=== PATIENT | male | born 1940 | race Caucasian/White ===

== ENCOUNTER 2019-05-22 11:00 | Outpatient (RCR) | payer SELFPAY | END 2019-06-21 00:01 | LOC: CR 11:00 | PROVIDERS: Family Provider Family Medicine; Visit Provider Thoracic Surgery (Cardiothoracic Vascular Surgery) | DX: Z48.812 Encounter for surgical aftercare following surgery on the circulatory system (principal) ==

== ENCOUNTER 2019-07-22 15:00 | Outpatient (RCR) | payer SELFPAY | END 2019-07-22 23:59 | disposition home or self-care (01) | LOC: CR 15:00 | PROVIDERS: Family Provider Family Medicine; PCP Family Medicine; Referring Provider Thoracic Surgery (Cardiothoracic Vascular Surgery); Visit Provider Thoracic Surgery (Cardiothoracic Vascular Surgery) | DX: Z53.21 Procedure and treatment not carried out due to patient leaving prior to being seen by health care provider (principal) ==

== ENCOUNTER 2019-07-25 14:42 | Outpatient (RCR) | payer SELFPAY | END 2019-08-20 23:59 | disposition home or self-care (01) | LOC: CR 14:42 | PROVIDERS: Family Provider Family Medicine; PCP Family Medicine; Referring Provider Thoracic Surgery (Cardiothoracic Vascular Surgery); Visit Provider Thoracic Surgery (Cardiothoracic Vascular Surgery) | DX: Z95.1 Presence of aortocoronary bypass graft (principal) ==

== ENCOUNTER 2019-11-21 15:14 | Outpatient (RCR) | payer SELFPAY | END 2019-12-20 23:59 | disposition home or self-care (01) | LOC: CR 15:14 | PROVIDERS: Family Provider Family Medicine; PCP Family Medicine; Referring Provider Thoracic Surgery (Cardiothoracic Vascular Surgery); Visit Provider Thoracic Surgery (Cardiothoracic Vascular Surgery) | DX: Z95.1 Presence of aortocoronary bypass graft (principal) ==

== ENCOUNTER 2019-11-24 09:31 | Outpatient (CLI) | payer MEDICARE, OTHER, SELFPAY ==
--- NOTE | 2019-11-24 10:15 | USCV_ITS ---
QuispeAugusto tipton Age: 79 Gender: M : 1940 Exam Date: 11/24/2019 09:49 Ordering Phys: Ulisses Sweet MD ([email or web address]) Technologist: Bobbi Kidd Exam Location: [facility] [place] Indication: AAA HISTORY: Diameter (cm) AP x Transverse x Length Velocity (cm/s) Waveform Prox Aorta: 5.45 x 4.28 x 5.24 16.60 Mid Aorta: 4.84 x 5.06 x 4.70 15.90 Distal Aorta: 3.29 x 3.58 x 3.64 15.90 Right Iliac Prox: 1.17 x x 36.00 Left Iliac Prox: 0.93 x x 33.30 Stent Prox Landing x x Aneurysmal Sac Max x x Lt Lat Sac Dim Rt Lat Sac Dim Stent Dist Landing x x Right Iliac Stent x x Left Iliac Stent x x Right Renal Art Left Renal Art FINDINGS: Aneurysmal dilatation of the proximal, mid and distal abdominal aorta, measuring 5.45 x 4.28 proximally, 4.84 x 5.06 at the mid and 3.29 x 3.58 at the distal segments The proximal common iliac arteries were not well visualized. CONCLUSIONS 1. Aneurysmal dilatation of the proximal, mid and distal abdominal aorta, with no significant change, compared to the study from 02/09/2019. 2. The proximal common iliac arteries were not visualized well Dr Shania Calderon MD [facility] (Electronically Signed) Final Date: 24 November 2019 18:12 S
== END 2019-11-24 09:32 | disposition home or self-care (01) ==
LOC: RAD 09:36
PROVIDERS: Family Provider Family Medicine; PCP Family Medicine; Visit Provider Internal Medicine Cardiovascular Disease
DX: I71.4 Abdominal aortic aneurysm, without rupture (principal)
CPT/HCPCS: 93978

== ENCOUNTER 2019-12-21 | Outpatient (RCR) | payer SELFPAY | END 2020-01-20 23:00 | disposition home or self-care (01) | LOC: CR | PROVIDERS: PCP Family Medicine; Referring Provider Thoracic Surgery (Cardiothoracic Vascular Surgery); Visit Provider Thoracic Surgery (Cardiothoracic Vascular Surgery) | DX: Z95.1 Presence of aortocoronary bypass graft (principal) ==

== ENCOUNTER 2020-01-24 14:35 | Outpatient (RCR) | payer SELFPAY | END 2020-02-20 23:59 | disposition home or self-care (01) | LOC: CR 14:35 | PROVIDERS: Family Provider Family Medicine; PCP Family Medicine; Referring Provider Internal Medicine Cardiovascular Disease; Visit Provider Internal Medicine Cardiovascular Disease | DX: Z95.1 Presence of aortocoronary bypass graft (principal) ==

== ENCOUNTER 2020-02-08 22:49 | Emergency (ER) | payer MEDICARE, OTHER, SELFPAY ==
[2020-02-08 23:13] VITALS: BP 135/85; PULSE 72; RESP 18; TEMP 36.7; O2SAT 96; BMI 27.2
--- NOTE | 2020-02-09 00:35 | ED_ITS ---
HPI - Male Genitourinary General: Chief complaint: Urogenital-Male Stated complaint: blood in urine Time Seen by Provider: 02/09/20 00:27 Source: patient Mode of arrival: ambulatory Limitations: no limitations History of Present Illness: HPI Narrative: 79-year-old male who states he started having gross hematuria today. He does have a history of prostate cancer is in remission. He denies any pain. He denies any pain when he urinates denies any abdominal or flank pain. He is not on any blood thinners. He denies any worsening improving factors. Associated symptoms: Reports hematuria; Deny nausea or vomiting Review of Systems Const: Denies: fever(s), chills, body aches or change in appetite Eyes: Denies: blurry vision or eye discomfort ENMT: Denies: throat pain or dental pain Card: Denies: chest pain Resp: Denies: dyspnea GI: Denies: abdominal pain, nausea, vomiting or diarrhea : Reports: hematuria Musc: Denies: neck pain or back pain Skin/Breast: Denies: rash Neuro: Denies: headache(s) Psych: Denies: depression Aaron/Lymph: Denies: easy bruising All/Imm: Denies: urticaria PFSH ED PFSH: Medical History Abdominal aortic aneurysm (AAA) Aortic stenosis ASHD (arteriosclerotic heart disease) Carotid stenosis, bilateral HTN (hypertension) Hyperlipidemia Renal insufficiency Surgical History S/P CABG (coronary artery bypass graft) Family History Brother CAD (coronary artery disease) Other Hypertension Social History Smoking and tobacco status: former smoker Household members: spouse Marital status: service: No Current occupational status: retired Physical Exam Const: COMMON NORMALS: no acute distress, patient oriented x3 and healthy appearing HENMT: COMMON NORMALS: normocephalic and atraumatic HEAD & SCALP: normocephalic and atraumatic Eye: COMMON NORMALS: Equal, round and reactive pupils present and EOMs intact bilaterally PUPIL: Yes Equal, round and reactive pupils present Neck/C-Spine: COMMON NORMALS: full ROM and supple Chest: COMMONS NORMALS: normal inspection of the chest and normal palpation of entire chest wall Resp: COMMON NORMALS: normal respiratory effort, No retractions, No use of accessory muscles and clear to auscultation bilaterally AUSCULTATION: clear to auscultation bilaterally Cardio: COMMON NORMALS: regular rate, regular rhythm and No murmurs present (Cardio) RATE: regular rate RHYTHM: regular rhythm GI: COMMON NORMALS: Normal to inspection, nondistended, normoactive bowel sounds present, Soft to palpation, non-tender and no masses PALPATION: Yes Soft to palpation Extremity: COMMON NORMALS: normal to inspection and full ROM Neuro: COMMON NORMALS: patient oriented x3, moves all extremities and no focal motor deficits Psych: COMMON NORMALS: mental status grossly normal, Normal thought process present and cooperative THOUGHT PROCESS: Normal thought process present Skin: COMMON NORMALS: no rashes or lesions noted and no wounds GENERAL SKIN EXAM: no rashes or lesions noted Course Vital Signs: Vital signs: Vital Signs Temperature 98.0 F 02/08/20 23:13 Pulse Rate 72 02/08/20 23:13 Respiratory Rate 18 02/08/20 23:13 Blood Pressure 135/85 02/08/20 23:13 Pulse Oximetry 96 02/08/20 23:13 MDM - Male MDM Narrative: Medical decision making narrative: Patient presents here with hematuria that is gross hematuria. CT scan shows renal cyst. No other findings were noted. Patient's lab work here is normal as well. He is to follow-up with Dr. Jackson in 3 to 5 days. Patient is return if worsening. Lab Data: Labs: Lab Results 02/09/20 02/09/20 02/09/20 Range/Units 00:25 01:10 01:10 WBC 8.8 (4.0-10.0) 10^3/ uL RBC 4.18 (4.1-5.3) 10^6/u L Hgb 12.9 (11.7-16.6) g/dL Hct 40.0 L (42.0-52.0) % MCV 95.7 H (80-94) fL MCH 30.9 (28.0-34.0) pg MCHC 32.3 (30.0-36.0) g/dL RDW 13.0 (12.1-15.1) % Plt Count 176 (130-400) 10^3/c mm MPV 10.8 H (7.4-10.4) fL Neut % (Auto) 34.7 % Lymph % (Auto) 56.8 % [place] % (Auto) 6.4 % Eos % (Auto) 1.6 % Baso % (Auto) 0.3 % Neut # (Auto) 3.06 (1.8-7.7) 10^3/u L Lymph # (Auto) 5.0 H (0.8-4.8) 10^3/u L [place] # (Auto) 0.6 (0.2-0.9) 10^3/u L Eos # (Auto) 0.1 (0.0-0.8) 10^3/u L Baso # (Auto) 0.0 (0.0-0.1) 10^3/u L Nucleated RBC % (a uto) 0 % Nucleated RBCs # 0.0 /100WBC PT (12.1-14.9) SECO NDS INR (0.8-1.2) Sodium 138 (136-145) mmol/L Potassium 5.0 (3.5-5.1) mmol/L Chloride 106 (98-107) mmol/L Carbon Dioxide 23 (22-29) mmol/L Anion Gap 14.0 (5-19) BUN 24 H (8-23) mg/dL Creatinine 2.1 H (0.7-1.2) mg/dL GFR Calculation Not Reportable Glucose 112 (65-115) mg/dL Calculated Osmolal ity 284 L (285-295) mOsm/k g Calcium 9.4 (8.5-10.5) mg/dL Total Bilirubin 0.2 (0.15-1.2) mg/dL AST 28 (0-40) U/L ALT 24 (0-41) U/L Alkaline Phosphata se 116 (40-130) IU/L Total Protein 7.5 (6.6-8.7) g/dL Albumin 4.6 (3.5-5.2) g/dL Globulin 2.9 (1.3-4.6) g/dL Urine Color Red (Yellow) Urine Appearance Cloudy (CLEAR) Urine pH 6 (5-7) Ur Specific Gravit y 1.015 (1.005-1.030) Urine Protein Neg (Negative) Urine Glucose (UA) Norm (Normal) Urine Ketones Negative (Negative) Urine Blood 3+ H (Negative) Urine Nitrate Negative (Negative) Urine Bilirubin Neg (NEGATIVE) Urine Urobilinogen Norm (Negative) mg/dL Ur Leukocyte Yelitza ase Negative (Negative) Urine RBC >100 H (0-2) /hpf Urine WBC Rare (0-5) /hpf Ur Squamous Epith Cells Rare (0-5) Amorphous Sediment Not Reportable Urine Bacteria Trace (NONE) 02/09/20 Range/Units 01:10 WBC (4.0-10.0) 10^3/ uL RBC (4.1-5.3) 10^6/u L Hgb (11.7-16.6) g/dL Hct (42.0-52.0) % MCV (80-94) fL MCH (28.0-34.0) pg MCHC (30.0-36.0) g/dL RDW (12.1-15.1) % Plt Count (130-400) 10^3/c mm MPV (7.4-10.4) fL Neut % (Auto) % Lymph % (Auto) % [place] % (Auto) % Eos % (Auto) % Baso % (Auto) % Neut # (Auto) (1.8-7.7) 10^3/u L Lymph # (Auto) (0.8-4.8) 10^3/u L [place] # (Auto) (0.2-0.9) 10^3/u L Eos # (Auto) (0.0-0.8) 10^3/u L Baso # (Auto) (0.0-0.1) 10^3/u L Nucleated RBC % (a uto) % Nucleated RBCs # /100WBC PT 12.70 (12.1-14.9) SECO NDS INR 0.92 (0.8-1.2) Sodium (136-145) mmol/L Potassium (3.5-5.1) mmol/L Chloride (98-107) mmol/L Carbon Dioxide (22-29) mmol/L Anion Gap (5-19) BUN (8-23) mg/dL Creatinine (0.7-1.2) mg/dL GFR Calculation Glucose (65-115) mg/dL Calculated Osmolal ity (285-295) mOsm/k g Calcium (8.5-10.5) mg/dL Total Bilirubin (0.15-1.2) mg/dL AST (0-40) U/L ALT (0-41) U/L Alkaline Phosphata se (40-130) IU/L Total Protein (6.6-8.7) g/dL Albumin (3.5-5.2) g/dL Globulin (1.3-4.6) g/dL Urine Color (Yellow) Urine Appearance (CLEAR) Urine pH (5-7) Ur Specific Gravit y (1.005-1.030) Urine Protein (Negative) Urine Glucose (UA) (Normal) Urine Ketones (Negative) Urine Blood (Negative) Urine Nitrate (Negative) Urine Bilirubin (NEGATIVE) Urine Urobilinogen (Negative) mg/dL Ur Leukocyte Yelitza ase (Negative) Urine RBC (0-2) /hpf Urine WBC (0-5) /hpf Ur Squamous Epith Cells (0-5) Amorphous Sediment Urine Bacteria (NONE) Imaging Data: CT Abd/Pel: Radiologist's impression: [place] [address] CT Scan Report Signed Patient: Augusto Quispe Unit #: [id number] : 1940 Age/Sex: 79 / M ADM Date: 02/08/20 Loc: ER Room/Bed: Attending Dr: Ordering Provider/Ordering MD: Sebastian Mckee MD Date of Service: 02/09/20 Procedure(s): CT abdomen pelvis con 15705 Accession Number(s): [id number] Report Number: [id number] PROCEDURE INFORMATION: Exam: CT Abdomen And Pelvis Without Contrast Exam date and time: 02/09/2020 12:36 AM Age: 79 years old Clinical indication: Other: Gross hematuria; Patient HX: HX prostate CA TECHNIQUE: Imaging protocol: Computed tomography of the abdomen and pelvis without contrast. Radiation optimization: All CT scans at this facility use at least one of these dose optimization techniques: automated exposure control; mA and/or kV adjustment per patient size (includes targeted exams where dose is matched to clinical indication); or iterative reconstruction. COMPARISON: CTA Abdomen/Pelvis [id number] 03/05/2015 10:17 AM RADIATION DOSE METRICS: Total DLP (mGy-cm): 1248.58 FINDINGS: Lungs: Centrilobular emphysematous changes. Right lower lobe 5 cm nodule. Left lower lobe atelectasis. Liver: Normal. No mass. Gallbladder and bile ducts: Normal. No calcified stones. No ductal dilation. Pancreas: Normal. No ductal dilation. Spleen: Normal. No splenomegaly. Adrenals: Normal. No mass. Kidneys and ureters: Bilateral renal cysts, no follow-up advised. Stomach and bowel: Unremarkable. No obstruction. No mucosal thickening. Appendix: No evidence of appendicitis. Intraperitoneal space: Unremarkable. No free air. No significant fluid collection. Vasculature: 5.3 cm infrarenal abdominal aortic aneurysm without findings of rupture. Lymph nodes: Unremarkable. No enlarged lymph nodes. Bladder: Unremarkable as visualized. Reproductive: Unremarkable as visualized. Bones/joints: Unremarkable. No acute fracture. Soft tissues: Unremarkable. CT/CT abdomen pelvis con [id number] IMPRESSION: 1. Negative for acute inflammatory process in the abdomen or pelvis 2. Centrilobular emphysematous changes. 3. Right lower lobe 5 cm nodule. For patients at low risk (minimal or absent history of smoking and of other known risk factors), no routine follow-up is indicated. For patients at high risk (history of smoking or of other known risk factors), consider optional CT at 12 months. (Reanna et al., Fleischner Society, 2017) 4. Left lower lobe atelectasis. 5. Bilateral renal cysts, no follow-up advised. 6. 5.3 cm infrarenal abdominal aortic aneurysm without findings of rupture. Discharge Plan Discharge Patient Disposition: Home Clinical Impression: Hematuria Qualifiers: Hematuria type: gross Qualified Code(s): R31.0 - Gross hematuria Condition: Stable Prescriptions: No Action metoprolol tartrate 25 mg tablet 12.5 mg PO BID RF: 0 omeprazole 20 mg capsule,delayed release(DR/EC) 20 mg PO DAILY RF: 0 nitroglycerin [Nitrostat] 0.4 mg tablet, sublingual 0.4 mg SUBLINGUAL Q5M PRNRF: 0 Livalo 2 mg tablet 2 mg PO DAILY RF: 0 omega-3 fatty acids 1,000 mg capsule 1,000 mg PO DAILY RF: 0 magnesium oxide 400 mg magnesium capsule 400 mg PO DAILY RF: 0 aspirin [Aspir-81] 81 mg tablet,delayed release (DR/EC) 81 mg PO DAILY RF: 0 Centrum Silver Men 300-600-300 mcg tablet 1 tab PO DAILY RF: 0 Discharge Orders: Discharge Order (Routine); Ordered 02/09/20 Ordered By: Sebastian Mckee Referrals: Rober Jackson MD [Physician] - 1-3 days Andry Laurent MD [Primary Care Provider] - Discharge Diet: Advance as tolerated Discharge Activity: Resume usual activity Patient Instructions: Acute Hematuria (ED) Coding Level of Care Code ED Sales Financial Analyst for Chg Fwd Exam Comprehensive
[2020-02-09 01:04] LABS: Add Urine Microscopic? YES; Bilirubin Urine Neg (NEGATIVE); Blood Urine 3+ (Negative); Glucose Urine UA Norm (Normal); Ketones Urine Negative (Negative); Leukocyte Esterase Urine Negative (Negative); Nitrate Urine Negative (Negative); Protein Urine Neg (Negative); Specific Gravity, Urine 1.015 (1.005-1.030); Urine Appearance Cloudy (CLEAR); Urine Color Red (Yellow); Urobilinogen Urine Norm (Negative); pH Urine 6 (5-7)
[2020-02-09 01:05] LABS: Add Urine Culture? Yes; Bacteria Urine TRACE; RBC Urine >100 /hpf (0-2); Squamous Epithelial Cell Urine RARE (0-5); WBC Urine RARE /hpf (0-5)
[2020-02-09 01:22] LABS: Basophils % 0.3 %; Eosinophils # 0.1 10^3/uL (0.0-0.8); Eosinophils % 1.6 %; Hemoglobin 12.9 g/dL (11.7-16.6); Lymphocytes % 56.8 %; Mean Corpuscular HGB Conc 32.3 g/dL (30.0-36.0); Mean Corpuscular Hemoglobin 30.9 pg (28.0-34.0); Mean Corpuscular Volume 95.7 fL (80-94); Mean Platelet Volume 10.8 fL (7.4-10.4); Monocytes # 0.6 10^3/uL (0.2-0.9); Monocytes % 6.4 %; Neutrophils # 3.06 10^3/uL (1.8-7.7); Neutrophils % 34.7 %; Nucleated Red Blood Cells % 0 %; Platelet Count 176 10^3/cmm (130-400); Red Blood Count 4.18 10^6/uL (4.1-5.3); White Blood Count 8.8 10^3/uL (4.0-10.0)
[2020-02-09 01:34] LABS: INR 0.92 (0.8-1.2)
[2020-02-09 01:43] LABS: Alanine Aminotransferase 24 U/L (0-41); Albumin Level 4.6 g/dL (3.5-5.2); Alkaline Phosphatase 116 IU/L (40-130); Blood Urea Nitrogen 24 mg/dL (8-23); Calcium 9.4 mg/dL (8.5-10.5); Carbon Dioxide 23 mmol/L (22-29); Chloride 106 mmol/L (98-107); Globulin 2.9 g/dL (1.3-4.6); Glucose 112 mg/dL (65-115); Osmolality Calculated 284 mOsm/kg (285-295); Sodium 138 mmol/L (136-145); Total Bilirubin 0.2 mg/dL (0.15-1.2); Total Protein 7.5 g/dL (6.6-8.7)
[2020-02-09 01:44] LABS: Aspartate Amino Transferase 28 U/L (0-40)
[2020-02-09 02:12] VITALS: BP 132/74; PULSE 74; RESP 16; O2SAT 99
--- NOTE | 2020-02-09 10:24 | DCPLANNER ---
hotel recreational facilities manager had message to schedule follow up appointment for patient with Dr. Jackson. hotel recreational facilities manager called the office of Dr. Jackson, spoke with Shannon, gave clinic patients information. hotel recreational facilities manager was told that patients information would be printed and given to Talia for review. Clinic will call patient with appointment information.
--- NOTE | 2020-02-10 13:18 | DCPLANNER ---
Patient has a follow up appointment for patient with Dr. Jackson, scheduled for Thursday, March 19, 2020 at 8:00. Clinic will call patient with appointment information.
--- NOTE | 2020-03-01 07:49 | DCPLANNER ---
Patient had an appointment scheduled for 02.17.[address] Jackson - patient did attend the appointment.
== END 2020-02-09 02:13 | disposition home or self-care (01) ==
PROVIDERS: Emergency Provider Emergency Medicine; PCP Family Medicine
DX: R31.0 Gross hematuria (principal); Z79.82 Long term (current) use of aspirin; I10 Essential (primary) hypertension; E78.5 Hyperlipidemia, unspecified; Z95.1 Presence of aortocoronary bypass graft; Z87.891 Personal history of nicotine dependence
CPT/HCPCS: 12345; 74176; 80053; 81001; 85025; 85610; 87086; 99282; 99283

== ENCOUNTER → 2020-02-17 11:23 | Outpatient (BNVA) | payer MEDICARE, OTHER, SELFPAY | PROVIDERS: PCP Family Medicine; Visit Provider Urology | DX: N28.9 Disorder of kidney and ureter, unspecified (principal); R33.8 Other retention of urine; D49.4 Neoplasm of unspecified behavior of bladder; R31.0 Gross hematuria; I35.0 Nonrheumatic aortic (valve) stenosis; C61 Malignant neoplasm of prostate; R31.9 Hematuria, unspecified | CPT/HCPCS: 80053; 81001; 84153; 88112 ==

== ENCOUNTER 2020-02-21 14:56 | Outpatient (RCR) | payer OTHER, SELFPAY | END 2020-03-21 23:59 | disposition home or self-care (01) | LOC: CR 14:56 | PROVIDERS: Family Provider Family Medicine; PCP Family Medicine; Referring Provider Internal Medicine Cardiovascular Disease; Visit Provider Internal Medicine Cardiovascular Disease | DX: Z11.59 Encounter for screening for other viral diseases (principal); Z95.1 Presence of aortocoronary bypass graft | CPT/HCPCS: 87635 ==

== ENCOUNTER 2020-02-23 13:34 | Inpatient (IN) | payer MEDICARE, OTHER, SELFPAY ==
[2020-02-22 12:16] VITALS: BMI 27.2
--- NOTE | 2020-02-22 12:23 | ECG_ITS ---
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 Measurements Intervals [place] Rate: 63 P: 67 CT: 191 QRS: 42 QRSD: 79 T: 31 QT: 388 QTc: 399 Interpretive Statements SINUS RHYTHM NONSPECIFIC T-WAVE ABNORMALITY Compared to ECG 05/05/2018 05:48:34 T-wave abnormality now present Myocardial infarct finding no longer present Electronically Signed On 02-22-2020 18:51:39 CDT by Ravinder Fortune M.D. [id number]
--- NOTE | 2020-02-22 13:42 | ANES.PREANE2 ---
Pre-Anesthetic Assessment Pre-Anesthetic Assessment: Height/Weight: Height 1.7 m Weight 78.925 kg Preop Diagnosis: Newly diagnosed bladder lesion Proposed Procedure: Operation Date: 02/23/20 12:00 Proposed Procedures p Transurethral Resection Bladder Tumor 67591 D49.4(Not Applicable) - Rober Jackson MD s Cystoscopy(Not Applicable) - Rober Jackson MD Familial anesthetic complications: None Social: Social History: No alcohol and No tobacco Exam: Pre-Anes Outpt Exam: alert, oriented x 3, clear to auscultation bilaterally and regular rate & rhythm Airway: Cervical ROM: WNL MP: 2 Dentition: Chipped and Partials Pulmonary: Pulmonary: None reported CV/HEM: CV/HEM: HTN Comments: CABG X 3 in april with arango Aortics stenosis AAA : : Chronic renal Insufficiency GI: GI: GERD Anesthetic Plan: ASA status: 3 Anesthesia: General Risk of > 500 ml blood loss (7ml/kg in children): No PFSH Anesthesia PFSH: Medical History (Updated 02/17/20 @ 09:54 by Rober Jackson MD) Abdominal aortic aneurysm (AAA) Aortic stenosis ASHD (arteriosclerotic heart disease) Bladder tumor Carotid stenosis, bilateral HTN (hypertension) Hyperlipidemia Prostate CA Renal insufficiency Surgical History S/P CABG (coronary artery bypass graft) Family History Brother CAD (coronary artery disease) Other Hypertension Social History Smoking and tobacco status: former smoker Household members: spouse Marital status: service: No Current occupational status: retired Data Anesthesia Cardiac Studies: No Data to Display
[2020-02-23] VITALS (12 sets, daily range): BP systolic 113–168; BP diastolic 71–91; PULSE 66–88; RESP 15–19; TEMP 36.2–36.9; O2SAT 92–99
[2020-02-23] MEDS: sodium chloride 0.9% 1,000 ML 30 ML IV (10:45)
--- NOTE | 2020-02-23 11:34 | P.ANESUD_ITS ---
Pre-Anesthetic Update Pre-Anesthetic Assessment: Date of Surgery/Procedure: 02/23/20 Preop Karol gnosis: Newly diagnosed bladder lesion Proposed Procedure: Operation Date: 02/23/20 12:00 Proposed Procedures p Transurethral Resection Bladder Tumor 22534 D49.4(Not Applicable) - Rober Jackson MD s Cystoscopy(Not Applicable) - Rober Jackson MD Any changes to Pre-Anesthetic Assessment?: No Last Intake: Intake Last Liquid Date 02/22/20 Last Liquid Time 00:00 Last Solid Date 02/22/20 Last Solid Time 17:00 Vitals: Temperature 97.2 F L 02/23/20 10:40 Pulse Rate 66 02/23/20 10:40 Respiratory Rate 16 02/23/20 10:40 Blood Pressure 168/91 02/23/20 10:40 Blood Pressure Jesica n 116 02/23/20 10:40 Pulse Oximetry 98 02/23/20 10:40 Exam: Pre-Anes Outpt Exam: alert, oriented x 3, clear to auscultation bilaterally and regular rate & rhythm Other Pertinent Information: Other Pertinent Information: Took metoprolol this AM Cardiac Studies: No Data to Display
[2020-02-23] MEDS: levofloxacin-dextrose 5 % 500 MG/100 ML PREMIX 100 MG IV (12:25)
--- NOTE | 2020-02-23 12:27 | P.HPUD_ITS ---
Surgery/Procedure H&P Update DATE OF PROCEDURE: February 23, 2020 DATE H&P PERFORMED: 02/17/20 H&P UPDATE INFORMATION: I have reviewed H&P completed within last 30 days, I have examined patient prior to procedure, No changes to prior documentation and H&P is in [facility] EMR on date indicated PREOP DIAGNOSIS: Newly diagnosed bladder lesion PLANNED PROCEDURE: Operation Date: 02/23/20 12:00 Proposed Procedures p Transurethral Resection Bladder Tumor 92844 D49.4(Not Applicable) - Rober Jackson MD s Cystoscopy(Not Applicable) - Rober Jackson MD
--- NOTE | 2020-02-23 12:27 | P.OP_ITS ---
Operative Report Date of procedure: February 23, 2020 Pre-op Diagnosis: Newly diagnosed bladder lesion Post-op diagnosis: same Procedure Done: Cystoscopy, transurethral section of bladder tumor medium Implants: None Pathology: Bladder tumor resection Surgeon: Renetta Anesthesia: General Estimated blood loss: Minimal Urine output: Not measured Complications: None Findings: Papillary lesion near the left ureteral orifice close to the bladder neck as seen in clinic. Completely resected Condition: stable Disposition: PACU Brief History: Mr. Be is a very pleasant 79-year-old white male who I followed remotely for prostate cancer with no evidence of recurrence. Recently presented to the office after ER visit for gross hematuria. CT scan showed some bilateral renal cystic changes that appeared to be benign. Culture showed no evidence of infection. Creatinine was 2.1. Urinalysis showed 4-6 RBCs and his PSA was 1.4 with a small benign feeling ELIE. Cystoscopy revealed papillary lesion just inside the bladder neck on the left side near the left ureteral orifice and was suspicious for TCCA and for that reason he is being admitted now for TURBT Procedure: After routine preoperative evaluation examination and obtaining of informed consent he was taken to the operating suite on 02/23/2020 where general anesthesia was administered without difficulty after appropriate timeout was performed, SCDs confirmed to be functioning, preoperative antibiotics administered, beta-magi protocol confirmed. Prepped and draped in the usual sterile fashion in dorsolithotomy position pain careful attention to avoiding pressure points. 21 Luxembourgish cystoscope with 30 degree lens was introduced into the urethral meatus and advanced into the bladder under videoscopy. Bladder was systematically examined with both 30 and 70 degree lenses. The lesion identified in clinic was identified. No other areas of concern were found. Urethra then calibrated with Joanie sounds and easily accommodated 30 Luxembourgish. 2% lidocaine jelly was instilled into the urethra and a 25 [place]bourgish continuous flow resectoscope sheath with visual obturator in place was advanced into the bladder without difficulty. The super loop was utilized for resection the button probe for fulguration of the base. The lesion was completely resected deep into the bladder wall pain careful attention to avoiding resection on or near the orifice. The button probe was used to fulgurate the base. Samples were removed from the bladder with an Oncovision evacuator. At the final inspection the ureteral orifice was uninvolved in the resection and effluxing normally. Tolerated procedure well without complication. At completion of the procedure the bladder was drained with a catheter after confirming no specimens in the bladder and meticulous hemostasis. Awakened in the operating room and returned to the recovery room in stable condition. PLANS: 1. Maintain on observation status overnight
[2020-02-23] MEDS: lidocaine 2% Urojet 20 mL TOPICAL (13:05)
--- NOTE | 2020-02-23 13:27 | SUR.PHASEI ---
PT AWAKE ALERT ON RA TRIAL PT ALERT TALKATIVE DENIES PAIN AND NAUSEA, VSS PT TO GO TO FLOOR HOGAN PATENT OF SMALL AMT CLEAR YELLOW URINE.
--- NOTE | 2020-02-23 13:50 | PM.PACU ---
PACU note Post-Anesthesia Exam: awake and vital signs stable Disposition: admitted
--- NOTE | 2020-02-23 13:59 | SUR.PHASEI ---
1355 PT TO FLOOR MOVES SELF TO BED HOGAN PATENT OF MOD AMT CLEAR YELLOW URINE, VSS PT TALKATIVE, HANDOFF AT BEDSIDE BP 130/80, HR 78, RESP 18, SATS 93%
[2020-02-23] MEDS: sodium chloride 0.45% 1,000 ML 30 ML IV (14:36)
[2020-02-23 17:02] LABS: Glucose Point of Care 87 mg/dL (70-110)
[2020-02-23] MEDS: metoprolol tartrate 25 mg Tablet 12.5 MG PO (17:16)
--- NOTE | 2020-02-23 18:17 | PC.NURSE ---
END OF SHIFT SUMMARY pt arrived on the unit at 1359. pt has been able to take a nap off and on since pt arrived on the unit. pt able to take evening po meds well. pt has stated no needs at this time.
[2020-02-23] MEDS: HYDROcodone-acetaminophen 5-325 mg Tablet 1 TAB PO (22:04)
[2020-02-24] VITALS (7 sets, daily range): BP systolic 103–123; BP diastolic 62–81; PULSE 67–96; RESP 16–18; TEMP 36.9–37.3; O2SAT 92–94
--- NOTE | 2020-02-24 07:31 | ANE.PACU2 ---
Inpatient post-anesthesia follow up: Airway intact: Yes Vital signs: Temperature 98.4 F Pulse Rate 80 Respiratory Rate 18 Blood Pressure 123/77 Pulse Oximetry 92 Oxygen Delivery Me thod Room Air Oxygen Flow Rate 8 Fraction of Inspir ed Oxygen Hydration adequate: Yes Nausea and vomiting: No Pain level: 1 Mental status: Baseline
[2020-02-24] MEDS: metoprolol tartrate 25 mg Tablet 12.5 MG PO ×2 (08:35→17:49)
[2020-02-24] MEDS: omega-3 fatty acids 1,000 mg Capsule 1000 MG PO (08:36)
[2020-02-24] MEDS: pantoprazole DR 40 mg Tablet PO (08:36)
[2020-02-24] MEDS: atorvastatin 40 mg Tablet 20 MG PO (08:38)
--- NOTE | 2020-02-24 14:23 | PC.CHAP ---
Pastoral Care Encounter/Spiritual Assessment Type of Contact [] Declined pharmacy buyer visit [] Patient/Family/Request visit [] Outpatient visit [] Follow-up visit [] Physician referral [] Code/Alert [x] Routine visit [] Staff referral [] Actively dying [] Patient sleeping [] Family support [] [] Out of room [] Palliative care [] [] Receiving care in room [] Pre-surgical visit [] Trauma [] Long length of stay [] ICU visit [] Other: Relational/Emotional Strength [x] Patient feels connected with others/family/visitors/staff [] Distress [] Loneliness/isolation [] Abandonment Spirituality of Patient [] Person of Oralia [] Attends Hoahaoism of their Oralia [x] Believes in Prayer [] Reads Bible or Baptism materials [x] There are Spiritual issues to be addressed Extrusion Die Corrector Interventions [x] Prayer [x] Active listening [x] Non-anxious presence [x] Spiritual/emotional support [] Crisis/trauma care [] Spiritual counseling [] Bereavement support [] Provided bereavement packet [] Provided Bible/devotional materials [] Provided toy/stuffed animal, coloring book to patient or family member [] Provided Communion [] Anointing/[place] [] Salvation [x] Completed spiritual assessment [] Other: Impact on Illness or Injury [] Angry [] Fearful [x] Anxious [] Often cries [] Exhaustion [] Unable to work [] Unable to attend congregation [] Unable to walk/stand [] Unable to read [] Unable to drive [] Unable to eat/drink [] Unable to sleep [] Unable to be with family [] Patient intubated [] Other: Summary Patient discussed his procedure and that he felt good and was just waiting to see the doctor in hopes of being released soon. Patient indicated that he was very hot and that his temperature was normal. Nursing staff followed the pharmacy buyer in the room and turned the air conditioning temperature down 2 more degrees. Extrusion Die Corrector prayed with the patient and told him that if he needed anything from the chaplains to just let his nursing staff know and they would contact us. Patient was visited by Extrusion Die Corrector Willem Maravilla. Time spent with patient 8 minutes
--- NOTE | 2020-02-24 14:57 | PC.NURSE ---
1405 Dr Jackson instilled m. chemo in bladder. Dr said to see if he could see if pt can hold it until 1500, if not ok to remove early. Pt made it until 1440 and could not hold it any longer. removed chemo and put it in bio hazard container. Vogt removed with 10ml of ns removed. Pt tolerated it fine.
--- NOTE | 2020-02-24 16:27 | PC.NURSE ---
post void bladder scanner showed 117ml.
--- NOTE | 2020-02-24 17:01 | P.DS_ITS ---
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 Extended onto the bladder neck admitted for TURBT Hospital Course Discharge Summary: He was admitted on the day of the procedure 02/23/2020. Procedure went well. Intraoperative findings included an area of papillary change suspicious for TCCA. It measured approximately 4 cm in size for total area resected. It was close to but did not involve the left ureteral orifice. His urine remained clear overnight. On postoperative day #1 he received mitomycin 40 mg instillation into the bladder holding it for about an hour before being drained. The catheter was then removed. He did have spontaneous voiding but not complete emptying. This is probably a reflection of bladder neck swelling due to the resection. It was decided to maintain him overnight due to the retention and continue in and out catheterization with possible Vogt replacement On postoperative day #2 he still felt that he was not voiding adequately. He did volunteer that probably for the last year leading up to the point of surgery he had noted increasing lower urinary tract symptoms including: Urgency, urgency incontinence, decreased force of stream, feeling of incomplete emptying. Based on the location of the tumor extending up onto the bladder neck I expected he is experiencing some postoperative edema making it more difficult to void. TAMSULOSIN was initiated and will be continued at discharge. We will plan on daily dosing until 02/27/2020 and then begin twice a day dosing. I will plan on seeing him in the office on 03/01/2020 for voiding trial and pathology review. Discharged on postoperative day #2. Vogt catheter in place leg bag and night bag. Physical Exam Const: COMMON NORMALS: no acute distress, alert and well nourished GENERAL APPEARANCE: well kempt and well developed ORIENTATION/CONSCIOUSNESS: not confused Resp: COMMON NORMALS: normal respiratory effort EFFORT & INSPECTION: No labored and No Actively coughing Extremity: COMMON NORMALS: no clubbing, cyanosis or edema Neuro: SENSORIUM/ORIENTATION: Yes alert Psych: COMMON NORMALS: mental status grossly normal APPEARANCE: Yes grossly normal and Yes well kempt ATTITUDE: Yes calm and Yes engaged Skin: COMMON NORMALS: no rashes or lesions noted and no jaundice GENERAL SKIN EXAM: no rashes or lesions noted Urinary Catheter Management^: Vogt: Cath Placed During This Visit: yes Urinary Catheter Date of Insertion: 02/23/20 Urinary Catheter Time of Insertion: 13:00 Discharge Data Data Completed and Pending: Labs from last 24 hours 02/23/20 16:47 POC Glucose 87 Vitals: Last Vital Signs Temp 98.4 F 02/24/20 15:19 Pulse 81 02/24/20 15:19 Resp 18 02/24/20 15:19 BP 123/81 02/24/20 15:19 Pulse Ox 94 02/24/20 15:19 Discharge Plan Discharge Condition: Stable Prescriptions: New tamsulosin 0.4 mg capsule 0.4 mg PO BIDWM Qty: 60 RF: 5 sulfamethoxazole-trimethoprim 800-160 mg tablet 1 tab PO BID 7 Days Qty: 14 RF: 0 Continued metoprolol tartrate 25 mg tablet 12.5 mg PO BID RF: 0 omeprazole 20 mg capsule,delayed release(DR/EC) 20 mg PO DAILY RF: 0 Livalo 2 mg tablet 2 mg PO DAILY RF: 0 magnesium oxide 400 mg magnesium capsule 400 mg PO DAILY RF: 0 Centrum Silver Men 300-600-300 mcg tablet 1 tab PO DAILY RF: 0 Held omega-3 fatty acids 1,000 mg capsule 1,000 mg PO DAILY RF: 0 Hold Instructions: Resume on 03/09/20. aspirin [Aspir-81] 81 mg tablet,delayed release (DR/EC) 81 mg PO DAILY RF: 0 Hold Instructions: Resume on 03/09/20. Discharge Orders: Discharge Order (Routine); Ordered 02/24/20 Ordered By: Rober Jackson Referrals: Rober Jackson MD [Physician] - 03/01/20 10:15 am (Voiding trial, pathology report reviewed and consider the above information for this visit) Andry Laurent MD [Primary Care Provider] - 03/06/20 9:15 am (You have a hospital follow up appointment on March 06 at 9:15) Discharge Diet: Usual diet Discharge Activity: Limit activity as instructed Patient Instructions: Tamsulosin (By mouth), Hypertension, Transurethral Resection of Bladder Tumors (DC) Activity Restrictions/Additional Instructions: We will plan on a cystoscopy in follow-up of bladder lesion in about 2 months. We will do a voiding trial on 03/01/2020 in the morning. Should have the pathology report back by that time. Avoid lifting >10 pounds for 3 weeks Starting the TAMSULOSIN. While in the hospital. Swelling take it daily and then on Thursday the begin taking it twice a day Discharge Attestations Time Spent in Discharge Care*: greater than 30 min Quality Metrics Clinical Quality Measures During this hospital stay, did patient experience: None Coding Level of Care Code Acute Kiss Machine Operator for Chg Fwd Exam Detailed Diagnoses Bladder tumor D49.4 Postoperative urinary retention N99.89; R33.8 BPH loc w urin obs/LUTS N40.1
--- NOTE | 2020-02-24 17:06 | PM.PN ---
Subjective Subjective: Interval history: Urology follow-up Postoperative day #1 TURBT. Urine is clear. No significant complaints. No chest pain shortness of breath etc. PROCEDURE: Intravesical chemotherapy instillation. 40 mg of mitomycin and 40 cc normal saline instilled into the bladder per protocol. Drained every roughly 1 hour. Tolerated well. 6 bottle void ordered. As the day progressed he voided some but not to completion. PVR measured about 200 cc. Was offered a catheter indwelling with possible discharge versus continue intermittent catheterization and he chose the latter. We will change to inpatient status overnight and likely discharge tomorrow hopefully without a catheter. Also will initiate TAMSULOSIN. Reevaluate in the morning for possible discharge or catheter placement and discharge Medications: Reviewed: Yes Vitals/I&O/Wt Last Vital Signs Temp 98.4 F 02/24/20 15:19 Pulse 81 02/24/20 15:19 Resp 18 02/24/20 15:19 BP 123/81 02/24/20 15:19 Pulse Ox 94 02/24/20 15:19 02/24/20 02/24/20 02/24/20 06:59 14:59 22:59 Intake Total 520 / 520 Output Total 1075 / 1075 300 / 300 30 / 330 Balance -1075 / -735 220 / 220 -30 / 190 Physical Exam Const: COMMON NORMALS: no acute distress and alert : OTHER: Urine is clear Neuro: SENSORIUM/ORIENTATION: Yes alert Psych: COMMON NORMALS: mental status grossly normal, Normal thought process present and cooperative ATTITUDE: Yes calm and Yes engaged THOUGHT PROCESS: Normal thought process present Urinary Catheter Management^: Vogt: Cath Placed During This Visit: yes Urinary Catheter Date of Insertion: 02/23/20 Urinary Catheter Time of Insertion: 13:00 A&P Assessment and plan (1) Bladder tumor: Status: Acute Attestations Medical Necessity Statement*: Changing to inpatient status due to retention postoperatively. We will continue intermittent catheterization tonight. He will be receiving care extending beyond 2 midnights. Coding Level of Care Code Acute Zigzag Elastic Attacher for Martha Enamorado Diagnoses Bladder tumor D49.4
[2020-02-24] MEDS: tamsulosin 0.4 mg Capsule PO (17:49)
[2020-02-25] VITALS: BP 121/71; PULSE 112; RESP 16; TEMP 37; O2SAT 96
[2020-02-25 04:00] VITALS: BP 139/85; PULSE 116; RESP 16; TEMP 36.8; O2SAT 95
[2020-02-25 07:28] VITALS: BP 125/83; PULSE 105; RESP 18; TEMP 37; O2SAT 93
[2020-02-25] MEDS: tamsulosin 0.4 mg Capsule PO (08:09)
[2020-02-25] MEDS: pantoprazole DR 40 mg Tablet PO (08:09)
[2020-02-25] MEDS: metoprolol tartrate 25 mg Tablet 12.5 MG PO (08:09)
[2020-02-25] MEDS: omega-3 fatty acids 1,000 mg Capsule 1000 MG PO (08:09)
[2020-02-25] MEDS: atorvastatin 40 mg Tablet 20 MG PO (08:11)
[2020-02-25 08:14] VITALS: BP 125/83; PULSE 105; RESP 18; TEMP 37; O2SAT 93
[2020-02-25 11:15] VITALS: BP 100/67; PULSE 90; RESP 18; TEMP 36.8; O2SAT 96
== END 2020-02-25 11:36 | disposition home or self-care (01) | DRG 669 ==
LOC: MEDSURG 13:34
PROVIDERS: Admitting Provider Urology; Family Provider Family Medicine; PCP Family Medicine; Visit Provider Urology
PROC: 0TBB8ZZ Excision of Bladder, Via Natural or Artificial Opening Endoscopic (ICD-10-PCS; principal; 2020-02-23 12:00)
PROC: 0TJB8ZZ Inspection of Bladder, Via Natural or Artificial Opening Endoscopic (ICD-10-PCS; CPT 52000; 2020-02-23 12:00)
DX: D49.4 Neoplasm of unspecified behavior of bladder (principal); N13.8 Other obstructive and reflux uropathy; N40.1 Benign prostatic hyperplasia with lower urinary tract symptoms; Z79.82 Long term (current) use of aspirin
CPT/HCPCS: 12345; 36416; 51702; 51798; 82962; 93005; G0378; J1956; J2370; J2405; J2704; J3010; J3490; J7030; J9280

== ENCOUNTER 2020-03-12 06:21 | Emergency (ER) | payer MEDICARE, OTHER, SELFPAY ==
[2020-03-12 06:26] VITALS: BP 151/92; PULSE 79; RESP 18; TEMP 36.3; O2SAT 99; BMI 27.4
--- NOTE | 2020-03-12 06:57 | ED_ITS ---
HPI - Abdominal Pain General: Chief Complaint: Abdominal Pain Stated Complaint: RIGHT SIDE PAIN Time Seen by Provider: 03/12/20 06:44 History of Present Illness: HPI narrative: 79-year-old male presents to the emergency room with complaint of right flank pain right-sided abdominal pain. He said he has had it for 4 to 5 years he seen his primary care doctor who advised him to drink water when he gets the pain when he drinks water it does seem to alleviate the pain. Recently began and was more intense on the right side of the abdomen migrated into the back is not had a fever denies dysuria no respiratory symptoms denies constipation or diarrhea. ER visit where she was noted to have hematuria. Please refer to Dr. Jackson did a cystoscopy found a mass in the bladder and he was taken to surgery the mass was biopsied and approximately a month ago the patient had a resection. Patient has done well since then he states he still awaiting the biopsy results. Pathology results in the chart states atypical cells suspicious for malignancy. MD elicited complaint: abdominal pain Pertinent past history: other (AAA) Onset (ago): year(s) (4-5) Pain Consistency: intermittent Location: RUQ Severity: moderate Quality: cramping Radiation: R flank Migration to: R flank Exacerbating factors: movement Relieving factors: nothing Associated Symptoms: Denies anorexia, belching, bloating, change in bowel habits, change in stool character, chills, coffee ground emesis, constipation, GI cramping, diarrhea, dyspepsia, dysuria, excessive flatus, fever(s), heartburn, hematochezia, hematuria, hematemesis, fecal incontinence, loose stools, melena, nausea, poor appetite, syncope and vomiting Review of Systems Const: Denies: fever(s) or chills ENMT: Denies: throat pain, ear or mastoid pain, nasal discharge or nasal congestion Card: Denies: syncope Resp: Denies: dyspnea, productive cough or non-productive cough GI: Denies: nausea, vomiting, hematemesis, coffee ground emesis, heartburn, diarrhea, constipation, bloating, GI cramping, belching, excessive flatus, fecal incontinence, change in bowel habits, change in stool character, hematochezia or melena : Denies: dysuria or hematuria Skin/Breast: Denies: rash or pruritus PFSH ED PFSH: Medical History Abdominal aortic aneurysm (AAA) Aortic stenosis ASHD (arteriosclerotic heart disease) Bladder tumor BPH loc w urin obs/LUTS Carotid stenosis, bilateral HTN (hypertension) Hyperlipidemia Prostate CA Renal insufficiency Surgical History S/P CABG (coronary artery bypass graft) Family History Brother CAD (coronary artery disease) Other Hypertension Social History Smoking and tobacco status: former smoker Household members: spouse Marital status: service: No Current occupational status: retired Physical Exam Const: COMMON NORMALS: no acute distress GENERAL APPEARANCE: cooperative and comfortable ORIENTATION/CONSCIOUSNESS: Yes awake, Yes oriented to person, Yes oriented to place and Yes oriented to time HENMT: COMMON NORMALS: normocephalic, atraumatic and hearing grossly normal bilaterally HEAD & SCALP: normocephalic and atraumatic Eye: COMMON NORMALS: Equal, round and reactive pupils present, EOMs intact bilaterally, conjunctivae normal and no scleral icterus CONJUNCTIVA: Yes conjunctivae normal PUPIL: Yes Equal, round and reactive pupils present Neck/C-Spine: COMMON NORMALS: full ROM, no lymphadenopathy, supple and no JVD Lymph: LYMPHATIC: no lymphadenopathy noted and no lymphedema noted Resp: COMMON NORMALS: normal respiratory effort, No retractions, No use of a ccessory muscles and clear to auscultation bilaterally AUSCULTATION: clear to auscultation bilaterally Cardio: COMMON NORMALS: no JVD, regular rate, regular rhythm and No murmurs present (Cardio) RATE: regular rate RHYTHM: regular rhythm GI: COMMON NORMALS: Soft to palpation and No hepatosplenomegaly present AUSCULTATION: Yes normoactive bowel sounds PALPATION: Yes Soft to palpation, No Tenderness to palpation present (GI), No Guarding due to palpation present (GI) and Yes No hepatosplenomegaly present : COMMON NORMALS: Yes no CVA tenderness BLADDER/KIDNEY EXAM: Yes no CVA tenderness Back/Pelvis: COMMON NORMALS: no CVA tenderness Extremity: COMMON NORMALS: normal to inspection, capillary refill normal, no clubbing, cyanosis or edema, no calf tenderness and no pedal edema Neuro: SENSORIUM/ORIENTATION: Yes oriented to person, Yes oriented to place and Yes oriented to time Skin: COMMON NORMALS: no rashes or lesions noted GENERAL SKIN EXAM: no rashes or lesions noted Course Vital Signs: Vital signs: Vital Signs Temperature 97.3 F L 03/12/20 06:26 Pulse Rate 74 03/12/20 10:30 Respiratory Rate 18 03/12/20 10:30 Blood Pressure 129/89 03/12/20 10:30 Pulse Oximetry 97 03/12/20 10:30 MDM - Abdominal Pain MDM Narrative: Medical decision making narrative: Reviewed findings with the patient. His creatinine is elevated but it is at his baseline. No evidence of pyelonephritis clinically does have mild bladder infection suspect this was causing a lot of his symptoms. We will go ahead and start him on Cipro 500 mg t wice daily for 5 days gave 1 g of Rocephin here start Cipro tomorrow if he has worsening or changes symptoms he should return to the emergency room. Lab Data: Labs: Lab Results 03/12/20 03/12/20 03/12/20 Range/Units 06:50 08:11 08:11 WBC 7.9 (4.0-10.0) 10^3/ uL RBC 3.89 L (4.1-5.3) 10^6/u L Hgb 12.1 (11.7-16.6) g/dL Hct 37.1 L (42.0-52.0) % MCV 95.4 H (80-94) fL MCH 31.1 (28.0-34.0) pg MCHC 32.6 (30.0-36.0) g/dL RDW 13.1 (12.1-15.1) % Plt Count 199 (130-400) 10^3/c mm MPV 9.9 (7.4-10.4) fL Neut % (Auto) 41.1 % Lymph % (Auto) 51.6 % [place] % (Auto) 5.3 % Eos % (Auto) 1.3 % Baso % (Auto) 0.4 % Neut # (Auto) 3.25 (1.8-7.7) 10^3/u L Lymph # (Auto) 4.1 (0.8-4.8) 10^3/u L [place] # (Auto) 0.4 (0.2-0.9) 10^3/u L Eos # (Auto) 0.1 (0.0-0.8) 10^3/u L Baso # (Auto) 0.0 (0.0-0.1) 10^3/u L Nucleated RBC % (a uto) 0 % Nucleated RBCs # 0.0 /100WBC Sodium 136 (136-145) mmol/L Potassium 4.6 (3.5-5.1) mmol/L Chloride 103 (98-107) mmol/L Carbon Dioxide 23 (22-29) mmol/L Anion Gap 14.6 (5-19) BUN 18 (8-23) mg/dL Creatinine 2.2 H (0.7-1.2) mg/dL GFR Calculation Not Reportable Glucose 118 H (65-115) mg/dL Calculated Osmolal ity 285 (285-295) mOsm/k g Calcium 9.9 (8.5-10.5) mg/dL Total Bilirubin 0.5 (0.15-1.2) mg/dL AST 22 (0-40) U/L ALT 22 (0-41) U/L Alkaline Phosphata se 125 (40-130) IU/L Total Protein 7.6 (6.6-8.7) g/dL Albumin 4.6 (3.5-5.2) g/dL Globulin 3.0 (1.3-4.6) g/dL Lipase 53 (13-60) U/L Urine Color Straw (Yellow) Urine Appearance Sl hazy (CLEAR) Urine pH 6.5 (5-7) Ur Specific Gravit y 1.005 (1.005-1.030) Urine Protein Neg (Negative) Urine Glucose (UA) Norm (Normal) Urine Ketones Negative (Negative) Urine Blood Neg (Negative) Urine Nitrate Negative (Negative) Urine Bilirubin Neg (Negative) Urine Urobilinogen Norm (Negative) mg/dL Ur Leukocyte Yelitza ase 2+ H (Negative) Urine RBC 0-4 H (0-2) /hpf Urine WBC 25-40 H (0-5) /hpf Ur Squamous Epith Cells Rare (0-5) /hpf Amorphous Sediment Not Reportable Urine Bacteria Trace (NONE) /hpf Urine Mucus Trace /hpf Discharge Plan Discharge Patient Disposition: Home Clinical Impression: Cystitis, Bladder tumor Condition: Stable Prescriptions: New Cipro 500 mg tablet 500 mg PO BID Qty: 10 RF: 0 No Action metoprolol tartrate 25 mg tablet 12.5 mg PO BID RF: 0 omeprazole 20 mg capsule,delayed release(DR/EC) 20 mg PO DAILY RF: 0 Livalo 2 mg tablet 2 mg PO DAILY RF: 0 omega-3 fatty acids 1,000 mg capsule 2,000 mg PO BID RF: 0 Hold Instructions: Resume on 03/09/20. magnesium oxide 400 mg magnesium capsule 400 mg PO DAILY RF: 0 aspirin [Aspir-81] 81 mg tablet,delayed release (DR/EC) 81 mg PO DAILY RF: 0 Hold Instructions: Resume on 03/09/20. Centrum Silver Men 300-600-300 mcg tablet 1 tab PO DAILY RF: 0 tamsulosin 0.4 mg capsule 0.4 mg PO BIDWM Qty: 60 RF: 5 carvedilol 3.125 mg Tablet 3.125 mg PO BID RF: 0 Discharge Orders: Discharge Order (Routine); Ordered 03/12/20 Ordered By: Darian Eric Referrals: Andry Laurent MD [Primary Care Provider] - Discharge Diet: Usual diet Discharge Activity: Increase activity as tolerated Activity Restrictions/Additional Instructions: Follow-up with your primary care doctor if not improving. If you have worsening symptoms return to the emergency room. Discharge Date/Time: 03/12/20 10:30 Coding Level of Care Code ED Computer Systems Technology Instructor for Martha Fwd Exam Comprehensive
--- NOTE | 2020-03-12 07:12 | CT_ITS ---
WS: [id number] CT ABDOMEN PELVIS TECHNIQUE: Noncontrast CT of the abdomen and pelvis with coronal and sagittal reformatted images. CLINICAL INFORMATION: abd pain COMPARISON: February 09, 2020 DLP: 598.[address] scans at [facility] use at least one of these dose optimization techniques: automat ed exposure control; mA and/or kV adjustment per patient size (includes targeted exams where dose is matched to clinical indication); or iterative reconstruction. FINDINGS: Infrarenal abdominal aortic aneurysm measuring 5.0 x 5.0 cm x 8.1 cm appears unchanged from previous. Ectatic common iliac arteries bilaterally. No inflammatory stranding about the abdominal aorta. Nonc ontrast liver is normal. Tiny calculi in the gallbladder. Small esophageal hiatal hernia. Sternotomy. Bibasilar atelectasis. Adrenal glands are normal. Right renal cysts the largest measuring 8.9 x 9.9 c m unchanged. No hydronephrosis. Bilateral renal cortical atrophy. Increased attenuation lesion upper pole right kidney measuring 1.9 cm is unchanged and appears increased in size since 2015. Solid renal neoplasm not excluded. Recommend interval follow-up with ultrasound. Fatty atrophy of the pancreas. Normal sigmoid colon. No evidence of small or large bowel obstruction. CT/CT abdomen pelvis wo con [id number] IMPRESSION: 1. Infrarenal abdominal aortic aneurysm measuring 5.0 x 5.0 x 8.1 cm AP by tra nsverse by craniocaudal unchanged since the prior examination. 2. Cholelithiasis. 3. Multiple bilateral renal cysts largest in the right measuring 8.9 x 9.9 cm. 4. Suspected solid renal lesion upper pole right kidney measuring 1.9 CM. Smal l renal neoplasm not excluded. Recommend follow-up with ultrasound. 5. No evidence of small or large bowel obstruction. Normal sigmoid colon. 6. Small esophageal hiatal hernia. 7. No other significant changes from previous. Attempted notification Darian Eric DO at 03/12/2020 9:39 AM.
[2020-03-12 07:21] LABS: Add Urine Microscopic? YES; Bilirubin Urine Neg (Negative); Blood Urine Neg (Negative); Glucose Urine UA Norm (Normal); Ketones Urine Negative (Negative); Leukocyte Esterase Urine 2+ (Negative); Nitrate Urine Negative (Negative); Protein Urine Neg (Negative); Specific Gravity, Urine 1.005 (1.005-1.030); Urine Appearance SL Hazy (CLEAR); Urine Color Straw (Yellow); Urobilinogen Urine Norm (Negative); pH Urine 6.5 (5-7)
[2020-03-12 07:26] LABS: Add Urine Culture? Yes; Bacteria Urine TRACE /hpf; Mucus Urine TRACE /hpf; RBC Urine 0-4 /hpf (0-2); Squamous Epithelial Cell Urine RARE /hpf (0-5); WBC Urine 25-40 /hpf (0-5)
[2020-03-12 08:16] LABS: Basophils % 0.4 %; Eosinophils # 0.1 10^3/uL (0.0-0.8); Eosinophils % 1.3 %; Hematocrit 37.1 % (42.0-52.0); Hemoglobin 12.1 g/dL (11.7-16.6); Lymphocytes # 4.1 10^3/uL (0.8-4.8); Lymphocytes % 51.6 %; Mean Corpuscular HGB Conc 32.6 g/dL (30.0-36.0); Mean Corpuscular Hemoglobin 31.1 pg (28.0-34.0); Mean Corpuscular Volume 95.4 fL (80-94); Mean Platelet Volume 9.9 fL (7.4-10.4); Monocytes # 0.4 10^3/uL (0.2-0.9); Monocytes % 5.3 %; Neutrophils # 3.25 10^3/uL (1.8-7.7); Neutrophils % 41.1 %; Nucleated Red Blood Cells % 0 %; Platelet Count 199 10^3/cmm (130-400); Red Blood Count 3.89 10^6/uL (4.1-5.3); Red Cell Distribution Width 13.1 % (12.1-15.1); White Blood Count 7.9 10^3/uL (4.0-10.0)
[2020-03-12 08:33] LABS: Alanine Aminotransferase 22 U/L (0-41); Albumin Level 4.6 g/dL (3.5-5.2); Alkaline Phosphatase 125 IU/L (40-130); Anion Gap 14.6 (5-19); Aspartate Amino Transferase 22 U/L (0-40); Blood Urea Nitrogen 18 mg/dL (8-23); Calcium 9.9 mg/dL (8.5-10.5); Carbon Dioxide 23 mmol/L (22-29); Chloride 103 mmol/L (98-107); Glucose 118 mg/dL (65-115); Lipase 53 U/L (13-60); Osmolality Calculated 285 mOsm/kg (285-295); Potassium 4.6 mmol/L (3.5-5.1); Sodium 136 mmol/L (136-145); Total Bilirubin 0.5 mg/dL (0.15-1.2); Total Protein 7.6 g/dL (6.6-8.7)
[2020-03-12] MEDS: lidocaine 1% INJ 20 mL 2.1 ML IM (09:59)
[2020-03-12] MEDS: cefTRIAXone 1,000 mg SDV 1000 MG IM (09:59)
[2020-03-12 10:30] VITALS: BP 129/89; PULSE 74; RESP 18; O2SAT 97
== END 2020-03-12 10:30 | disposition home or self-care (01) ==
PROVIDERS: Emergency Provider Family Medicine; PCP Family Medicine
DX: N30.90 Cystitis, unspecified without hematuria (principal); D49.4 Neoplasm of unspecified behavior of bladder; Z79.82 Long term (current) use of aspirin; I10 Essential (primary) hypertension; E78.5 Hyperlipidemia, unspecified; Z85.46 Personal history of malignant neoplasm of prostate; Z95.1 Presence of aortocoronary bypass graft; Z87.891 Personal history of nicotine dependence
CPT/HCPCS: 12345; 74176; 80053; 81001; 83690; 85025; 87086; 96372; 99282; J0696

== ENCOUNTER 2020-03-23 10:14 | Outpatient (RCR) | payer SELFPAY | END 2020-04-21 23:59 | disposition home or self-care (01) | LOC: CR 10:14 | PROVIDERS: PCP Family Medicine; Referring Provider Internal Medicine Cardiovascular Disease; Visit Provider Internal Medicine Cardiovascular Disease | DX: Z95.1 Presence of aortocoronary bypass graft (principal) ==

== ENCOUNTER → 2020-04-30 10:16 | Outpatient (BNVA) | payer MEDICARE, OTHER, SELFPAY | PROVIDERS: PCP Family Medicine; Visit Provider Urology | DX: D49.4 Neoplasm of unspecified behavior of bladder (principal); N40.1 Benign prostatic hyperplasia with lower urinary tract symptoms | CPT/HCPCS: 81003 ==

== ENCOUNTER 2020-05-24 10:27 | Outpatient (RCR) | payer SELFPAY | END 2020-06-21 23:59 | disposition home or self-care (01) | LOC: CR 10:27 | PROVIDERS: PCP Family Medicine; Referring Provider Internal Medicine Cardiovascular Disease; Visit Provider Internal Medicine Cardiovascular Disease | DX: Z95.1 Presence of aortocoronary bypass graft (principal) ==

== ENCOUNTER 2020-07-24 10:07 | Outpatient (RCR) | payer SELFPAY | END 2020-08-19 23:59 | disposition home or self-care (01) | LOC: CR 10:07 | PROVIDERS: PCP Family Medicine; Referring Provider Internal Medicine; Visit Provider Internal Medicine | DX: Z95.1 Presence of aortocoronary bypass graft (principal) ==

== ENCOUNTER → 2020-07-31 10:07 | Outpatient (BNVA) | payer MEDICARE, OTHER, SELFPAY | PROVIDERS: PCP Family Medicine; Visit Provider Urology | DX: D49.4 Neoplasm of unspecified behavior of bladder (principal); C67.0 Malignant neoplasm of trigone of bladder; C61 Malignant neoplasm of prostate | CPT/HCPCS: 81003 ==

== ENCOUNTER 2020-08-20 08:52 | Outpatient (RCR) | payer SELFPAY | END 2020-09-19 23:59 | disposition home or self-care (01) | LOC: CR 08:52 | PROVIDERS: PCP Family Medicine; Referring Provider Internal Medicine; Visit Provider Internal Medicine | DX: Z95.1 Presence of aortocoronary bypass graft (principal) ==

== ENCOUNTER 2020-09-14 09:01 | Outpatient (CLI) | payer MEDICARE, OTHER, SELFPAY ==
--- NOTE | 2020-09-14 09:30 | USCV_ITS ---
Jose EnriqueAugusto Age: 80 Gender: M : 1940 Exam Date: 09/14/2020 09:29 Ordering Phys: Julio César Payton M.D ([email or web address]) Technologist: Kim Bradley Exam Location: [facility] [place] Indication: KNOWN AAA HISTORY: Diameter (cm) AP x Transverse x Length Velocity (cm/s) Waveform Prox Aorta: 4.90 x 5.38 x 99.80 Mid Aorta: 5.09 x 5.25 x 83.20 Distal Aorta: 2.96 x 3.45 x 33.10 Right Iliac Prox: 1.21 x 1.57 x 81.00 Left Iliac Prox: 1.17 x 1.70 x 59.50 Stent Prox Landing x x Aneurysmal Sac Max x x Lt Lat Sac Dim Rt Lat Sac Dim Stent Dist Landing x x Right Iliac Stent x x Left Iliac Stent x x Right Renal Art Left Renal Art FINDINGS: Comparison:. 11/24/19. A fusiform abdominal aortic aneurysm is noted with a maximal diameter of 5.3 cm. No evidence of periaortic fluid is detected. Thrombus is noted in the aneurysm. There are no findings to suggest rupture of the abdominal aortic aneurysm. There is no evidence of a right common iliac artery aneurysm. There is no evidence of a left common iliac artery aneurysm. CONCLUSIONS Large stable AAA, maximum diameter of 5.[address] Naa Metz DO (Electronically Signed) Final Date: 14 September 2020 09:52 S
== END 2020-09-14 09:02 | disposition home or self-care (01) ==
PROVIDERS: PCP Family Medicine; Visit Provider Internal Medicine
DX: I71.4 Abdominal aortic aneurysm, without rupture (principal)
CPT/HCPCS: 93978

== ENCOUNTER 2020-09-20 13:42 | Outpatient (RCR) | payer SELFPAY | END 2020-10-19 23:59 | disposition home or self-care (01) | LOC: CR 13:42 | PROVIDERS: PCP Family Medicine; Referring Provider Internal Medicine; Visit Provider Internal Medicine | DX: Z95.1 Presence of aortocoronary bypass graft (principal) ==

== ENCOUNTER 2020-10-22 09:02 | Outpatient (RCR) | payer SELFPAY | END 2020-11-19 23:59 | disposition home or self-care (01) | LOC: CR 09:02 | PROVIDERS: PCP Family Medicine; Referring Provider Internal Medicine; Visit Provider Internal Medicine | DX: Z95.1 Presence of aortocoronary bypass graft (principal) ==

== ENCOUNTER 2020-11-02 08:44 | Outpatient (CLI) | payer MEDICARE, OTHER, SELFPAY ==
--- NOTE | 2020-11-02 09:30 | USCV_ITS ---
Jose Enrique Augusto Age: 80 Gender: M : 1940 Exam Date: 11/02/2020 09:24 Ordering Phys: Jose Grove MD (Andy) ([email or web address]) Technologist: Amanda Singh Exam Location: [facility] [place] Indication: Nonrheumatic aortic valve stenosis BP: 110 / 70 HR: 59 Rhythm: Sinus Technical Quality: Technically difficult study MEASUREMENTS (Male / Female) Normal Values 2D ECHO LV Diastolic Diameter PLAX 2.9 cm 4.2 - 5.9 / 3.9 - 5.3 cm LV Systolic Diameter PLAX 1.8 cm IVS Diastolic Thickness 1.3 cm 0.6 - 1.0 / 0.6 - 0.9 cm IVS Systolic Thickness 2.2 cm LVPW Diastolic Thickness 1.3 cm 0.6 - 1.0 / 0.6 - 0.9 cm LVPW Systolic Thickness 1.7 cm RV Chamber Size 2.9 cm LVOT Diameter 2.0 cm LV Ejection Fraction 2D Teich 68.0 % LV Ejection Fraction MOD 2C 58.2 % LV Ejection Fraction 2C AL 59.2 % LA Diameter 3.7 cm LA Width 3.3 cm LA Height 3.4 cm RA Width 2.9 cm RA Height 3.9 cm Aorta at Sinotubular Diameter 2.4 cm M-MODE LV Diastolic Diameter MM 3.3 cm 4.2 - 5.9 / 3.9 - 5.3 cm LV Systolic Diameter MM 2.4 cm LV Ejection Fraction MM Teich 56.7 % IVS Diastolic Thickness MM 1.0 cm 0.6 - 1.0 / 0.6 - 0.9 cm IVS Systolic Thickness MM 1.3 cm LVPW Diastolic Thickness MM 1.1 cm 0.6 - 1.0 / 0.6 - 0.9 cm LVPW Systolic Thickness MM 1.1 cm Aortic Annulus Diameter 2.9 cm LA Ao Ratio MM 1.2 MV E Point Septal Separation 0.6 cm DOPPLER AV Peak Velocity 219.0 cm/s LVOT Peak Velocity 92.0 cm/s AV Area Cont Eq vti 1.1 cm squared AV Area Cont Eq pk 1.3 cm squared MV Area PHT 3.8 cm squared Mitral E to A Ratio 0.8 MV E' Velocity 44.8 cm/s Mitral E to MV E' Ratio 9.9 Mitral E to LV E' Lateral Ratio 8.5 Mitral E to LV E' Septal Ratio 12.1 TR Peak Velocity 278.0 cm/s TR Peak Gradient 30.9 mmHg TV Peak E Velocity 68.0 cm/s Right Atrial Pressure 3.0 mmHg Pulmonary Artery Systolic Pressu 33.9 mmHg PV Peak Velocity 105.0 cm/s RV Acceleration Time 0.1 s RV Ejection Time 0.3 s RV AcT/ET 0.2 FINDINGS Left Ventricle Normal left ventricular size and systolic function, EF 57 %. Mild left ventricular hypertrophy. No regional wall motion abnormalities. Normal diastolic function. Grade I/IV diastolic dysfunction (abnormal relaxation filling pattern), normal to mildly elevated filling pressures. Right Ventricle The right ventricle is normal in size and function. Right Atrium The right atrium is normal in size. Left Atrium The left atrium is normal in size. Mitral Valve Trace mitral valve regurgitation. Aortic Valve Moderate aortic valve calcification. Mild to moderate aortic valve stenosis. The peak velocity across the aortic valve is 2.62 m/s with a peak gradient of 28 and a mean gradient of 11 mm Hg Tricuspid Valve Trace to mild tricuspid valve regurgitation. Pulmonic Valve Mild pulmonary valve regurgitation. Pericardium Normal pericardium without effusion. Aorta Normal ascending aorta dimension. CONCLUSIONS Normal left ventricular size and systolic function, EF 57 %. Mild left ventricular hypertrophy. No regional wall motion abnormalities. Normal diastolic function. Grade I/IV diastolic dysfunction (abnormal relaxation filling pattern), normal to mildly elevated filling pressures. Moderate aortic calcinosis the valve area of 1.2 cm2. Peak velocity of 2.62 m/s with a peak gradient of 28 and a mean gradient of 11 mmHg. Trace to mild tricuspid valve regurgitation. Trace mitral valve regurgitation. There is no pericardial effusion. There are no intracardiac masses. Comparison with the previous study is difficult because of the difference in the technical quality. Dr Shania Calderon MD [facility] (Electronically Signed) Final Date: 02 Nov 2020 18:49 S
== END 2020-11-02 08:45 | disposition home or self-care (01) ==
LOC: RAD 08:52
PROVIDERS: PCP Family Medicine; Visit Provider Thoracic Surgery (Cardiothoracic Vascular Surgery)
DX: I35.0 Nonrheumatic aortic (valve) stenosis (principal)
CPT/HCPCS: 93306

== ENCOUNTER → 2020-11-07 07:38 | Day surgery (SDC) | payer MEDICARE, OTHER, SELFPAY ==
[2020-11-07] MEDS: sodium chloride 0.9% 1,000 ML 750 ML IV ×3 (07:45→10:56)
[2020-11-07 07:57] VITALS: BP 108/69; PULSE 61; RESP 18; TEMP 36.4; O2SAT 98
--- NOTE | 2020-11-07 09:00 | CT_ITS ---
WS: [id number] CTA ABDOMEN PELVIS TECHNIQUE: Contrast enhanced CTA of the abdominal aorta with coronal and sagittal reformatted images and additional MIP Images. CLINICAL INFORMATION: I71.4 - Abdominal aortic aneurysm, without rupture COMPARISON: CT March 12, 2020 DLP: 782.[address] scans at [facility] use at least one of these dose optimization techniques: automat ed exposure control; mA and/or kV adjustment per patient size (includes targeted exams where dose is matched to clinical indication); or iterative reconstruction. FINDINGS: Infrarenal abdominal aortic aneurysm with eccentric mural thrombus. The abdominal aneurysm measures a pproximately 4.8 x 5.0 x 8.3 cm AP by transverse by craniocaudal. This is not significantly changed s johnny April 11, 2020. Celiac and SMA are normal. Normal left renal artery. Moderate stenosis right renal artery origin. Ane urysmal left common iliac artery measuring 1.7 CM. Diffuse fatty infiltration liver. Tiny gallstones or sludge in gallbladder. Gallbladder is contracted . Fatty atrophy of the pancreas. Adrenal glands are normal. Multicystic kidneys bilaterally. Largest cyst lower pole right kidney measuring 8.8 x 9.9 similar to previous. Heterogeneously enhancing parti ally calcified exophytic left renal lesion measuring 1.7 cm suspicious for neoplasm. This can be furt her evaluated with ultrasound. No hydronephrosis left kidney. No evidence of small or large bowel obstruction. No abdominal or pelvic lymphadenopathy. No inguinal lymphadenopathy. Subsegmental atelectasis in the lung bases. Sternotomy. Fat-containing umbilical her regulo. Small esophageal hiatal hernia. CT/CT angio abdomen pelvis [id number] IMPRESSION: 1. Lobulated infrarenal abdominal aortic aneurysm unchanged March 12, 2020 . This measures approximately 4.8 x 5.0 x 8.3 cm AP by transverse by craniocaud al 2. 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 3. Multicystic right kidney with the largest cyst lower pole measuring 9.9 x 8 .8 cm previous. 4. Heterogeneously enhancing exophytic left renal lesion with calcifications s uspicious for neoplasm measuring 1.6 cm. This can be further evaluated with ult rasound. 5. No other significant changes from previous. 6. Small esophageal hiatal hernia.
[2020-11-07] MEDS: iodixanol 320 mg/mL 100mL Btl IV (09:26)
--- NOTE | 2020-11-07 09:41 | PC.NURSE ---
Pt returned to GI lab following CT scan. 2 L NS to be infused as ordered. Pt tolerating well.
== END ==
PROVIDERS: PCP Family Medicine; Visit Provider Thoracic Surgery (Cardiothoracic Vascular Surgery)
DX: I35.0 Nonrheumatic aortic (valve) stenosis (principal)
CPT/HCPCS: 74174; 96360; 96361; J7030; Q9967

== ENCOUNTER → 2020-11-12 10:14 | Outpatient (BNVA) | payer MEDICARE, OTHER, SELFPAY | PROVIDERS: PCP Family Medicine; Visit Provider Urology | DX: C67.0 Malignant neoplasm of trigone of bladder (principal); Z98.890 Other specified postprocedural states | CPT/HCPCS: 81003 ==

== ENCOUNTER 2020-11-20 13:29 | Outpatient (RCR) | payer SELFPAY | END 2020-12-19 23:59 | disposition home or self-care (01) | LOC: CR 13:29 | PROVIDERS: PCP Family Medicine; Referring Provider Internal Medicine; Visit Provider Internal Medicine | DX: Z95.1 Presence of aortocoronary bypass graft (principal) ==

== ENCOUNTER 2020-12-20 13:28 | Outpatient (RCR) | payer SELFPAY | END 2021-01-19 23:59 | disposition home or self-care (01) | LOC: CR 13:28 | PROVIDERS: PCP Family Medicine; Referring Provider Internal Medicine; Visit Provider Internal Medicine | DX: Z95.1 Presence of aortocoronary bypass graft (principal) ==

== ENCOUNTER 2021-01-24 14:01 | Outpatient (RCR) | payer SELFPAY | END 2021-02-19 23:59 | disposition home or self-care (01) | LOC: CR 14:01 | PROVIDERS: PCP Family Medicine; Referring Provider Internal Medicine; Visit Provider Internal Medicine | DX: Z95.1 Presence of aortocoronary bypass graft (principal) ==

== ENCOUNTER 2021-02-21 14:56 | Outpatient (RCR) | payer SELFPAY | END 2021-03-21 23:59 | disposition home or self-care (01) | LOC: CR 14:56 | PROVIDERS: PCP Family Medicine; Referring Provider Internal Medicine; Visit Provider Internal Medicine | DX: Z95.1 Presence of aortocoronary bypass graft (principal) ==

== ENCOUNTER → 2021-03-14 10:05 | Outpatient (BNVA) | payer MEDICARE, OTHER, SELFPAY | PROVIDERS: PCP Family Medicine; Visit Provider Urology | DX: N40.1 Benign prostatic hyperplasia with lower urinary tract symptoms (principal); C67.0 Malignant neoplasm of trigone of bladder | CPT/HCPCS: 81003 ==

== ENCOUNTER 2021-03-22 10:34 | Outpatient (RCR) | payer SELFPAY | END 2021-04-21 23:59 | disposition home or self-care (01) | LOC: CR 10:34 | PROVIDERS: PCP Family Medicine; Referring Provider Internal Medicine; Visit Provider Internal Medicine | DX: Z95.1 Presence of aortocoronary bypass graft (principal) ==

== ENCOUNTER 2021-04-22 14:36 | Outpatient (RCR) | payer SELFPAY | END 2021-05-21 23:59 | disposition home or self-care (01) | LOC: CR 14:36 | PROVIDERS: PCP Family Medicine; Referring Provider Internal Medicine; Visit Provider Internal Medicine | DX: Z95.1 Presence of aortocoronary bypass graft (principal) ==

== ENCOUNTER 2021-05-22 13:43 | Outpatient (RCR) | payer SELFPAY | END 2021-06-21 23:59 | disposition home or self-care (01) | LOC: CR 13:43 | PROVIDERS: PCP Family Medicine; Referring Provider Internal Medicine; Visit Provider Internal Medicine | DX: Z95.1 Presence of aortocoronary bypass graft (principal) ==

== ENCOUNTER 2021-06-04 08:55 | Outpatient (CLI) | payer MEDICARE, OTHER, SELFPAY ==
--- NOTE | 2021-06-04 09:09 | ECG_ITS ---
[facility] Test Date: 2021-06-04 Pat Name: Augusto Quispe Department: Room: Gender: Male Tableau Analyst: : 1940 Requested By: Pradip Mercado Order Number: [id number] Tatianna MD: Shania Calderon M.D. Measurements Intervals [place] Rate: 61 P: 61 MT: 175 QRS: 42 QRSD: 82 T: 41 QT: 370 QTc: 375 Interpretive Statements SINUS RHYTHM POSSIBLE LEFT ATRIAL ENLARGEMENT [-0.1mV P WAVE IN V1/V2] POSSIBLE RIGHT VENTRICULAR CONDUCTION DELAY [RSR (QR) IN V1/V2] Compared to ECG 02/22/2020 12:56:05 T-wave abnormality no longer present Electronically Signed On 06-05-2021 0:21:05 SUPPLY ANALYST by Shania Calderon M.D. [id number]
== END 2021-06-04 08:56 | disposition home or self-care (01) ==
LOC: RT 08:57
PROVIDERS: PCP Family Medicine; Visit Provider Specialist
DX: D48.5 Neoplasm of uncertain behavior of skin (principal)
CPT/HCPCS: 93005

== ENCOUNTER 2021-06-24 11:24 | Outpatient (RCR) | payer MEDICARE, SELFPAY | END 2021-07-22 23:59 | disposition home or self-care (01) | LOC: CR 11:24 | PROVIDERS: PCP Family Medicine; Referring Provider Internal Medicine; Visit Provider Internal Medicine | DX: Z95.1 Presence of aortocoronary bypass graft (principal) ==

== ENCOUNTER 2021-06-26 11:21 | Outpatient (CLI) | payer MEDICARE, OTHER, SELFPAY | END 2021-06-26 11:22 | disposition home or self-care (01) | LOC: LAB 11:24 | PROVIDERS: PCP Family Medicine; Visit Provider Specialist | DX: D49.2 Neoplasm of unspecified behavior of bone, soft tissue, and skin (principal) | CPT/HCPCS: 88304; 88331 ==

== ENCOUNTER → 2021-07-19 06:52 | Day surgery (SDC) | payer MEDICARE, OTHER, SELFPAY ==
--- NOTE | 2021-07-19 07:25 | PC.NURSE ---
Pt to GI lab for hydration prior to CT scan. BUN and Creatinine drawn and sent to lab.
[2021-07-19] MEDS: sodium chloride 0.9% 1,000 ML 999 ML IV (07:27)
[2021-07-19 07:33] VITALS: BP 143/76; PULSE 67; RESP 18; TEMP 36.2; O2SAT 98
[2021-07-19 08:00] LABS: Blood Urea Nitrogen 28 mg/dL (8-23)
--- NOTE | 2021-07-19 08:30 | PC.NURSE ---
First liter of NS infused. Creatinine noted to be high at 2.2. CT scan to be performed without contrast per Dr. Shore and Radiologist. Second liter of NS canceled. Pt to CT scan ambulatory with Joaquin [employer].
--- NOTE | 2021-07-19 09:00 | CT_ITS ---
WS: [id number] CT ABDOMEN AND PELVIS NONCONTRAST HISTORY: I71.4 - Abdominal aortic aneurysm, without rupture TECHNIQUE: Imaging performed through the abdomen and pelvis. Coronal and sagittal reformats are submi tted. All CT scans at [facility] use at least one of these dose optimization techniques: auto mated exposure control; mA and/or kV adjustment per patient size (includes targeted exams where dose is matched to clinical indication); or iterative reconstruction. DLP: 489.05 mGy.cm COMPARISON: 11/07/2020 Lower thorax: Subsegmental linear atelectasis at the LEFT lung base. Heart is normal size. No pleural effusion. Small hiatal hernia. Liver: Normal size liver. Calcification along the surface of the RIGHT lobe of the liver. Fatty hairston es along the falciform ligament. Gallbladder: Cholelithiasis. No evidence for acute cholecystitis. Pancreas: Normal size and attenuation. Normal pancreatic duct. No pancreatitis or mass. Spleen: Normal spleen with granulomata. Adrenal glands: Normal. No mass. Right kidney: Cortical atrophy. There are numerous cystic masses associated with the RIGHT kidney. Th e largest in the lower pole measures 7.7 x 9.3 cm. No renal obstruction. There are a few cortical hyp erdensities which are very small caliber but cannot be further characterized. Left kidney: Cortical atrophy and thinning. Cortical hypodensities. Again noted is the exophytic mass from the LEFT kidney which was noted to be solid and enhancing and suspicious for renal cell neoplas m on the prior examination. Mass measures approximately 2.0 x 1.9 cm. Cannot be further characterized on this unenhanced study. There are a few cortical hypodensities also. Aorta: Abdominal aortic aneurysm is reidentified. The maximum diameter is 5.5 x 5.3 cm below the leve l of the renal arteries. Aneurysm extends over a length of 8.8 cm. Near contiguous calcifications and within the wall of the aorta. There are a few calcifications displaced within the thrombus anteriorl y. Aneurysm returns to normal caliber at the bifurcation. Diameter of the LEFT common iliac artery is 1.9 cm. Common RIGHT iliac artery measures 1.5 cm. Celiac axis and SMA are both patent with only minimal atherosclerotic plaque. There is calcification at the origin of the RIGHT renal artery. Calcification to lesser extent at the origin of the LEFT juwan al artery. Aneurysm begins 1.4 cm distal to the origin of the LEFT renal artery. No free fluid, intraperitoneal air or significant lymphadenopathy. GI tract: No GI tract obstruction. No evidence for acute diverticulitis. No mucosal thickening. No ap pendicitis. Abdominal wall: Small umbilical hernia. Pelvis: There is a very small amount of free fluid in the pelvis. The etiology is uncertain. No infla mmatory changes are identified. May be due to patient's renal failure and ascites. Small amount calci fication of the femoral heads and the femoral arteries. Osseous structures: No destructive bone lesions. CT/CT abdomen pelvis wo con [id number] IMPRESSION: 1. Infrarenal abdominal aortic aneurysm with a maximum diameter of 5.5 x 5.3 c m. Aneurysm extends over a length of 8.8 cm. Aneurysm has increased in size sin ce 11/07/2020. On 11/07/2020 the maximum diameter was 5.0 cm. 2. Solid enhancing exophytic mass in the LEFT kidney cannot be completely eval uated on this unenhanced study but this solid mass was described on the prior s tudy of 11/07/2020. Suspicious for renal cell carcinoma. 3. Small amount of ascites in the pelvis is new since the prior study of uncer tain etiology. No inflammatory changes are identified, fluid may be due to lilliam l failure. 4. Numerous cysts in the RIGHT kidney. 5. Cholelithiasis without acute cholecystitis.
== END ==
PROVIDERS: Radiology Neuroradiology; PCP Family Medicine; Visit Provider Thoracic Surgery (Cardiothoracic Vascular Surgery)
DX: I71.4 Abdominal aortic aneurysm, without rupture (principal)
CPT/HCPCS: 36415; 74176; 82565; 84520; 96360; J7030

== ENCOUNTER → 2021-07-22 09:20 | Outpatient (BNVA) | payer MEDICARE, OTHER, SELFPAY | PROVIDERS: PCP Family Medicine; Visit Provider Thoracic Surgery (Cardiothoracic Vascular Surgery) | DX: I25.10 Atherosclerotic heart disease of native coronary artery without angina pectoris (principal); I35.0 Nonrheumatic aortic (valve) stenosis; I65.23 Occlusion and stenosis of bilateral carotid arteries; I71.4 Abdominal aortic aneurysm, without rupture; N28.9 Disorder of kidney and ureter, unspecified; Z95.1 Presence of aortocoronary bypass graft | CPT/HCPCS: 82565; 84520 ==

== ENCOUNTER 2021-07-23 09:51 | Outpatient (RCR) | payer SELFPAY | END 2021-08-19 23:59 | disposition home or self-care (01) | LOC: CR 09:51 | PROVIDERS: PCP Family Medicine; Referring Provider Internal Medicine; Visit Provider Internal Medicine | DX: Z95.1 Presence of aortocoronary bypass graft (principal) ==

== ENCOUNTER 2021-08-20 13:43 | Outpatient (RCR) | payer SELFPAY | END 2021-09-19 23:59 | disposition home or self-care (01) | LOC: CR 13:43 | PROVIDERS: PCP Family Medicine; Referring Provider Internal Medicine; Visit Provider Internal Medicine | DX: Z95.1 Presence of aortocoronary bypass graft (principal); Z79.899 Other long term (current) drug therapy | CPT/HCPCS: 81003 ==

== ENCOUNTER → 2021-09-05 13:54 | Outpatient (BNVA) | payer MEDICARE, OTHER, SELFPAY | PROVIDERS: PCP Family Medicine; Visit Provider Thoracic Surgery (Cardiothoracic Vascular Surgery) | DX: I71.4 Abdominal aortic aneurysm, without rupture (principal); Z87.891 Personal history of nicotine dependence | CPT/HCPCS: 99213; 99215 ==

== ENCOUNTER → 2021-09-11 09:29 | Outpatient (BNVA) | payer MEDICARE, OTHER, SELFPAY | PROVIDERS: PCP Family Medicine; Visit Provider Thoracic Surgery (Cardiothoracic Vascular Surgery) | DX: Z20.822 Contact with and (suspected) exposure to COVID-19 (principal) | CPT/HCPCS: 87635 ==

== ENCOUNTER 2021-09-17 06:10 | Inpatient (IN) | payer MEDICARE, OTHER, SELFPAY ==
[2021-09-11 08:56] VITALS: BMI 26.4
[2021-09-11 09:21] LABS: Add Urine Microscopic? NO; Charge for UA Resulting for Rev
[2021-09-11 09:23] LABS: Basophils % 0.6 %; Eosinophils # 0.1 10^3/uL (0.0-0.8); Eosinophils % 1.9 %; Hematocrit 34.5 % (42.0-52.0); Hemoglobin 11.6 g/dL (11.7-16.6); Lymphocytes # 2.8 10^3/uL (0.8-4.8); Lymphocytes % 50.9 %; Mean Corpuscular HGB Conc 33.6 g/dL (30.0-36.0); Mean Corpuscular Hemoglobin 32.3 pg (28.0-34.0); Mean Corpuscular Volume 96.1 fl (80-94); Mean Platelet Volume 10.3 fL (7.4-10.4); Monocytes # 0.4 10^3/uL (0.2-0.9); Monocytes % 7.4 %; Neutrophils # 2.09 10^3/uL (1.8-7.7); Neutrophils % 38.6 %; Nucleated Red Blood Cells % 0 %; Platelet Count 138 10^3/cmm (130-400); Red Blood Count 3.59 10^6/uL (4.1-5.3); Red Cell Distribution Width 12.7 % (12.1-15.1); White Blood Count 5.4 10^3/uL (4.0-10.0)
[2021-09-11 09:33] LABS: Alanine Aminotransferase 18 U/L (0-41); Albumin Level 4.2 g/dL (3.5-5.2); Alkaline Phosphatase 123 IU/L (40-130); Anion Gap 13.7 (5-19); Aspartate Amino Transferase 21 U/L (0-40); Blood Urea Nitrogen 27 mg/dL (8-23); Calcium 9.7 mg/dL (8.5-10.5); Carbon Dioxide 25 mmol/L (22-29); Chloride 105 mmol/L (98-107); Globulin 2.1 g/dL (1.3-4.6); Glucose 143 mg/dL (65-115); Osmolality Calculated 296 mOsm/kg (285-295); Potassium 4.7 mmol/L (3.5-5.1); Sodium 139 mmol/L (136-145); Total Bilirubin 0.5 mg/dL (0.15-1.2); Total Protein 6.3 g/dL (6.6-8.7)
[2021-09-11 09:34] LABS: Bilirubin Urine Neg (Negative); Blood Urine Neg (Negative); Glucose Urine UA Norm (Normal); Ketones Urine Negative (Negative); Leukocyte Esterase Urine Negative (Negative); Nitrate Urine Negative (Negative); Protein Urine Neg (Negative); Urine Appearance Clear (CLEAR); Urine Color Straw (Yellow); Urobilinogen Urine Norm (Negative); pH Urine 6 (5-7)
[2021-09-11 12:19] LABS: Adenovirus Not Detected (NOT DETECT); Chlamydia Pneumoniae Not Detected (NOT DETECT); Coronavirus 229E,HKU1,NL63,OC4 Not Detected (NOT DETECT); Human Metapneumovirus Not Detected (NOT DETECT); Human Rhinovirus/Enterovirus Not Detected (NOT DETECT); Influenza A Not Detected (NOT DETECT); Influenza A H1 Not Detected (NOT DETECT); Influenza A H1-2009 Not Detected (NOT DETECT); Influenza A H3 Not Detected (NOT DETECT); Influenza B Not Detected (NOT DETECT); Mycoplasma Pneumoniae Not Detected (NOT DETECT); Parainfluenza Virus Type 1 Not Detected (NOT DETECT); Parainfluenza Virus Type 2 Not Detected (NOT DETECT); Parainfluenza Virus Type 3 Not Detected (NOT DETECT); Parainfluenza Virus Type 4 Not Detected (NOT DETECT); Respiratory Syncytial Virus A Not Detected (NOT DETECT); Respiratory Syncytial Virus B Not Detected (NOT DETECT); SARS-COV-2 Not Detected (NOT DETECT)
--- NOTE | 2021-09-11 13:25 | ANES.PREANE2 ---
Pre-Anesthetic Assessment Height/Weight: Height 1.68 m Weight 74.389 kg Preop Diagnosis: Abdominal aortic aneurysm Operation Date: 09/17/21 07:00 Proposed Procedures p AAA Stent Cutdown(Not Applicable) - Jose Grove MD Operation Date: 09/17/21 07:00 Proposed Procedures p Endovascular Aortic Repair(Not Applicable) - Jose Grove MD Familial anesthetic complications: None Was Beta Neyda taken within 24 hours: Yes Was Clonidine taken within 24 hours: N/A Social No alcohol and No tobacco Exam alert, oriented x 3, clear to auscultation bilaterally and regular rate & rhythm Airway Submandibular: within normal limits Cervical ROM: within normal limits Mallampati: Class II Dentition: chipped CV/HEM Coronary Artery Disease (CABG), Hypertension, Murmur and Peripheral Vascular Disease AAA, Chronic Renal Insufficiency Metabolic Hyperlipidemia Anesthetic Plan ASA status: 3 Anesthesia: General Other: A.line Risk of > 500 ml blood loss (7ml/kg in children): Yes, adequate IV access and fluids planned Medications/Allergies Home Medications Medication Instructions Recorded Confirmed Last Taken Type aspirin 81 mg tablet,delayed 81 mg PO DAILY 10/28/19 09/11/21 07/19/21 History release (Aspir-) magnesium oxide 400 mg PO DAILY 10/28/19 09/11/21 07/19/21 History enidlwla-zpb-atyxs acid 300 1 tab PO DAILY 10/28/19 09/11/21 07/19/21 History mcg-lycopene 600 mcg-lutein 300 mcg tablet (Centrum Silver Men) omega-3 fatty acids 1,000 mg 2,000 mg PO BID 10/28/19 09/11/21 07/19/21 History capsule alfuzosin 10 mg tablet,extended 10 mg PO BEDTIME 11/07/20 09/11/21 07/19/21 History release 24 hr cholecalciferol (vitamin D3) 25 25 mcg PO DAILY 11/12/20 09/11/21 07/19/21 History mcg (1,000 unit) capsule famotidine 10 mg tablet 10 mg PO DAILY 11/29/20 09/11/21 07/19/21 History carvedilol 3.125 mg tablet 3.125 mg PO BID #180 tab 05/06/21 09/11/21 07/19/21 Rx evolocumab 140 mg/mL subcutaneous 1 mg SUBCUT DAILY 06/27/21 09/11/21 07/19/21 History pen injector (Repatha SureClick) Allergies Allergy/AdvReac Type Severity Reaction Status Date / Time tamsulosin Allergy ALGY-Rash Verified 09/05/21 14:41 pravastatin [From Pravachol] AdvReac Intermediate Unknown Verified 09/05/21 14:41 simvastatin [From Zocor] AdvReac Unknown Unknown Verified 09/05/21 14:41 [facility] Anesthesia Medical History Abdominal aortic aneurysm (AAA) Aortic stenosis ASHD (arteriosclerotic heart disease) Bladder cancer Bladder tumor BPH loc w urin obs/LUTS Carotid stenosis, bilateral HTN (hypertension) Hyperlipidemia Prostate CA Renal insufficiency Surgical History S/P CABG (coronary artery bypass graft) Family History Brother CAD (coronary artery disease) Mother , at age 61 Alzheimer disease Father , at age 81 No problems noted. Other Hypertension Social History Smoking and tobacco status: former smoker Alcohol intake: never Marital status: Current occupational status: retired History of recent travel: No Data Anesthesia : 09/11/21 09:00 09/11/21 09:00 Short CBC 09/11/21 Range/Units 09:00 WBC 5.4 (4.0-10.0) 10^3/uL Hgb 11.6 L (11.7-16.6) g/dL Hct 34.5 L (42.0-52.0) % MCV 96.1 H (80-94) fl Plt Count 138 (130-400) 10^3/cmm Neut % (Auto) 38.6 % Neut # (Auto) 2.09 (1.8-7.7) 10^3/uL BMP 09/11/21 09:00 Sodium 139 Potassium 4.7 Chloride 105 Carbon Dioxide 25 BUN 27 H Creatinine 2.3 H Glucose 143 H Calcium 9.7 Liver Function 09/11/21 Range/Units 09:00 Total Bilirubin 0.5 (0.15-1.2) mg/dL AST 21 (0-40) U/L ALT 18 (0-41) U/L Alkaline Phosphatase 123 (40-130) IU/L Albumin 4.2 (3.5-5.2) g/dL Urine 09/11/21 Range/Units 09:14 Urine Color Straw (Yellow) Urine Appearance Clear (CLEAR) Urine pH 6 (5-7) Ur Specific [place] 1.010 (1.005-1.030) Urine Protein Neg (Negative) Urine Glucose (UA) Norm (Normal) Urine Ketones Negative (Negative) Urine Nitrate Negative (Negative) Urine Bilirubin Neg (Negative) Ur Leukocyte Esterase Negative (Negative) Blood Bank 09/11/21 09:00 Blood Type A Positive Rho(D) Type Positive Antibody Screen Negative COVID Results 09/11/21 09:36 Coronavirus 229E (PCR) Not detected SARS-CoV-2 (PCR) Not detected Cardiac Studies: Echocardiogram Ultrasound 11/02/20
[2021-09-17] VITALS (37 sets, daily range): BP systolic 92–142; BP diastolic 56–88; PULSE 55–106; RESP 4–21; TEMP 36.3–36.8; O2SAT 94–99
--- NOTE | 2021-09-17 06:33 | W.PM.OPSUD ---
Surgery/Procedure H&P Update DATE OF PROCEDURE: September 17, 2021 DATE H&P PERFORMED: 09/05/21 H&P UPDATE INFORMATION: I have reviewed H&P completed within last 30 days, I have examined patient prior to procedure and No changes to prior documentation PREOP DIAGNOSIS: Abdominal aortic aneurysm PRIMARY INDICATION FOR PROCEDURE: 5.5 cm infrarenal abdominal aortic aneurysm with documented growth over the past year. PLANNED PROCEDURE: Operation Date: 09/17/21 07:00 Proposed Procedures p AAA Stent Cutdown(Not Applicable) - Jose Grove MD Operation Date: 09/17/21 07:00 Proposed Procedures p Endovascular Aortic Repair(Not Applicable) - Jose Grove MD
--- NOTE | 2021-09-17 07:07 | P.ANESUD_ITS ---
Pre-Anesthetic Update Pre-Anesthetic Assessment: Date of Surgery/Procedure: 09/17/21 Preop Karol gnosis: Abdominal aortic aneurysm Proposed Procedure: Operation Date: 09/17/21 07:00 Proposed Procedures p AAA Stent Cutdown(Not Applicable) - Jose Grove MD Operation Date: 09/17/21 07:00 Proposed Procedures p Endovascular Aortic Repair(Not Applicable) - Jose Grove MD Any changes to Pre-Anesthetic Assessment?: No Last Intake: Intake Last Liquid Date 09/16/21 Last Liquid Time 20:00 Last Solid Date 09/16/21 Last Solid Time 16:00 Labs Last 48hrs: Blood Bank 09/11/21 09:00 Blood Type A Positive Rho(D) Type Positive Antibody Screen Negative Vitals: Temperature 97.3 F L 09/17/21 06:32 Pulse Rate 66 09/17/21 06:32 Pulse Rhythm 09/17/21 06:21 Pulse Strength 1+ Faint 09/17/21 06:21 Respiratory Rate 18 09/17/21 06:32 Blood Pressure 142/88 09/17/21 06:32 Blood Pressure Jesica n 106 09/17/21 06:32 Pulse Oximetry 98 09/17/21 06:32 Oxygen Delivery Me thod 09/17/21 06:32 Exam: Pre-Anes Outpt Exam: alert, oriented x 3, clear to auscultation bilaterally and regular rate & rhythm Cardiac Studies: Echocardiogram Ultrasound 11/02/20
--- NOTE | 2021-09-17 11:10 | PC.NURSE ---
To ICU 6 at 1038, VSS, patient sedated, opens eyes and withdrawals from pain. Right and Left groin site without complications. Bilateral pedal pulses dopplered.
[2021-09-17] MEDS: lactated ringers 1,000 ML 150 ML IV (11:18)
--- NOTE | 2021-09-17 11:41 | P.OP_ITS ---
Operative Report Date of procedure: September 17, 2021 Pre-op diagnosis: Preop Diagnosis Abdominal aortic aneurysm Post-op diagnosis: same Procedure done: Endovascular repair of a 5.5 cm infrarenal abdominal aortic aneurysm utilizing an Endologix 25 x 90 bifurcated graft with a 28 x 75 suprarenal extension. Pathology: none sent Surgeon: Johnny Anesthesia: General Estimated blood loss (mL): 100 Complications: none Brief History: Mr. Quispe is a pleasant 81-year-old gentleman with a known infrarenal abdominal aortic aneurysm and moderate renal insufficiency. We have seen him previously back in November of last year with a 5 cm aneurysm, though with renal insufficiency, it was felt to continue close observational follow-up. This essentially occluded a recent CTA which now reveals the aneurysm measures 5.5 cm in maximal transverse dimensions. This is demonstrated clear growth over a pproximately an 8-month period. Therefore, we have recommended elective repair. Rationale was carefully discussed with him and his . Increased risk related to renal insufficiency were frankly reviewed. They wish to proceed. Appropriate consents have been reviewed and signed. Procedure: Mr. Quispe was taken to the catheterization lab, carefully positioned, and then underwent general endotracheal anesthesia. Appropriate invasive lines were placed including right radial arterial line and adequate vascular access. His lower chest and entire abdomen, groin region, and thighs were sterilely prepped and draped. A cutdown was performed in the right groin exposing the right common femoral artery. Two 6-0 Prolene sutures were placed with subsequent use as pursestring closure at the completion of the procedure. Next, needle access and guidewire placement with fluoroscopy, a 6 Japanese sheath was placed in the left common femoral artery, and ProGlide Perclose securing sutures x 2 were engaged in the arterial wall and secured. The patient then received 10,000 units of heparin and ACT was confirmed to be therapeutic at greater than 300 seconds The 6 Japanese sheath was then replaced with a 7 Japanese sheath over wire. Direct puncture of the right common femoral artery was then performed with passage of a wire without difficulty. J-wire was utilized to be exchanged on the ipsilateral side to a Lunderquist stiff wire. Next, a loaded 25 x 90 AFX2 bifurcated device and delivery sheath were placed over the stiff wire and advanced along with the contralateral wire up through the 19 Japanese AFX introducer sheath utilizing wireguide. The contralateral wire was then snared and pulled out through the left common femoral artery. The AFX2 bifurcated device was advanced into the AFX introducer sheath and advancement continued under fluoroscopic guidance until distal limbs were above the aortic bifurcation thereby releasing the limbs of the graft. The entire system was pulled down to the aortic bifurcation. The main body of the bifurcated graft was then deployed by pulling on the controlled cord handle. Next, we deployed the contralateral limb by pulling the yellow limb cover, thenadvancing a pigtail catheter over the contralateral wire into the tip was in contact with the wire lock, with wire lock being released by pul ling it with a stationary pigtail catheter in position. The ipsilateral limb was then deployed by pinning the inner core and retracting the AFX introducer sheath. Next, we advanced and deployed a 28 x 75 supra extension endograft after angiography was performed to visualize the renal arteries. Iliac extensions were not required. Next, we removed the extension delivery device from the AFX introducer sheath. A CODA balloon was then utilized to clear the proximal extension distally just above the bifurcation to allow for complete wall contact. The entire endograft system was then ballooned in a similar fashion beginning at the level renal arteries extending distally. Final angiography was performed in subtraction mode revealing bilateral renal artery flow, and no evidence for endoleak. Next, catheters, sheaths, and guidewires were removed under fluoroscopic guidance. Perclose device was then utilized to close the left common femoral artery insertion site. This was noted to be hemostatic. The right common femoral artery was repaired directly utilizing previously placed 6 oh pursestring sutures. There was good backbleeding and forward bleeding was prior to completion of the repair. Flow was then reestablished. 50 mg of protamine was given for heparin reversal. Both groins was noted to be hemostatic. It was irrigated with antibiotic solution. Sponge and needle count was correct. Wound was closed in 2 layers of 2-0 Vicryl suture. Skin was reapproximated in a subcuticular manner with 4-0 Monocryl suture. Sterile dressings were applied. He had Doppler dorsalis pedis pulses bilaterally at completion of the procedure. He was awakened and extubated on the catheterization table. Mr. Quispe was then transferred to the ICU in stable condition. I did school counsellor with his family at the completion of the procedure.
--- NOTE | 2021-09-17 15:45 | ANE.PACU2 ---
Inpatient post-anesthesia follow up: Airway intact: Yes Vital signs: Temperature 97.3 F Pulse Rate 55 Respiratory Rate 12 Blood Pressure 127/72 Pulse Oximetry 98 Oxygen Delivery Me thod Nasal Cannula Oxygen Flow Rate 3 Fraction of Inspir ed Oxygen Hydration adequate: Yes Nausea and vomiting: No Pain level: 2 Mental status: Baseline
[2021-09-17 17:35] LABS: Blood Urea Nitrogen 23 mg/dL (8-23); Calcium 9.4 mg/dL (8.5-10.5); Carbon Dioxide 19 mmol/L (22-29); Chloride 107 mmol/L (98-107); Glucose 139 mg/dL (65-115); Osmolality Calculated 288 mOsm/kg (285-295); Sodium 136 mmol/L (136-145)
[2021-09-17] MEDS: alum-mag-hydroxide-sime 30 mL UDC PO (17:37)
[2021-09-17 17:53] LABS: Anion Gap 15.3 (5-19); Potassium 5.3 mmol/L (3.5-5.1)
[2021-09-17] MEDS: carvedilol 3.125 mg Tablet PO (19:48)
[2021-09-17] MEDS: HYDROcodone-acetaminophen 5-325 mg Tablet 1 TAB PO (19:48)
[2021-09-17] MEDS: sodium chloride 0.9% 1,000 ML 150 ML IV (19:48)
[2021-09-18] VITALS (10 sets, daily range): BP systolic 87–116; BP diastolic 57–74; PULSE 67–74; RESP 3–18; O2SAT 91–99
[2021-09-18] MEDS: sodium chloride 0.9% 1,000 ML 150 ML IV (02:26)
[2021-09-18 04:19] LABS: Basophils % 0.1 %; Hematocrit 31.7 % (42.0-52.0); Hemoglobin 10.5 g/dL (11.7-16.6); Lymphocytes # 2.7 10^3/uL (0.8-4.8); Lymphocytes % 24.7 %; Mean Corpuscular HGB Conc 33.1 g/dL (30.0-36.0); Mean Corpuscular Hemoglobin 31.7 pg (28.0-34.0); Mean Corpuscular Volume 95.8 fl (80-94); Mean Platelet Volume 10.6 fL (7.4-10.4); Monocytes # 0.6 10^3/uL (0.2-0.9); Monocytes % 5.5 %; Neutrophils # 7.65 10^3/uL (1.8-7.7); Neutrophils % 69.1 %; Nucleated Red Blood Cells % 0 %; Platelet Count 126 10^3/cmm (130-400); Red Blood Count 3.31 10^6/uL (4.1-5.3); Red Cell Distribution Width 12.6 % (12.1-15.1); White Blood Count 11.1 10^3/uL (4.0-10.0)
[2021-09-18 04:48] LABS: Anion Gap 16.8 (5-19); Blood Urea Nitrogen 25 mg/dL (8-23); Calcium 8.8 mg/dL (8.5-10.5); Carbon Dioxide 19 mmol/L (22-29); Chloride 107 mmol/L (98-107); Glucose 129 mg/dL (65-115); Osmolality Calculated 292 mOsm/kg (285-295); Potassium 4.8 mmol/L (3.5-5.1); Sodium 138 mmol/L (136-145)
--- NOTE | 2021-09-18 05:41 | PM.PN ---
Subjective Subjective: Postop day #1 status post endovascular repair of a 5.5 cm infrarenal abdominal aortic aneurysm. Uneventful night. We have continued IV hydration along with normal oral intake due to chronic renal insufficiency. Laboratory data this morning reveals his creatinine is down to 2.0 which is actually below his baseline which usually around 2.3. Mild hyperkalemia yesterday afternoon has now resolved with his potassium this morning now 4.8. He has no complaints. Groin dressings are clean and dry. Legs are warm. He has been up out of bed. He is eager for discharge home. Vitals/I&O/Wt Last Vital Signs Temp 98.3 F 09/17/21 23:26 Pulse 67 09/18/21 04:00 Resp 13 09/18/21 04:00 BP 98/64 09/18/21 04:00 Pulse Ox 93 09/18/21 04:00 09/17/21 09/17/21 09/18/21 14:59 22:59 06:59 Intake Total 0 / 0 440 / 440 995 / 1435 Output Total 850 / 850 Balance 0 / 0 -410 / -410 995 / 585 Physical Exam GI: OTHER: Abdomen is soft. Normoactive bowel sounds. Extremity: NARRATIVE EXTREMITY EXAM: Surgical dressings are dry. Legs are warm throughout. No evidence for embolic phenomenon. Data : 09/18/21 03:28 09/18/21 03:28 A&P Assessment and plan (1) Status post endovascular aneurysm repair (EVAR): Status: Acute Plan Postop day #1 status post endovascular repair of abdominal aortic aneurysm. Recovering well. Plan: We will discharged home. Attestations Medical Necessity Statement*: POD #1 status post endovascular repair of abdominal aortic aneurysm. Coding Level of Care Code Acute Rn Occupational Health for Chg Fwd Diagnoses Status post endovascular aneurysm repair (EVAR) Z98.890; Z86.79
--- NOTE | 2021-09-18 05:50 | P.DS_ITS ---
Discharge Providers Date of Admission: 09/17/21 06:10 Date of Discharge: September 18, 2021 Attending Provider at Admission: Jose Grove MD Attending Provider at Discharge: Jose Grove MD Primary Care Provider: Andry Laurent MD Diagnoses at Discharge Discharge Diagnosis (1) Status post endovascular aneurysm repair (EVAR): Details from hospital stay: Mr. Quispe is a pleasant 81-year-old gentleman whom we have been following for a 5 cm abdominal aortic aneurysm. He has chronic renal insufficiency with a baseline creatinine of around 2.3. Over the past 6 months we have noted an increase in his aneurysmal size from 5 to 5.5 cm in transverse dimensions. We recommended proceeding with plans for attempted endovascular repair. He was electively admitted yesterday and underwent endovascular pair of his abdominal aneurysm utilizing a 25 mm x 90 mm bifurcated graft with a 28 mm x 75 mm suprarenal extension. Postoperatively, he did well. He did continue to receive IV hydration throughout the night. This morning, his creatinine is 2.0 which is below his baseline and mild hyperkalemia immediately postoperatively at 5.3 has now resolved with his potassium at 4.8. Incision is clean and dry. Surgical dressings are dry. Legs are warm. He has ambulated without difficulty. Tolerating diet well without any discomfort. He will be discharged home in stable conditions for scheduled follow-up in my clinic in 1 week. Status: Acute Reason for Visit Reason for Visit: AAA Physical Exam Const: COMMON NORMALS: patient oriented x3 Resp: COMMON NORMALS: normal respiratory effort, No retractions, No use of accessory muscles and clear to auscultation bilaterally AUSCULTATION: clear to auscultation bilaterally Cardio: COMMON NORMALS: regular rate, regular rhythm, S1 normal heart sound present and No murmurs present (Cardio) RATE: regular rate RHYTHM: regular rhythm HEART SOUNDS: S1 normal heart sound present GI: COMMON NORMALS: Normal to inspection, nondistended, normoactive bowel sounds present Extremity: OTHER: Lower extremities are warm. No evidence for embolic phenomenon. Surgical dressings are clean and dry. 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 Routine Exams 09/17/21 07:03 Ordered Leukocyte Reduced RBC Routine Lab 09/11/21 09:00 Results Type and Screen - Cardiac Routine Lab 09/11/21 09:00 Results Laboratory Results WBC 11.1 10^3/uL (4.0-10.0) H 09/18/21 03:28 RBC 3.31 10^6/uL (4.1-5.3) L 09/18/21 03:28 Hgb 10.5 g/dL (11.7-16.6) L 09/18/21 03:28 Hct 31.7 % (42.0-52.0) L 09/18/21 03:28 MCV 95.8 fl (80-94) H 09/18/21 03:28 MCH 31.7 pg (28.0-34.0) 09/18/21 03:28 MCHC 33.1 g/dL (30.0-36.0) 09/18/21 03: RDW 12.6 % (12.1-15.1) 09/18/21 03:28 Plt Count 126 10^3/cmm (130-400) L 09/18/21 03:28 MPV 10.6 fL (7.4-10.4) H 09/18/21 03:28 Neut % (Auto) 69.1 % 09/18/21 03:28 Lymph % (Auto) 24.7 % 09/18/21 03:28 Patrick % (Auto) 5.5 % 09/18/21 03: Eos % (Auto) 0.0 % 09/18/21 03: Baso % (Auto) 0.1 % 09/18/21 03:28 Neut # (Auto) 7.65 10^3/uL (1.8-7.7) 09/18/21 03:28 Lymph # (Auto) 2.7 10^3/uL (0.8-4.8) 09/18/21 03:28 Patrick # (Auto) 0.6 10^3/uL (0.2-0.9) 09/18/21 03:28 Eos # (Auto) 0.0 10^3/uL (0.0-0.8) 09/18/21 03:28 Baso # (Auto) 0.0 10^3/uL (0.0-0.1) 09/18/21 03:28 Nucleated RBC % (auto) 0 % 09/18/21 03:28 Nucleated RBCs # 0.0 /100WBC 09/18/21 03:28 Sodium 138 mmol/L (136-145) 09/18/21 03:28 Potassium 4.8 mmol/L (3.5-5.1) 09/18/21 03:28 Chloride 107 mmol/L (98-107) 09/18/21 03:28 Carbon Dioxide 19 mmol/L (22-29) L 09/18/21 03:28 Anion Gap 16.8 (5-19) 09/18/21 03:28 BUN 25 mg/dL (8-23) H 09/18/21 03:28 Creatinine 2.0 mg/dL (0.7-1.2) H 09/18/21 03:28 GFR Calculation Not Reportable 09/18/21 03:28 Glucose 129 mg/dL (65-115) H 09/18/21 03:28 Calculated Osmolality 292 mOsm/kg (285-295) 09/18/21 03:28 Calcium 8.8 mg/dL (8.5-10.5) 09/18/21 03:28 Total Bilirubin 0.5 mg/dL (0.15-1.2) 09/11/21 09:00 AST 21 U/L (0-40) 09/11/21 09:00 ALT 18 U/L (0-41) 09/11/21 09:00 Alkaline Phosphatase 123 IU/L (40-130) 09/11/21 09:00 Total Protein 6.3 g/dL (6.6-8.7) L 09/11/21 09:00 Albumin 4.2 g/dL (3.5-5.2) 09/11/21 09:00 Globulin 2.1 g/dL (1.3-4.6) 09/11/21 09:00 Urine Color Straw (Yellow) 09/11/21 09:14 Urine Appearance Clear (CLEAR) 09/11/21 09:14 Urine pH 6 (5-7) 09/11/21 09:14 Ur Specific [place] 1.010 (1.005-1.030) 09/11/21 09:14 Urine Protein Neg (Negative) 09/11/21 09:14 Urine Glucose (UA) Norm (Normal) 09/11/21 09:14 Urine Ketones Negative (Negative) 09/11/21 09:14 Urine Blood Neg (Negative) 09/11/21 09:14 Urine Nitrate Negative (Negative) 09/11/21 09:14 Urine Bilirubin Neg (Negative) 09/11/21 09:14 Urine Urobilinogen Norm mg/dL (Negative) 09/11/21 09:14 Ur Leukocyte Esterase Negative (Negative) 09/11/21 09:14 Coronavirus 229E (PCR) Not detected (NOT DETECT) 09/11/21 09:36 SARS-CoV-2 (PCR) Not detected (NOT DETECT) 09/11/21 09:36 Blood Type A Positive 09/11/21 09:00 Rho(D) Type Positive 09/11/21 09:00 Antibody Screen Negative 09/11/21 09:00 Crossmatch See Detail 09/11/21 09:00 Vitals Last Vital Signs Temp 98.3 F 09/17/21 23:26 Pulse 67 09/18/21 04:00 Resp 13 09/18/21 04:00 BP 98/64 09/18/21 04:00 Pulse Ox 93 09/18/21 04:00 Discharge Plan Discharge Patient Disposition: Home Condition: Stable Prescriptions: New hydrocodone-acetaminophen 5-325 mg Tablet 1 tab PO Q6H PRN (Reason: Moderate Pain) 4 Days Qty: 16 0RF Continued omega-3 fatty acids 1,000 mg capsule 2,000 mg PO BID 0RF Hold Instructions: Resume on 03/09/20. magnesium oxide 400 mg magnesium capsule 400 mg PO DAILY 0RF aspirin [Aspir-81] 81 mg tablet,delayed release (DR/EC) 81 mg PO DAILY 0RF Hold Instructions: Resume on 03/09/20. Centrum Silver Men 300-600-300 mcg tablet 1 tab PO DAILY 0RF cholecalciferol (vitamin D3) 25 mcg (1,000 unit) capsule 25 mcg PO DAILY 0RF famotidine 10 mg tablet 10 mg PO DAILY 0RF Repatha SureClick 140 mg/mL pen injector 1 mg SUBCUT DAILY 0RF carvedilol 3.125 mg tablet 3.125 mg PO BID Qty: 180 3RF alfuzosin 10 mg tablet extended release 24 hr 10 mg PO BEDTIME 0RF Discharge Orders: Discharge Order (Routine); Ordered 09/18/21 Ordered By: Jose Grove Referrals: Jose Grove MD [Physician] - 1 week Discharge Diet: Usual diet Discharge Activity: Limit activity as instructed Patient Instructions: Opioid Safety Activity Restrictions/Additional Instructions: May remove bandage in 2 days May begin daily showers in 3 days Dry incision and groin areas completely after showering or cleaning in the region. May recover with dry gauze to prevent moisture collection in the area. No swimming or tub baths x 2 weeks No ointments on incision Report drainage, redness, heat, increased pain, or swelling to clinic No heavy lifting or pulling x2 weeks. Discharge Attestations Time Spent in Discharge Care*: less than 30 min Specific Discharge Activities: educating patient, discussing with case management specialist/social workers/dc planners, documenting/other paperwork and evaluating patient/reviewing data Quality Metrics Clinical Quality Measures [ No reported AMI, CVA or VTE this stay] Coding Level of Care Code Acute Chg FW DC note Diagnoses Status post endovascular aneurysm repair (EVAR) Z98.890; Z86.79
[2021-09-18] MEDS: alum-mag-hydroxide-sime 30 mL UDC PO (08:20)
[2021-09-18] MEDS: pantoprazole DR 40 mg Tablet PO (08:21)
[2021-09-18] MEDS: magnesium oxide 400 mg tablet PO (08:22)
[2021-09-18] MEDS: carvedilol 3.125 mg Tablet PO (08:22)
--- NOTE | 2021-09-18 09:56 | PC.NURSE ---
Discharge instructions given to patient and . No further questions. Patient wheeled to private vehicle by aid.
== END 2021-09-18 10:40 | disposition home or self-care (01) | DRG 269 ==
LOC: ICU 06:11
PROVIDERS: Admitting Provider Thoracic Surgery (Cardiothoracic Vascular Surgery); PCP Family Medicine; Visit Provider Thoracic Surgery (Cardiothoracic Vascular Surgery)
PROC: 04V03ZZ Restriction of Abdominal Aorta, Percutaneous Approach (ICD-10-PCS; principal; 2021-09-17 07:00)
DX: I71.4 Abdominal aortic aneurysm, without rupture (principal); I12.9 Hypertensive chronic kidney disease with stage 1 through stage 4 chronic kidney disease, or unspecified chronic kidney disease; N18.9 Chronic kidney disease, unspecified; E78.5 Hyperlipidemia, unspecified; N40.1 Benign prostatic hyperplasia with lower urinary tract symptoms; Z87.891 Personal history of nicotine dependence; Z79.82 Long term (current) use of aspirin; Z82.49 Family history of ischemic heart disease and other diseases of the circulatory system; Z95.1 Presence of aortocoronary bypass graft; Z85.46 Personal history of malignant neoplasm of prostate; Z85.51 Personal history of malignant neoplasm of bladder; Z79.899 Other long term (current) drug therapy
CPT/HCPCS: 36415; 80048; 80053; 81003; 85025; 85347; 86850; 86900; 86920; 87635; C1725; C1760; C1769; C1773; C1887; C1894; J1100; J1644; J2370; J2405; J2704; J2720; J3010; J3490; J7030; P9016; Q9967

== ENCOUNTER → 2021-09-26 09:11 | Outpatient (BNVA) | payer MEDICARE, OTHER, SELFPAY | PROVIDERS: PCP Family Medicine; Visit Provider Thoracic Surgery (Cardiothoracic Vascular Surgery) | DX: Z98.890 Other specified postprocedural states (principal) | CPT/HCPCS: 99024 ==

== ENCOUNTER 2021-10-21 13:19 | Outpatient (RCR) | payer SELFPAY | END 2021-11-19 23:59 | disposition home or self-care (01) | LOC: CR 13:19 | PROVIDERS: PCP Family Medicine; Referring Provider Internal Medicine; Visit Provider Internal Medicine | DX: Z95.1 Presence of aortocoronary bypass graft (principal) ==

== ENCOUNTER → 2021-10-24 13:17 | Outpatient (BNVA) | payer MEDICARE, OTHER, SELFPAY | PROVIDERS: PCP Family Medicine; Visit Provider Internal Medicine | DX: I25.10 Atherosclerotic heart disease of native coronary artery without angina pectoris (principal); Z95.1 Presence of aortocoronary bypass graft; I65.23 Occlusion and stenosis of bilateral carotid arteries; I35.0 Nonrheumatic aortic (valve) stenosis; I10 Essential (primary) hypertension; E78.5 Hyperlipidemia, unspecified; I71.4 Abdominal aortic aneurysm, without rupture; Z87.891 Personal history of nicotine dependence | CPT/HCPCS: 99214 ==

== ENCOUNTER 2021-11-04 14:22 | Emergency (ER) | payer MEDICARE, OTHER, SELFPAY ==
[2021-11-04 15:05] VITALS: BP 144/83; PULSE 61; RESP 12; TEMP 36.5; O2SAT 98; BMI 26.4
--- NOTE | 2021-11-04 16:04 | W.ED.FALL ---
Documented by User: VADIM Leon 11/05/21 07:05 HPI - Fall General: Chief Complaint: Fall Stated Complaint: Fell injury Right Leg Time Seen by Provider: 11/04/21 16:04 Source: patient and family Mode of arrival: ambulatory Limitations: no limitations History of Present Illness: Patient is a nice 81-year-old male who presents to ED today along with his for evaluation following a fall. Patient states he was cutting branches down and states he had a hold of one of them to tear it down when the branch gave way and broke causing patient to fall backwards. He states he is having pain to his anterior right hip/inguinal region. Patient is ambulatory without difficulty. He states he is concerned reporting that Dr. Grove fixed an aortic aneurysm approximately 2 months ago. Patient is not having any abdominal or back pain. Denies numbness, tingling, loss of sensation to his legs. No color or temperature changes noted. MD complaint: fall Onset (ago): hour(s) Fall from: standing Fall witnessed: no Place fall occurred: home Loss of consciousness: None Prolonged down time: no Symptoms prior to fall: none Context: tripped/slipped [facility] ED PFSH: Medical History Abdominal aortic aneurysm (AAA) Aortic stenosis ASHD (arteriosclerotic heart disease) Bladder cancer Bladder tumor BPH loc w urin obs/LUTS Carotid stenosis, bilateral HTN (hypertension) Hyperlipidemia Prostate CA Renal insufficiency Surgical History S/P CABG (coronary artery bypass graft) Family History Brother CAD (coronary artery disease) Mother , at age 61 Alzheimer disease Father , at age 81 No problems noted. Other Hypertension Social History Smoking and tobacco status: former smoker Alcohol intake: never Marital status: Current occupational status: retired History of recent travel: No Course ED course: Care will be transferred to Chevy Russo PA-C at 1700 pending XR/US. Vital Signs: Vital signs: Vital Signs Temperature 97.7 F 11/04/21 15:05 Pulse Rate 61 11/04/21 15:05 Respiratory Rate 12 11/04/21 15:05 Blood Pressure 144/83 11/04/21 15:05 Pulse Oximetry 98 11/04/21 15:05 MDM - Fall Lab Data Radiology Impressions Hip/Pelvis X-Ray 11/04/21 16:10 IMPRESSION: 1. Negative for fracture or dislocation. 2. Mild osteoarthritis of the hips bilaterally. Aorta Iliac Vascular Ultrasound 11/04/21 16:17 IMPRESSION: 1. Right inguinal 31 x 7 mm hematoma suspected without internal color blood flow. 2. Mid abdominal aorta up 5.5 cm aneurysm with a suspected repair graft with a thrombosed excluded [place] aneurysm sac. 3. Normal arterial color blood flow seen in the underlying vessels. Discharge Plan Discharge Patient Disposition: Home Clinical Impression: Pain of right lower extremity due to injury Condition: Stable Prescriptions: No Action omega-3 fatty acids 1,000 mg capsule 2,000 mg PO BID 0RF Hold Instructions: Resume on 03/09/20. magnesium oxide 400 mg magnesium capsule 400 mg PO DAILY 0RF aspirin [Aspir-81] 81 mg tablet,delayed release (DR/EC) 81 mg PO DAILY 0RF Hold Instructions: Resume on 03/09/20. Centrum Silver Men 300-600-300 mcg tablet 1 tab PO DAILY 0RF cholecalciferol (vitamin D3) 25 mcg (1,000 unit) capsule 25 mcg PO DAILY 0RF famotidine 10 mg tablet 10 mg PO DAILY 0RF Repatha SureClick 140 mg/mL pen injector 1 mg SUBCUT DAILY 0RF carvedilol 3.125 mg tablet 3.125 mg PO BID Qty: 180 3RF alfuzosin 10 mg tablet extended release 24 hr 10 mg PO BEDTIME 0RF Discharge Orders: Discharge ED (Routine); Ordered 11/04/21 Ordered By: Chevy Russo Referrals: Andry Laurent MD [Primary Care Provider] - Discharge Diet: Regular Discharge Activity: Increase activity as tolerated Activity Restrictions/Additional Instructions: Follow-up with medical provider as directed. Contact Dr. Grove's office tomorrow morning to let them know that you were seen here in the ED and an ultrasound was done to check aorta and graft area after fall. Ultrasound just showed a small hematoma around graft site. No active bleeding. Continue taking medications as prescribed. Return to the ER or your medical provider if condition worsens. Please read and understand discharge instructions. Thank you for choosing [facility] for your healthcare needs today. Please realize this is an emergency room and that we are providing you with a medical screening exam and this may not be complete and all inclusive of all the testing and or work up that you may need to determine your ailment or severity of your illness. It is very important that you follow up as instructed or that you return to the Emergency Department should you have concerns or if your condition changes or worsens in any way. Sign Out Sign Out Data: Patient Sign Out occurred on 11/04/21 at 17:17. Patient's care was discussed, and care was transferred from to VADIM Hazel. Coding Level of Care Code ED Enforcement Manager for Chg Fwd Exam Comprehensive Documented by User: VADIM Hazel 11/05/21 00:58 HPI - Fall General: Chief Complaint: Fall Stated Complaint: Fell injury Right Leg Time Seen by Provider: 11/04/21 16:04 History of Present Illness: Associated symptoms-after fall: Denies abdominal pain, chest pain, headache(s), hematuria or neck pain Review of Systems Const: Denies: fever(s), chills or fatigue Eyes: Denies: change in vision or eye discomfort ENMT: Denies: throat pain, odynophagia, nasal discharge or nasal congestion Card: Denies: chest pain, palpitations, edema, swelling of feet/ankles, dyspnea on exertion or orthopnea Resp: Denies: dyspnea, productive cough or non-productive cough GI: Denies: abdominal pain, nausea, vomiting, diarrhea, constipation or hematochezia : Denies: flank pain, difficulty urinating, dysuria or hematuria Musc: Reports: extremity pain (Right hip and right inguinal pain); Denies: neck pain, back pain or extremity swelling Skin/Breast: Denies: rash or new lesions Neuro: Denies: headache(s), numbness in extremities or weakness in extremities PFS ED PFSH: Medical History Abdominal aortic aneurysm (AAA) Aortic stenosis ASHD (arteriosclerotic heart disease) Bladder cancer Bladder tumor BPH loc w urin obs/LUTS Carotid stenosis, bilateral HTN (hypertension) Hyperlipidemia Prostate CA Renal insufficiency Surgical History S/P CABG (coronary artery bypass graft) Family History Brother CAD (coronary artery disease) Mother , at age 61 Alzheimer disease Father , at age 81 No problems noted. Other Hypertension Social History Smoking and tobacco status: former smoker Alcohol intake: never Marital status: Current occupational status: retired History of recent travel: No Physical Exam Const: COMMON NORMALS: patient oriented x3 HENMT: COMMON NORMALS: normocephalic HEAD & SCALP: normocephalic MOUTH: Normal oral and palatal mucosa present THROAT: posterior oropharynx normal and uvula midline Neck/C-Spine: COMMON NORMALS: supple GENERAL: Yes normal visual inspection Resp: COMMON NORMALS: normal respiratory effort, No retractions, No use of accessory muscles and clear to auscultation bilaterally AUSCULTATION: clear to auscultation bilaterally Cardio: COMMON NORMALS: regular rate, regular rhythm, S1 normal heart sound present, S2 normal heart sound present, No gallops present (Cardio), No clicks present (Cardio), No murmurs present (Cardio) and Peripheral pulses 2+ throughout RATE: regular rate RHYTHM: regular rhythm HEART SOUNDS: S1 normal heart sound present and S2 normal heart sound present PERIPHERAL PULSES: Peripheral pulses 2+ throughout GI: COMMON NORMALS: Normal to inspection, nondistended, normoactive bowel sounds present, Soft to palpation, non-tender and no masses PALPATION: Yes Soft to palpation : COMMON NORMALS: Yes no CVA tenderness BLADDER/KIDNEY EXAM: Yes no CVA tenderness Back/Pelvis: COMMON NORMALS: no CVA tenderness Neuro: COMMON NORMALS: patient oriented x3 and moves all extremities Course Vital Signs: Vital signs: Vital Signs Temperature 97.7 F 11/04/21 15:05 Pulse Rate 61 11/04/21 15:05 Respiratory Rate 12 11/04/21 15:05 Blood Pressure 144/83 11/04/21 15:05 Pulse Oximetry 98 11/04/21 15:05 MDM - Fall Medical Decision Making I took over patient case from Katerina Selby PA-C at 5 PM. She performed the initial history, exam and imaging work-up. Image results were pending when I took over patient. Patient had a fall with right hip and right inguinal pain. Patient had a aortic aneurysm repair [address] Grove and after fall he is having some pain near that incision site. X-ray of right hip showed no acute fractures or dislocations. Vascular ultrasound of the aorta iliac showed a right inguinal small hematoma with no current or active bleeding noted. Talk with Dr. Eric about image findings and he thought they were likely nonacute and the hematoma was probably from his surgery [address] Eric told me to contact Dr. Grove to let him know about ultrasound findings. medical staff services coordinator contacted Dr. Grove and left him a message but he never returned call. Patient was stable for discharge home and I told him to call Dr. Grove's office tomorrow morning let them know about his ED visit and the ultrasound findings. Return to ED precautions given. Patient Agree with plan. Lab Data Radiology Impressions Hip/Pelvis X-Ray 11/04/21 16:10 IMPRESSION: 1. Negative for fracture or dislocation. 2. Mild osteoarthritis of the hips bilaterally. Aorta Iliac Vascular Ultrasound 11/04/21 16:17 IMPRESSION: 1. Right inguinal 31 x 7 mm hematoma suspected without internal color blood flow. 2. Mid abdominal aorta up 5.5 cm aneurysm with a suspected repair graft with a thrombosed excluded [place] aneurysm sac. 3. Normal arterial color blood flow seen in the underlying vessels. Discharge Plan Discharge Patient Disposition: Home Clinical Impression: Pain of right lower extremity due to injury Condition: Stable Prescriptions: No Action omega-3 fatty acids 1,000 mg capsule 2,000 mg PO BID 0RF Hold Instructions: Resume on 03/09/20. magnesium oxide 400 mg magnesium capsule 400 mg PO DAILY 0RF aspirin [Aspir-81] 81 mg tablet,delayed release (DR/EC) 81 mg PO DAILY 0RF Hold Instructions: Resume on 03/09/20. Centrum Silver Men 300-600-300 mcg tablet 1 tab PO DAILY 0RF cholecalciferol (vitamin D3) 25 mcg (1,000 unit) capsule 25 mcg PO DAILY 0RF famotidine 10 mg tablet 10 mg PO DAILY 0RF Repatha SureClick 140 mg/mL pen injector 1 mg SUBCUT DAILY 0RF carvedilol 3.125 mg tablet 3.125 mg PO BID Qty: 180 3RF alfuzosin 10 mg tablet extended release 24 hr 10 mg PO BEDTIME 0RF Discharge Orders: Discharge ED (Routine); Ordered 11/04/21 Ordered By: Chevy Russo Referrals: Andry Laurent MD [Primary Care Provider] - Discharge Diet: Regular Discharge Activity: Increase activity as tolerated Activity Restrictions/Additional Instructions: Follow-up with medical provider as directed. Contact Dr. Grove's office tomorrow morning to let them know that you were seen here in the ED and an ultrasound was done to check aorta and graft area after fall. Ultrasound just showed a small hematoma around graft site. No active bleeding. Continue taking medications as prescribed. Return to the ER or your medical provider if condition worsens. Please read and understand discharge instructions. Thank you for choosing [facility] for your healthcare needs today. Please realize this is an emergency room and that we are providing you with a medical screening exam and this may not be complete and all inclusive of all the testing and or work up that you may need to determine your ailment or severity of your illness. It is very important that you follow up as instructed or that you return to the Emergency Department should you have concerns or if your condition changes or worsens in any way. Sign Out Sign Out Data: Patient Sign Out occurred on 11/04/21 at 17:17. Patient's care was discussed, and care was transferred from to VADIM Hazel. Coding Level of Care Code ED Enforcement Manager for Chg Fwd Exam Comprehensive Documented by User: Darian Eric DO 11/05/21 07:44 HPI - Fall General: Chief Complaint: Fall Stated Complaint: Fell injury Right Leg Time Seen by Provider: 11/04/21 16:04 [facility] ED PFSH: Medical History Abdominal aortic aneurysm (AAA) Aortic stenosis ASHD (arteriosclerotic heart disease) Bladder cancer Bladder tumor BPH loc w urin obs/LUTS Carotid stenosis, bilateral HTN (hypertension) Hyperlipidemia Prostate CA Renal insufficiency Surgical History S/P CABG (coronary artery bypass graft) Family History Brother CAD (coronary artery disease) Mother , at age 61 Alzheimer disease Father , at age 81 No problems noted. Other Hypertension Social History Smoking and tobacco status: former smoker Alcohol intake: never Marital status: Current occupational status: retired History of recent travel: No Course Vital Signs: Vital signs: Vital Signs Temperature 97.7 F 11/04/21 15:05 Pulse Rate 61 11/04/21 15:05 Respiratory Rate 12 11/04/21 15:05 Blood Pressure 144/83 11/04/21 15:05 Pulse Oximetry 98 11/04/21 15:05 MDM - Fall Medical Decision Making I took over patient case from Katerina Selby PA-C at 5 PM. She performed the initial history, exam and imaging work-up. Image results were pending when I took over patient. Patient had a fall with right hip and right inguinal pain. Patient had a aortic aneurysm repair [address] Grove and after fall he is having some pain near that incision site. X-ray of right hip showed no acute fractures or dislocations. Vascular ultrasound of the aorta iliac showed a right inguinal small hematoma with no current or active bleeding noted. Talk with Dr. Eric about image findings and he thought they were likely nonacute and the hematoma was probably from his surgery [address] Eric told me to contact Dr. Grove to let him know about ultrasound findings. medical staff services coordinator contacted Dr. Grove and left him a message but he never returned call. Patient was stable for discharge home and I told him to call Dr. Grove's office tomorrow morning let them know about his ED visit and the ultrasound findings. Return to ED precautions given. Patient Agree with plan. Chart reviewed and patient discussed with midlevel. Agree with assessment and plan. Lab Data Radiology Impressions Hip/Pelvis X-Ray 11/04/21 16:10 IMPRESSION: 1. Negative for fracture or dislocation. 2. Mild osteoarthritis of the hips bilaterally. Aorta Iliac Vascular Ultrasound 11/04/21 16:17 IMPRESSION: 1. Right inguinal 31 x 7 mm hematoma suspected without internal color blood flow. 2. Mid abdominal aorta up 5.5 cm aneurysm with a suspected repair graft with a thrombosed excluded [place] aneurysm sac. 3. Normal arterial color blood flow seen in the underlying vessels. Discharge Plan Discharge Patient Disposition: Home Clinical Impression: Pain of right lower extremity due to injury Condition: Stable Prescriptions: No Action omega-3 fatty acids 1,000 mg capsule 2,000 mg PO BID 0RF Hold Instructions: Resume on 03/09/20. magnesium oxide 400 mg magnesium capsule 400 mg PO DAILY 0RF aspirin [Aspir-81] 81 mg tablet,delayed release (DR/EC) 81 mg PO DAILY 0RF Hold Instructions: Resume on 03/09/20. Centrum Silver Men 300-600-300 mcg tablet 1 tab PO DAILY 0RF cholecalciferol (vitamin D3) 25 mcg (1,000 unit) capsule 25 mcg PO DAILY 0RF famotidine 10 mg tablet 10 mg PO DAILY 0RF Repatha SureClick 140 mg/mL pen injector 1 mg SUBCUT DAILY 0RF carvedilol 3.125 mg tablet 3.125 mg PO BID Qty: 180 3RF alfuzosin 10 mg tablet extended release 24 hr 10 mg PO BEDTIME 0RF Discharge Orders: Discharge ED (Routine); Ordered 11/04/21 Ordered By: Chevy Russo Referrals: Andry Laurent MD [Primary Care Provider] - Discharge Diet: Regular Discharge Activity: Increase activity as tolerated Activity Restrictions/Additional Instructions: Follow-up with medical provider as directed. Contact Dr. Grove's office tomorrow morning to let them know that you were seen here in the ED and an ultrasound was done to check aorta and graft area after fall. Ultrasound just showed a small hematoma around graft site. No active bleeding. Continue taking medications as prescribed. Return to the ER or your medical provider if condition worsens. Please read and understand discharge instructions. Thank you for choosing [facility] for your healthcare needs today. Please realize this is an emergency room and that we are providing you with a medical screening exam and this may not be complete and all inclusive of all the testing and or work up that you may need to determine your ailment or severity of your illness. It is very important that you follow up as instructed or that you return to the Emergency Department should you have concerns or if your condition changes or worsens in any way. Sign Out Sign Out Data: Patient Sign Out occurred on 11/04/21 at 17:17. Patient's care was discussed, and care was transferred from to VADIM Hazel. Coding Level of Care Code ED Enforcement Manager for [place] Fwd Exam Comprehensive
--- NOTE | 2021-11-04 16:10 | XRR_ITS ---
PROCEDURE INFORMATION: Exam: XR Right Hip Exam date and time: 11/04/2021 5:07 PM Age: 81 years old Clinical indication: Hip pain; Right hip; Additional info: Fall, one view pelvis too please TECHNIQUE: Imaging protocol: XR Right hip. Views: 1 view hip with pelvis when performed. COMPARISON: CT abdomen pelvis wo con [id number] 07/19/2021 8:48 AM FINDINGS: Bones/joints: Mild osteoarthritis of the hips bilaterally. Soft tissues: Unremarkable. XR/XR hip RT 2-3V wo/w pel* [id number] IMPRESSION: 1. Negative for fracture or dislocation. 2. Mild osteoarthritis of the hips bilaterally.
--- NOTE | 2021-11-04 16:17 | USR_ITS ---
PROCEDURE INFORMATION: Exam: US Duplex Scan of Aorta, Inferior Vena Cava, Iliac Vasculature, or Bypass Grafts, Complete Exam date and time: 11/04/2021 4:37 PM Age: 81 years old Clinical indication: Other: RT groin at stent insertion site; Other: RT groin pain post fall; Prior surgery; Surgery date: 1-6 months; Surgery type: Aaa stent; Additional info: Fall; Pain, endograft placed 2 mo ago TECHNIQUE: Imaging protocol: Real-time duplex ultrasound scan of the Aorta, IVC, iliac vasculature, or bypass grafts in the abdomen with color Doppler flow and spectral waveform analysis with image documentation. Complete exam. COMPARISON: CT abdomen pelvis wo con [id number] 07/19/2021 8:48 AM FINDINGS: Aorta: Mid abdominal aorta up 5.5 cm aneurysm with a suspected repair graft with a thrombosed excluded [place] aneurysm sac. Soft tissues: Right inguinal 31 x 7 mm hematoma suspected without internal color blood flow. Normal arterial color blood flow seen in the underlying vessels. US/CV duplex aorta [id number] IMPRESSION: 1. Right inguinal 31 x 7 mm hematoma suspected without internal color blood flow. 2. Mid abdominal aorta up 5.5 cm aneurysm with a suspected repair graft with a thrombosed excluded [place] aneurysm sac. 3. Normal arterial color blood flow seen in the underlying vessels.
== END 2021-11-04 18:41 | disposition home or self-care (01) ==
PROVIDERS: Emergency Provider Physician Assistant; PCP Family Medicine
DX: S79.921A Unspecified injury of right thigh, initial encounter (principal); W01.0XXA Fall on same level from slipping, tripping and stumbling without subsequent striking against object, initial encounter; M25.551 Pain in right hip; R10.31 Right lower quadrant pain; M79.81 Nontraumatic hematoma of soft tissue; Z98.890 Other specified postprocedural states; Z86.79 Personal history of other diseases of the circulatory system; Z95.828 Presence of other vascular implants and grafts
CPT/HCPCS: 73502; 93978; 99283

== ENCOUNTER 2021-11-09 23:44 | Emergency (ER) | payer MEDICARE, OTHER, SELFPAY ==
[2021-11-09 23:50] VITALS: BP 124/78; PULSE 84; RESP 18; TEMP 36.8; O2SAT 99; BMI 21.6
--- NOTE | 2021-11-10 00:23 | W.ED.GENADLT ---
HPI - General Adult General: Chief complaint: General Medical Stated complaint: cough Time Seen by Provider: 11/09/21 23:50 History of Present Illness: Mr. Quispe is a 81-year-old gentleman with history of hypertension, hyperlipidemia, AAA status postrepair, history of CABG presenting to the emergency department due to cough. He reports symptom onset greater than 1 week ago, initially he thought it was allergies however he has had persistence of nonproductive cough which has been worsening. Intensity is moderate. No significant shortness of breath. Symptoms are worse at night. He denies wheezing. Denies other signs of systemic illness, no associated chest pain. Very remote history of smoking, no diagnosis of COPD. No other specific changes in health, exacerbating, or alleviating factors identified. 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 Other Hypertension Social History Smoking and tobacco status: former smoker Alcohol intake: never Marital status: Current occupational status: retired History of recent travel: No Physical Exam Const: COMMON NORMALS: alert GENERAL APPEARANCE: cooperative and well developed HENMT: COMMON NORMALS: normocephalic and atraumatic HEAD & SCALP: normocephalic and atraumatic Eye: COMMON NORMALS: conjunctivae normal CONJUNCTIVA: Yes conjunctivae normal SCLERA: sclerae normal Neck/C-Spine: COMMON NORMALS: supple GENERAL: Yes trachea midline Resp: COMMON NORMALS: normal respiratory effort and clear to auscultation bilaterally EFFORT & INSPECTION: Yes able to speak in complete sentences AUSCULTATION: clear to auscultation bilaterally Cardio: COMMON NORMALS: regular rate and regular rhythm RATE: regular rate RHYTHM: regular rhythm GI: COMMON NORMALS: Soft to palpation PALPATION: Yes Soft to palpation and No Tenderness to palpation present (GI) PERCUSSION: normal to percussion Extremity: GENERAL: Yes normal exam except as noted and No edema Neuro: COMMON NORMALS: moves all extremities SENSORIUM/ORIENTATION: Yes alert and No Orientation impaired Psych: COMMON NORMALS: mental status grossly normal and Normal thought process present THOUGHT PROCESS: Normal thought process present Course Vital Signs: Vital signs: Vital Signs Temperature 97.7 F 11/10/21 01:35 Pulse Rate 65 11/10/21 01:35 Respiratory Rate 16 11/10/21 01:35 Blood Pressure 127/77 11/10/21 01:35 Pulse Oximetry 97 11/10/21 01:35 [facility] [place] - General Adult Medical Decision Making 81-year-old male with complex past medical history presenting to the emergency department due to cough for 1 week that has been worsening. Nontoxic-appearing on exam without new oxygen requirement. Laboratory studies and EKG reviewed. Chest x-ray reviewed. Clinically patient has bronchitis and given duration of symptoms as well as worsening will be treated. Satisfactory for outpatient management with strict return precautions. Medical Records I reviewed the patient's medical records. Lab Data I reviewed the patient's lab results. : 11/10/21 00:42 11/10/21 00:42 Radiology Impressions Chest X-Ray 11/10/21 00:27 IMPRESSION: No acute findings. Laboratory Results WBC 5.6 10^3/uL (4.0-10.0) 11/10/21 00:42 RBC 3.07 10^6/uL (4.1-5.3) L 11/10/21 00:42 Hgb 9.9 g/dL (11.7-16.6) L 11/10/21 00:42 Hct 29.7 % (42.0-52.0) L 11/10/21 00:42 MCV 96.7 fl (80-94) H 11/10/21 00:42 MCH 32.2 pg (28.0-34.0) 11/10/21 00:42 MCHC 33.3 g/dL (30.0-36.0) 11/10/21 00:42 RDW 12.6 % (12.1-15.1) 11/10/21 00:42 Plt Count 128 10^3/cmm (130-400) L 11/10/21 00:42 MPV 10.1 fL (7.4-10.4) 11/10/21 00:42 Neut % (Auto) 36.3 % 11/10/21 00:42 Lymph % (Auto) 50.3 % 11/10/21 00:42 [place]once % (Auto) 9.7 % 11/10/21 00:42 Eos % (Auto) 2.9 % 11/10/21 00:42 Baso % (Auto) 0.4 % 11/10/21 00:42 Neut # (Auto) 2.02 10^3/uL (1.8-7.7) 11/10/21 00:42 Lymph # (Auto) 2.8 10^3/uL (0.8-4.8) 11/10/21 00:42 [place] # (Auto) 0.5 10^3/uL (0.2-0.9) 11/10/21 00:42 Eos # (Auto) 0.2 10^3/uL (0.0-0.8) 11/10/21 00:42 Baso # (Auto) 0.0 10^3/uL (0.0-0.1) 11/10/21 00:42 Nucleated RBC % (auto) 0 % 11/10/21 00:42 Nucleated RBCs # 0.0 /100WBC 11/10/21 00:42 Sodium 138 mmol/L (136-145) 11/10/21 00:42 Potassium 4.9 mmol/L (3.5-5.1) 11/10/21 00:42 Chloride 105 mmol/L (98-107) 11/10/21 00:42 Carbon Dioxide 24 mmol/L (22-29) 11/10/21 00:42 Anion Gap 13.9 (5-19) 11/10/21 00:42 BUN 26 mg/dL (8-23) H 11/10/21 00:42 Creatinine 2.3 mg/dL (0.7-1.2) H 11/10/21 00:42 GFR Calculation Not Reportable 11/10/21 00:42 Glucose 112 mg/dL (65-115) 11/10/21 00:42 Calculated Osmolality 292 mOsm/kg (285-295) 11/10/21 00:42 Calcium 8.7 mg/dL (8.5-10.5) 11/10/21 00:42 Discharge Plan Discharge Patient Disposition: Home Clinical Impression: Bronchitis, Anemia, Thrombocytopenia, CKD (chronic kidney disease) Condition: Stable Prescriptions: No Action omega-3 fatty acids 1,000 mg capsule 2,000 mg PO BID 0RF Hold Instructions: Resume on 03/09/20. magnesium oxide 400 mg magnesium capsule 400 mg PO DAILY 0RF aspirin [Aspir-81] 81 mg tablet,delayed release (DR/EC) 81 mg PO DAILY 0RF Hold Instructions: Resume on 03/09/20. Centrum Silver Men 300-600-300 mcg tablet 1 tab PO DAILY 0RF cholecalciferol (vitamin D3) 25 mcg (1,000 unit) capsule 25 mcg PO DAILY 0RF famotidine 10 mg tablet 10 mg PO DAILY 0RF Repatha SureClick 140 mg/mL pen injector 1 mg SUBCUT DAILY 0RF carvedilol 3.125 mg tablet 3.125 mg PO BID Qty: 180 3RF alfuzosin 10 mg tablet extended release 24 hr 10 mg PO BEDTIME 0RF Discharge Orders: Discharge ED (Routine); Ordered 11/10/21 Ordered By: Pradeep Ferreira Referrals: Andry Laurent MD [Primary Care Provider] - Discharge Diet: Usual diet Discharge Activity: Resume usual activity Patient Instructions: Chronic Kidney Disease (ED), Acute Bronchitis (ED), Anemia (ED) Activity Restrictions/Additional Instructions: Thank you for visiting the emergency department. You were seen and evaluated for cough. The exact cause of your symptoms is unclear though given laboratory evaluation most likely related to bronchitis. Given your duration of symptoms I will treat you with antibiotics and steroids. Please follow-up with your primary care provider. As discussed your hemoglobin is lower than previous, this may require further evaluation in the outpatient setting which can be arranged by your primary care provider. Is return to the emergency department for worsening symptoms or anything else that you are concerned about and feel needs emergency department evaluation. Coding Level of Care Code ED Director Home for Martha Fwd Exam Comprehensive
--- NOTE | 2021-11-10 00:27 | XRR_ITS ---
PROCEDURE INFORMATION: Exam: XR Chest Exam date and time: 11/10/2021 12:48 AM Age: 81 years old Clinical indication: Cough; Prior surgery; Surgery date: 6+ months; Surgery type: Cabg TECHNIQUE: Imaging protocol: XR of the chest. Views: 1 view. COMPARISON: CR Chest 2 views* [id number] 07/09/2018 8:09 AM FINDINGS: Lungs: Lungs are clear. Pleural spaces: There is no pleural effusion or pneumothorax. Heart/Mediastinum: Cardiomediastinal contours are unremarkable. Bones/joints: Sternal wires are present. There is no displacement to suggest sternal dehiscence. No acute fracture. XR/XR chest 1V portable [id number] IMPRESSION: No acute findings.
--- NOTE | 2021-11-10 00:27 | ECG_ITS ---
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 Measurements Intervals [place] Rate: 71 P: 78 TN: 197 QRS: 72 QRSD: 78 T: 65 QT: 361 QTc: 393 Interpretive Statements SINUS RHYTHM Compared to ECG 06/04/2021 09:08:13 No significant changes Electronically Signed On 11-10-2021 12:14:07 CDT by Julio César Payton M.D. [id number]
[2021-11-10 00:47] LABS: Basophils % 0.4 %; Eosinophils # 0.2 10^3/uL (0.0-0.8); Eosinophils % 2.9 %; Hematocrit 29.7 % (42.0-52.0); Hemoglobin 9.9 g/dL (11.7-16.6); Lymphocytes # 2.8 10^3/uL (0.8-4.8); Lymphocytes % 50.3 %; Mean Corpuscular HGB Conc 33.3 g/dL (30.0-36.0); Mean Corpuscular Hemoglobin 32.2 pg (28.0-34.0); Mean Corpuscular Volume 96.7 fl (80-94); Mean Platelet Volume 10.1 fL (7.4-10.4); Monocytes # 0.5 10^3/uL (0.2-0.9); Monocytes % 9.7 %; Neutrophils # 2.02 10^3/uL (1.8-7.7); Neutrophils % 36.3 %; Nucleated Red Blood Cells % 0 %; Platelet Count 128 10^3/cmm (130-400); Red Blood Count 3.07 10^6/uL (4.1-5.3); Red Cell Distribution Width 12.6 % (12.1-15.1); White Blood Count 5.6 10^3/uL (4.0-10.0)
[2021-11-10 01:02] LABS: Anion Gap 13.9 (5-19); Blood Urea Nitrogen 26 mg/dL (8-23); Calcium 8.7 mg/dL (8.5-10.5); Carbon Dioxide 24 mmol/L (22-29); Chloride 105 mmol/L (98-107); Glucose 112 mg/dL (65-115); Osmolality Calculated 292 mOsm/kg (285-295); Potassium 4.9 mmol/L (3.5-5.1); Sodium 138 mmol/L (136-145)
[2021-11-10 01:35] VITALS: BP 127/77; PULSE 65; RESP 16; TEMP 36.5; O2SAT 97
== END 2021-11-10 01:37 | disposition home or self-care (01) ==
PROVIDERS: Emergency Provider Emergency Medicine; PCP Family Medicine
DX: J40 Bronchitis, not specified as acute or chronic (principal); I12.9 Hypertensive chronic kidney disease with stage 1 through stage 4 chronic kidney disease, or unspecified chronic kidney disease; N18.9 Chronic kidney disease, unspecified; D63.1 Anemia in chronic kidney disease; D69.6 Thrombocytopenia, unspecified; Z87.891 Personal history of nicotine dependence; I25.10 Atherosclerotic heart disease of native coronary artery without angina pectoris; Z95.1 Presence of aortocoronary bypass graft
CPT/HCPCS: 71045; 80048; 85025; 93005; 99283

== ENCOUNTER 2021-11-20 13:15 | Outpatient (RCR) | payer SELFPAY | END 2021-12-19 23:59 | disposition home or self-care (01) | LOC: CR 13:15 | PROVIDERS: PCP Family Medicine; Referring Provider Internal Medicine; Visit Provider Internal Medicine | DX: Z95.1 Presence of aortocoronary bypass graft (principal) ==

== ENCOUNTER → 2021-11-28 09:50 | Outpatient (BNVA) | payer MEDICARE, OTHER, SELFPAY | PROVIDERS: PCP Family Medicine; Visit Provider Thoracic Surgery (Cardiothoracic Vascular Surgery) | DX: Z98.890 Other specified postprocedural states (principal) | CPT/HCPCS: 99024 ==

== ENCOUNTER 2021-12-20 13:46 | Outpatient (RCR) | payer SELFPAY | END 2022-01-19 23:59 | disposition home or self-care (01) | LOC: CR 13:46 | PROVIDERS: PCP Family Medicine; Referring Provider Internal Medicine; Visit Provider Internal Medicine | DX: Z95.1 Presence of aortocoronary bypass graft (principal) ==

== ENCOUNTER 2022-01-14 13:52 | Outpatient (CLI) | payer MEDICARE, OTHER, SELFPAY ==
--- NOTE | 2022-01-14 14:15 | USCV_ITS ---
Augusto Quispe Age: 81 Gender: M : 1940 Exam Date: 01/14/2022 14:03 Ordering Phys: Julio César Payton M.D ([email or web address]) Technologist: Eduardo Vasquez [place] [facility] [place]: as BP: 110 / 68 HR: 58 Rhythm: Sinus Technical Quality: Adequate MEASUREMENTS (Male / Female) Normal Values 2D ECHO LV Diastolic Diameter PLAX 3.2 cm 4.2 - 5.9 / 3.9 - 5.3 cm LV Systolic Diameter PLAX 2.2 cm IVS Diastolic Thickness 0.9 cm 0.6 - 1.0 / 0.6 - 0.9 cm IVS Systolic Thickness 1.4 cm LVPW Diastolic Thickness 1.0 cm 0.6 - 1.0 / 0.6 - 0.9 cm LVPW Systolic Thickness 1.2 cm LVOT Diameter 2.0 cm LV Ejection Fraction 2D Teich 60.4 % LV Ejection Fraction MOD 2C 67.8 % LV Ejection Fraction 2C AL 67.5 % LA Diameter 4.1 cm Aorta at Sinotubular Diameter 2.4 cm M-MODE LV Diastolic Diameter MM 3.7 cm 4.2 - 5.9 / 3.9 - 5.3 cm LV Systolic Diameter MM 2.2 cm LV Ejection Fraction MM Teich 71.6 % IVS Diastolic Thickness MM 1.0 cm 0.6 - 1.0 / 0.6 - 0.9 cm IVS Systolic Thickness MM 1.6 cm LVPW Diastolic Thickness MM 1.2 cm 0.6 - 1.0 / 0.6 - 0.9 cm LVPW Systolic Thickness MM 1.9 cm RV Diastolic Diameter MM 1.2 cm Aortic Annulus Diameter 2.8 cm LA Ao Ratio MM 1.4 MV E Point Septal Separation 0.7 cm DOPPLER AV Peak Velocity 370.0 cm/s LVOT Peak Velocity 108.0 cm/s AV Area Cont Eq vti 1.2 cm squared AV Area Cont Eq pk 0.9 cm squared MV Area PHT 5.0 cm squared Mitral E to A Ratio 0.8 MV E' Velocity 34.5 cm/s Mitral E to MV E' Ratio 7.7 Mitral E to LV E' Lateral Ratio 7.7 Mitral E to LV E' Septal Ratio 7.7 TR Peak Velocity 210.0 cm/s TR Peak Gradient 17.6 mmHg TV Peak E Velocity 98.0 cm/s Right Atrial Pressure 3.0 mmHg Pulmonary Artery Systolic Pressu 20.6 mmHg PV Peak Velocity 108.0 cm/s FINDINGS Left Ventricle Normal left ventricular size. LV systolic function is normal with EF of 55-60%. No regional wall motion abnormalities. Grade 1 diastolic dysfunction Right Ventricle The right ventricle is normal in size and function. Right Atrium The right atrium is normal in size. Left Atrium The left atrium is normal in size. Mitral Valve Structurally normal mitral valve without significant stenosis or prolapse. There is no mitral regurgitation. Aortic Valve Aortic valve is thickened and calcified. Moderate aortic stenosis is seen with aortic valve area of 1.18 cm squared and mean gradient across the aortic valve of 22 mmHg. Mild aortic regurgitation Tricuspid Valve Mild tricuspid regurgitation. Insufficient TR jet to calculate RVSP. Pulmonic Valve Mild pulmonic regurgitation. Pericardium Normal pericardium without effusion. Aorta Normal ascending aorta dimension. IVC CONCLUSIONS LV systolic function is normal with EF of 55 to 60%. Grade 1 diastolic dysfunction. Aortic valve is thickened and calcified. Moderate aortic stenosis is seen with aortic valve area of 1.18 cm squared and mean gradient across aortic valve of 22 mmHg. Mild aortic regurgitation Mild tricuspid regurgitation Mild pulmonic regurgitation Compared to prior echocardiogram from 11/02/2020, aortic stenosis has progressed and is moderate now. Julio César Payton MD (Electronically Signed) Final Date: 28 January 2022 17:58 S
== END 2022-01-14 13:53 | disposition home or self-care (01) ==
PROVIDERS: PCP Family Medicine; Visit Provider Internal Medicine
DX: I08.2 Rheumatic disorders of both aortic and tricuspid valves (principal)
CPT/HCPCS: 93306

== ENCOUNTER 2022-01-20 14:23 | Outpatient (RCR) | payer SELFPAY | END 2022-02-19 23:59 | disposition home or self-care (01) | LOC: CR 14:23 | PROVIDERS: PCP Family Medicine; Referring Provider Internal Medicine; Visit Provider Internal Medicine | DX: Z95.1 Presence of aortocoronary bypass graft (principal) ==

== ENCOUNTER 2022-04-21 07:33 | Outpatient (CLI) | payer MEDICARE, OTHER, SELFPAY | END 2022-04-21 07:34 | disposition home or self-care (01) | LOC: LAB 07:38 | PROVIDERS: PCP Family Medicine; Visit Provider Urology | DX: Z12.5 Encounter for screening for malignant neoplasm of prostate (principal); C67.0 Malignant neoplasm of trigone of bladder; Z85.46 Personal history of malignant neoplasm of prostate; C67.9 Malignant neoplasm of bladder, unspecified; N40.1 Benign prostatic hyperplasia with lower urinary tract symptoms | CPT/HCPCS: 52000; 81003; 99213; G0103 ==

== ENCOUNTER 2022-04-22 14:11 | Outpatient (RCR) | payer SELFPAY | END 2022-05-21 23:59 | disposition home or self-care (01) | LOC: CR 14:11 | PROVIDERS: PCP Family Medicine; Referring Provider Internal Medicine; Visit Provider Internal Medicine | DX: Z95.1 Presence of aortocoronary bypass graft (principal) ==

== ENCOUNTER → 2022-05-07 15:19 | Outpatient (BNVA) | payer MEDICARE, OTHER, SELFPAY | PROVIDERS: PCP Family Medicine; Visit Provider Internal Medicine | DX: I25.10 Atherosclerotic heart disease of native coronary artery without angina pectoris (principal); Z95.1 Presence of aortocoronary bypass graft; I10 Essential (primary) hypertension; I35.0 Nonrheumatic aortic (valve) stenosis; I65.23 Occlusion and stenosis of bilateral carotid arteries; E78.5 Hyperlipidemia, unspecified; Z87.891 Personal history of nicotine dependence; I71.40 Abdominal aortic aneurysm, without rupture, unspecified | CPT/HCPCS: 99213 ==

== ENCOUNTER 2022-05-11 17:53 | Emergency (ER) | payer MEDICARE, OTHER, SELFPAY ==
[2022-05-11 18:20] VITALS: BP 158/72; PULSE 64; RESP 16; TEMP 36.1; O2SAT 99
--- NOTE | 2022-05-11 19:32 | CTR_ITS ---
PROCEDURE INFORMATION: Exam: CT Abdomen And Pelvis Without Contrast Exam date and time: 05/11/2022 7:49 PM Age: 82 years old Clinical indication: Abdominal pain; Generalized; Prior surgery; Surgery date: 6+ months; Surgery type: Aortic stent, cholecystectomy, appendectomy; Additional info: Abd pain following lifting. HX of aortic stent. TECHNIQUE: Imaging protocol: Computed tomography of the abdomen and pelvis without contrast. Sagittal and coronal reformatted images were created and reviewed. Radiation optimization: All CT scans at this facility use at least one of these dose optimization techniques: automated exposure control; mA and/or kV adjustment per patient size (includes targeted exams where dose is matched to clinical indication); or iterative reconstruction. COMPARISON: CT abdomen pelvis wo con [id number] 07/19/2021 8:48 AM RADIATION DOSE METRICS: Total DLP (mGy-cm): 511.5 FINDINGS: Limitations: Evaluation of solid organs and vasculature is limited without intravenous contrast. Tubes, catheters and devices: The patient has had and interval endograft repair of an abdominal aortic aneurysm. The stent graft limbs are in appropriate position. [place] abdominal aorta measures 5.4 x 5.3 cm, previously measured 5.5 x 5.5 cm (series 5, image 24 and series 6, image 35). Lungs: Stable linear scarring in the right and left lower lobes. Pleural spaces: No pleural effusion. Heart: Stable mild enlargement of the visualized portions of the heart. Moderate atherosclerotic calcification in the visualized coronary arteries. Liver: Multiple calcified granulomas in the liver. Stable 8.5 mm cyst in the lateral left lobe of the liver. Gallbladder and bile ducts: Few stones in the gallbladder. No gallbladder wall thickening. No biliary ductal dilatation. Pancreas: The pancreas is unremarkable. No pancreatic ductal dilatation. Spleen: Multiple calcified granulomas in the spleen. Adrenal glands: The right and left adrenal glands are unremarkable. Kidneys and ureters: Multiple cysts in both kidneys, greater in number on the right are stable in size. The largest on the right measures 9.8 cm, and the largest on the left measures 1.5 cm. Indeterminate hyperdense foci in the right and left kidneys are stable. Hounsfield units show density greater than expected for simple fluid. The largest on the right measures 2.6 cm, and the largest on the left measures 2.3 cm (series 3, images 14 and 28). The right and left ureters are unremarkable. Stomach and bowel: Small hiatal hernia. Appendix: The appendix is visualized and is unremarkable. No findings to suggest acute appendicitis. Intraperitoneal space: No free intraperitoneal air. No ascites. No loculated fluid collections to suggest an abscess. Vasculature: Stable moderate atherosclerotic calcifications in the visualized arteries. Lymph nodes: No lymphadenopathy. Urinary bladder: The bladder is incompletely filled, which can limit evaluation. No focal abnormality in the bladder however. Reproductive: Unremarkable as visualized. Bones/joints: Poststernotomy changes in the chest. Degenerative changes in the spine, sacroiliac joints, and hips. Soft tissues: Surgical clip in the right groin. No acute abnormality in the extra-abdominal soft tissues. CT/CT abdomen pelvis wo con [id number] IMPRESSION: 1. No acute abnormality in the abdomen or pelvis. 2. Cholelithiasis. 3. Stable indeterminate hyperdense foci in the right and left kidneys. These could represent hemorrhagic/proteinaceous cysts. 4. Small hiatal hernia. 5. Patient has had an interval endograft repair of an abdominal aortic aneurysm. No evidence for complications. 6. Incidental/nonacute findings are listed in the report.
--- NOTE | 2022-05-11 20:06 | W.ED.ABDPA2 ---
HPI - Abdominal Pain General: Chief Complaint: Abdominal Pain Stated Complaint: States bleeding in abd Time Seen by Provider: 05/11/22 19:22 Source: patient History of Present Illness: 82-year-old male with a history of aortic aneurysm repaired by endovascular stent back in August. He lifted a case of bottles of water 2 days ago, and since that time has been having pain in his lower abdomen. He became concerned that he may have damaged or have a problem with his endovascular stent. He denies any fever, vomiting, diarrhea, constipation, etc. No weakness. MD elicited complaint: abdominal pain Pertinent past history: other Onset (ago): day(s) Location: Diffuse Quality: aching Radiation: none Migration to: no migration Exacerbating factors: other (Lifting) Relieving factors: nothing Associated Symptoms: Denies anorexia, constipation, diarrhea, fever(s), hematochezia, poor appetite and vomiting Review of Systems Const: Denies: fever(s) ENMT: Denies: throat pain Card: Denies: chest pain Resp: Denies: dyspnea, productive cough or non-productive cough GI: Denies: vomiting, diarrhea, constipation or hematochezia PFSH ED PFSH: Medical History Abdominal aortic aneurysm (AAA) Aortic stenosis ASHD (arteriosclerotic heart disease) Bladder cancer Bladder tumor BPH loc w urin obs/LUTS Carotid stenosis, bilateral HTN (hypertension) Hyperlipidemia Prostate CA Renal insufficiency Surgical History S/P CABG (coronary artery bypass graft) Family History Brother CAD (coronary artery disease) Mother , at age 61 Alzheimer disease Father , at age 81 No problems noted. Other Hypertension Social History Smoking and tobacco status: former smoker Alcohol intake: never Marital status: Current occupational status: retired History of recent travel: No Physical Exam Const: COMMON NORMALS: no acute distress GENERAL APPEARANCE: cooperative; not ill appearing and not frail appearing HENMT: COMMON NORMALS: normocephalic, atraumatic and Normal external nose present HEAD & SCALP: normocephalic and atraumatic FACE & SINUS: normal facial exam and face symmetric NOSE: Normal external nose present Eye: COMMON NORMALS: Equal, round and reactive pupils present and EOMs intact bilaterally PUPIL: Yes Equal, round and reactive pupils present Neck/C-Spine: GENERAL: Yes trachea midline Chest: CHEST: Yes Symmetrical chest wall rise Resp: COMMON NORMALS: normal respiratory effort, No retractions, No use of accessory muscles and clear to auscultation bilaterally AUSCULTATION: clear to auscultation bilaterally Cardio: COMMON NORMALS: regular rate and regular rhythm RATE: regular rate RHYTHM: regular rhythm GI: COMMON NORMALS: Normal to inspection, nondistended, normoactive bowel sounds present PALPATION: Yes Tenderness to palpation present (GI) (Minimal lower) Extremity: COMMON NORMALS: no pedal edema Neuro: [place] COMA SCALE: document GCS findings [place] coma scale eye opening: Spontaneous [place] coma scale verbal response: Orientated [place] coma scale motor response: Obey commands [place] coma scale total score: 15 SENSORY EXAM: Yes extremities (intact) Psych: COMMON NORMALS: speech normal SPEECH: Yes normal speech Skin: COMMON NORMALS: no rashes or lesions noted GENERAL SKIN EXAM: no rashes or lesions noted Course Vital Signs: Vital signs: Vital Signs Temperature 97.0 F L 05/11/22 18:20 Pulse Rate 64 05/11/22 18:20 Respiratory Rate 16 05/11/22 18:20 Blood Pressure 158/72 05/11/22 18:20 Pulse Oximetry 99 05/11/22 18:20 MDM - Abdominal Pain Medical Decision Making Endovascular grafts show no signs of complication by CT. No acute findings on CT. Patient has minimal pain. He will be allowed home. Lab Data Labs/Radiology: Radiology Impressions Abdomen/Pelvis CT 05/11/22 19:32 IMPRESSION: 1. No acute abnormality in the abdomen or pelvis. 2. Cholelithiasis. 3. Stable indeterminate hyperdense foci in the right and left kidneys. These could represent hemorrhagic/proteinaceous cysts. 4. Small hiatal hernia. 5. Patient has had an interval endograft repair of an abdominal aortic aneurysm. No evidence for complications. 6. Incidental/nonacute findings are listed in the report. Discharge Plan Discharge Patient Disposition: Home Clinical Impression: Abdominal pain Condition: Stable Prescriptions: No Action omega-3 fatty acids 1,000 mg capsule 2,000 mg PO BID Hold Instructions: Resume on 03/09/20. magnesium oxide 400 mg magnesium capsule 400 mg PO DAILY aspirin [Aspir-81] 81 mg tablet,delayed release (DR/EC) 81 mg PO DAILY Hold Instructions: Resume on 03/09/20. Centrum Silver Men 300-600-300 mcg tablet 1 tab PO DAILY cholecalciferol (vitamin D3) 25 mcg (1,000 unit) capsule 25 mcg PO DAILY famotidine 10 mg tablet 10 mg PO DAILY Repatha SureClick 140 mg/mL pen injector 1 mg SUBCUT DAILY carvedilol 3.125 mg tablet 3.125 mg PO BID Qty: 180 3RF alfuzosin 10 mg tablet extended release 24 hr 10 mg PO BEDTIME Discharge Orders: Discharge ED (Routine); Ordered 05/11/22 Ordered By: Hayden Luna Referrals: Andry Laurent MD [Primary Care Provider] - 4-7 days Patient Instructions: Abdominal Pain (ED) Activity Restrictions/Additional Instructions: Return to the ER for worsening pain, fever greater than 100, vomiting, diarrhea, other concerning symptoms. Follow-up with your doctor. Coding Level of Care Code ED Tile Fitter for Chg Fwd Exam Comprehensive
== END 2022-05-11 21:10 | disposition home or self-care (01) ==
PROVIDERS: Emergency Provider Emergency Medicine; PCP Family Medicine
DX: R10.30 Lower abdominal pain, unspecified (principal); Z79.82 Long term (current) use of aspirin; K80.20 Calculus of gallbladder without cholecystitis without obstruction; Z85.51 Personal history of malignant neoplasm of bladder; I10 Essential (primary) hypertension; E78.5 Hyperlipidemia, unspecified; Z85.46 Personal history of malignant neoplasm of prostate; Z95.1 Presence of aortocoronary bypass graft; Z87.891 Personal history of nicotine dependence
CPT/HCPCS: 74176; 99283

== ENCOUNTER 2022-05-22 14:01 | Outpatient (RCR) | payer SELFPAY | END 2022-06-21 23:59 | disposition home or self-care (01) | LOC: CR 14:01 | PROVIDERS: PCP Family Medicine; Referring Provider Internal Medicine; Visit Provider Internal Medicine | DX: Z95.1 Presence of aortocoronary bypass graft (principal) ==

== ENCOUNTER 2022-06-02 10:38 | Outpatient (CLI) | payer MEDICARE, OTHER, SELFPAY ==
--- NOTE | 2022-06-02 11:15 | USCV_ITS ---
Jose EnriqueAugusto Age: 82 Gender: M : 1940 Exam Date: 06/02/2022 10:50 Ordering Phys: Technologist: DION [place]am [place] [facility] [place]: Post AO Stent HISTORY: Placement of AO Stent Diameter (cm) AP x Transverse x Length Velocity (cm/s) Waveform Prox Aorta: x x Mid Aorta: 2.24 x 2.84 x 56.20 Distal Aorta: 5.39 x 5.70 x 54.10 Right Iliac Prox: 1.40 x 1.31 x 34.70 Left Iliac Prox: 1.38 x 1.60 x 38.65 Stent Prox Landing 2.24 x 2.84 x 106.30 Aneurysmal Sac Max 5.39 x 5.67 x Lt Lat Sac Dim Rt Lat Sac Dim Stent Dist Landing x x Right Iliac Stent 1.31 x 1.40 x 41.90 Left Iliac Stent 1.60 x 1.38 x 47.80 Right Renal Art 103.20 Left Renal Art 64.70 FINDINGS: Patent aortic stent graft Infrarenal aortic aneurysm sac measuring 5.39 x 5.7 cm Normal Doppler flow velocities in the graft CONCLUSIONS 1. Patent aortoiliac stent graft with no evidence of any stent stenosis 2. Maximum diameter of the infrarenal aortic aneurysm sac, measured to be 5.39 x 5.7 cm 3. No evidence of endoleak, based on the color-flow Doppler. Compared to the study from 11/04/2021, there may not be a significant change in the size of the aneurysm Dr Shania Calderon MD [facility] (Electronically Signed) Final Date: 03 June 2022 21:25 S
== END 2022-06-02 10:39 | disposition home or self-care (01) ==
LOC: RAD 10:39
PROVIDERS: PCP Family Medicine; Visit Provider Thoracic Surgery (Cardiothoracic Vascular Surgery)
DX: I71.43 Infrarenal abdominal aortic aneurysm, without rupture (principal)
CPT/HCPCS: 93978

== ENCOUNTER 2022-06-25 13:39 | Outpatient (RCR) | payer SELFPAY | END 2022-07-22 23:59 | disposition home or self-care (01) | LOC: CR 13:39 | PROVIDERS: PCP Family Medicine; Referring Provider Internal Medicine; Visit Provider Internal Medicine | DX: Z95.1 Presence of aortocoronary bypass graft (principal) ==

== ENCOUNTER 2022-07-23 15:24 | Outpatient (RCR) | payer SELFPAY | END 2022-08-19 23:59 | disposition home or self-care (01) | LOC: CR 15:24 | PROVIDERS: PCP Family Medicine; Referring Provider Internal Medicine; Visit Provider Internal Medicine | DX: Z95.1 Presence of aortocoronary bypass graft (principal) ==

== ENCOUNTER 2022-08-20 15:09 | Outpatient (RCR) | payer SELFPAY | END 2022-09-19 23:59 | disposition home or self-care (01) | LOC: CR 15:09 | PROVIDERS: PCP Family Medicine; Referring Provider Internal Medicine; Visit Provider Internal Medicine | DX: Z95.1 Presence of aortocoronary bypass graft (principal) ==

== ENCOUNTER 2022-09-20 10:27 | Emergency (ER) | payer MEDICARE, OTHER, SELFPAY ==
[2022-09-20 10:34] VITALS: BP 120/75; PULSE 65; RESP 14; TEMP 36.7; O2SAT 97; BMI 27.1
--- NOTE | 2022-09-20 10:42 | W.ED.MALEGU ---
HPI - Male Genitourinary General: Chief complaint: Urogenital-Male Stated complaint: blood in urine Time Seen by Provider: 09/20/22 10:36 Source: patient Mode of arrival: ambulatory History of Present Illness: 82-year-old male presents emergency room complaining of painless hematuria that began last evening. He does take 81 mg of aspirin daily has a history of previous bladder tumor that was removed by cystoscopy unfortunately there was not a definitive diagnosis. Notes from Dr. Jackson's chart were reviewed. He denies any fever sweats chills dysuria urgency or frequency has been able to void without any difficulty and has not had problems emptying bladder. Onset (ago): day(s) (1) Duration: intermittent Severity: moderate Relieving factors: none Exacerbating factors: none Associated symptoms: Reports hematuria; Deny discharge, dysuria, fevers/chills, nausea, rash, swelling, urinary incontinence, urinary retention, mass or vomiting Review of Systems Const: Denies: fever(s), chills, body aches, change in appetite, fatigue or malaise ENMT: Denies: throat pain, ear or mastoid pain, nasal discharge or nasal congestion Card: Denies: chest pain, edema, dyspnea on exertion or orthopnea Resp: Denies: dyspnea, productive cough or non-productive cough GI: Denies: nausea or vomiting : Reports: hematuria; Denies: dysuria, urinary frequency, urinary urgency or urinary incontinence Skin/Breast: Denies: rash or pruritus PFSH ED PFSH: Medical History Abdominal aortic aneurysm (AAA) Aortic stenosis ASHD (arteriosclerotic heart disease) Bladder cancer Bladder tumor BPH loc w urin obs/LUTS Carotid stenosis, bilateral HTN (hypertension) Hyperlipidemia Prostate CA Renal insufficiency Surgical History S/P CABG (coronary artery bypass graft) Family History Brother CAD (coronary artery disease) Mother , at age 61 Alzheimer disease Father , at age 81 No problems noted. Other Hypertension Social History Smoking and tobacco status: former smoker Alcohol intake: never Marital status: Current occupational status: retired Physical Exam Const: COMMON NORMALS: no acute distress GENERAL APPEARANCE: cooperative and comfortable ORIENTATION/CONSCIOUSNESS: Yes awake, Yes oriented to person, Yes oriented to place and Yes oriented to time HENMT: COMMON NORMALS: normocephalic, atraumatic and hearing grossly normal bilaterally HEAD & SCALP: normocephalic and atraumatic Resp: COMMON NORMALS: normal respiratory effort, No retractions, No use of accessory muscles and clear to auscultation bilaterally AUSCULTATION: clear to auscultation bilaterally Cardio: COMMON NORMALS: regular rate, regular rhythm and No murmurs present (Cardio) RATE: regular rate RHYTHM: regular rhythm GI: COMMON NORMALS: Soft to palpation and No hepatosplenomegaly present AUSCULTATION: Yes normoactive bowel sounds PALPATION: Yes Soft to palpation, No Tenderness to palpation present (GI), No Guarding due to palpation present (GI) and Yes No hepatosplenomegaly present : COMMON NORMALS: Yes no CVA tenderness BLADDER/KIDNEY EXAM: Yes no CVA tenderness Back/Pelvis: COMMON NORMALS: no CVA tenderness Extremity: COMMON NORMALS: normal to inspection, capillary refill normal, no clubbing, cyanosis or edema, no calf tenderness and no pedal edema Neuro: SENSORIUM/ORIENTATION: Yes oriented to person, Yes oriented to place and Yes oriented to time Skin: COMMON NORMALS: no rashes or lesions noted GENERAL SKIN EXAM: no rashes or lesions noted Course Vital Signs: Vital signs: Vital Signs Temperature 98.0 F 09/20/22 10:34 Pulse Rate 57 L 09/20/22 12:29 Respiratory Rate 14 09/20/22 10:34 Blood Pressure 120/75 09/20/22 12:29 Pulse Oximetry 96 09/20/22 12:29 Oxygen Delivery Me thod 09/20/22 11:31 MDM - Male Medical Decision Making Discussed with Dr. Jackson. Patient has gross hematuria which is completely painless he previously had a bladder tumor that was scraped unfortunately the final diagnosis was not completed per Dr. Jackson's notes. He did recently have a cystoscopy that was relatively unremarkable there was no evidence of recurrence of tumor. Dr. Jackson is concerned it may be something from in the kidney. We will set up for a renal ultrasound as an outpatient since he is pain-free and there is no emergent issues at this time. After that he will follow-up with Dr. Jackson I did call and discussed with him so he was aware of the patient's gross hematuria. Medical Records I reviewed the patient's medical records. Lab Data I reviewed the patient's lab results. 09/20/22 11:45 09/20/22 11:45 Laboratory Results WBC 4.6 10^3/uL (4.0-10.0) 09/20/22 11:45 RBC 2.75 10^6/uL (4.1-5.3) L 09/20/22 11:45 Hgb 8.5 g/dL (11.7-16.6) L 09/20/22 11:45 Hct 26.9 % (42.0-52.0) L 09/20/22 11:45 MCV 97.8 fl (80-94) H 09/20/22 11:45 MCH 30.9 pg (28.0-34.0) 09/20/22 11:45 MCHC 31.6 g/dL (30.0-36.0) 09/20/22 11:45 RDW 13.1 % (12.1-15.1) 09/20/22 11:45 Plt Count 118 10^3/cmm (130-400) L 09/20/22 11:45 MPV 10.2 fL (7.4-10.4) 09/20/22 11:45 Neut % (Auto) 42.3 % 09/20/22 11:45 Lymph % (Auto) 46.2 % 09/20/22 11:45 [place]berry % (Auto) 8.9 % 09/20/22 11:45 Eos % (Auto) 2.2 % 09/20/22 11:45 Baso % (Auto) 0.2 % 09/20/22 11:45 Neut # (Auto) 1.94 10^3/uL (1.8-7.7) 09/20/22 11:45 Lymph # (Auto) 2.1 10^3/uL (0.8-4.8) 09/20/22 11:45 [place] # (Auto) 0.4 10^3/uL (0.2-0.9) 09/20/22 11:45 Eos # (Auto) 0.1 10^3/uL (0.0-0.8) 09/20/22 11:45 Baso # (Auto) 0.0 10^3/uL (0.0-0.1) 09/20/22 11:45 Nucleated RBC % (auto) 0 % 09/20/22 11:45 Nucleated RBCs # 0.0 /100WBC 09/20/22 11:45 Sodium 137 mmol/L (136-145) 09/20/22 11:45 Potassium 4.8 mmol/L (3.5-5.1) 09/20/22 11:45 Chloride 106 mmol/L (98-107) 09/20/22 11:45 Carbon Dioxide 22 mmol/L (22-29) 09/20/22 11:45 Anion Gap 13.8 (5-19) 09/20/22 11:45 BUN 24 mg/dL (8-23) H 09/20/22 11:45 Creatinine 2.6 mg/dL (0.7-1.2) H 09/20/22 11:45 GFR Calculation Not Reportable 09/20/22 11:45 Glucose 109 mg/dL (65-115) 09/20/22 11:45 Calculated Osmolality 289 mOsm/kg (285-295) 09/20/22 11:45 Calcium 9.0 mg/dL (8.5-10.5) 09/20/22 11:45 Urine Color Tia (Yellow) 09/20/22 10:40 Urine Appearance Hazy (CLEAR) A 09/20/22 10:40 Urine pH 5 (5-7) 09/20/22 10:40 Ur Specific [place] 1.015 (1.005-1.030) 09/20/22 10:40 Urine Protein 1+ (Negative) H 09/20/22 10:40 Urine Glucose (UA) Norm (Normal) 09/20/22 10:40 Urine Ketones Negative (Negative) 09/20/22 10:40 Urine Blood 3+ (Negative) H 09/20/22 10:40 Urine Nitrate Negative (Negative) 09/20/22 10:40 Urine Bilirubin Neg (Negative) 09/20/22 10:40 Urine Urobilinogen Norm mg/dL (Negative) 09/20/22 10:40 Ur Leukocyte Esterase Trace (Negative) H 09/20/22 10:40 Urine RBC Too numerous to cnt /hpf (0-2) H 09/20/22 10:40 Urine WBC 5-10 /hpf (0-5) H 09/20/22 10:40 Ur Squamous Epith Cells None /hpf (0-5) 09/20/22 10:40 Amorphous Sediment Not Reportable 09/20/22 10:40 Urine Bacteria 1+ /hpf (NONE) H 09/20/22 10:40 Discharge Plan Discharge Patient Disposition: Home Clinical Impression: Hematuria, Bladder tumor Condition: Stable Prescriptions: New Macrobid 100 mg capsule 100 mg PO BID 7 Days Qty: 14 0RF Rx Instructions: must administer with a meal/food No Action omega-3 fatty acids 1,000 mg capsule 2,000 mg PO BID Hold Instructions: Resume on 03/09/20. magnesium oxide 400 mg magnesium capsule 400 mg PO DAILY aspirin [Aspir-81] 81 mg tablet,delayed release (DR/EC) 81 mg PO DAILY Hold Instructions: Resume on 03/09/20. Centrum Silver Men 300-600-300 mcg tablet 1 tab PO DAILY cholecalciferol (vitamin D3) 25 mcg (1,000 unit) capsule 25 mcg PO DAILY famotidine 10 mg tablet 10 mg PO DAILY Repatha SureClick 140 mg/mL pen injector 1 mg SUBCUT DAILY carvedilol 3.125 mg tablet 3.125 mg PO BID Qty: 180 3RF alfuzosin 10 mg tablet extended release 24 hr 10 mg PO BEDTIME Discharge Orders: Discharge ED (Routine); Ordered 09/20/22 Ordered By: Darian Eric Referrals: Andry Laurent MD [Primary Care Provider] - Discharge Diet: Usual diet Discharge Activity: Resume usual activity Patient Instructions: Opioid Safety, Pain Management Activity Restrictions/Additional Instructions: You are seen today with complaint of blood in your urine. Given the history of a previous bladder tumor it is important for you to follow-up with Dr. Jackson your symptoms are suspicious for recurrence. Your urine was cultured and you will be started on antibiotic until the culture is resulted. Coding Level of Care Code ED Junk Removal Specialist for Martha Enamorado
[2022-09-20 11:30] LABS: Glucose Urine UA Norm (Normal); Ketones Urine Negative (Negative); Protein Urine 1+ (Negative); Specific Gravity, Urine 1.015 (1.005-1.030); Urine Appearance Hazy (CLEAR); Urine Color Amber (Yellow); pH Urine 5 (5-7)
[2022-09-20 11:31] VITALS: BP 120/75; PULSE 60; O2SAT 97
[2022-09-20 11:31] LABS: Add Urine Culture? Yes; Add Urine Microscopic? YES; Bacteria Urine 1+ /hpf; Bilirubin Urine Neg (Negative); Blood Urine 3+ (Negative); Leukocyte Esterase Urine Trace (Negative); Nitrate Urine Negative (Negative); RBC Urine TOO NUMEROUS TO CNT /hpf (0-2); Urobilinogen Urine Norm (Negative)
[2022-09-20 11:51] LABS: Basophils % 0.2 %; Eosinophils # 0.1 10^3/uL (0.0-0.8); Eosinophils % 2.2 %; Hematocrit 26.9 % (42.0-52.0); Hemoglobin 8.5 g/dL (11.7-16.6); Lymphocytes # 2.1 10^3/uL (0.8-4.8); Lymphocytes % 46.2 %; Mean Corpuscular HGB Conc 31.6 g/dL (30.0-36.0); Mean Corpuscular Hemoglobin 30.9 pg (28.0-34.0); Mean Corpuscular Volume 97.8 fl (80-94); Mean Platelet Volume 10.2 fL (7.4-10.4); Monocytes # 0.4 10^3/uL (0.2-0.9); Monocytes % 8.9 %; Neutrophils # 1.94 10^3/uL (1.8-7.7); Neutrophils % 42.3 %; Nucleated Red Blood Cells % 0 %; Platelet Count 118 10^3/cmm (130-400); Red Blood Count 2.75 10^6/uL (4.1-5.3); Red Cell Distribution Width 13.1 % (12.1-15.1); White Blood Count 4.6 10^3/uL (4.0-10.0)
[2022-09-20 12:17] LABS: Anion Gap 13.8 (5-19); Blood Urea Nitrogen 24 mg/dL (8-23); Carbon Dioxide 22 mmol/L (22-29); Chloride 106 mmol/L (98-107); Glucose 109 mg/dL (65-115); Osmolality Calculated 289 mOsm/kg (285-295); Potassium 4.8 mmol/L (3.5-5.1); Sodium 137 mmol/L (136-145)
[2022-09-20 12:29] VITALS: BP 120/75; PULSE 57; O2SAT 96
--- NOTE | 2022-09-22 13:37 | DCPLANNER ---
Addendum entered by Alondra Madrigal 09/24/22 07:36: Patient had a follow up appointment scheduled with urology - patient did attend appointment. Original Note: manager of applications development had message to schedule a follow up appointment for patient with urology. manager of applications development sent patients information to the front office staff at urology. Patients information will be printed and reviewed. Clinic will call patient with appointment information.
--- NOTE | 2022-09-22 13:39 | DCPLANNER ---
merchandising execution manager had message to schedule an outpatient renal ultrasound for patient. merchandising execution manager faxed signed order to centralized scheduling, who will call patient with appointment information.
== END 2022-09-20 12:32 | disposition home or self-care (01) ==
PROVIDERS: Emergency Provider Family Medicine; PCP Family Medicine
DX: R31.0 Gross hematuria (principal); D49.4 Neoplasm of unspecified behavior of bladder; Z79.82 Long term (current) use of aspirin; Z87.891 Personal history of nicotine dependence; I10 Essential (primary) hypertension; E78.5 Hyperlipidemia, unspecified; Z85.46 Personal history of malignant neoplasm of prostate
CPT/HCPCS: 36415; 51798; 80048; 81001; 85025; 87086; 99283

== ENCOUNTER 2022-09-22 13:47 | Outpatient (RCR) | payer SELFPAY | END 2022-10-19 23:59 | disposition home or self-care (01) | LOC: CR 13:47 | PROVIDERS: PCP Family Medicine; Referring Provider Internal Medicine; Visit Provider Internal Medicine | DX: Z95.1 Presence of aortocoronary bypass graft (principal) ==

== ENCOUNTER → 2022-09-23 12:30 | Outpatient (BNVA) | payer MEDICARE, OTHER, SELFPAY | PROVIDERS: PCP Family Medicine; Visit Provider Urology | DX: C67.0 Malignant neoplasm of trigone of bladder (principal); R31.0 Gross hematuria; N30.40 Irradiation cystitis without hematuria; Z85.46 Personal history of malignant neoplasm of prostate | CPT/HCPCS: 52000; 99213 ==

== ENCOUNTER 2022-10-20 15:48 | Outpatient (RCR) | payer SELFPAY | END 2022-11-19 23:59 | disposition home or self-care (01) | LOC: CR 15:48 | PROVIDERS: PCP Family Medicine; Referring Provider Internal Medicine; Visit Provider Internal Medicine | DX: Z95.1 Presence of aortocoronary bypass graft (principal) ==

== ENCOUNTER 2022-11-10 10:49 | Outpatient (CLI) | payer MEDICARE, OTHER, SELFPAY ==
--- NOTE | 2022-11-10 11:15 | USCV_ITS ---
Augusto Quispe Age: 82 Gender: M : 1940 Exam Date: 11/10/2022 11:16 Ordering Phys: Julio César Payton M.D ([email or web address]) Technologist: CT Exam Location: [facility] – [place] Indication: as BP: 126 / 84 HR: 61 Rhythm: Sinus Technical Quality: Adequate MEASUREMENTS (Male / Female) Normal Values 2D ECHO LV Diastolic Diameter PLAX 5.0 cm 4.2 - 5.9 / 3.9 - 5.3 cm LV Systolic Diameter PLAX 3.8 cm IVS Diastolic Thickness 0.7 cm 0.6 - 1.0 / 0.6 - 0.9 cm IVS Systolic Thickness 1.7 cm LVPW Diastolic Thickness 1.2 cm 0.6 - 1.0 / 0.6 - 0.9 cm LVPW Systolic Thickness 1.5 cm LVOT Diameter 2.2 cm LV Ejection Fraction 2D Teich 44.7 % LV Ejection Fraction MOD 2C 59.1 % LV Ejection Fraction 2C AL 59.9 % LA Diameter 5.0 cm Aorta at Sinotubular Diameter 2.9 cm M-MODE Aortic Annulus Diameter 3.1 cm LA Ao Ratio MM 1.6 MV E Point Septal Separation 0.9 cm DOPPLER AV Peak Velocity 341.0 cm/s LVOT Peak Velocity 101.0 cm/s AV Area Cont Eq vti 1.1 cm squared AV Area Cont Eq pk 1.1 cm squared MV Peak Velocity 108.0 cm/s MV Area PHT 4.3 cm squared Mitral E to A Ratio 1.2 MV E' Velocity 48.5 cm/s Mitral E to MV E' Ratio 11.4 Mitral E to LV E' Lateral Ratio 13.0 Mitral E to LV E' Septal Ratio 10.2 TR Peak Velocity 142.5 cm/s TR Peak Gradient 8.1 mmHg TR Mean Velocity 103.5 cm/s TR Mean Gradient 4.7 mmHg TR Velocity Time Integral 28.9 cm TV Peak E Velocity 76.0 cm/s Right Atrial Pressure 3.0 mmHg Pulmonary Artery Systolic Pressu 11.1 mmHg PV Peak Velocity 98.0 cm/s FINDINGS Left Ventricle Left ventricle is normal in size. LV systolic function is normal with EF 50 to 55%. No regional wall motion abnormalities are seen. Right Ventricle Grossly normal Right Atrium Normal in size Left Atrium Normal in size Mitral Valve Structurally normal mitral valve. Mild mitral regurgitation. Aortic Valve Aortic valve is thickened and calcified. Moderate aortic stenosis with aortic valve area of 1.13 cm squared and mean gradient across aortic valve of 29 mmHg. Mild to moderate aortic regurgitation. Tricuspid Valve Mild tricuspid regurgitation. Pulmonary artery systolic pressure is normal. Pulmonic Valve Not well visualized. Mild pulmonic regurgitation. Pericardium Normal Aorta Normal in size IVC Appears to be normal CONCLUSIONS LV systolic function is normal with EF of 50 to 55%. Mild mitral regurgitation Moderate aortic stenosis. Mild to moderate aortic regurgitation Mild tricuspid regurgitation Mild pulmonic regurgitation. Compared to prior echocardiogram from 01/14/2023, no significant changes are seen Julio César Payton MD (Electronically Signed) Final Date: 21 November 2022 15:48 S
== END 2022-11-10 10:50 | disposition home or self-care (01) ==
LOC: RAD 10:53
PROVIDERS: PCP Family Medicine; Visit Provider Internal Medicine
DX: I71.40 Abdominal aortic aneurysm, without rupture, unspecified (principal); I34.0 Nonrheumatic mitral (valve) insufficiency; I35.1 Nonrheumatic aortic (valve) insufficiency; I07.1 Rheumatic tricuspid insufficiency; I37.1 Nonrheumatic pulmonary valve insufficiency
CPT/HCPCS: 93306

== ENCOUNTER 2022-11-21 13:52 | Outpatient (RCR) | payer SELFPAY | END 2022-12-19 23:59 | disposition home or self-care (01) | LOC: CR 13:52 | PROVIDERS: PCP Family Medicine; Referring Provider Internal Medicine; Visit Provider Internal Medicine | DX: Z95.1 Presence of aortocoronary bypass graft (principal) ==

== ENCOUNTER 2022-12-03 08:45 | Outpatient (CLI) | payer MEDICARE, OTHER, SELFPAY ==
--- NOTE | 2022-12-03 08:50 | USCV_ITS ---
QuispeAugusto norris Age: 82 Gender: M : 1940 Exam Date: 12/03/2022 09:07 Ordering Phys: Jose Grove MD (Andy) ([email or web address]/[facility] [place]) Technologist: ASHLI Exam Location: [facility] – [place] Indication: AAA HISTORY: Diameter (cm) AP x Transverse x Length Velocity (cm/s) Waveform Prox Aorta: x x Mid Aorta: 1.83 x 2.22 x 83.40 Distal Aorta: 4.67 x 5.45 x 8.44 62.60 Right Iliac Prox: 1.06 x 1.52 x 77.30 Left Iliac Prox: 1.28 x 1.52 x 57.50 Stent Prox Landing x x Aneurysmal Sac Max x x Lt Lat Sac Dim Rt Lat Sac Dim Stent Dist Landing x x Right Iliac Stent x x Left Iliac Stent x x Right Renal Art Left Renal Art FINDINGS: Comparison:. 06/02/20 Prior endovascular stent graft placement. Normal flow in the graft with no extraluminal vascularity seeen. Size of the [place] aneurysm is unchanged. No evidence of periaortic fluid is detected. There is evidence of atherosclerotic plaque no significan stenosis in the right common iliac artery. There is evidence of atherosclerotic plaque no significan stenosis in the left common iliac artery. CONCLUSIONS Status post endovascular aorta graft. Stable diameter of the [place] aneurysm. Dr. Naa Metz DO (Electronically Signed) Final Date: 03 December 2022 09:40 S
== END 2022-12-03 08:46 | disposition home or self-care (01) ==
LOC: RAD 08:46
PROVIDERS: PCP Family Medicine; Visit Provider Thoracic Surgery (Cardiothoracic Vascular Surgery)
DX: I25.10 Atherosclerotic heart disease of native coronary artery without angina pectoris (principal); Z95.1 Presence of aortocoronary bypass graft; I65.23 Occlusion and stenosis of bilateral carotid arteries; I35.0 Nonrheumatic aortic (valve) stenosis; I10 Essential (primary) hypertension; E78.5 Hyperlipidemia, unspecified; I71.40 Abdominal aortic aneurysm, without rupture, unspecified; Z87.891 Personal history of nicotine dependence
CPT/HCPCS: 93978; 99214

== ENCOUNTER 2022-12-12 11:44 | Outpatient (CLI) | payer MEDICARE, OTHER, SELFPAY ==
--- NOTE | 2022-12-12 12:16 | XRR_ITS ---
PROCEDURE INFORMATION: Exam: XR Chest Exam date and time: 12/12/2022 12:29 PM Age: 82 years old Clinical indication: Other: Gross hematuria; Additional info: R31.0 - gross hematuria, R/O bolus disease TECHNIQUE: Imaging protocol: Radiologic exam of the chest. Views: 1 view. COMPARISON: CR XR chest 1V portable [id number] 11/10/2021 12:48 AM FINDINGS: Lungs: No large bulla are seen. Bullous disease can not be ruled out by radiographs. No consolidation. Pleural spaces: Unremarkable. No pleural effusion. No pneumothorax. Heart/Mediastinum: There are calcified mediastinal and perihilar lymph nodes consistent with prior granulomatous exposure. Vasculature: Vascular stents partially visualized in the upper abdomen. Bones/joints: Unremarkable. Other findings: There are post-sternotomy changes and postoperative changes overlying the mediastinum. XR/XR chest 1V [id number] IMPRESSION: No evidence for acute cardiopulmonary disease.
[2022-12-12 12:32] LABS: Basophils % 0.6 %; Eosinophils # 0.4 10^3/uL (0.0-0.8); Eosinophils % 7.5 %; Lymphocytes # 2.1 10^3/uL (0.8-4.8); Lymphocytes % 41.3 %; Mean Corpuscular HGB Conc 30.4 g/dL (30.0-36.0); Monocytes # 0.5 10^3/uL (0.2-0.9); Monocytes % 10.5 %; Neutrophils # 2.02 10^3/uL (1.8-7.7); Neutrophils % 39.9 %; Nucleated Red Blood Cells % 0 %; Platelet Count 139 10^3/cmm (130-400); Red Cell Distribution Width 14.3 % (12.1-15.1); White Blood Count 5.1 10^3/uL (4.0-10.0)
[2022-12-12 12:49] LABS: Alanine Aminotransferase 13 U/L (0-41); Albumin Level 4.2 g/dL (3.5-5.2); Alkaline Phosphatase 124 U/L (40-130); Anion Gap 15.6 (5-19); Aspartate Amino Transferase 17 U/L (0-40); Blood Urea Nitrogen 31 mg/dL (8-23); Calcium 8.8 mg/dL (8.5-10.5); Carbon Dioxide 22 mmol/L (22-29); Chloride 106 mmol/L (98-107); Globulin 1.7 g/dL (1.3-4.6); Glucose 131 mg/dL (65-115); Osmolality Calculated 296 mOsm/kg (285-295); Potassium 4.6 mmol/L (3.5-5.1); Prealbumin 20.9 mg/dL (20-40); Sodium 139 mmol/L (136-145); Total Bilirubin 0.3 mg/dL (0.15-1.2); Total Protein 5.9 g/dL (6.6-8.7)
== END 2022-12-12 11:45 | disposition home or self-care (01) ==
PROVIDERS: PCP Family Medicine; Visit Provider Thoracic Surgery (Cardiothoracic Vascular Surgery)
DX: N30.40 Irradiation cystitis without hematuria (principal); R31.0 Gross hematuria; Z13.6 Encounter for screening for cardiovascular disorders
CPT/HCPCS: 36415; 71045; 80053; 84134; 85025; 99213

== ENCOUNTER → 2022-12-15 09:11 | Outpatient (BNVA) | payer MEDICARE, OTHER, SELFPAY | PROVIDERS: PCP Family Medicine; Visit Provider Internal Medicine Cardiovascular Disease | DX: Z13.6 Encounter for screening for cardiovascular disorders (principal) | CPT/HCPCS: 93005 ==

== ENCOUNTER 2022-12-16 10:41 | Outpatient (CLI) | payer MEDICARE, OTHER, SELFPAY ==
[2022-12-16 11:28] LABS: Basophils % 0.2 %; Eosinophils # 0.2 10^3/uL (0.0-0.8); Eosinophils % 2.9 %; Hematocrit 23.5 % (42.0-52.0); Hemoglobin 7.3 g/dL (11.7-16.6); Lymphocytes # 2.4 10^3/uL (0.8-4.8); Lymphocytes % 46.5 %; Mean Corpuscular HGB Conc 31.1 g/dL (30.0-36.0); Mean Corpuscular Hemoglobin 28.2 pg (28.0-34.0); Mean Corpuscular Volume 90.7 fl (80-94); Monocytes # 0.5 10^3/uL (0.2-0.9); Monocytes % 9.5 %; Neutrophils % 40.5 %; Nucleated Red Blood Cells % 0 %; Platelet Count 139 10^3/cmm (130-400); Red Blood Count 2.59 10^6/uL (4.1-5.3); Red Cell Distribution Width 14.1 % (12.1-15.1); White Blood Count 5.2 10^3/uL (4.0-10.0)
[2022-12-16 11:44] LABS: Ferritin 18 ng/mL (30-400); Iron 31 ug/dL (59-158); Percent Saturation 8.5 % (20-50); Total Iron Binding Capacity 363 mcg/dl; Unsaturated Iron Binding 332 ug/dL (112-347)
== END 2022-12-16 10:42 | disposition home or self-care (01) ==
LOC: LAB 10:59
PROVIDERS: PCP Family Medicine; Visit Provider Registered Nurse
DX: D50.0 Iron deficiency anemia secondary to blood loss (chronic) (principal); N30.41 Irradiation cystitis with hematuria
CPT/HCPCS: 36415; 82728; 83540; 83550; 85025; 86850; 86900; 86920; G0277

== ENCOUNTER 2022-12-17 10:30 | Outpatient (RCR) | payer MEDICARE, OTHER, SELFPAY ==
[2022-12-17 10:35] VITALS: BP 124/71; PULSE 68; RESP 18; TEMP 36.3; O2SAT 100
[2022-12-17 11:01] VITALS: BP 117/70; PULSE 65; RESP 18; TEMP 36.4
[2022-12-17] MEDS: sodium chloride 0.9% 100 mL Bag 50 ML IV (11:11)
[2022-12-17 11:16] VITALS: BP 97/67; PULSE 65; RESP 18; TEMP 36.6
[2022-12-17 11:31] VITALS: BP 143/74; PULSE 64; RESP 18; TEMP 36.2; O2SAT 98
[2022-12-17 12:31] VITALS: BP 143/68; PULSE 64; RESP 18; TEMP 36.2; O2SAT 99
--- NOTE | 2022-12-17 12:42 | PC.NURSE ---
Referral from [facility] for blood transfusion. Hg today 7.3. One unit PRBC's infused as ordered. Pt tolerated well. No reaction noted.
== END 2022-12-19 23:59 | disposition home or self-care (01) ==
LOC: GILAB 10:30
PROVIDERS: PCP Family Medicine; Visit Provider Registered Nurse
DX: D50.0 Iron deficiency anemia secondary to blood loss (chronic) (principal); N30.41 Irradiation cystitis with hematuria
CPT/HCPCS: 36415; 36430; 86850; 86900; 86920; G0277; P9040

== ENCOUNTER → 2022-12-18 08:09 | Outpatient (BNVA) | payer MEDICARE, OTHER, SELFPAY | PROVIDERS: PCP Family Medicine; Visit Provider Nurse Practitioner Family | DX: N30.41 Irradiation cystitis with hematuria (principal); N32.89 Other specified disorders of bladder; Y84.2 Radiological procedure and radiotherapy as the cause of abnormal reaction of the patient, or of later complication, without mention of misadventure at the time of the procedure; Y82.8 Other medical devices associated with adverse incidents | CPT/HCPCS: G0277 ==

== ENCOUNTER → 2022-12-19 08:57 | Outpatient (BNVA) | payer MEDICARE, OTHER, SELFPAY | PROVIDERS: PCP Family Medicine; Visit Provider Thoracic Surgery (Cardiothoracic Vascular Surgery) | DX: N30.41 Irradiation cystitis with hematuria (principal) | CPT/HCPCS: G0277 ==

== ENCOUNTER → 2022-12-22 08:35 | Outpatient (BNVA) | payer MEDICARE, OTHER, SELFPAY | PROVIDERS: PCP Family Medicine; Visit Provider Thoracic Surgery (Cardiothoracic Vascular Surgery) | DX: N30.41 Irradiation cystitis with hematuria (principal) | CPT/HCPCS: G0277 ==

== ENCOUNTER → 2022-12-24 07:52 | Outpatient (BNVA) | payer MEDICARE, OTHER, SELFPAY | PROVIDERS: PCP Family Medicine; Visit Provider Thoracic Surgery (Cardiothoracic Vascular Surgery) | DX: N30.41 Irradiation cystitis with hematuria (principal) | CPT/HCPCS: G0277 ==

== ENCOUNTER 2022-12-25 13:41 | Outpatient (RCR) | payer SELFPAY | END 2023-01-19 23:59 | disposition home or self-care (01) | LOC: CR 13:41 | PROVIDERS: PCP Family Medicine; Referring Provider Internal Medicine; Visit Provider Internal Medicine | DX: Z95.1 Presence of aortocoronary bypass graft (principal) | CPT/HCPCS: G0277 ==

== ENCOUNTER → 2022-12-26 08:13 | Outpatient (BNVA) | payer MEDICARE, OTHER, SELFPAY | PROVIDERS: PCP Family Medicine; Visit Provider Thoracic Surgery (Cardiothoracic Vascular Surgery) | DX: N30.41 Irradiation cystitis with hematuria (principal) | CPT/HCPCS: 99212 ==

== ENCOUNTER → 2022-12-29 14:16 | Outpatient (BNVA) | payer MEDICARE, OTHER, SELFPAY | PROVIDERS: PCP Family Medicine; Visit Provider Otolaryngology | DX: H69.90 Unspecified Eustachian tube disorder, unspecified ear (principal); Z91.89 Other specified personal risk factors, not elsewhere classified | CPT/HCPCS: 69433; 99202 ==

== ENCOUNTER → 2022-12-30 08:12 | Outpatient (BNVA) | payer MEDICARE, OTHER, SELFPAY | PROVIDERS: PCP Family Medicine; Visit Provider Nurse Practitioner Family | DX: N30.41 Irradiation cystitis with hematuria (principal) | CPT/HCPCS: G0277 ==

== ENCOUNTER → 2022-12-31 08:27 | Outpatient (BNVA) | payer MEDICARE, OTHER, SELFPAY | PROVIDERS: PCP Family Medicine; Visit Provider Thoracic Surgery (Cardiothoracic Vascular Surgery) | DX: N30.41 Irradiation cystitis with hematuria (principal) | CPT/HCPCS: G0277 ==

== ENCOUNTER → 2023-01-01 07:55 | Outpatient (BNVA) | payer MEDICARE, OTHER, SELFPAY | PROVIDERS: PCP Family Medicine; Visit Provider Nurse Practitioner Family | DX: N30.41 Irradiation cystitis with hematuria (principal) | CPT/HCPCS: G0277 ==

== ENCOUNTER → 2023-01-02 08:00 | Outpatient (BNVA) | payer MEDICARE, OTHER, SELFPAY | PROVIDERS: PCP Family Medicine; Visit Provider Thoracic Surgery (Cardiothoracic Vascular Surgery) | DX: N30.41 Irradiation cystitis with hematuria (principal) | CPT/HCPCS: G0277 ==

== ENCOUNTER → 2023-01-05 08:07 | Outpatient (BNVA) | payer MEDICARE, OTHER, SELFPAY | PROVIDERS: PCP Family Medicine; Visit Provider Nurse Practitioner Family | DX: N30.41 Irradiation cystitis with hematuria (principal) | CPT/HCPCS: G0277 ==

== ENCOUNTER → 2023-01-06 08:35 | Outpatient (BNVA) | payer MEDICARE, OTHER, SELFPAY | PROVIDERS: PCP Family Medicine; Visit Provider Nurse Practitioner Family | DX: N30.41 Irradiation cystitis with hematuria (principal) | CPT/HCPCS: G0277 ==

== ENCOUNTER → 2023-01-07 08:14 | Outpatient (BNVA) | payer MEDICARE, OTHER, SELFPAY | PROVIDERS: PCP Family Medicine; Visit Provider Thoracic Surgery (Cardiothoracic Vascular Surgery) | DX: N30.41 Irradiation cystitis with hematuria (principal) | CPT/HCPCS: G0277 ==

== ENCOUNTER → 2023-01-08 07:53 | Outpatient (BNVA) | payer MEDICARE, OTHER, SELFPAY | PROVIDERS: PCP Family Medicine; Visit Provider Nurse Practitioner Family | DX: N30.41 Irradiation cystitis with hematuria (principal) | CPT/HCPCS: G0277 ==

== ENCOUNTER → 2023-01-09 07:58 | Outpatient (BNVA) | payer MEDICARE, OTHER, SELFPAY | PROVIDERS: PCP Family Medicine; Visit Provider Thoracic Surgery (Cardiothoracic Vascular Surgery) | DX: N30.41 Irradiation cystitis with hematuria (principal) | CPT/HCPCS: G0277 ==

== ENCOUNTER → 2023-01-12 08:04 | Outpatient (BNVA) | payer MEDICARE, OTHER, SELFPAY | PROVIDERS: PCP Family Medicine; Visit Provider Thoracic Surgery (Cardiothoracic Vascular Surgery) | DX: N30.41 Irradiation cystitis with hematuria (principal) | CPT/HCPCS: G0277 ==

== ENCOUNTER → 2023-01-13 07:50 | Outpatient (BNVA) | payer MEDICARE, OTHER, SELFPAY | PROVIDERS: PCP Family Medicine; Visit Provider Nurse Practitioner Family | DX: N30.41 Irradiation cystitis with hematuria (principal) | CPT/HCPCS: G0277 ==

== ENCOUNTER → 2023-01-14 08:01 | Outpatient (BNVA) | payer MEDICARE, OTHER, SELFPAY | PROVIDERS: PCP Family Medicine; Visit Provider Nurse Practitioner Family | DX: N30.41 Irradiation cystitis with hematuria (principal) | CPT/HCPCS: G0277 ==

== ENCOUNTER → 2023-01-15 08:16 | Outpatient (BNVA) | payer MEDICARE, OTHER, SELFPAY | PROVIDERS: PCP Family Medicine; Visit Provider Nurse Practitioner Family | DX: N30.41 Irradiation cystitis with hematuria (principal) | CPT/HCPCS: G0277 ==

== ENCOUNTER → 2023-01-16 07:55 | Outpatient (BNVA) | payer MEDICARE, OTHER, SELFPAY | PROVIDERS: PCP Family Medicine; Visit Provider Thoracic Surgery (Cardiothoracic Vascular Surgery) | DX: N30.41 Irradiation cystitis with hematuria (principal) | CPT/HCPCS: G0277 ==

== ENCOUNTER → 2023-01-19 07:51 | Outpatient (BNVA) | payer MEDICARE, OTHER, SELFPAY | PROVIDERS: PCP Family Medicine; Visit Provider Nurse Practitioner Family | DX: N30.41 Irradiation cystitis with hematuria (principal) | CPT/HCPCS: G0277 ==

== ENCOUNTER 2023-01-20 14:42 | Outpatient (RCR) | payer SELFPAY | END 2023-02-19 23:59 | disposition home or self-care (01) | LOC: CR 14:42 | PROVIDERS: PCP Family Medicine; Referring Provider Internal Medicine; Visit Provider Internal Medicine | DX: Z95.1 Presence of aortocoronary bypass graft (principal) | CPT/HCPCS: G0277 ==

== ENCOUNTER → 2023-01-21 09:53 | Outpatient (BNVA) | payer MEDICARE, OTHER, SELFPAY | PROVIDERS: PCP Family Medicine; Visit Provider Thoracic Surgery (Cardiothoracic Vascular Surgery) | DX: N30.41 Irradiation cystitis with hematuria (principal) | CPT/HCPCS: G0277 ==

== ENCOUNTER → 2023-01-22 08:32 | Outpatient (BNVA) | payer MEDICARE, OTHER, SELFPAY | PROVIDERS: PCP Family Medicine; Visit Provider Thoracic Surgery (Cardiothoracic Vascular Surgery) | DX: N30.41 Irradiation cystitis with hematuria (principal) | CPT/HCPCS: G0277 ==

== ENCOUNTER → 2023-01-23 08:33 | Outpatient (BNVA) | payer MEDICARE, OTHER, SELFPAY | PROVIDERS: PCP Family Medicine; Visit Provider Thoracic Surgery (Cardiothoracic Vascular Surgery) | DX: N30.41 Irradiation cystitis with hematuria (principal) | CPT/HCPCS: G0277 ==

== ENCOUNTER → 2023-01-26 07:50 | Outpatient (BNVA) | payer MEDICARE, OTHER, SELFPAY | PROVIDERS: PCP Family Medicine; Visit Provider Thoracic Surgery (Cardiothoracic Vascular Surgery) | DX: N30.41 Irradiation cystitis with hematuria (principal) | CPT/HCPCS: G0277 ==

== ENCOUNTER → 2023-01-28 08:17 | Outpatient (BNVA) | payer MEDICARE, OTHER, SELFPAY | PROVIDERS: PCP Family Medicine; Visit Provider Thoracic Surgery (Cardiothoracic Vascular Surgery) | DX: N30.41 Irradiation cystitis with hematuria (principal) | CPT/HCPCS: G0277 ==

== ENCOUNTER → 2023-01-29 07:52 | Outpatient (BNVA) | payer MEDICARE, OTHER, SELFPAY | PROVIDERS: PCP Family Medicine; Visit Provider Thoracic Surgery (Cardiothoracic Vascular Surgery) | DX: N30.41 Irradiation cystitis with hematuria (principal) | CPT/HCPCS: G0277 ==

== ENCOUNTER → 2023-01-30 08:05 | Outpatient (BNVA) | payer MEDICARE, OTHER, SELFPAY | PROVIDERS: PCP Family Medicine; Visit Provider Thoracic Surgery (Cardiothoracic Vascular Surgery) | DX: N30.41 Irradiation cystitis with hematuria (principal) | CPT/HCPCS: G0277 ==

== ENCOUNTER → 2023-02-02 07:57 | Outpatient (BNVA) | payer MEDICARE, OTHER, SELFPAY | PROVIDERS: PCP Family Medicine; Visit Provider Thoracic Surgery (Cardiothoracic Vascular Surgery) | DX: N30.41 Irradiation cystitis with hematuria (principal) | CPT/HCPCS: G0277 ==

== ENCOUNTER → 2023-02-03 07:58 | Outpatient (BNVA) | payer MEDICARE, OTHER, SELFPAY | PROVIDERS: PCP Family Medicine; Visit Provider Nurse Practitioner Family | DX: N30.41 Irradiation cystitis with hematuria (principal) | CPT/HCPCS: G0277 ==

== ENCOUNTER → 2023-02-04 07:51 | Outpatient (BNVA) | payer MEDICARE, OTHER, SELFPAY | PROVIDERS: PCP Family Medicine; Visit Provider Thoracic Surgery (Cardiothoracic Vascular Surgery) | DX: N30.41 Irradiation cystitis with hematuria (principal) | CPT/HCPCS: G0277 ==

== ENCOUNTER → 2023-02-05 07:51 | Outpatient (BNVA) | payer MEDICARE, OTHER, SELFPAY | PROVIDERS: PCP Family Medicine; Visit Provider Nurse Practitioner Family | DX: N30.41 Irradiation cystitis with hematuria (principal) | CPT/HCPCS: G0277 ==

== ENCOUNTER → 2023-02-06 07:52 | Outpatient (BNVA) | payer MEDICARE, OTHER, SELFPAY | PROVIDERS: PCP Family Medicine; Visit Provider Thoracic Surgery (Cardiothoracic Vascular Surgery) | DX: N30.41 Irradiation cystitis with hematuria (principal) | CPT/HCPCS: G0277 ==

== ENCOUNTER → 2023-02-09 08:07 | Outpatient (BNVA) | payer MEDICARE, OTHER, SELFPAY | PROVIDERS: PCP Family Medicine; Visit Provider Thoracic Surgery (Cardiothoracic Vascular Surgery) | DX: N30.41 Irradiation cystitis with hematuria (principal) | CPT/HCPCS: G0277 ==

== ENCOUNTER → 2023-02-10 07:50 | Outpatient (BNVA) | payer MEDICARE, OTHER, SELFPAY | PROVIDERS: PCP Family Medicine; Visit Provider Nurse Practitioner Family | DX: N30.41 Irradiation cystitis with hematuria (principal) | CPT/HCPCS: G0277 ==

== ENCOUNTER → 2023-02-11 07:54 | Outpatient (BNVA) | payer MEDICARE, OTHER, SELFPAY | PROVIDERS: PCP Family Medicine; Visit Provider Thoracic Surgery (Cardiothoracic Vascular Surgery) | DX: N30.41 Irradiation cystitis with hematuria (principal) | CPT/HCPCS: G0277 ==

== ENCOUNTER → 2023-02-12 08:04 | Outpatient (BNVA) | payer MEDICARE, OTHER, SELFPAY | PROVIDERS: PCP Family Medicine; Visit Provider Nurse Practitioner Family | DX: N30.41 Irradiation cystitis with hematuria (principal) | CPT/HCPCS: G0277 ==

== ENCOUNTER → 2023-02-13 08:01 | Outpatient (BNVA) | payer MEDICARE, OTHER, SELFPAY | PROVIDERS: PCP Family Medicine; Visit Provider Thoracic Surgery (Cardiothoracic Vascular Surgery) | DX: N30.41 Irradiation cystitis with hematuria (principal) | CPT/HCPCS: G0277 ==

== ENCOUNTER → 2023-02-18 09:14 | Outpatient (BNVA) | payer MEDICARE, OTHER, SELFPAY | PROVIDERS: PCP Family Medicine; Visit Provider Otolaryngology | DX: Z91.89 Other specified personal risk factors, not elsewhere classified (principal); H69.93 Unspecified Eustachian tube disorder, bilateral | CPT/HCPCS: 99213 ==

== ENCOUNTER 2023-02-20 11:30 | Outpatient (RCR) | payer SELFPAY | END 2023-03-21 23:59 | disposition home or self-care (01) | LOC: CR 11:30 | PROVIDERS: PCP Family Medicine; Referring Provider Internal Medicine; Visit Provider Internal Medicine | DX: Z95.1 Presence of aortocoronary bypass graft (principal) ==

== ENCOUNTER 2023-03-24 08:45 | Outpatient (RCR) | payer SELFPAY | END 2023-04-21 23:59 | disposition home or self-care (01) | LOC: CR 08:45 | PROVIDERS: PCP Family Medicine; Referring Provider Internal Medicine; Visit Provider Internal Medicine | DX: Z95.1 Presence of aortocoronary bypass graft (principal) ==

== ENCOUNTER → 2023-04-15 07:55 | Outpatient (BNVA) | payer MEDICARE, OTHER, SELFPAY | PROVIDERS: PCP Family Medicine; Visit Provider Otolaryngology | DX: Z91.89 Other specified personal risk factors, not elsewhere classified (principal) | CPT/HCPCS: 99212 ==

== ENCOUNTER 2023-04-23 12:41 | Outpatient (RCR) | payer SELFPAY | END 2023-05-21 23:59 | disposition home or self-care (01) | LOC: CR 12:41 | PROVIDERS: PCP Family Medicine; Referring Provider Internal Medicine; Visit Provider Internal Medicine | DX: Z95.1 Presence of aortocoronary bypass graft (principal) ==

== ENCOUNTER 2023-05-26 12:04 | Outpatient (RCR) | payer SELFPAY | END 2023-06-21 23:59 | disposition home or self-care (01) | LOC: CR 12:04 | PROVIDERS: PCP Family Medicine; Referring Provider Internal Medicine; Visit Provider Internal Medicine | DX: Z95.1 Presence of aortocoronary bypass graft (principal) ==

== ENCOUNTER → 2023-06-03 15:08 | Outpatient (BNVA) | payer MEDICARE, OTHER, SELFPAY | PROVIDERS: PCP Family Medicine; Visit Provider Internal Medicine | DX: I25.10 Atherosclerotic heart disease of native coronary artery without angina pectoris (principal); I35.0 Nonrheumatic aortic (valve) stenosis; Z95.1 Presence of aortocoronary bypass graft; I65.23 Occlusion and stenosis of bilateral carotid arteries; I10 Essential (primary) hypertension; E78.5 Hyperlipidemia, unspecified; Z87.891 Personal history of nicotine dependence | CPT/HCPCS: 99214 ==

== ENCOUNTER 2023-06-10 12:59 | Outpatient (CLI) | payer MEDICARE, OTHER, SELFPAY ==
--- NOTE | 2023-06-10 13:30 | USCV_ITS ---
QuispeAugusto norris Age: 83 Gender: M : 1940 Exam Date: 06/10/2023 13:26 Ordering Phys: Julio César Payton M.D ([email or web address]) Technologist: HENRRY [place] [facility] [place]ication: AV STENOSIS BP: 102 / 70 HR: 62 Rhythm: Sinus Technical Quality: Adequate MEASUREMENTS (Male / Female) Normal Values 2D ECHO LVOT Diameter 2.0 cm LV Ejection Fraction MOD 2C 57.6 % LV Ejection Fraction 2C AL 58.0 % LA Diameter 4.3 cm LA Width 3.9 cm LA Height 4.9 cm RA Width 2.6 cm RA Height 4.7 cm Aorta at Sinotubular Diameter 2.2 cm M-MODE Aortic Annulus Diameter 2.4 cm LA Ao Ratio MM 1.7 MV E Point Septal Separation 0.5 cm DOPPLER AV Peak Velocity 342.0 cm/s LVOT Peak Velocity 103.0 cm/s AV Area Cont Eq vti 0.9 cm squared AV Area Cont Eq pk 0.9 cm squared MV Peak Velocity 84.0 cm/s MV Area PHT 2.9 cm squared Mitral E to A Ratio 0.9 MV E' Velocity 39.5 cm/s Mitral E to MV E' Ratio 9.1 Mitral E to LV E' Lateral Ratio 8.5 Mitral E to LV E' Septal Ratio 9.9 TR Peak Velocity 138.7 cm/s TR Peak Gradient 7.7 mmHg TR Mean Velocity 111.1 cm/s TR Mean Gradient 5.3 mmHg TR Velocity Time Integral 41.2 cm TV Peak E Velocity 36.0 cm/s Right Atrial Pressure 8.0 mmHg Pulmonary Artery Systolic Pressu 15.7 mmHg PV Peak Velocity 116.0 cm/s RV Acceleration Time 0.1 s RV Ejection Time 0.3 s RV AcT/ET 0.3 FINDINGS Left Ventricle Left ventricle is normal in size. LV systolic function is normal with EF of 55 to 60%. No regional wall motion abnormalities are seen. Grade 1 diastolic dysfunction. Right Ventricle Normal in size and function Right Atrium Normal in size Left Atrium Mildly dilated Mitral Valve Structurally normal mitral valve. Trace mitral regurgitation Aortic Valve Aortic valve is thickened and calcified. Moderate to severe aortic stenosis with aortic valve area of 0.9 cm squared with mean gradient across aortic valve of 29 mmHg. Tricuspid Valve Trace tricuspid regurgitation. Insufficient TR jet to calculate RVSP. Pulmonic Valve Not well-visualized Pericardium Normal Aorta Normal in size IVC Not well visualized CONCLUSIONS LV systolic function is normal with EF 55 to 60%. Grade 1 diastolic dysfunction Mildly dilated left atrium Trace mitral regurgitation Moderate to severe aortic stenosis. Trace tricuspid regurgitation Compared to prior echocardiogram from 10/2022, aortic stenosis has worsened. Julio César Payton MD (Electronically Signed) Final Date: 13 June 2023 13:11 S
== END 2023-06-10 13:00 | disposition home or self-care (01) ==
LOC: RAD 12:59
PROVIDERS: PCP Family Medicine; Visit Provider Internal Medicine
DX: I08.3 Combined rheumatic disorders of mitral, aortic and tricuspid valves (principal)
CPT/HCPCS: 93306

== ENCOUNTER 2023-06-23 11:40 | Outpatient (RCR) | payer SELFPAY | END 2023-07-22 23:59 | disposition home or self-care (01) | LOC: CR 11:40 | PROVIDERS: PCP Family Medicine; Referring Provider Internal Medicine; Visit Provider Internal Medicine | DX: Z95.1 Presence of aortocoronary bypass graft (principal) ==

== ENCOUNTER 2023-07-23 14:38 | Outpatient (RCR) | payer SELFPAY | END 2023-08-20 23:59 | disposition home or self-care (01) | LOC: CR 14:38 | PROVIDERS: PCP Family Medicine; Referring Provider Internal Medicine; Visit Provider Internal Medicine | DX: Z95.1 Presence of aortocoronary bypass graft (principal) ==

== ENCOUNTER → 2023-08-26 12:49 | Outpatient (BNVA) | payer MEDICARE, OTHER, SELFPAY | PROVIDERS: PCP Family Medicine; Visit Provider Nurse Practitioner Family | DX: I35.0 Nonrheumatic aortic (valve) stenosis (principal); Z87.891 Personal history of nicotine dependence | CPT/HCPCS: 99214 ==

== ENCOUNTER 2023-08-31 13:48 | Outpatient (CLI) | payer MEDICARE, OTHER, SELFPAY ==
--- NOTE | 2023-08-31 14:30 | USCV_ITS ---
Augusto Quispe Age: 83 Gender: M : 1940 Exam Date: 08/31/2023 14:38 Ordering Phys: Talia Mcbride Technologist: TATO Exam Location: [facility] – [place] Indication: , CHF decompensated BP: / HR: Rhythm: Other Technical Quality: Technically difficult study MEASUREMENTS (Male / Female) Normal Values FINDINGS Left Ventricle Left ventricle is normal size. LV systolic function is normal normal with EF of 55-60%. No regional wall motion abnormalities are seen. Right Ventricle Normal in size and function Right Atrium Normal in size Left Atrium Normal in size Mitral Valve Mitral valve is thickened. Mild mitral regurgitation. Aortic Valve Aortic valve is thickened and calcified. Moderate to severe aortic stenosis with aortic valve area 1.1 cm2 and mean gradient of 32 mmHg. Tricuspid Valve Mild tricuspid regurgitation. Pulmonary artery systolic pressure is normal Pulmonic Valve Moderate pulmonic regurgitation. Pericardium Normal Aorta Normal in size IVC Appears to be normal CONCLUSIONS Technically limited quality echocardiogram because of poor ultrasonic windows. LV systolic function is normal with EF of 55-60%. Mild mitral regurgitation. Moderate to severe aortic stenosis. Mild tricuspid regurgitation Moderate pulmonic regurgitation Compared to prior echocardiogram from 2022, no significant changes are seen Julio César Payton MD (Electronically Signed) Final Date: 01 September 2023 11:08 S
== END 2023-08-31 13:49 | disposition home or self-care (01) ==
LOC: RAD 13:48
PROVIDERS: PCP Family Medicine; Visit Provider Nurse Practitioner Family
DX: I08.8 Other rheumatic multiple valve diseases (principal); I50.9 Heart failure, unspecified
CPT/HCPCS: 93306

== ENCOUNTER 2023-09-21 14:37 | Outpatient (RCR) | payer SELFPAY | END 2023-10-20 23:59 | disposition home or self-care (01) | LOC: CR 14:37 | PROVIDERS: PCP Family Medicine; Referring Provider Family Medicine; Visit Provider Family Medicine | DX: Z95.1 Presence of aortocoronary bypass graft (principal) ==

== ENCOUNTER 2023-10-30 13:36 | Outpatient (RCR) | payer SELFPAY | END 2023-11-20 23:59 | disposition home or self-care (01) | LOC: CR 13:36 | PROVIDERS: PCP Family Medicine; Referring Provider Family Medicine; Visit Provider Family Medicine | DX: Z95.1 Presence of aortocoronary bypass graft (principal) ==

== ENCOUNTER → 2023-11-23 14:33 | Outpatient (BNVA) | payer MEDICARE, OTHER, SELFPAY | PROVIDERS: PCP Family Medicine; Visit Provider Internal Medicine | DX: I25.10 Atherosclerotic heart disease of native coronary artery without angina pectoris (principal); Z95.1 Presence of aortocoronary bypass graft; I65.23 Occlusion and stenosis of bilateral carotid arteries; I35.0 Nonrheumatic aortic (valve) stenosis; I10 Essential (primary) hypertension; E78.5 Hyperlipidemia, unspecified; I71.40 Abdominal aortic aneurysm, without rupture, unspecified; Z87.891 Personal history of nicotine dependence | CPT/HCPCS: 99214 ==

== ENCOUNTER 2023-11-25 13:29 | Outpatient (RCR) | payer SELFPAY | END 2023-12-20 23:59 | disposition home or self-care (01) | LOC: CR 13:29 | PROVIDERS: PCP Family Medicine; Referring Provider Family Medicine; Visit Provider Family Medicine | DX: Z95.1 Presence of aortocoronary bypass graft (principal) ==

== ENCOUNTER → 2023-12-22 12:59 | Outpatient (BNVA) | payer MEDICARE, OTHER, SELFPAY | PROVIDERS: PCP Family Medicine; Visit Provider Thoracic Surgery (Cardiothoracic Vascular Surgery) | DX: N30.40 Irradiation cystitis without hematuria | CPT/HCPCS: 99213 ==

== ENCOUNTER → 2023-12-23 11:08 | Outpatient (BNVA) | payer MEDICARE, OTHER, SELFPAY | PROVIDERS: PCP Family Medicine; Visit Provider Internal Medicine Cardiovascular Disease | DX: Z13.6 Encounter for screening for cardiovascular disorders (principal) | CPT/HCPCS: 93005 ==

== ENCOUNTER 2023-12-23 13:48 | Outpatient (RCR) | payer SELFPAY | END 2024-01-20 23:59 | disposition home or self-care (01) | LOC: CR 13:48 | PROVIDERS: PCP Family Medicine; Referring Provider Family Medicine; Visit Provider Family Medicine | DX: Z95.1 Presence of aortocoronary bypass graft (principal) ==

== ENCOUNTER 2023-12-28 13:47 | Outpatient (CLI) | payer MEDICARE, OTHER, SELFPAY ==
--- NOTE | 2023-12-28 13:51 | XRR_ITS ---
PROCEDURE INFORMATION: Exam: XR Chest Exam date and time: 12/28/2023 2:03 PM Age: 83 years old Clinical indication: Shortness of breath; Additional info: R/O bolus, clearance for hbo TECHNIQUE: Imaging protocol: Radiologic exam of the chest. Views: 1 view. COMPARISON: CR XR chest 1V [id number] 12/12/2022 12:29 PM FINDINGS: Lungs: Unremarkable. No consolidation. Pleural spaces: Unremarkable. No pleural effusion. No pneumothorax. Heart/Mediastinum: Unremarkable. No cardiomegaly. Bones/joints: Sternal sutures are again seen. No acute findings. XR/XR chest 1V [id number] IMPRESSION: No acute findings.
[2023-12-28 14:12] LABS: Basophils % 0.6 %; Eosinophils # 0.1 10^3/uL (0.0-0.8); Eosinophils % 2.1 %; Hematocrit 28.8 % (37-53); Lymphocytes # 2.3 10^3/uL (0.8-4.8); Lymphocytes % 43.3 %; Mean Corpuscular Hemoglobin 31.5 pg (27-33); Mean Corpuscular Volume 95.4 fl (82-101); Mean Platelet Volume 10.1 fL (7.4-10.4); Monocytes # 0.6 10^3/uL (0.2-0.9); Neutrophils # 2.23 10^3/uL (1.8-7.7); Neutrophils % 42.4 %; Nucleated Red Blood Cells % 0 %; Platelet Count 124 10^3/cmm (157-399); Red Blood Count 3.02 10^6/uL (3.85-5.65); Red Cell Distribution Width 13.2 % (12.1-15.1); White Blood Count 5.26 10^3/uL (3.29-11.43)
[2023-12-28 14:41] LABS: Alanine Aminotransferase 23 U/L (0-41); Albumin Level 4.1 g/dL (3.5-5.2); Alkaline Phosphatase 132 U/L (40-130); Anion Gap 13.7 (5-19); Aspartate Amino Transferase 24 U/L (0-40); Blood Urea Nitrogen 38 mg/dL (8-23); Calcium 9.2 mg/dL (8.5-10.5); Carbon Dioxide 26 mmol/L (22-29); Chloride 105 mmol/L (98-107); Globulin 2.4 g/dL (1.3-4.6); Glucose 117 mg/dL (65-115); Osmolality Calculated 300 mOsm/kg (285-295); Potassium 4.7 mmol/L (3.5-5.1); Sodium 140 mmol/L (136-145); Total Bilirubin 0.5 mg/dL (0.15-1.2); Total Protein 6.5 g/dL (6.6-8.7)
== END 2023-12-28 13:48 | disposition home or self-care (01) ==
LOC: LAB 13:49
PROVIDERS: PCP Family Medicine; Visit Provider Thoracic Surgery (Cardiothoracic Vascular Surgery)
DX: R06.02 Shortness of breath (principal); R31.0 Gross hematuria; N30.40 Irradiation cystitis without hematuria
CPT/HCPCS: 36415; 71045; 80053; 85025; G0277

== ENCOUNTER → 2023-12-29 08:23 | Outpatient (BNVA) | payer MEDICARE, OTHER, SELFPAY | PROVIDERS: PCP Family Medicine; Visit Provider Thoracic Surgery (Cardiothoracic Vascular Surgery) | DX: N30.41 Irradiation cystitis with hematuria (principal) | CPT/HCPCS: G0277 ==

== ENCOUNTER → 2023-12-30 08:00 | Outpatient (BNVA) | payer MEDICARE, OTHER, SELFPAY | PROVIDERS: PCP Family Medicine; Visit Provider Thoracic Surgery (Cardiothoracic Vascular Surgery) | DX: N30.41 Irradiation cystitis with hematuria (principal) | CPT/HCPCS: G0277 ==

== ENCOUNTER → 2023-12-31 07:58 | Outpatient (BNVA) | payer MEDICARE, OTHER, SELFPAY | PROVIDERS: PCP Family Medicine; Visit Provider Thoracic Surgery (Cardiothoracic Vascular Surgery) | DX: N30.41 Irradiation cystitis with hematuria (principal) | CPT/HCPCS: G0277 ==

== ENCOUNTER → 2024-01-01 08:01 | Outpatient (BNVA) | payer MEDICARE, OTHER, SELFPAY | PROVIDERS: PCP Family Medicine; Visit Provider Thoracic Surgery (Cardiothoracic Vascular Surgery) | DX: N30.41 Irradiation cystitis with hematuria (principal) | CPT/HCPCS: G0277 ==

== ENCOUNTER → 2024-01-04 08:00 | Outpatient (BNVA) | payer MEDICARE, OTHER, SELFPAY | PROVIDERS: PCP Family Medicine; Visit Provider Thoracic Surgery (Cardiothoracic Vascular Surgery) | DX: N30.41 Irradiation cystitis with hematuria (principal) | CPT/HCPCS: G0277 ==

== ENCOUNTER → 2024-01-05 08:00 | Outpatient (BNVA) | payer MEDICARE, OTHER, SELFPAY | PROVIDERS: PCP Family Medicine; Visit Provider Thoracic Surgery (Cardiothoracic Vascular Surgery) | DX: N30.41 Irradiation cystitis with hematuria (principal) | CPT/HCPCS: G0277 ==

== ENCOUNTER → 2024-01-06 08:00 | Outpatient (BNVA) | payer MEDICARE, OTHER, SELFPAY | PROVIDERS: PCP Family Medicine; Visit Provider Thoracic Surgery (Cardiothoracic Vascular Surgery) | DX: N30.41 Irradiation cystitis with hematuria (principal) | CPT/HCPCS: G0277 ==

== ENCOUNTER → 2024-01-07 08:00 | Outpatient (BNVA) | payer MEDICARE, OTHER, SELFPAY | PROVIDERS: PCP Family Medicine; Visit Provider Thoracic Surgery (Cardiothoracic Vascular Surgery) | DX: N30.41 Irradiation cystitis with hematuria (principal) | CPT/HCPCS: G0277 ==

== ENCOUNTER → 2024-01-08 08:25 | Outpatient (BNVA) | payer MEDICARE, OTHER, SELFPAY | PROVIDERS: PCP Family Medicine; Visit Provider Thoracic Surgery (Cardiothoracic Vascular Surgery) | DX: N30.41 Irradiation cystitis with hematuria (principal) | CPT/HCPCS: G0277 ==

== ENCOUNTER → 2024-01-13 08:00 | Outpatient (BNVA) | payer MEDICARE, OTHER, SELFPAY | PROVIDERS: PCP Family Medicine; Visit Provider Thoracic Surgery (Cardiothoracic Vascular Surgery) | DX: N30.41 Irradiation cystitis with hematuria (principal) | CPT/HCPCS: G0277 ==

== ENCOUNTER → 2024-01-14 08:05 | Outpatient (BNVA) | payer MEDICARE, OTHER, SELFPAY | PROVIDERS: PCP Family Medicine; Visit Provider Thoracic Surgery (Cardiothoracic Vascular Surgery) | DX: N30.41 Irradiation cystitis with hematuria (principal) | CPT/HCPCS: G0277 ==

== ENCOUNTER → 2024-01-15 08:05 | Outpatient (BNVA) | payer MEDICARE, OTHER, SELFPAY | PROVIDERS: PCP Family Medicine; Visit Provider Thoracic Surgery (Cardiothoracic Vascular Surgery) | DX: N30.41 Irradiation cystitis with hematuria (principal) | CPT/HCPCS: G0277 ==

== ENCOUNTER → 2024-01-18 08:12 | Outpatient (BNVA) | payer MEDICARE, OTHER, SELFPAY | PROVIDERS: PCP Family Medicine; Visit Provider Thoracic Surgery (Cardiothoracic Vascular Surgery) | DX: N30.41 Irradiation cystitis with hematuria (principal) | CPT/HCPCS: G0277 ==

== ENCOUNTER → 2024-01-19 07:59 | Outpatient (BNVA) | payer MEDICARE, OTHER, SELFPAY | PROVIDERS: PCP Family Medicine; Visit Provider Thoracic Surgery (Cardiothoracic Vascular Surgery) | DX: N30.41 Irradiation cystitis with hematuria (principal) | CPT/HCPCS: G0277 ==

== ENCOUNTER → 2024-01-20 07:58 | Outpatient (BNVA) | payer MEDICARE, OTHER, SELFPAY | PROVIDERS: PCP Family Medicine; Visit Provider Thoracic Surgery (Cardiothoracic Vascular Surgery) | DX: N30.41 Irradiation cystitis with hematuria (principal) | CPT/HCPCS: G0277 ==

== ENCOUNTER → 2024-01-21 08:00 | Outpatient (BNVA) | payer MEDICARE, OTHER, SELFPAY | PROVIDERS: PCP Family Medicine; Visit Provider Thoracic Surgery (Cardiothoracic Vascular Surgery) | DX: N30.41 Irradiation cystitis with hematuria (principal) | CPT/HCPCS: G0277 ==

== ENCOUNTER → 2024-01-22 08:01 | Outpatient (BNVA) | payer MEDICARE, OTHER, SELFPAY | PROVIDERS: PCP Family Medicine; Visit Provider Thoracic Surgery (Cardiothoracic Vascular Surgery) | DX: N30.41 Irradiation cystitis with hematuria (principal) | CPT/HCPCS: G0277 ==

== ENCOUNTER → 2024-01-25 08:19 | Outpatient (BNVA) | payer MEDICARE, OTHER, SELFPAY | PROVIDERS: PCP Family Medicine; Visit Provider Thoracic Surgery (Cardiothoracic Vascular Surgery) | DX: N30.41 Irradiation cystitis with hematuria (principal) | CPT/HCPCS: G0277 ==

== ENCOUNTER → 2024-01-26 07:58 | Outpatient (BNVA) | payer MEDICARE, OTHER, SELFPAY | PROVIDERS: PCP Family Medicine; Visit Provider Thoracic Surgery (Cardiothoracic Vascular Surgery) | DX: N30.41 Irradiation cystitis with hematuria (principal) | CPT/HCPCS: G0277 ==

== ENCOUNTER → 2024-01-27 08:00 | Outpatient (BNVA) | payer MEDICARE, OTHER, SELFPAY | PROVIDERS: PCP Family Medicine; Visit Provider Thoracic Surgery (Cardiothoracic Vascular Surgery) | DX: N30.41 Irradiation cystitis with hematuria (principal) | CPT/HCPCS: G0277 ==

== ENCOUNTER → 2024-01-28 08:00 | Outpatient (BNVA) | payer MEDICARE, OTHER, SELFPAY | PROVIDERS: PCP Family Medicine; Visit Provider Thoracic Surgery (Cardiothoracic Vascular Surgery) | DX: N30.41 Irradiation cystitis with hematuria (principal) | CPT/HCPCS: G0277 ==

== ENCOUNTER → 2024-01-29 08:06 | Outpatient (BNVA) | payer MEDICARE, OTHER, SELFPAY | PROVIDERS: PCP Family Medicine; Visit Provider Thoracic Surgery (Cardiothoracic Vascular Surgery) | DX: N30.41 Irradiation cystitis with hematuria (principal) | CPT/HCPCS: G0277 ==

== ENCOUNTER → 2024-02-01 07:59 | Outpatient (BNVA) | payer MEDICARE, OTHER, SELFPAY | PROVIDERS: PCP Family Medicine; Visit Provider Thoracic Surgery (Cardiothoracic Vascular Surgery) | DX: N30.41 Irradiation cystitis with hematuria (principal) | CPT/HCPCS: G0277 ==

== ENCOUNTER → 2024-02-02 08:31 | Outpatient (BNVA) | payer MEDICARE, OTHER, SELFPAY | PROVIDERS: PCP Family Medicine; Visit Provider Thoracic Surgery (Cardiothoracic Vascular Surgery) | DX: N30.41 Irradiation cystitis with hematuria (principal) | CPT/HCPCS: G0277 ==

== ENCOUNTER → 2024-02-03 08:00 | Outpatient (BNVA) | payer MEDICARE, OTHER, SELFPAY | PROVIDERS: PCP Family Medicine; Visit Provider Thoracic Surgery (Cardiothoracic Vascular Surgery) | DX: N30.41 Irradiation cystitis with hematuria (principal) | CPT/HCPCS: G0277 ==

== ENCOUNTER → 2024-02-04 07:59 | Outpatient (BNVA) | payer MEDICARE, OTHER, SELFPAY | PROVIDERS: PCP Family Medicine; Visit Provider Thoracic Surgery (Cardiothoracic Vascular Surgery) | DX: N30.41 Irradiation cystitis with hematuria (principal) | CPT/HCPCS: G0277 ==

== ENCOUNTER → 2024-02-05 10:14 | Outpatient (BNVA) | payer MEDICARE, OTHER, SELFPAY | PROVIDERS: PCP Family Medicine; Visit Provider Thoracic Surgery (Cardiothoracic Vascular Surgery) | DX: N30.41 Irradiation cystitis with hematuria (principal) | CPT/HCPCS: G0277 ==

== ENCOUNTER → 2024-02-08 08:00 | Outpatient (BNVA) | payer MEDICARE, OTHER, SELFPAY | PROVIDERS: PCP Family Medicine; Visit Provider Thoracic Surgery (Cardiothoracic Vascular Surgery) | DX: N30.41 Irradiation cystitis with hematuria (principal) | CPT/HCPCS: G0277 ==

== ENCOUNTER → 2024-02-09 08:00 | Outpatient (BNVA) | payer MEDICARE, OTHER, SELFPAY | PROVIDERS: PCP Family Medicine; Visit Provider Thoracic Surgery (Cardiothoracic Vascular Surgery) | DX: N30.41 Irradiation cystitis with hematuria (principal) | CPT/HCPCS: G0277 ==

== ENCOUNTER → 2024-02-10 07:52 | Outpatient (BNVA) | payer MEDICARE, OTHER, SELFPAY | PROVIDERS: PCP Family Medicine; Visit Provider Thoracic Surgery (Cardiothoracic Vascular Surgery) | DX: N30.41 Irradiation cystitis with hematuria (principal) | CPT/HCPCS: G0277 ==

== ENCOUNTER → 2024-02-11 08:01 | Outpatient (BNVA) | payer MEDICARE, OTHER, SELFPAY | PROVIDERS: PCP Family Medicine; Visit Provider Thoracic Surgery (Cardiothoracic Vascular Surgery) | DX: N30.41 Irradiation cystitis with hematuria (principal) | CPT/HCPCS: G0277 ==

== ENCOUNTER → 2024-02-15 07:58 | Outpatient (BNVA) | payer MEDICARE, OTHER, SELFPAY | PROVIDERS: PCP Family Medicine; Visit Provider Thoracic Surgery (Cardiothoracic Vascular Surgery) | DX: N30.41 Irradiation cystitis with hematuria (principal) | CPT/HCPCS: G0277 ==

== ENCOUNTER → 2024-02-16 08:00 | Outpatient (BNVA) | payer MEDICARE, OTHER, SELFPAY | PROVIDERS: PCP Family Medicine; Visit Provider Thoracic Surgery (Cardiothoracic Vascular Surgery) | DX: N30.41 Irradiation cystitis with hematuria (principal) | CPT/HCPCS: G0277 ==

== ENCOUNTER 2024-02-17 14:54 | Emergency (ER) | payer MEDICARE, OTHER, SELFPAY ==
[2024-02-17] VITALS (10 sets, daily range): BP systolic 106–135; BP diastolic 67–98; PULSE 66–77; RESP 16–18; TEMP 36.7–37; O2SAT 96–99; BMI 28.0
--- NOTE | 2024-02-17 16:18 | ED_ITS ---
HPI - Recheck/Abnormal Lab/Rx 2 General: Chief Complaint: Recheck/Abnormal Lab/Rx Stated Complaint: PCP sent due to labs Time Seen by Provider: 02/17/24 15:58 Source: patient Mode of arrival: ambulatory Limitations: no limitations History of Present Illness: 83-year-old male states he has chronic a nemia as he has prostate cancer and has chronic hematuria. He states that he sees wound care to get hyperbaric treatments for states he had his blood drawn was called and told hemoglobin is 7 and need to have a blood transfusion. States had some mild weakness but no severe increase of weakness he had no syncopal events. He denies any blood in his stool denies any vomiting. He has had transfusions in the past Related Data Home Medications Medication Instructions Recorded Confirmed magnesium oxide 400 mg PO DAILY 10/28/19 11/23/23 [id number] 300 mcg-K 60 1 tab PO DAILY 10/28/19 11/23/23 mcg-lycop 600 mcg-lutein 300 mcg tablet (Centrum Silver Men) omega-3 fatty acids 1,000 mg 2,000 mg PO BID 10/28/19 11/23/23 capsule alfuzosin 10 mg tablet,extended 10 mg PO BEDTIME 11/07/20 11/23/23 release 24 hr cholecalciferol (vitamin D3) 25 25 mcg PO DAILY 11/12/20 11/23/23 mcg (1,000 unit) capsule evolocumab 140 mg/mL subcutaneous 1 mg SUBCUT DAILY 06/27/21 11/23/23 pen injector (Marcellus Vincent) furosemide 40 mg tablet 40 mg PO DAILY 08/26/23 11/23/23 potassium chloride 10 mEq 10 meq PO DAILY 08/26/23 11/23/23 capsule,extended release ciprofloxacin HCl 500 mg tablet 500 mg PO BID 11/23/23 11/23/23 pantoprazole 40 mg tablet,delayed 40 mg PO DAILY 11/23/23 11/23/23 release Previous Rx's Medication Instructions Recorded carvedilol 3.125 mg tablet 3.125 mg PO BID #180 tabs 05/01/23 Allergies Allergy/AdvReac Type Severity Reaction Status Date / Time Iodinated Contrast Media Allergy Intermediate messes Verified 11/23/23 14:58 with kidney's tamsulosin Allergy ALGY-Rash Verified 06/03/24 14:58 pravastatin [From Pravachol] AdvReac Intermediate Unknown Verified 11/23/23 14:58 simvastatin [From Zocor] AdvReac Unknown Unknown Verified 11/23/23 14:58 Review of Systems 2 Const: Denies: fever(s), chills, body aches or change in appetite ENMT: Denies: throat pain or dental pain Card: Denies: chest pain Resp: Denies: dyspnea GI: Denies: abdominal pain, nausea, vomiting or diarrhea Musc: Denies: neck pain or back pain Skin/Breast: Denies: rash Neuro: Denies: headache(s) PFSH ED 2 PFSH: Medical History Bladder cancer BPH loc w urin obs/LUTS Bladder tumor Prostate CA Abdominal aortic aneurysm (AAA) Hyperlipidemia HTN (hypertension) Renal insufficiency Aortic stenosis Carotid stenosis, bilateral ASHD (arteriosclerotic heart disease) Surgical History Status post nasal surgery H/O hernia repair ABDOMINAL H/O transurethral resection of bladder tumor (TURBT) S/P CABG (coronary artery bypass graft) Family History Brother CAD (coronary artery disease) Mother , at age 61 Alzheimer disease Father , at age 81 No problems noted. Other Hypertension Social History Smoking and tobacco/nicotine status: former use of tobacco/nicotine Alcohol intake: never Substance/Drug Use: never Marital status: Current occupational status: retired Physical Exam 2 Const: COMMON NORMALS: no acute distress, patient oriented x3 and healthy appearing HENMT: COMMON NORMALS: normocephalic and atraumatic HEAD & SCALP: n ormocephalic and atraumatic Neck/C-Spine: COMMON NORMALS: full ROM and supple Chest: COMMONS NORMALS: normal inspection of the chest Resp: COMMON NORMALS: normal respiratory effort Cardio: COMMON NORMALS: regular rate, regular rhythm and No murmurs present (Cardio) RATE: regular rate RHYTHM: regular rhythm Extremity: COMMON NORMALS: normal to inspection and full ROM Neuro: COMMON NORMALS: patient oriented x3, moves all extremities and no focal motor deficits Psych: COMMON NORMALS: mental status grossly normal, Normal thought process present and cooperative THOUGHT PROCESS: Normal thought process present Skin: COMMON NORMALS: no rashes or lesions noted and no wounds GENERAL SKIN EXAM: no rashes or lesions noted Course 2 Vital Signs: Vital signs: Vital Signs Temperature 98.0 F 02/17/24 15:08 Pulse Rate 77 02/17/24 15:08 Respiratory Rate 16 02/17/24 15:08 Blood Pressure 106/69 02/17/24 15:08 Pulse Oximetry 99 02/17/24 15:08 Oxygen Delivery Me thod Room Air 02/17/24 15:08 MDM - Recheck/Abnormal Lab/Rx Medical Decision Making Patient presents here for anemia is chronic in nature his hemoglobin is 7 here he is hemodynamically stable we will give him 1 unit of blood he is stable for discharge follow-up with PCP return if worsening Medical Records I reviewed the patient's medical records. Lab Data I reviewed the patient's lab results. 02/17/24 16:15 02/17/24 16:15 Laboratory Results WBC 5.30 10^3/uL (3.29-11.43) 02/17/24 16:15 RBC 2.36 10^6/uL (3.85-5.65) L 02/17/24 16:15 Hgb 7.00 g/dL (11.27-16.99) L 02/17/24 16:15 Hct 22.2 % (37-53) L 02/17/24 16:15 MCV 94.1 fl (82-101) 02/17/24 16:15 MCH 29.7 pg (27-33) 02/17/24 16:15 MCHC 31.5 g/dL (30-55) 02/17/24 16:15 RDW 13.8 % (12.1-15.1) 02/17/24 16:15 Plt Count 112 10^3/cmm (157-399) L 02/17/24 16:15 MPV 10.1 fL (7.4-10.4) 02/17/24 16:15 Neut % (Auto) 43.7 % 02/17/24 16:15 Lymph % (Auto) 41.9 % 02/17/24 16:15 [place] % (Auto) 11.3 % 02/17/24 16:15 Eos % (Auto) 2.5 % 02/17/24 16:15 Baso % (Auto) 0.4 % 02/17/24 16:15 Neut # (Auto) 2.32 10^3/uL (1.8-7.7) 02/17/24 16:15 Lymph # (Auto) 2.2 10^3/uL (0.8-4.8) 02/17/24 16:15 [place] # (Auto) 0.6 10^3/uL (0.2-0.9) 02/17/24 16:15 Eos # (Auto) 0.1 10^3/uL (0.0-0.8) 02/17/24 16:15 Baso # (Auto) 0.0 10^3/uL (0.0-0.1) 02/17/24 16:15 Nucleated RBC % (auto) 0 % 02/17/24 16:15 Nucleated RBCs # 0.0 /100WBC 02/17/24 16:15 PT 15.70 SECONDS (12.1-14.9) H 02/17/24 16:15 INR 1.21 (0.8-1.2) H 02/17/24 16:15 Sodium 136 mmol/L (136-145) 02/17/24 16:15 Potassium 4.3 mmol/L (3.5-5.1) 02/17/24 16:15 Chloride 102 mmol/L (98-107) 02/17/24 16:15 Carbon Dioxide 21 mmol/L (22-29) L 02/17/24 16:15 Anion Gap 17.3 (5-19) 02/17/24 16:15 BUN 45 mg/dL (8-23) H 02/17/24 16:15 Creatinine 3.2 mg/dL (0.7-1.2) H 02/17/24 16:15 GFR Calculation Not Reportable 02/17/24 16:15 Glucose 123 mg/dL (65-115) H 02/17/24 16:15 Calculated Osmolality 295 mOsm/kg (285-295) 02/17/24 16:15 Calcium 9.3 mg/dL (8.5-10.5) 02/17/24 16:15 Total Bilirubin 0.4 mg/dL (0.15-1.2) 02/17/24 16:15 AST 75 U/L (0-40) H 02/17/24 16:15 ALT 113 U/L (0-41) H 02/17/24 16:15 Alkaline Phosphatase 152 U/L (40-130) H 02/17/24 16:15 Total Protein 6.5 g/dL (6.6-8.7) L 02/17/24 16:15 Albumin 4.2 g/dL (3.5-5.2) 02/17/24 16:15 Globulin 2.3 g/dL (1.3-4.6) 02/17/24 16:15 Blood Type A Positive 02/17/24 16:15 Rho(D) Type Rh positive 02/17/24 16:15 Antibody Screen Negative 02/17/24 16:15 Crossmatch See Detail 02/17/24 16:15 No radiology studies performed this visit Discharge Plan Discharge Patient Disposition: Home Clinical Impression: Anemia Condition: Stable Prescriptions: No Action omega-3 fatty acids 1,000 mg capsule 2,000 mg PO BID Hold Instructions: Resume on 03/09/20. magnesium oxide 400 mg magnesium capsule 400 mg PO DAILY Centrum Silver Men 300-600-300 mcg tablet 1 tab PO DAILY cholecalciferol (vitamin D3) 25 mcg (1,000 unit) capsule 25 mcg PO DAILY Repatha SureClick 140 mg/mL pen injector 1 mg SUBCUT DAILY ciprofloxacin HCl 500 mg tablet 500 mg PO BID pantoprazole 40 mg tablet,delayed release (DR/EC) 40 mg PO DAILY furosemide 40 mg tablet 40 mg PO DAILY potassium chloride 10 mEq capsule, extended release 10 meq PO DAILY carvedilol 3.125 mg tablet 3.125 mg PO BID Qty: 180 3RF alfuzosin 10 mg tablet extended release 24 hr 10 mg PO BEDTIME Discharge Orders: Discharge ED (Routine); Ordered 02/17/24 Ordered By: Sebastian Mckee Referrals: Andry Laurent MD [Primary Care Provider] - Discharge Diet: Advance as tolerated Discharge Activity: Resume usual activity Patient Instructions: Anemia (ED) Coding Level of Care Code ED Oxyhydrogen Welder for Martha Enamorado
[2024-02-17 16:28] LABS: Basophils % 0.4 %; Eosinophils # 0.1 10^3/uL (0.0-0.8); Eosinophils % 2.5 %; Hematocrit 22.2 % (37-53); Lymphocytes # 2.2 10^3/uL (0.8-4.8); Lymphocytes % 41.9 %; Mean Corpuscular HGB Conc 31.5 g/dL (30-55); Mean Corpuscular Hemoglobin 29.7 pg (27-33); Mean Corpuscular Volume 94.1 fl (82-101); Mean Platelet Volume 10.1 fL (7.4-10.4); Monocytes # 0.6 10^3/uL (0.2-0.9); Monocytes % 11.3 %; Neutrophils # 2.32 10^3/uL (1.8-7.7); Neutrophils % 43.7 %; Nucleated Red Blood Cells % 0 %; Platelet Count 112 10^3/cmm (157-399); Red Blood Count 2.36 10^6/uL (3.85-5.65); Red Cell Distribution Width 13.8 % (12.1-15.1)
[2024-02-17 16:48] LABS: Alanine Aminotransferase 113 U/L (0-41); Albumin Level 4.2 g/dL (3.5-5.2); Alkaline Phosphatase 152 U/L (40-130); Anion Gap 17.3 (5-19); Aspartate Amino Transferase 75 U/L (0-40); Blood Urea Nitrogen 45 mg/dL (8-23); Calcium 9.3 mg/dL (8.5-10.5); Carbon Dioxide 21 mmol/L (22-29); Chloride 102 mmol/L (98-107); Creatinine Clr Calc Pharmacy 17.2806; Globulin 2.3 g/dL (1.3-4.6); Glucose 123 mg/dL (65-115); Osmolality Calculated 295 mOsm/kg (285-295); Potassium 4.3 mmol/L (3.5-5.1); Sodium 136 mmol/L (136-145); Total Bilirubin 0.4 mg/dL (0.15-1.2); Total Protein 6.5 g/dL (6.6-8.7)
[2024-02-17 17:34] LABS: INR 1.21 (0.8-1.2)
== END 2024-02-17 20:28 | disposition home or self-care (01) ==
PROVIDERS: Emergency Provider Emergency Medicine; PCP Family Medicine
DX: D64.9 Anemia, unspecified (principal); Z87.891 Personal history of nicotine dependence; Z85.51 Personal history of malignant neoplasm of bladder; Z85.46 Personal history of malignant neoplasm of prostate; E78.5 Hyperlipidemia, unspecified; I10 Essential (primary) hypertension; Z95.1 Presence of aortocoronary bypass graft
CPT/HCPCS: 36415; 36430; 80053; 85025; 85610; 86850; 86900; 86920; 99284; G0277; P9016

== ENCOUNTER → 2024-02-18 08:00 | Outpatient (BNVA) | payer MEDICARE, OTHER, SELFPAY | PROVIDERS: PCP Family Medicine; Visit Provider Thoracic Surgery (Cardiothoracic Vascular Surgery) | DX: N30.41 Irradiation cystitis with hematuria (principal) | CPT/HCPCS: G0277 ==

== ENCOUNTER → 2024-02-19 07:58 | Outpatient (BNVA) | payer MEDICARE, OTHER, SELFPAY | PROVIDERS: PCP Family Medicine; Visit Provider Thoracic Surgery (Cardiothoracic Vascular Surgery) | DX: N30.41 Irradiation cystitis with hematuria (principal) | CPT/HCPCS: G0277 ==

== ENCOUNTER → 2024-02-23 07:59 | Outpatient (BNVA) | payer MEDICARE, OTHER, SELFPAY | PROVIDERS: PCP Family Medicine; Visit Provider Thoracic Surgery (Cardiothoracic Vascular Surgery) | DX: N30.41 Irradiation cystitis with hematuria (principal) | CPT/HCPCS: G0277 ==

== ENCOUNTER → 2024-02-24 08:01 | Outpatient (BNVA) | payer MEDICARE, OTHER, SELFPAY | PROVIDERS: PCP Family Medicine; Visit Provider Thoracic Surgery (Cardiothoracic Vascular Surgery) | DX: N30.41 Irradiation cystitis with hematuria (principal) | CPT/HCPCS: G0277 ==

== ENCOUNTER 2024-02-24 13:47 | Outpatient (RCR) | payer SELFPAY | END 2024-03-21 23:59 | disposition home or self-care (01) | LOC: CR 13:47 | PROVIDERS: PCP Family Medicine; Referring Provider Family Medicine; Visit Provider Family Medicine | DX: Z95.1 Presence of aortocoronary bypass graft (principal) ==

== ENCOUNTER 2024-03-08 09:00 | Oncology outpatient (recurring) (ONCR) | payer MEDICARE, OTHER, SELFPAY ==
--- NOTE | 2024-02-26 10:32 | USCV_ITS ---
Augusto Quispe Age: 83 Gender: M : 1940 Exam Date: 02/26/2024 09:15 Ordering Phys: Julio César Payton M.D ([email or web address]) Technologist: HENRRY Exam Location: [facility] [place] Indication: BP: 110 / 58 HR: 61 Rhythm: Sinus Technical Quality: Difficult MEASUREMENTS (Male / Female) Normal Values 2D ECHO LV Diastolic Diameter PLAX 4.8 cm 4.2 - 5.9 / 3.9 - 5.3 cm IVS Diastolic Thickness 0.6 cm 0.6 - 1.0 / 0.6 - 0.9 cm IVS Systolic Thickness 1.7 cm LVPW Diastolic Thickness 1.5 cm 0.6 - 1.0 / 0.6 - 0.9 cm LVPW Systolic Thickness 1.7 cm LVOT Diameter 2.0 cm LV Ejection Fraction 2D Teich 65.0 % LV Ejection Fraction MOD 4C 60.3 % LV Ejection Fraction MOD 2C 64.2 % LV Ejection Fraction 2C AL 65.0 % LA Diameter 4.3 cm RA Systolic Volume 4C AL 27.1 ml RA Systolic Volume 4C MOD 26.7 ml LA Sys Volume AL 53.7 cm cubed LA Sys Volume Index AL 28.2 cm cubed/m squared Aorta at Sinotubular Diameter 2.2 cm M-MODE LA Ao Ratio MM 1.0 AV Cusp Separation MM 0.7 cm DOPPLER AV Peak Velocity 341.8 cm/s LVOT Peak Velocity 88.0 cm/s AV Area Cont Eq vti 0.8 cm squared AV Area Cont Eq pk 0.8 cm squared MV Peak Velocity 113.0 cm/s MV Area PHT 3.3 cm squared Mitral E to A Ratio 1.1 TR Peak Velocity 151.0 cm/s TR Peak Gradient 9.1 mmHg TR Mean Velocity 128.0 cm/s TR Mean Gradient 7.0 mmHg TR Velocity Time Integral 38.9 cm TV Peak E Velocity 46.0 cm/s Right Atrial Pressure 3.0 mmHg Pulmonary Artery Systolic Pressu 12.1 mmHg PV Peak Velocity 93.0 cm/s RV Ejection Time 0.3 s FINDINGS Left Ventricle Technically limited quality echocardiogram because of poor ultrasonic windows. LV systolic function is normal with EF of 60 to 65%. No regional wall motion abnormalities are seen. Right Ventricle Grossly hypokinetic Right Atrium Normal in size Left Atrium Normal in size Mitral Valve Structurally normal mitral valve. Mild mitral regurgitation. Aortic Valve Aortic valve is thickened and calcified. Moderate to severe aortic stenosis with mean gradient of 31mmHg and aortic valve area of 0.84cm2. Tricuspid Valve Mild tricuspid regurgitation. Insufficient TR jet to calculate RVSP Pulmonic Valve Not well visualized Pericardium Normal Aorta Normal in size IVC Appears to be normal CONCLUSIONS Technically limited quality echocardiogram because of poor ultrasonic windows. LV systolic function is normal with EF of 60-65% RV is grossly hypokinetic Mild mitral regurgitation Moderate to severe aortic stenosis. Mild tricuspid regurgitation Compared to prior echocardiogram from 08/2023, RV grossly appears mildly hypokinetic but has limited visualization. Aortic stenosis has progressed. Julio César Payton MD (Electronically Signed) Final Date: 26 February 2024 10:29 S
[2024-03-01 10:27] VITALS: BP 97/61; PULSE 64; RESP 17; TEMP 36.2; O2SAT 96
[2024-03-01] MEDS: sodium chloride 0.9% 250 ML 75 ML IV (10:45)
[2024-03-01] MEDS: ferric carboxy (PYXIS) 750 MG in sodium chloride 0.9% (100 ml) 100 ML 345 MG IV (10:46)
[2024-03-01 11:45] VITALS: BP 102/66; PULSE 62; RESP 17; TEMP 36.6; O2SAT 95
[2024-03-08 08:50] VITALS: BP 106/63; PULSE 73; RESP 16; TEMP 36.6; O2SAT 96
[2024-03-08] MEDS: ferric carboxy (PYXIS) 750 MG in sodium chloride 0.9% (100 ml) 100 ML 345 MG IV (08:59)
[2024-03-08 09:20] VITALS: BP 99/60; PULSE 73; RESP 16; TEMP 36.3; O2SAT 95
== END 2024-03-21 23:59 | disposition home or self-care (01) ==
PROVIDERS: PCP Family Medicine; Visit Provider Family Medicine
DX: Z53.9 Procedure and treatment not carried out, unspecified reason (principal); Z79.899 Other long term (current) drug therapy; D64.9 Anemia, unspecified
CPT/HCPCS: 93306; 96365; G0277; J1439; J7050

== ENCOUNTER → 2024-04-01 08:43 | Outpatient (BNVA) | payer MEDICARE, OTHER, SELFPAY | PROVIDERS: PCP Family Medicine; Visit Provider Internal Medicine | DX: I25.10 Atherosclerotic heart disease of native coronary artery without angina pectoris (principal); Z95.1 Presence of aortocoronary bypass graft; I65.23 Occlusion and stenosis of bilateral carotid arteries; I35.0 Nonrheumatic aortic (valve) stenosis; I10 Essential (primary) hypertension; E78.5 Hyperlipidemia, unspecified; I71.40 Abdominal aortic aneurysm, without rupture, unspecified; Z87.891 Personal history of nicotine dependence | CPT/HCPCS: 99214 ==

== ENCOUNTER 2024-04-22 12:38 | Outpatient (RCR) | payer SELFPAY | END 2024-05-21 23:59 | disposition home or self-care (01) | LOC: CR 12:38 | PROVIDERS: PCP Family Medicine; Referring Provider Family Medicine; Visit Provider Family Medicine | DX: Z95.1 Presence of aortocoronary bypass graft (principal) ==

== ENCOUNTER 2024-05-25 08:13 | Outpatient (RCR) | payer SELFPAY | END 2024-06-21 23:59 | disposition home or self-care (01) | LOC: CR 08:13 | PROVIDERS: PCP Family Medicine; Referring Provider Family Medicine; Visit Provider Family Medicine | DX: Z95.5 Presence of coronary angioplasty implant and graft (principal) ==

== ENCOUNTER 2024-06-22 10:52 | Outpatient (RCR) | payer SELFPAY | END 2024-07-22 23:59 | disposition home or self-care (01) | LOC: CR 10:52 | PROVIDERS: PCP Family Medicine; Referring Provider Family Medicine; Visit Provider Family Medicine | DX: Z95.1 Presence of aortocoronary bypass graft (principal) ==

== ENCOUNTER 2024-07-06 08:14 | Emergency (ER) | payer MEDICARE, OTHER, SELFPAY ==
[2024-07-06 08:17] VITALS: BP 119/62; PULSE 80; RESP 18; TEMP 37; O2SAT 98; BMI 27.1
--- NOTE | 2024-07-06 08:40 | XR_ITS ---
WS: [id number] XR chest 1V portable [id number] REASON FOR EXAM: weak FINDINGS: Sternal sutures previous coronary artery bypass surgery. Mild tortuosity of the thoracic aorta. Normal heart size. Calcified granulomatous disease centrally. No acute pulmonary parenchymal or pleural findings are not ed. XR/XR chest 1V portable [id number] IMPRESSION: Postoperative chest. No acute chest abnormality identified.
[2024-07-06 08:50] LABS: Basophils % 0.4 %; Eosinophils # 0.1 10^3/uL (0.0-0.8); Hematocrit 23.8 % (37-53); Lymphocytes # 1.7 10^3/uL (0.8-4.8); Lymphocytes % 33.5 %; Mean Corpuscular HGB Conc 31.5 g/dL (30-55); Mean Corpuscular Hemoglobin 29.4 pg (27-33); Mean Corpuscular Volume 93.3 fl (82-101); Mean Platelet Volume 10.5 fL (7.4-10.4); Monocytes # 0.4 10^3/uL (0.2-0.9); Monocytes % 8.3 %; Neutrophils # 2.73 10^3/uL (1.8-7.7); Neutrophils % 55.4 %; Nucleated Red Blood Cells % 0 %; Platelet Count 136 10^3/cmm (157-399); Red Blood Count 2.55 10^6/uL (3.85-5.65); Red Cell Distribution Width 13.2 % (12.1-15.1); White Blood Count 4.93 10^3/uL (3.29-11.43)
--- NOTE | 2024-07-06 09:00 | ED_ITS ---
HPI - Male Genitourinary 2 General: Chief complaint: Urogenital-Male Stated complaint: referral, blood loss Time Seen by Provider: 07/06/24 08:27 History of Present Illness: 84-year-old male presents emergency room . Patient has a history of bladder cancer and prostate. He also has severe aortic stenosis. He had hemoglobin done yesterday by Dr. Laurent at his office that contacted him that his hemoglobin was 7.6. The patient told the nurse that he had not been instructed by his physician to come in but he felt like he needed to. He told me his physician at [facility] to get a transfusion. Associated symptoms: Deny dysuria Related Data Home Medications Medication Instructions Recorded Confirmed magnesium oxide 400 mg PO DAILY 10/28/19 07/06/24 [id number] 300 mcg-K 60 1 tab PO DAILY 10/28/19 07/06/24 mcg-lycop 600 mcg-lutein 300 mcg tablet (Centrum Silver Men) omega-3 fatty acids 1,000 mg 2,000 mg PO BID 10/28/19 07/06/24 capsule alfuzosin 10 mg tablet,extended 10 mg PO BEDTIME 11/07/20 07/06/24 release 24 hr cholecalciferol (vitamin D3) 25 25 mcg PO DAILY 11/12/20 07/06/24 mcg (1,000 unit) capsule evolocumab 140 mg/mL subcutaneous 1 mg SUBCUT DAILY 06/27/21 07/06/24 pen injector (Marcellus Vincent) furosemide 40 mg tablet 40 mg PO DAILY 08/26/23 07/06/24 potassium chloride 10 mEq 10 meq PO DAILY 08/26/23 07/06/24 capsule,extended release pantoprazole 40 mg tablet,delayed 40 mg PO DAILY 11/23/23 07/06/24 release carvedilol 3.125 mg tablet 3.125 mg PO BID 07/06/24 07/06/24 Allergies Allergy/AdvReac Type Severity Reaction Status Date / Time Iodinated Contrast Media Allergy Intermediate messes Verified 04/01/24 08:49 with kidney's tamsulosin Allergy ALGY-Rash Verified 04/01/24 08:49 pravastatin [From Pravachol] AdvReac Intermediate Unknown Verified 04/01/24 08:49 simvastatin [From Zocor] AdvReac Unknown Unknown Verified 04/01/24 08:49 Review of Systems 2 Const: Denies: fever(s) or chills Card: Denies: chest pain Resp: Denies: dyspnea GI: Denies: abdominal pain : Denies: dysuria, urinary frequency or urinary urgency Musc: Denies: neck pain or back pain Skin/Breast: Denies: rash PFSH ED 2 PFSH: Medical History Bladder cancer BPH loc w urin obs/LUTS Bladder tumor Prostate CA Abdominal aortic aneurysm (AAA) Hyperlipidemia HTN (hypertension) Renal insufficiency Aortic stenosis Carotid stenosis, bilateral ASHD (arteriosclerotic heart disease) Surgical History Status post nasal surgery H/O hernia repair ABDOMINAL H/O transurethral resection of bladder tumor (TURBT) S/P CABG (coronary artery bypass graft) Family History Brother CAD (coronary artery disease) Mother , at age 61 Alzheimer disease Father , at age 81 No problems noted. Other Hypertension Social History Smoking and tobacco/nicotine status: former use of tobacco/nicotine Alcohol intake: never Substance/Drug Use: never Marital status: Current occupational status: retired Physical Exam 2 Const: COMMON NORMALS: no acute distress GENERAL APPEARANCE: cooperative and comfortable ORIENTATION/CONSCIOUSNESS: Yes awake, Yes oriented to person, Yes oriented to place and Yes oriented to time HENMT: COMMON NORMALS: normocephalic, atraumatic and hearing grossly normal bilaterally HEAD & SCALP: normocephalic and atraumatic Resp: COMMON NORMALS: normal respiratory effort, No retractions, No use of accessory muscles and clear to auscultation bilaterally AUSCULTATION: clear to auscultation bilaterally Cardio: COMMON NORMALS: regular rate and regular rhythm RATE: regular rate RHYTHM: regular rhythm HEART SOUNDS: Murmur heart sound present (grade 5/6) GI: COMMON NORMALS: Soft to palpation and No hepatosplenomegaly present A USCULTATION: Yes normoactive bowel sounds PALPATION: Yes Soft to palpation, No Tenderness to palpation present (GI), No Guarding due to palpation present (GI) and Yes No hepatosplenomegaly present Extremity: COMMON NORMALS: normal to inspection, capillary refill normal, no clubbing, cyanosis or edema, no calf tenderness and no pedal edema Neuro: SENSORIUM/ORIENTATION: Yes oriented to person, Yes oriented to place and Yes oriented to time Skin: COMMON NORMALS: no rashes or lesions noted GENERAL SKIN EXAM: no rashes or lesions noted Course 2 Vital Signs: Vital signs: Vital Signs Temperature 98.6 F 07/06/24 08:17 Pulse Rate 75 07/06/24 09:37 Respiratory Rate 18 07/06/24 08:17 Blood Pressure 97/62 07/06/24 09:37 Pulse Oximetry 96 07/06/24 09:37 Oxygen Delivery Me thod Room Air 07/06/24 08:17 MDM - Male Medical Decision Making Patient seen evaluate he does have significant comorbidities. Between his aortic stenosis and his renal disease. He is reporting being somewhat weak hemoglobin is chronically low and he does occasionally get transfusions I contacted his primary care doctor there plan had evidently been to just monitor unless he became markedly symptomatic. Dr. Laurent felt probably be appropriate to go ahead and transfuse him today. Will discharge him from the ER after go over to infusion center for we have made arrangements for 1 unit of blood to be transfused Dr. Laurent is aware and will follow-up with him later this Lab Data 07/06/24 08:25 07/06/24 08:25 Radiology Impressions Chest X-Ray 07/06/24 08:40 IMPRESSION: Postoperative chest. No acute chest abnormality identified. Laboratory Results WBC 4.93 10^3/uL (3.29-11.43) 07/06/24 08:25 RBC 2.55 10^6/uL (3.85-5.65) L 07/06/24 08:25 Hgb 7.50 g/dL (11.27-16.99) L 07/06/24 08:25 Hct 23.8 % (37-53) L 07/06/24 08:25 MCV 93.3 fl (82-101) 07/06/24 08:25 MCH 29.4 pg (27-33) 07/06/24 08: MCHC 31.5 g/dL (30-55) 07/06/24 08:25 RDW 13.2 % (12.1-15.1) 07/06/24 08:25 Plt Count 136 10^3/cmm (157-399) L 07/06/24 08:25 MPV 10.5 fL (7.4-10.4) H 07/06/24 08:25 Neut % (Auto) 55.4 % 07/06/24 08:25 Lymph % (Auto) 33.5 % 07/06/24 08:25 [place] % (Auto) 8.3 % 07/06/24 08:25 Eos % (Auto) 2.0 % 07/06/24 08:25 Baso % (Auto) 0.4 % 07/06/24 08:25 Neut # (Auto) 2.73 10^3/uL (1.8-7.7) 07/06/24 08:25 Lymph # (Auto) 1.7 10^3/uL (0.8-4.8) 07/06/24 08:25 [place] # (Auto) 0.4 10^3/uL (0.2-0.9) 07/06/24 08:25 Eos # (Auto) 0.1 10^3/uL (0.0-0.8) 07/06/24 08:25 Baso # (Auto) 0.0 10^3/uL (0.0-0.1) 07/06/24 08:25 Nucleated RBC % (auto) 0 % 07/06/24 08: Nucleated RBCs # 0.0 /100WBC 07/06/24 08:25 Sodium 141 mmol/L (136-145) 07/06/24 08:25 Potassium 4.2 mmol/L (3.5-5.1) 07/06/24 08:25 Chloride 102 mmol/L (98-107) 07/06/24 08:25 Carbon Dioxide 24 mmol/L (22-29) 07/06/24 08:25 Anion Gap 19.2 (5-19) H 07/06/24 08:25 BUN 43 mg/dL (8-23) H 07/06/24 08:25 Creatinine 3.5 mg/dL (0.7-1.2) H 07/06/24 08:25 GFR Calculation Not Reportable 07/06/24 08:25 Glucose 125 mg/dL (65-115) H 07/06/24 08:25 Calculated Osmolality 304 mOsm/kg (285-295) H 07/06/24 08:25 Calcium 9.6 mg/dL (8.5-10.5) 07/06/24 08:25 Total Bilirubin 0.3 mg/dL (0.15-1.2) 07/06/24 08:25 AST 20 U/L (0-40) 07/06/24 08:25 ALT 17 U/L (0-41) 07/06/24 08:25 Alkaline Phosphatase 171 U/L (40-130) H 07/06/24 08:25 Total Protein 6.2 g/dL (6.6-8.7) L 07/06/24 08:25 Albumin 4.3 g/dL (3.5-5.2) 07/06/24 08:25 Globulin 1.9 g/dL (1.3-4.6) 07/06/24 08:25 Blood Type Cancelled 07/06/24 09:06 Rho(D) Type Cancelled 07/06/24 09:06 Antibody Screen Cancelled 07/06/24 09:06 Crossmatch See Detail 07/06/24 09:06 All radiology interpretation(s) finalized by discharge Discharge Plan Discharge Patient Disposition: Home Clinical Impression: Anemia, Bladder tumor, ASHD (arteriosclerotic heart disease), History of prostate cancer, Gross hematuria Aortic stenosis Qualifiers: Cardiac valve disease etiology: nonrheumatic Qualified Code(s): I35.0 - Nonrheumatic aortic (valve) stenosis Condition: Stable Prescriptions: No Action omega-3 fatty acids 1,000 mg capsule 2,000 mg PO BID Hold Instructions: Resume on 03/09/20. magnesium oxide 400 mg magnesium capsule 400 mg PO DAILY Centrum Silver Men 300-600-300 mcg tablet 1 tab PO DAILY cholecalciferol (vitamin D3) 25 mcg (1,000 unit) capsule 25 mcg PO DAILY Repatha SureClick 140 mg/mL pen injector 1 mg SUBCUT DAILY pantoprazole 40 mg tablet,delayed release (DR/EC) 40 mg PO DAILY furosemide 40 mg tablet 40 mg PO DAILY potassium chloride 10 mEq capsule, extended release 10 meq PO DAILY alfuzosin 10 mg tablet extended release 24 hr 10 mg PO BEDTIME carvedilol 3.125 mg tablet 3.125 mg PO BID Rx Instructions: Take 1 tablet by mouth twice daily Discharge Orders: Discharge ED (Routine); Ordered 07/06/24 Ordered By: Darian Eric Referrals: Andry Laurent MD [Primary Care Provider] - Discharge Diet: Usual diet Discharge Activity: Resume usual activity Patient Instructions: Opioid Safety, Pain Management Activity Restrictions/Additional Instructions: Thank you for choosing [facility] for your healthcare needs today. It is very important that you follow up as instructed or that you return to the Emergency Department should you have concerns or if your condition changes or worsens in any way. You were seen in the emergency room with report of anemia. Your hemoglobin today was 7.5. Discussed with your primary care doctor. Will discharge you from the emergency room and have you go to the infusion center will they will transfuse 1 unit of blood. Follow-up with your primary care doctor at the end of this week or the first part of the following week. Coding Level of Care Code ED Sheltered Workshop Executive Director for Martha Enamorado
[2024-07-06 09:03] LABS: Alanine Aminotransferase 17 U/L (0-41); Albumin Level 4.3 g/dL (3.5-5.2); Alkaline Phosphatase 171 U/L (40-130); Anion Gap 19.2 (5-19); Aspartate Amino Transferase 20 U/L (0-40); Blood Urea Nitrogen 43 mg/dL (8-23); Calcium 9.6 mg/dL (8.5-10.5); Carbon Dioxide 24 mmol/L (22-29); Chloride 102 mmol/L (98-107); Creatinine Clr Calc Pharmacy 15.2804; Globulin 1.9 g/dL (1.3-4.6); Glucose 125 mg/dL (65-115); Osmolality Calculated 304 mOsm/kg (285-295); Potassium 4.2 mmol/L (3.5-5.1); Sodium 141 mmol/L (136-145); Total Bilirubin 0.3 mg/dL (0.15-1.2); Total Protein 6.2 g/dL (6.6-8.7)
[2024-07-06 09:20] VITALS: BP 92/63; PULSE 74; O2SAT 95
[2024-07-06 09:37] VITALS: BP 97/62; PULSE 75; O2SAT 96
== END 2024-07-06 09:39 | disposition home or self-care (01) ==
PROVIDERS: Emergency Provider Family Medicine; PCP Family Medicine
DX: D64.9 Anemia, unspecified (principal); N32.89 Other specified disorders of bladder; I25.10 Atherosclerotic heart disease of native coronary artery without angina pectoris; Z85.46 Personal history of malignant neoplasm of prostate; R31.0 Gross hematuria; I35.0 Nonrheumatic aortic (valve) stenosis; E78.5 Hyperlipidemia, unspecified; I10 Essential (primary) hypertension
CPT/HCPCS: 36415; 71045; 80053; 85025; 99285

== ENCOUNTER 2024-07-06 09:48 | Oncology outpatient (recurring) (ONCR) | payer MEDICARE, OTHER, SELFPAY ==
[2024-07-06] VITALS (7 sets, daily range): BP systolic 106–131; BP diastolic 61–84; PULSE 65–77; RESP 16–17; TEMP 36.1–36.7; O2SAT 97–99
[2024-07-06] MEDS: diphenhydrAMINE 25 mg Capsule PO (11:11)
[2024-07-06] MEDS: acetaminophen 325 mg Tablet 650 MG PO (11:11)
[2024-07-06] MEDS: sodium chloride 0.9% 250 mL Bag IV (14:20)
== END 2024-07-22 23:59 | disposition home or self-care (01) ==
PROVIDERS: PCP Family Medicine; Visit Provider Family Medicine
DX: D64.9 Anemia, unspecified (principal); Z79.899 Other long term (current) drug therapy
CPT/HCPCS: 36415; 36430; 86850; 86900; 86920; J7050; P9016

== ENCOUNTER 2024-07-25 15:55 | Outpatient (RCR) | payer SELFPAY | END 2024-08-19 23:59 | disposition home or self-care (01) | LOC: CR 15:55 | PROVIDERS: PCP Family Medicine; Referring Provider Family Medicine; Visit Provider Family Medicine | DX: Z95.1 Presence of aortocoronary bypass graft (principal) ==

== ENCOUNTER 2024-08-08 09:33 | Oncology outpatient (recurring) (ONCR) | payer MEDICARE, OTHER, SELFPAY ==
[2024-08-08] MEDS: sodium chloride 0.9% 250 mL Bag IV (11:52)
[2024-08-08 12:01] VITALS: BP 111/67; PULSE 70; RESP 16; TEMP 36.3; O2SAT 99
[2024-08-08 12:16] VITALS: BP 94/57; PULSE 78; RESP 16; TEMP 36.1; O2SAT 99
[2024-08-08 12:44] VITALS: BP 91/56; PULSE 77; RESP 16; TEMP 36; O2SAT 96
[2024-08-08 13:15] VITALS: BP 93/49; PULSE 80; RESP 16; TEMP 36; O2SAT 99
[2024-08-08 14:10] VITALS: BP 103/66; PULSE 72; RESP 16; TEMP 36.2; O2SAT 99
[2024-08-08 14:22] VITALS: BP 103/66; PULSE 72; RESP 17; TEMP 36.2; O2SAT 99
== END 2024-08-19 23:59 | disposition home or self-care (01) ==
LOC: ONCMED 09:35
PROVIDERS: PCP Family Medicine; Visit Provider Family Medicine
DX: D64.9 Anemia, unspecified (principal)
CPT/HCPCS: 36415; 36430; 86850; 86900; 86920; J7050; P9016

== ENCOUNTER 2024-08-20 13:01 | Outpatient (RCR) | payer SELFPAY | END 2024-09-19 23:59 | disposition home or self-care (01) | LOC: CR 13:01 | PROVIDERS: PCP Family Medicine; Referring Provider Family Medicine; Visit Provider Family Medicine | DX: Z95.1 Presence of aortocoronary bypass graft (principal) ==

== ENCOUNTER 2024-09-13 13:00 | Oncology outpatient (recurring) (ONCR) | payer MEDICARE, OTHER, SELFPAY ==
[2024-09-06] MEDS: ferric carboxy (PYXIS) 750 MG in sodium chloride 0.9% (100 ml) 100 ML 345 MG IV (14:29)
[2024-09-06 16:28] VITALS: BP 100/65; PULSE 68
== END 2024-09-19 23:59 | disposition home or self-care (01) ==
PROVIDERS: PCP Family Medicine; Visit Provider Family Medicine
DX: Z53.9 Procedure and treatment not carried out, unspecified reason (principal)
CPT/HCPCS: 96365; J1439

== ENCOUNTER 2024-09-20 10:10 | Outpatient (RCR) | payer SELFPAY | END 2024-10-19 23:59 | disposition home or self-care (01) | LOC: CR 10:10 | PROVIDERS: PCP Family Medicine; Referring Provider Family Medicine; Visit Provider Family Medicine | DX: Z95.1 Presence of aortocoronary bypass graft (principal) ==

== ENCOUNTER → 2024-10-13 14:54 | Outpatient (BNVA) | payer MEDICARE, SELFPAY | PROVIDERS: PCP Family Medicine; Visit Provider Internal Medicine | DX: I25.10 Atherosclerotic heart disease of native coronary artery without angina pectoris (principal); Z95.1 Presence of aortocoronary bypass graft; I35.0 Nonrheumatic aortic (valve) stenosis; I65.23 Occlusion and stenosis of bilateral carotid arteries; I10 Essential (primary) hypertension; E78.5 Hyperlipidemia, unspecified; Z87.891 Personal history of nicotine dependence | CPT/HCPCS: 99214 ==

== ENCOUNTER → 2024-10-19 09:30 | Outpatient (BNVA) | payer MEDICARE, OTHER, SELFPAY | PROVIDERS: PCP Family Medicine; Visit Provider Podiatrist Foot & Ankle Surgery | DX: M10.9 Gout, unspecified (principal); M79.671 Pain in right foot | CPT/HCPCS: 20600; 73630; 99204; J1100; J3301; J9999 ==

== ENCOUNTER 2024-10-20 13:28 | Outpatient (RCR) | payer SELFPAY | END 2024-11-19 23:59 | disposition home or self-care (01) | LOC: CR 13:28 | PROVIDERS: PCP Family Medicine; Referring Provider Family Medicine; Visit Provider Family Medicine | DX: Z95.1 Presence of aortocoronary bypass graft (principal) ==

== ENCOUNTER 2024-11-09 08:54 | Oncology outpatient (recurring) (ONCR) | payer MEDICARE, OTHER, SELFPAY ==
--- NOTE | 2024-11-09 09:15 | USCV_ITS ---
Augusto Quispe Age: 84 Gender: M : 1940 Exam Date: 11/09/2024 09:18 Ordering Phys: Julio César Payton M.D ([email or web address]) Technologist: Exam Location: [facility] – [place] Indication: as BP: 116 / 70 HR: 74 Rhythm: Sinus Technical Quality: Adequate MEASUREMENTS (Male / Female) Normal Values 2D ECHO LV Diastolic Diameter PLAX 3.5 cm 4.2 - 5.9 / 3.9 - 5.3 cm IVS Diastolic Thickness 1.1 cm 0.6 - 1.0 / 0.6 - 0.9 cm IVS Systolic Thickness 1.7 cm LVPW Diastolic Thickness 1.1 cm 0.6 - 1.0 / 0.6 - 0.9 cm LVPW Systolic Thickness 1.4 cm LVOT Diameter 2.0 cm LV Ejection Fraction 2D Teich 68.6 % LV Ejection Fraction MOD 4C 69.3 % LV Ejection Fraction MOD 2C 46.6 % LV Ejection Fraction 2C AL 46.9 % LA Diameter 4.5 cm RA Systolic Volume 4C AL 42.4 ml RA Systolic Volume 4C MOD 40.0 ml Aorta at Sinotubular Diameter 3.1 cm IVC Diameter 2.0 cm M-MODE LA Ao Ratio MM 1.6 AV Cusp Separation MM 1.0 cm DOPPLER AV Peak Velocity 409.3 cm/s LVOT Peak Velocity 88.0 cm/s AV Area Cont Eq vti 0.9 cm squared AV Area Cont Eq pk 0.7 cm squared MV Peak Velocity 87.0 cm/s MV Area PHT 4.1 cm squared Mitral E to A Ratio 1.0 TV Peak Velocity 223.5 cm/s TR Peak Velocity 264.0 cm/s TR Peak Gradient 27.9 mmHg TV Peak E Velocity 84.0 cm/s PV Peak Velocity 117.0 cm/s FINDINGS Left Ventricle Left ventricle is normal in size. LV systolic function is normal with EF of 55-60%. No regional wall motion abnormalities are seen. Right Ventricle Normal in size and function Right Atrium Normal in size Left Atrium Normal in size Mitral Valve Structurally normal mitral valve. Mild mitral regurgitation. Aortic Valve Aortic valve is thickened and calcified. Moderate to severe aortic stenosis with aortic valve area of 0.95 cm2 and mean gradient 27 mmHg. Vmax of 3.74m/s Tricuspid Valve Insufficient TR to calculate RVSP. Pulmonic Valve Mild pulmonic regurgitation. Pericardium Normal Aorta Normal in size IVC Appears to be normal CONCLUSIONS LV systolic function is normal with EF of 55-60% Mild mitral regurgitation Moderate to severe aortic stenosis Mild pulmonic regurgitation. Compared to prior echocardiogram from 02/2024, no significant changes are seen. Julio César Payton MD (Electronically Signed) Final Date: 24 November 2024 12:01 S
== END 2024-11-19 23:59 | disposition home or self-care (01) ==
LOC: RAD 08:56 → ONCMED 09:36
PROVIDERS: PCP Family Medicine; Visit Provider Internal Medicine
DX: I35.0 Nonrheumatic aortic (valve) stenosis (principal); R07.9 Chest pain, unspecified; R06.02 Shortness of breath; I34.0 Nonrheumatic mitral (valve) insufficiency; I35.8 Other nonrheumatic aortic valve disorders; I37.1 Nonrheumatic pulmonary valve insufficiency
CPT/HCPCS: 93306

== ENCOUNTER 2024-11-11 08:15 | Inpatient (IN) | payer MEDICARE, OTHER, SELFPAY ==
--- OUTSIDE RECORDS SUMMARY | 2024-11-03 12:00 | XMS_ITS ---
Author Organization [facility] Address [address] [facility] [place] [address] Care Team Providers Care Corncob Pipe Supervisor Name Role Phone Mehran ANAND, Andry Primary Care Provider ALEXEY Willingham [phone] REASON FOR VISIT 1 yr w/ ua/pvr/psa Encounters Encounter Location Date Provider Diagnosis [facility] [address] [place] [facility] [place] [address] 11/03/2024 ALEXEY VEE Plan Of Treatment No Information Progress Notes * Augusto QUISPE LDOB: [birth year] (84 yo M)Acc No.[id number]:11/03/2024 Patient: Augusto STRAUSS Provider: Julian VEE MD :1940 A ge:84 Y S ex:Male Date:11/03/2024 Address:[address] [place], [place] [id number] Pcp:Andry Laurent MD Subjective: * Chief Complaints: * 1 . 1 yr w/ ua/pvr/psa. * Medical History: Objective: * Vitals: Assessment: Plan: * Treatment: * Billing Information: * Visit Code: * Procedure Codes: * Electronic signature of AUST IN MD MARIUSZ on 11/11/2024 at 07:31 PM CDT Sign off status: Pending * Provider: Julian VEE MD Date: 11/03/2024 Generated for Printi ng/Fadanielg/eTransmitting on: 0 11/11/2024 07:31 PM CDT
[2024-11-11] VITALS (48 sets, daily range): BP systolic 76–115; BP diastolic 49–71; PULSE 66–84; RESP 0–20; TEMP 36.1–36.7; O2SAT 90–100; BMI 24.7
--- NOTE | 2024-11-11 08:19 | XR_ITS ---
WS: [id number] Right hip, 2 views, AP pelvis, 11/11/2024 Clinical Data: fall Comparison: Pelvis and right hip, 11/04/2021 Findings: No fractures or dislocations are seen. The right hip joint shows no erosion, sclerosis, narrowing or cyst formation. The left hip is unremarkable.. The soft tissues are not remarkable. The adjacent pelvis is normal. There is an aortic stent graft ending in the common iliac arteries. XR/XR hip RT 2-3V wo/w pel* [id number] Impression: Negative pelvis and right hip.
--- NOTE | 2024-11-11 08:19 | XR_ITS ---
WS: [id number] Portable AP semiupright chest, 11/11/2024 Clinical Data: fall Comparison: Portable chest, 07/06/2024 Findings: No nodules, masses or effusions are seen. The heart is normal. The pulmonary vascularity is not increased. No pneumonia or pneumothorax is seen. There are midline sternotomy sutures. The aortic arch shows mild calcification. XR/XR chest 1V portable [id number] Impression: Atherosclerosis.
--- NOTE | 2024-11-11 08:20 | W.ED.FALL ---
HPI - Fall General: Chief Complaint: Extremity Injury, Lower Stated Complaint: fall Time Seen by Provider: 11/11/24 08:19 Source: patient Mode of arrival: ambulatory Limitations: no limitations History of Present Illness: 84-year-old male states that he fell down steps this morning and landed on his right hip states he been having right hip pain since and is much worse with movement he denies any other injuries denies hitting his head denies any neck pain. Associated symptoms-after fall: Denies abdominal pain, chest pain, headache(s) or neck pain Related Data Home Medications ?Medication ?Instructions ?Recorded ?Confirmed magnesium oxide 400 mg PO DAILY 10/28/19 11/11/24 [id number] 300 mcg-K 60 1 tab PO DAILY 10/28/19 11/11/24 mcg-lycop 600 mcg-lutein 300 mcg tablet (Centrum Silver Men) alfuzosin 10 mg tablet,extended 10 mg PO BEDTIME 11/07/20 11/11/24 release 24 hr cholecalciferol (vitamin D3) 25 25 mcg PO DAILY 11/12/20 11/11/24 mcg (1,000 unit) capsule furosemide 40 mg tablet 40 mg PO DAILY 08/26/23 11/11/24 potassium chloride 10 mEq 10 meq PO DAILY 08/26/23 11/11/24 capsule,extended release pantoprazole 40 mg tablet,delayed 40 mg PO DAILY 11/23/23 11/11/24 release carvedilol 3.125 mg tablet 3.125 mg PO BID 07/06/24 11/11/24 evolocumab 140 mg/mL subcutaneous 140 mg SUBCUT Q14D 11/11/24 11/11/24 pen injector (Marcellus Delgadoick) Allergies Allergy/AdvReac Type Severity Reaction Status Date / Time Iodinated Contrast Media Allergy Intermediate messes Verified 11/11/24 08:25 with kidney's tamsulosin Allergy ALGY-Rash Verified 11/11/24 08:25 pravastatin (From Pravachol) AdvReac Intermediate Unknown Verified 11/11/24 08:25 simvastatin (From Zocor) AdvReac Unknown Unknown Verified 11/11/24 08:25 Review of Systems Const: Denies: fever(s), chills, body aches or change in appetite ENMT: Denies: throat pain or dental pain Card: Denies: chest pain Resp: Denies: dyspnea GI: Denies: abdominal pain, nausea, vomiting or diarrhea Musc: Reports: extremity pain; Denies: neck pain or back pain Skin/Breast: Denies: rash Neuro: Denies: headache(s) PFSH ED PFSH: Medical History Bladder cancer BPH loc w urin obs/LUTS Bladder tumor Prostate CA Abdominal aortic aneurysm (AAA) Hyperlipidemia HTN (hypertension) Renal insufficiency Aortic stenosis Carotid stenosis, bilateral ASHD (arteriosclerotic heart disease) Surgical History Status post nasal surgery H/O hernia repair ABDOMINAL H/O transurethral resection of bladder tumor (TURBT) S/P CABG (coronary artery bypass graft) Family History Brother CAD (coronary artery disease) Mother , at age 61 Alzheimer disease Father , at age 81 No problems noted. Other Hypertension Social History Smoking and tobacco/nicotine status: former use of tobacco/nicotine Alcohol intake: never Substance/Drug Use: never Marital status: Current occupational status: retired Physical Exam Const: COMMON NORMALS: no acute distress, patient oriented x3 and healthy appearing HENMT: COMMON NORMALS: normocephalic and atraumatic HEAD & SCALP: normocephalic and atraumatic Eye: COMMON NORMALS: conjunctivae normal CONJUNCTIVA: Yes conjunctivae normal Neck/C-Spine: COMMON NORMALS: full ROM and supple Chest: COMMONS NORMALS: normal inspection of the chest Resp: COMMON NORMALS: normal respiratory effort Cardio: COMMON NORMALS: regular rate, regular rhythm and No murmurs present (Cardio) RATE: regular rate RHYTHM: regular rhythm Extremity: NARRATIVE EXTREMITY EXAM: tenderness over right hip Neuro: COMMON NORMALS: patient oriented x3, moves all extremities and no focal motor deficits Psych: COMMON NORMALS: mental status grossly normal, Normal thought process present and cooperative THOUGHT PROCESS: Normal thought process present Skin: COMMON NORMALS: no rashes or lesions noted and no wounds GENERAL SKIN EXAM: no rashes or lesions noted Course Vital Signs: Vital signs: Vital Signs Temperature 98.0 F 05/23/25 08:19 Pulse Rate 77 11/11/24 08:19 Respiratory Rate 16 11/11/24 08:19 Blood Pressure 115/71 11/11/24 08:19 Pulse Oximetry 99 11/11/24 08:19 MDM - Fall Medical Decision Making Patient presents here with right hip fracture after a fall I spoke to hospitalist and orthopedist will admit Medical Records I reviewed the patient's medical records. Lab Data I reviewed the patient's lab results. Radiology Impressions Chest X-Ray 11/11/24 08:19 Impression: Atherosclerosis. Hip/Pelvis X-Ray 11/11/24 08:19 Impression: Negative pelvis and right hip. Hip CT 11/11/24 08:33 IMPRESSION: 1. Nondisplaced comminuted fractures involving the greater trochanter slightly extending into the subtrochanteric femur. 2. Advanced degenerative arthritis RIGHT hip. 3. No other acute findings. 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
--- NOTE | 2024-11-11 08:21 | ECG_ITS ---
[facility]: 2024-11[facility]11 Pat Name: Augusto Quispe Department: Room: Gender: Male Group Therapist: : 1940 Requested By: Sebastian Mckee Order Number: [id number] Tatianna MD: Shania Calderon M.D. Measurements Intervals [place] Rate: 74 P: 54 OK: 170 QRS: 42 QRSD: 82 T: 12 QT: 360 QTc: 401 Interpretive Statements SINUS RHYTHM NONSPECIFIC T-WAVE ABNORMALITY Compared to ECG 12/23/2023 11:18:37 Possible ischemia no longer present T-wave abnormality still present Electronically Signed On 11-11-2024 16:25:31 CDT by Shania Calderon M.D. [email or web address]
--- NOTE | 2024-11-11 08:33 | CT_ITS ---
WS: [id number] Noncontrast CT RIGHT hip TECHNIQUE: Noncontrast CT RIGHT hip with coronal and sagittal reformatted images. CLINICAL INFORMATION: fall COMPARISON: None. DLP: 242.[address] scans at [facility] use at least one of these dose optimization techniques: automated exposure control; mA and/or kV adjustment per patient size (includes targeted exams where dose is matched to clinical indication); or iterative reconstruction. FINDINGS: Comminuted nondisplaced fractures involving the greater trochanter partially extending into the subtrochanteric femur. Medial femoral cortex appears intact. Femoral head appears intact. Moderate to advanced joint arthritis RIGHT hip with subchondral sclerosis and cystic change. Hypertrophic changes about the acetabulum. CT/CT hip RT wo con* [id number] IMPRESSION: 1. Nondisplaced comminuted fractures involving the greater trochanter slightly extending into the subtrochanteric femur. 2. Advanced degenerative arthritis RIGHT hip. 3. No other acute findings.
[2024-11-11 10:03] LABS: Basophils % 0.2 %; Eosinophils # 0.2 10^3/uL (0.0-0.8); Eosinophils % 3.6 %; Hematocrit 26.6 % (37-53); Lymphocytes # 1.4 10^3/uL (0.8-4.8); Lymphocytes % 32.1 %; Mean Corpuscular HGB Conc 31.6 g/dL (30-55); Mean Corpuscular Hemoglobin 31.5 pg (27-33); Mean Corpuscular Volume 99.6 fl (82-101); Mean Platelet Volume 9.5 fL (7.4-10.4); Monocytes # 0.5 10^3/uL (0.2-0.9); Monocytes % 11.7 %; Neutrophils # 2.28 10^3/uL (1.8-7.7); Neutrophils % 51.1 %; Nucleated Red Blood Cells % 0 %; Platelet Count 156 10^3/cmm (157-399); Red Blood Count 2.67 10^6/uL (3.85-5.65); Red Cell Distribution Width 17.6 % (12.1-15.1); White Blood Count 4.46 10^3/uL (3.29-11.43)
[2024-11-11] MEDS: ondansetron 2 mg/ML SDV 2 mL 4 MG IVP (10:24)
[2024-11-11] MEDS: morphine 4 mg/mL SDV 1 mL IVP (10:24)
[2024-11-11 10:27] LABS: Alanine Aminotransferase 17 U/L (0-41); Albumin Level 3.6 g/dL (3.5-5.2); Alkaline Phosphatase 124 U/L (40-130); Anion Gap 13.4 (5-19); Aspartate Amino Transferase 19 U/L (0-40); Blood Urea Nitrogen 39 mg/dL (8-23); Calcium 9.3 mg/dL (8.5-10.5); Carbon Dioxide 28 mmol/L (22-29); Chloride 102 mmol/L (98-107); Globulin 2.2 g/dL (1.3-4.6); Glucose 140 mg/dL (65-115); NT Pro B Type Natriuretic Pept 710 pg/mL (0-450); Osmolality Calculated 300 mOsm/kg (285-295); Potassium 4.4 mmol/L (3.5-5.1); Sodium 139 mmol/L (136-145); Total Bilirubin 0.3 mg/dL (0.15-1.2); Total Protein 5.8 g/dL (6.6-8.7)
--- NOTE | 2024-11-11 10:48 | PM.HP ---
Providers/Chief Complaint Primary Care Provider: Andry Laurent MD Chief Complaint: fall History of Present Illness Augusto Quispe is a 84 year old male with a history of coronary artery disease (status post triple bypass), aortic aneurysm (with stents and ongoing surveillance), peripheral arterial disease, prior prostate and bladder cancer (bladder under surveillance and history of radiation for prostate cancer), chronic kidney disease (stage 4), anemia, and moderate to severe aortic valve stenosis (undergoing evaluation for possible replacement), presenting after a fall at home resulting in right hip pain. The patient reportedly tripped and fell down the stairs, landing on the last step. There is a confirmed right hip fracture. The patient denies recent fevers, sore throat, sneezing, coughing, nausea, vomiting, or diarrhea. No recent blood in stool, but reports dark stools, possibly related to medication. No recent blood in urine, but has a history of hematuria requiring transfusions and bladder interventions. No history of diabetes, hypertension (blood pressure usually low), CHF, or lung disease. The patient does not smoke or drink alcohol. The patient is not taking NSAIDs regularly, but uses Aleve occasionally. The patient is being evaluated for surgery and is aware of the associated risks given their comorbidities. Blood pressure usually runs low as well. There is a history of anemia and concern for blood loss with surgery. The patient is agreeable to resuscitation if needed. He otherwise has been at baseline state of health Review of Systems Const: Denies: fever(s), chills, body aches or malaise ENMT: Denies: throat pain Card: Denies: chest pain, edema, pre-syncope or dyspnea on exertion Resp: Denies: dyspnea, productive cough, change in phlegm color or hemoptysis GI: Denies: abdominal pain, nausea, vomiting, diarrhea, constipation, hematochezia or melena : Denies: flank pain, difficulty urinating, urinary frequency or hematuria Musc: Denies: back pain, joint swelling or joint redness Skin/Breast: Denies: rash or new lesions Neuro: Denies: headache(s) or confusion Medications/Allergies Home Medications ?Medication ?Instructions ?Recorded ?Confirmed ?Last Taken ?Type magnesium oxide 400 mg PO DAILY 10/28/19 11/11/24 11/10/24 History tjvrwlsj-bt-xjlru 300 mcg-K 60 1 tab PO DAILY 10/28/19 11/11/24 11/10/24 History mcg-lycop 600 mcg-lutein 300 mcg tablet (Centrum Silver Men) alfuzosin 10 mg tablet,extended 10 mg PO BEDTIME 11/07/20 11/11/24 11/10/24 History release 24 hr cholecalciferol (vitamin D3) 25 25 mcg PO DAILY 11/12/20 11/11/24 11/10/24 History mcg (1,000 unit) capsule furosemide 40 mg tablet 40 mg PO DAILY 08/26/23 11/11/24 11/10/24 History potassium chloride 10 mEq 10 meq PO DAILY 08/26/23 11/11/24 11/10/24 History capsule,extended release pantoprazole 40 mg tablet,delayed 40 mg PO DAILY 11/23/23 11/11/24 11/10/24 History release carvedilol 3.125 mg tablet 3.125 mg PO BID 07/06/24 11/11/24 11/10/24 History acetaminophen 325 mg tablet 650 mg PO QID PRN Fever Or Pain 11/11/24 11/11/24 Unknown History (Tylenol) evolocumab 140 mg/mL subcutaneous 140 mg SUBCUT Q14D 11/11/24 11/11/24 Unknown History pen injector (Repatha SureClick) Allergies Allergy/AdvReac Type Severity Reaction Status Date / Time Iodinated Contrast Media Allergy Intermediate messes Verified 11/11/24 08:25 with kidney's tamsulosin Allergy ALGY-Rash Verified 11/11/24 08:25 pravastatin (From Pravachol) AdvReac Intermediate Unknown Verified 11/11/24 08:25 simvastatin (From Zocor) AdvReac Unknown Unknown Verified 11/11/24 08:25 PFSH Acute PFSH: Medical History Bladder cancer BPH loc w urin obs/LUTS Bladder tumor Prostate CA Abdominal aortic aneurysm (AAA) Hyperlipidemia HTN (hypertension) Renal insufficiency Aortic stenosis Carotid stenosis, bilateral ASHD (arteriosclerotic heart disease) Surgical History Status post nasal surgery H/O hernia repair ABDOMINAL H/O transurethral resection of bladder tumor (TURBT) S/P CABG (coronary artery bypass graft) Family History Brother CAD (coronary artery disease) Mother , at age 61 Alzheimer disease Father , at age 81 No problems noted. Other Hypertension Social History Smoking and tobacco/nicotine status: former use of tobacco/nicotine Alcohol intake: never Substance/Drug Use: never Marital status: Current occupational status: retired Vitals/I&O/Wt Last Vital Signs Temp 98.0 F 11/11/24 08:19 Pulse 76 11/11/24 10:02 Resp 16 11/11/24 08:19 BP 99/61 11/11/24 10:02 Pulse Ox 98 11/11/24 10:02 11/10/24 11/11/24 11/11/24 22:59 06:59 14:59 Intake Total 0 / 0 Balance 0 / 0 Physical Exam Narrative: Accompanied by his Const: COMMON NORMALS: patient oriented x3 and alert GENERAL APPEARANCE: cooperative ORIENTATION/CONSCIOUSNESS: Yes awake HENMT: COMMON NORMALS: oropharynx normal Neck/C-Spine: COMMON NORMALS: no JVD Resp: COMMON NORMALS: normal respiratory effort and clear to auscultation bilaterally AUSCULTATION: clear to auscultation bilaterally Cardio: COMMON NORMALS: no JVD, regular rhythm, S1 normal heart sound present, S2 normal heart sound present and No murmurs present (Cardio) RHYTHM: regular rhythm HEART SOUNDS: S1 normal heart sound present and S2 normal heart sound present GI: COMMON NORMALS: Normal to inspection, nondistended, normoactive bowel sounds present, Soft to palpation and non-tender PALPATION: Yes Soft to palpation Extremity: COMMON NORMALS: no joint enlargement and no pedal edema OTHER: Right hip pain Neuro: COMMON NORMALS: patient oriented x3 and moves all extremities SENSORIUM/ORIENTATION: Yes alert Skin: COMMON NORMALS: no rashes or lesions noted GENERAL SKIN EXAM: no rashes or lesions noted Data 11/11/24 09:54 11/11/24 09:54 A&P Assessment and plan (1) Fracture of hip: Right hip fracture : sustained a right hip fracture after a fall at home. The fracture is confirmed on imaging. He is experiencing significant pain and is being evaluated for surgical repair I reviewed vitals, CBC, CMP, NT proBNP, EKG, some T wave flattening inferiorly and anterolaterally without inversion. No ST depression, or other signs of ischemia. Pending official read, reviewed ER provider note, discussed with ER provider. The risks of surgery are elevated due to comorbidities as discussed with him and his , but repair is recommended to improve mobility and reduce complications associated with immobility. There are no immediate problems that should delay surgical treatment. May be at risk of hypotension with underlying moderate to severe aortic stenosis. Case discussed with orthopedic surgery and anesthesia. Additionally with anemia and risk of bleeding secondary to fracture, surgery, anticoagulation DVT prophylaxis. - orthopedic surgery to see for evaluation and management of hip fracture planned for later this afternoon. - Provide pain management as needed (PRN). Acetaminophen, morphine IV as needed for severe breakthrough pain. - N.p.o. Plan Coronary artery disease (status post triple bypass) : History of coronary artery disease with prior triple bypass. No current active cardiac symptoms reported. Underlying cardiac disease increases perioperative risk. Does not appear to be on antiplatelet medication. Continue beta-magi. Statin allergy. On Repatha. - Obtained EKG and basic blood work as part of preoperative assessment. Subsequently reviewed. - Monitor for cardiac complications perioperatively. Aortic aneurysm : History of aortic aneurysm. Ongoing surveillance by cardiology. No acute issues reported. - Continue surveillance as per cardiology recommendations. Peripheral arterial disease with stents : History of peripheral arterial disease with stent placement. No acute limb symptoms reported. With statin allergy. On Repatha. - Monitor for vascular complications perioperatively. Prostate cancer (remission) : History of prostate cancer, treated with radiation, currently in remission. No active treatment ongoing. Bladder cancer (under surveillance) : History of bladder cancer with ongoing surveillance and recent intervention (intermittent bladder clean out per patient and his ). No current active bleeding reported but with history of hematuria and related anemia. - Continue urology follow-up for bladder cancer surveillance. Chronic kidney disease (stage 4) : Chronic kidney disease, stage 4. Cannot receive contrast dye due to renal impairment. Renal function monitored regularly. - Monitor renal function during hospitalization. Anemia : History of anemia, previously requiring transfusions. History of hematuria. Additionally reports some dark stools he states due to medications. Will check iron studies. Obtain Hemoccult. Discussed risk of further blood loss with hip fracture and surgery. - Monitor hemoglobin and hematocrit levels. - Transfuse as needed based on clinical status and lab results. Aortic valve disease (under evaluation) : Moderate to severe risk stenosis. Follows with cardiology for aortic valve disease under evaluation for possible replacement. At risk of hypotension. Blood pressures usually run soft. Reviewed echocardiogram. - Continue cardiology follow-up for valve disease. PDMP PDMP Reviewed: Not Reviewed Attestations Medical Necessity Statement*: Admission over 2 midnights anticipated for assessment management after right hip fracture in a gentleman with underlying moderate to severe aortic stenosis, CAD, CABG, CKD, PAD, anemia and other medical problems. and High MDM includes amount and/or complexity of data reviewed/ordered [ previous or external records, resulted lab(s)/test(s), ordered lab(s)/test(s) and other healthcare professional discussion] and described risk of complication, morbidity or mortality of management as documented Diagnoses Fracture of hip S72.009A
--- NOTE | 2024-11-11 11:31 | PM.CONSULT ---
Providers/Reason For Consult Consulting Physician/Specialty*: Cecilia Epstein MD Reason for Consult*: Right intertrochanteric hip fracture Requesting Physician: Dr. Sebastian Mckee Attending Physician: Dr. Ray Brannon Primary Care Provider: Andry Laurent MD History of Present Illness History of Present Illness Augusto Quispe is a 84 year old male who was in his usual health where he lives at home with his when he missed the step and fell onto his right hip. The patient suffered a right intertrochanteric hip fracture. Actually, it is a comminuted greater trochanteric fracture with extension into the intertrochanteric trochanteric area only seen on CT. Given the extension on CT, plans were made to undergo open reduction internal fixation to prevent further displacement and extension of the fracture. This was explained to the family. Consents were signed at that time. The patient is scheduled for the above procedure. Review of Systems Const: Denies: fever(s), chills, body aches, change in appetite or malaise ENMT: Denies: throat pain or dental pain Card: Denies: chest pain, edema, pre-syncope or dyspnea on exertion Resp: Denies: dyspnea, productive cough, change in phlegm color or hemoptysis GI: Denies: abdominal pain, nausea, vomiting, diarrhea, constipation, hematochezia or melena : Denies: flank pain, difficulty urinating, urinary frequency or hematuria Musc: Reports: extremity pain; Denies: neck pain, back pain, joint swelling or joint redness Skin/Breast: Denies: rash or new lesions Neuro: Denies: headache(s) or confusion Medications/Allergies Home Medications ?Medication ?Instructions ?Recorded ?Confirmed ?Last Taken ?Type magnesium oxide 400 mg PO DAILY 10/28/19 11/11/24 11/10/24 History [id number] 300 mcg-K 60 1 tab PO DAILY 10/28/19 11/11/24 11/10/24 History mcg-lycop 600 mcg-lutein 300 mcg tablet (Centrum Silver Men) alfuzosin 10 mg tablet,extended 10 mg PO BEDTIME 11/07/20 11/11/24 11/10/24 History release 24 hr cholecalciferol (vitamin D3) 25 25 mcg PO DAILY 11/12/20 11/11/24 11/10/24 History mcg (1,000 unit) capsule furosemide 40 mg tablet 40 mg PO DAILY 08/26/23 11/11/24 11/10/24 History potassium chloride 10 mEq 10 meq PO DAILY 08/26/23 11/11/24 11/10/24 History capsule,extended release pantoprazole 40 mg tablet,delayed 40 mg PO DAILY 11/23/23 11/11/24 11/10/24 History release carvedilol 3.125 mg tablet 3.125 mg PO BID 07/06/24 11/11/24 11/10/24 History acetaminophen 325 mg tablet 650 mg PO QID PRN Fever Or Pain 11/11/24 11/11/24 Unknown History (Tylenol) evolocumab 140 mg/mL subcutaneous 140 mg SUBCUT Q14D 11/11/24 11/11/24 Unknown History pen injector (Repatha SureClick) Allergies Allergy/AdvReac Type Severity Reaction Status Date / Time Iodinated Contrast Media Allergy Intermediate messes Verified 11/11/24 08:25 with kidney's tamsulosin Allergy ALGY-Rash Verified 11/11/24 08:25 pravastatin (From Pravachol) AdvReac Intermediate Unknown Verified 11/11/24 08:25 simvastatin (From Zocor) AdvReac Unknown Unknown Verified 11/11/24 08:25 PFSH Acute PFSH: Medical History Bladder cancer BPH loc w urin obs/LUTS Bladder tumor Prostate CA Abdominal aortic aneurysm (AAA) Hyperlipidemia HTN (hypertension) Renal insufficiency Aortic stenosis Carotid stenosis, bilateral ASHD (arteriosclerotic heart disease) Surgical History Status post nasal surgery H/O hernia repair ABDOMINAL H/O transurethral resection of bladder tumor (TURBT) S/P CABG (coronary artery bypass graft) Family History Brother CAD (coronary artery disease) Mother , at age 61 Alzheimer disease Father , at age 81 No problems noted. Other Hypertension Social History Smoking and tobacco/nicotine status: former use of tobacco/nicotine Alcohol intake: never Substance/Drug Use: never Marital status: Current occupational status: retired Dietary Habits: Current diet type/program: regular Caffeine: No Vitals/I&O/Wt Last Vital Signs Temp 98.0 F 11/11/24 08:19 Pulse 76 11/11/24 10:02 Resp 16 11/11/24 08:19 BP 99/61 11/11/24 10:02 Pulse Ox 98 11/11/24 10:02 11/10/24 11/11/24 11/11/24 22:59 06:59 14:59 Intake Total 0 / 0 Balance 0 / 0 Physical Exam Const: COMMON NORMALS: no acute distress, average body habitus, patient oriented x3 and alert GENERAL APPEARANCE: cooperative and comfortable ORIENTATION/CONSCIOUSNESS: Yes awake HENMT: COMMON NORMALS: normocephalic and atraumatic HEAD & SCALP: normocephalic and atraumatic Eye: GENERAL EYE: appearance normal, both eyes and all related structures Chest: COMMONS NORMALS: normal inspection of the chest Resp: COMMON NORMALS: normal respiratory effort EFFORT & INSPECTION: Yes able to speak in complete sentences and Yes symmetric chest movement Extremity: RIGHT LOWER EXTREMITY: Yes hip joint (No significant ecchymosis) Right hip: Yes inspection (Minimal swelling), Yes palpation (Tender), Yes ROM (Not evaluated) and Yes neurovascular exam (Intact distally) Neuro: COMMON NORMALS: patient oriented x3 SENSORIUM/ORIENTATION: Yes alert Psych: COMMON NORMALS: mental status grossly normal APPEARANCE: Yes grossly normal ATTITUDE: Yes calm and Yes engaged ATTENTION/CONCENTRATION: Yes attention grossly intact Skin: COMMON NORMALS: no rashes or lesions noted GENERAL SKIN EXAM: no rashes or lesions noted Data 11/11/24 09:54 11/11/24 09:[address]: My impression: I have personally reviewed the patient's x-rays as well as CT scan. There is a comminuted greater trochanteric hip fracture with extension of fracture line down into the intertrochanteric and subtrochanteric areas. This is concerning for extension of the fracture with any kind of weightbearing. There is no displacement of the fracture seen on CT. A&P Assessment and plan (1) Closed intertrochanteric fracture of right hip: This 84-year-old gentleman was admitted through the emergency department today after a fall at home. Reportedly, he was walking down about 3 steps in his home where he lives with his . He missed the last step falling onto his right side and suffering the above injury. By report from CT scan, the fracture is primarily a comminuted greater trochanteric fracture of the right femur, however, there is a fracture line extending into the intertrochanteric area as well as continuing down into the subtrochanteric area. Certainly, this is concerning for extension of the fracture with any weightbearing. After discussion with the patient and his , we have elected to proceed with gamma nail to the right femur. Risks and complications are discussed with the patient and consents are signed. (2) Fracture of greater trochanter of right femur: PDMP PDMP Reviewed: Not Reviewed Coding Level of Care Code Acute Code for Chg Fwd Diagnoses Closed nondisplaced intertrochanteric fracture of right femur, initial encounter S72.144A Encounter type: initial encounter Fracture alignment: nondisplaced Closed nondisplaced fracture of greater trochanter of right femur, initial encounter S72.114A Encounter type: initial encounter Fracture type: closed Fracture alignment: nondisplaced
[2024-11-11 11:32] LABS: Ferritin 274 ng/mL (30-400)
[2024-11-11] MEDS: acetaminophen 1,000 MG/100 ML PIGGYBACK 400 MG IV (14:29)
[2024-11-11] MEDS: CELEcoxib 200 mg Capsule 400 MG PO (14:29)
[2024-11-11] MEDS: gabapentin 300 mg Capsule PO (14:29)
[2024-11-11] MEDS: sodium chloride 0.9% 1,000 ML 30 ML IV (14:30)
--- NOTE | 2024-11-11 15:00 | ANES.PREANE2 ---
Pre-Anesthetic Assessment Height/Weight: Height 1.68 m Weight 69.485 kg Temp Pulse Resp BP Pulse Ox O2 Del Method 98.0 F 83 16 97/59 95 Room Air 11/11/24 08:19 11/11/24 13:30 11/11/24 08:19 11/11/24 13:30 11/11/24 13:30 11/11/24 12:46 Preop Diagnosis: Right intertrochanteric hip fracture Operation Date: 11/11/24 17:50 Proposed Procedures p Right short trochanteric femoral nail(Right) - Cecilia Epstein MD Familial anesthetic complications: None Was Beta Neyda taken within 24 hours: N/A Was Clonidine taken within 24 hours: N/A Last intake: > 8 hrs Social No alcohol and No tobacco former smoker Exam alert, oriented x 3, clear to auscultation bilaterally and regular rate & rhythm Airway Mallampati: Class III CV/HEM Coronary Artery Disease (CABG) Severe AAA s/p EVAR Chronic Renal Failure Neuropsych B/L carotid stenosis Anesthetic Plan ASA status: 4 Anesthesia: General Risk of > 500 ml blood loss (7ml/kg in children): No Medications/Allergies Home Medications ?Medication ?Instructions ?Recorded ?Confirmed ?Last Taken ?Type magnesium oxide 400 mg PO DAILY 10/28/19 11/11/24 11/10/24 History qzkccfki-ue-[id number] 300 mcg-K 60 1 tab PO DAILY 10/28/19 11/11/24 11/10/24 History mcg-lycop 600 mcg-lutein 300 mcg tablet (Centrum Silver Men) alfuzosin 10 mg tablet,extended 10 mg PO BEDTIME 11/07/20 11/11/24 11/10/24 History release 24 hr cholecalciferol (vitamin D3) 25 25 mcg PO DAILY 11/12/20 11/11/24 11/10/24 History mcg (1,000 unit) capsule furosemide 40 mg tablet 40 mg PO DAILY 08/26/23 11/11/24 11/10/24 History potassium chloride 10 mEq 10 meq PO DAILY 08/26/23 11/11/24 11/10/24 History capsule,extended release pantoprazole 40 mg tablet,delayed 40 mg PO DAILY 11/23/23 11/11/24 11/10/24 History release carvedilol 3.125 mg tablet 3.125 mg PO BID 07/06/24 11/11/24 11/10/24 History acetaminophen 325 mg tablet 650 mg PO QID PRN Fever Or Pain 11/11/24 11/11/24 Unknown History (Tylenol) evolocumab 140 mg/mL subcutaneous 140 mg SUBCUT Q14D 11/11/24 11/11/24 Unknown History pen injector (Repatha SureClick) Allergies Allergy/AdvReac Type Severity Reaction Status Date / Time Iodinated Contrast Media Allergy Intermediate messes Verified 11/11/24 08:25 with kidney's tamsulosin Allergy ALGY-Rash Verified 11/11/24 08:25 pravastatin (From Pravachol) AdvReac Intermediate Unknown Verified 11/11/24 08:25 simvastatin (From Zocor) AdvReac Unknown Unknown Verified 11/11/24 08:25 Current Medications Generic Name Dose Route Start Last Admin Trade Name Freq PRN Reason Stop Dose Admin Sodium Chloride 1,000 mls @ 30 mls/hr 11/11/24 14:30 11/11/24 14:30 Sodium Chloride 0.9% IV 11/12/24 14:29 30 mls/hr .Q24H RICCI Administration PFSH Anesthesia Medical History Bladder cancer BPH loc w urin obs/LUTS Bladder tumor Prostate CA Abdominal aortic aneurysm (AAA) Hyperlipidemia HTN (hypertension) Renal insufficiency Aortic stenosis Carotid stenosis, bilateral ASHD (arteriosclerotic heart disease) Surgical History Status post nasal surgery H/O hernia repair ABDOMINAL H/O transurethral resection of bladder tumor (TURBT) S/P CABG (coronary artery bypass graft) Family History Brother CAD (coronary artery disease) Mother , at age 61 Alzheimer disease Father , at age 81 No problems noted. Other Hypertension Social History Smoking and tobacco/nicotine status: former use of tobacco/nicotine Alcohol intake: never Substance/Drug Use: never Marital status: Current occupational status: retired Data Anesthesia 11/11/24 09:54 11/11/24 09:54 Short CBC 11/11/24 Range/Units 09:54 WBC 4.46 (3.29-11.43) 10^3/uL Hgb 8.40 L (11.27-16.99) g/dL Hct 26.6 L (37-53) % MCV 99.6 (82-101) fl Plt Count 156 L (157-399) 10^3/cmm Neut % (Auto) 51.1 % Neut # (Auto) 2.28 (1.8-7.7) 10^3/uL BMP 11/11/24 09:54 Sodium 139 Potassium 4.4 Chloride 102 Carbon Dioxide 28 BUN 39 H Creatinine 3.0 H Glucose 140 H Calcium 9.3 Cardiac Enzymes 11/11/24 Range/Units 09:54 NT-Pro-B Natriuret Pep 710 H (0-450) pg/mL Liver Function 11/11/24 Range/Units 09:54 Total Bilirubin 0.3 (0.15-1.2) mg/dL AST 19 (0-40) U/L ALT 17 (0-41) U/L Alkaline Phosphatase 124 (40-130) U/L Albumin 3.6 (3.5-5.2) g/dL Blood Bank 11/11/24 10:31 Blood Type A Positive Rho(D) Type Rh positive Antibody Screen Negative Cardiac Studies: Echocardiogram 02/26/24 Echocardiogram Ultrasound 11/02/20
[2024-11-11] MEDS: ceFAZolin 2,000 mg SDV 2000 MG IVP (15:44)
[2024-11-11] MEDS: tranexamic acid 1,000 MG/100 ML PREMIX 600 MG IV (16:28)
[2024-11-11] MEDS: ceFAZolin 1,000 mg SDV 1000 MG IRRIGATION (16:38)
[2024-11-11] MEDS: BUPivacaine-epi 0.5% 10 ML INJ 30 ML INJECTION (16:40)
--- NOTE | 2024-11-11 17:15 | XR_ITS ---
WS: [id number] C-ARM RADIOGRAPHS RIGHT HIP; 6 IMAGES HISTORY: RT HIP TFN; OR PICS COMPARISON: 11/11/2024 Intraoperative imaging during gamma nail and short intramedullary edward placement stabilizing nondisplaced hip fracture. Fracture in good position and alignment. XR/XR hip RT 2-3V wo/w pel* [id number] IMPRESSION: Status post ORIF RIGHT hip fracture.
[2024-11-11] MEDS: fentaNYL 50 mcg/mL INJ 2mL IVP (17:51)
--- NOTE | 2024-11-11 18:54 | PM.OP ---
Operative Report Date of procedure: November 11, 2024 Pre-op diagnosis: Closed intertrochanteric fracture right hip with greater trochanteric fracture Post-op diagnosis: Closed intertrochanteric fracture right hip with greater trochanteric fracture Post-op findings: Comminuted greater trochanteric fracture with extension into the intertrochanteric portion of the femur as well as into the subtrochanteric area per CT. Procedure done: Open reduction internal fixation right intertrochanteric hip fracture with subtrochanteric extension and comminution of greater trochanter Implants: Daria gamma 3 trochanteric nail size 11 mm x 180 mm x 125 degrees with a 10.5 mm x 100 mm proximal lag screw and a distal locking screw size 5 mm x 35 mm Specimens removed/disposition: None Pathology: None Surgeon: Cecilia Epstein MD Actuarial Science Teacher: None Anesthesia: General (Per LMA, ASA 4) Estimated blood loss (mL): 50 IV fluids (mL): 1,300 Urine output (mL): 700 Complications: None Findings: Comminution of the greater trochanter right hip with extension into the intertrochanteric and subtrochanteric area Condition: stable Disposition: PACU (Then admit for postoperative rehabilitation and pain management) Brief History: This 84-year-old gentleman was admitted through the emergency department earlier today. He was in his home where he lives with his when he missed a step and fell onto his right hip. Patient had a comminuted greater trochanteric fracture with extension into the intertrochanteric and subtrochanteric areas. For this reason, we elected to place a gamma nail. Surgery was discussed with the patient's family. Risks and complications were discussed. Consents were signed and questions were answered. Procedure: Patient was brought to the operating theater. After undergoing adequate general anesthesia per LMA, ASA 4, the patient was transferred to the fracture table, positioned on the table and fluoroscopic guidance obtained throughout the surgical procedure. Prior to the commencement of the surgical procedure, a surgical pause was performed. At the time of the surgical pause, we confirmed the site and side of surgery as well as preoperative surgical markings and appropriate and timely administration of IV antibiotics, Ancef 2 g. Availability of equipment was also confirmed. Fluoroscopy was used to confirm the fracture was appropriately reduced in both AP and lateral planes. An incision was then made slightly above the greater trochanter to allow access to the greater trochanter. An awl was used to enter the greater trochanter and a guidewire was subsequently placed. Once the guidewire was confirmed to be in appropriate position in AP and lateral planes, reaming was accomplished over this to allow for the proximal diameter of the nail. Guidewire was then removed. An 11 mm x 180 mm x 125 degree gamma 3 trochanteric nail was placed into appropriate position with positioning being confirmed in AP and lateral planes on the x-ray. Position was confirmed utilizing fluoroscopy. Guidewire was then passed through the jigging system into the femoral head. We wanted to be center or slightly inferior and posterior to center. Guidewire was placed into appropriate position. Once the guidewire was in appropriate position and this position was confirmed by x-ray, it was then measured and we chose a 10.5 mm by 100 mm lag screw. We reamed to allow for the lag screw to be placed. The 100 mm lag screw was then passed into the femoral head through the trochanteric nail. This was passed uneventfully and again position was confirmed in AP and lateral planes. The set screw was then placed in position, tightened completely, and subsequently backed off one-quarter turn. The construct was left in position and attention was directed distally. Cannulas were again used to determine appropriate placement for the distal screw. This was placed in position without difficulty. It was measured off of the drill. The appropriate length screw was then obtained and placed in position without difficulty. Once the screw was in position, we confirmed appropriate placement of the components, and we removed the jigging system. Attention was then directed to closure. The hip was copiously irrigated with normal saline with antibiotics. Following this it was dried and closed. Tensor fascia ángel was closed proximally with 0 Vicryl in an interrupted fashion. Subcutaneous tissues were closed with 2-0 Monocryl, and the skin was closed with a continuous 3-0 Monocryl subcuticular stitch. Local anesthetic was placed. This was then covered with Prineo and OpSite. The patient was removed from the fracture table and returned to recovery in satisfactory condition. There were no specimens obtained. Initially, plans were made for discharge of the patient to the floor, but while in PACU, blood pressures were soft, and the patient was therefore transferred to ICU to be monitored overnight. Related Problem List Diagnoses (1) Closed intertrochanteric fracture of right hip: (2) Fracture of greater trochanter of right femur:
--- NOTE | 2024-11-11 19:15 | ANE.PACU2 ---
Inpatient post-anesthesia follow up: Airway intact: Yes Vital signs: Temperature 97.8 F Pulse Rate 72 Respiratory Rate 14 Blood Pressure 104/65 Pulse Oximetry 91 Oxygen Delivery Me thod Room Air Oxygen Flow Rate 1 Fraction of Inspir ed Oxygen Hydration adequate: Yes Nausea and vomiting: No Pain level: 1 Mental status: Baseline
--- NOTE | 2024-11-11 19:19 | PC.NURSE ---
Recieved patient from or at 1919 status post right trochanter nail fixation. Dressing dry and intact to right hip, pulse weak on right foot. Color pale. Alert and oriented x 4. Follows commands states pain at 2/10 denies need for pain medications. Patient currently on 3L nc with o2 saturation at 99 %. Lungs clear bilateral. Heart murmur noted/ normal per patient. Good cap refil. Skin warm/dry. Bp 90's/50's Sinus rhythm with rate in 70's. Abd soft non tender with active bowel sounds all quadrants. Instructed on cough deep breathing and to notify nurse for increased pain or feeling of pressure or increase warmth wetness at dressing / surgical site.
--- OUTSIDE RECORDS SUMMARY | 2024-11-11 19:31 | XMS_ITS | Data Portability ---
Author Organization [facility] Michael Sims [facility] Sue Keith, [facility] Address [address] [facility] [address] [place] [address] Care Team Providers Care Disease Education Specialist Name Role Phone ORLANDO LUIS ALBERTO Primary Care Provider ROXIE SWARTZ Referring Provider [facility] Refe rring Provider Assessment Encounter Date Assessment Date Assessment LastModified by Organization Details LastModified Time 09/26/2024 09/26/2024 gfr is 17. [email or web address] Not available 12/2024 09:55:15 10/11/2024 10/11/2024 he does have some milder hematuria this last week. he has surgery planned. 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 i am still awaiting his doctor's notes. [email or web address] Not available 10/11/2024 10:19:59 Plan of Treatment Reminders Order Date Submit Date Provider Last Modified By Organization Details Last Modified Time Details Appointments None recorded. Lab CBC 2024 025 [facility], [address], [place], [address], 09:32:10 CMP, serum or plasma 2024 025 [facility], [address], [address], [place], [address], 09:56:57 uric acid, serum or plasma 2024 025 [facility], [address], [address], [place], [address], 5 06:00:19 C-reactive protein, quantitativ e, serum or plasma 2024 025 [facility], [address] [facility] [address], [address], [place], [address], 5 06:00:20 ESR (erythrocyt e sedimentati on rate), blood 2024 025 [facility]), [address] [place], [address], 10:42:31 CBC 2024 025 [facility], [address] [facility], [address], [address], 5 09:45:46 uric acid, serum or plasma 2024 025 [facility], [address] [facility] [address], [address], [place], [address], 5 06:01:52 BMP, serum or plasma 2024 025 [facility], [address] [facility], [address], [address], 5 10:36:39 Referral muffler installer referral 2024 025 [facility], [address] [place], [address], 5 15:48:01 muffler installer referral [address] [facility], [address] [place], [address], 10:03:04 Procedures None recorded. Surgeries None recorded. Imaging XR, foot, 3 or more view 2024 025 [place] [address] 2 [facility], [address] [place], [address], 5 14:20:20 XR, foot, 3 or more view 2024 025 [email or web address] [address] 2 [facility], [address] [place], [address], 5 14:19:59 XR, foot, 3 or more view 2024 025 [facility], [address] [place], [address], 5 15:14:58 Medication Orders Medrol (Mango) 4 mg tablets in a dose pack 2024 025 [id number], [address] [facility] [address], [address], 10:25:34 Medrol (Mango) 4 mg tablets in a dose pack 2024 025 [facility], [address], [place], [address], 10:48:51 prednisone 10 mg tablet 2024 025 [facility], [address], [place], [address], 14:11:38 Patient TargetsNo targets recorded. Patient InstructionsNo instructions recorded. 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 Referring Physician: Luis Alberto [facility], Encounter Date: 09/26/2024 People Manager Referral for Pain in right foot Referring Physician: Luis Alberto [facility], Encounter Date: 10/17/2024 Results Created Date Observation Date Name Description Value Unit Range Abnormal Flag Note LastModifiedBy Organization Detail LastModifiedTime 08/24/1908/23/2024 CBC WBC 4.8 x10 4.5-10 .5 Not Available [facility] [address] [facility], [place], [address], 08/23/2024 09:04:26 08/24/1908/23/2024 CBC RBC 2.75 x10 4.30-5 .90 low Not Available [facility] [address] [facility], [place], [address], 08/23/2024 09:04:26 08/24/1908/23/2024 CBC HGB 8.2 g/dL 13.5-1 8.0 low Not Available [facility] [address] [facility], [place], [address], 08/23/2024 09:04:26 08/24/1908/23/2024 CBC HCT 23.8 % 35.0-6 0.0 low Not Available [facility] [address] [facility], [place], [address], 08/23/2024 09:04:26 08/24/1908/23/2024 CBC MCV 86.6 fL 80.0-9 9.9 Not Available [facility] [address] [facility] [facility], [place], [address], 08/23/2024 09:04:26 08/24/1908/23/2024 CBC MCH 29.6 pg 27.0-3 2.0 Not Available [facility] [address] [facility], [place], [address], 08/23/2024 09:04:26 08/24/1908/23/2024 CBC MCHC 34.2 g/dL 32.0-3 6.0 Not Available [facility] [address] [facility], [place], [address], 08/23/2024 09:04:26 08/24/1908/23/2024 CBC RDW 16.2 % 11.5-1 4.5 high Not Available [facility] [address] [facility], [place], [address], 08/23/2024 09:04:26 08/24/1908/23/2024 CBC plt 113.9 x10 150.0- 451.0 low Not Available [facility] [address] [facility] [address], [place], [address], 08/23/2024 09:04:26 08/24/1908/23/2024 CBC lymphocytes % 28.1 % 20.0-5 0.0 Not Available [facility] [address] [facility] [address], [place], [address], 08/23/2024 09:04:26 08/24/1908/23/2024 CBC granulcytes % 59.7 % 30.0-7 0.0 Not Available [facility] [address] [facility] [address], [place], [address], 08/23/2024 09:04:26 08/24/1908/23/2024 CBC monocytes % 9.4 % 2.0-16 .0 Not Available [facility] [address] [facility] [address], [place], [address], 08/23/2024 09:04:26 08/24/1908/23/2024 CBC granulcytes# 2.9 x10 Not Halle ilable [facility] [address] [facility] [address], [place], [address], 08/23/2024 09:04:26 08/24/19 25 08/23/2024 CBC lymphocytes # 1.3 x10 Not Available [facility] [address] [facility] 1, [place], [address], 08/23/2024 09:04:26 08/24/19 25 08/23/2024 CBC monocytes # 0.5 x10 Not Avai lable [facility] [address] [facility] 1, [place], [address], 08/23/2024 09:04:26 08/24/19 25 08/23/2024 BMP (MALE ) glucose 137.0 mg/dL 60.0-9 9.0 high Not Available [facility] [address] [address], [place], [address], 08/23/2024 09:29:52 08/24/19 25 08/23/2024 BMP (MALE ) BUN (blood urea nitrogen) 49.0 mg/dL 10.0-2 6.0 high Not Available [facility] [address] [address], [place], [address], 08/23/2024 09:29:52 08/24/19 25 08/23/2024 BMP (MALE ) creatinine (serum) 3.3 mg/dL 0.4-1. 5 high Not Available [facility] [address] [address], [place], [address], 08/23/2024 09:29:52 08/24/19 25 08/23/2024 BMP (MALE ) BUN/creatini ne ratio 14.85 ratio Not Available [facility] [address] [facility] 1, [place], [address], 08/23/2024 09:29:52 08/24/19 25 08/23/2024 BMP (MALE ) calcium 9.4 mg/dL 8.4-10 .5 Not Available [facility] [address] [facility] [address], [place], [address], 08/23/2024 09:29:52 08/24/1908/23/2024 BMP (MALE ) sodium 139.0 mmol/ L 136.0- 145.0 Not Available [facility] [address] [facility] [address], [place], [address], 08/23/2024 09:29:52 08/24/19 25 08/23/2024 BMP (MALE ) potassium 4.3 mmol/ L 3.5-5. 1 Not Available [facility] [address] [facility] [address], [place], [address], 08/23/2024 09:29:52 08/24/1908/23/2024 BMP (MALE ) chloride 104.0 mmol/ L 98.0-1 10.0 normal Not Available [facility] [address] [facility] [address], [place], [address], 08/23/2024 09:29:52 08/24/1908/23/2024 BMP (MALE ) C02 26.0 mmol/ L 22.0-3 1.0 Not Available [facility] [address] [facility], [place], [address], 08/23/2024 09:29:52 08/24/1908/24/2024 URIC ACID uric acid 9.9 mg/dL 4.0-8. 0 high Thera peuti c targe t for gout patie nts: <6.0 mg/dL Not Available [facility] [address] [place], [address], 08/24/2024 07:37:57 08/24/1908/24/2024 IZABEL TIN ferritin 18 NG/mL 24-380 low Not Available [facility] [address] [place], [address], 08/24/2024 07:37:58 08/26/19 25 08/25/2024 CBC WBC 10.4 x10 4.5-10 .5 Not Available [facility] [address] [facility], [place], [address], 08/25/2024 08:57:40 08/26/19 25 08/25/2024 CBC RBC 2.71 x10 4.30-5 .90 low Not Available [facility] [address] [facility], [place], [address], 08/25/2024 08:57:40 08/26/19 25 08/25/2024 CBC HGB 8.0 g/dL 13.5-1 8.0 low Not Available [facility] [address] [facility], [place], [address], 08/25/2024 08:57:40 08/26/19 25 08/25/2024 CBC HCT 23.5 % 35.0-6 0.0 low Not Available [facility] [address] [facility], [place], [address], 08/25/2024 08:57:40 08/26/19 25 08/25/2024 CBC MCV 86.7 fL 80.0-9 9.9 Not Available [facility] [address] [facility] [facility], [place], [address], 08/25/2024 08:57:40 08/26/19 25 08/25/2024 CBC MCH 29.6 pg 27.0-3 2.0 Not Available [facility] [address] [facility] [facility], [place], [address], 08/25/2024 08:57:40 08/26/19 25 08/25/2024 CBC MCHC 34.1 g/dL 32.0-3 6.0 Not Available [facility] [address] [facility], [place], [address], 08/25/2024 08:57:40 08/26/19 25 08/25/2024 CBC RDW 16.4 % 11.5-1 4.5 high Not Available [facility] [address] [facility], [place], [address], 08/25/2024 08:57:40 08/26/19 25 08/25/2024 CBC plt 133.7 x10 150.0- 451.0 low Not Available [facility] [address] [facility], [place], [address], 08/25/2024 08:57:40 08/26/19 25 08/25/2024 CBC lymphocytes % 13.3 % 20.0-5 0.0 low Not Available [facility] [address] [address], [place], [address], 08/25/2024 08:57:40 08/26/19 25 08/25/2024 CBC granulcytes % 81.7 % 30.0-7 0.0 high Not Available [facility] [address] [facility], [place], [address], 08/25/2024 08:57:40 08/26/19 25 08/25/2024 CBC monocytes % 4.3 % 2.0-16 .0 Not Available [facility] [address] [address], [place], [address], 08/25/2024 08:57:40 08/26/19 25 08/25/2024 CBC granulcytes# 8.5 x10 Not Halle ilable [facility] [address] [facility], [place], [address], 08/25/2024 08:57:40 08/26/19 25 08/25/2024 CBC lymphocytes # 1.4 x10 Not Available [facility] [address] [facility] [address], [place], [address], 08/25/2024 08:57:40 08/26/19 25 08/25/2024 CBC monocytes # 0.5 x10 Not Avai lable [facility] [address], [place], [address], 08/25/2024 08:57:40 09/01/19 25 08/31/2024 URINA LYSIS WITH MICRO color RED abnormal Not Available [facility] [address], [place], [address], 08/31/2024 09:31:24 09/01/19 25 08/31/2024 URINA LYSIS WITH MICRO clarity CLEAR Not Available [facility] [address], [place], [address], 08/31/2024 09:31:24 09/01/19 25 08/31/2024 URINA LYSIS WITH MICRO glu NEGATI VE Not Available [facility] [address], [place], [address], 08/31/2024 09:31:24 09/01/19 25 08/31/2024 URINA LYSIS WITH MICRO bili 2+ abnormal Not Available [facility] [address] [facility], [place], [address], 08/31/2024 09:31:24 09/01/19 25 08/31/2024 URINA LYSIS WITH MICRO ket TRACE abnormal Not Available [facility] [address], [place], [address], 08/31/2024 09:31:24 09/01/19 25 08/31/2024 URINA LYSIS WITH MICRO S.g 1.020 Not Available [facility] [address] [facility], [place], [address], 08/31/2024 09:31:24 09/01/19 25 08/31/2024 URINA LYSIS WITH MICRO pH 5.5 Not Available [facility] [address], [place], [address], 08/31/2024 09:31:24 09/01/19 25 08/31/2024 URINA LYSIS WITH MICRO pro 3+ abnormal Not Available [facility] [address], [place], [address], 08/31/2024 09:31:24 09/01/19 25 08/31/2024 URINA LYSIS WITH MICRO uro 1.0 E.U./D L Not Available [facility] [address], [place], [address], 08/31/2024 09:31:24 09/01/19 25 08/31/2024 URINA LYSIS WITH MICRO nit NEGATI VE Not Available [facility] [address], [place], [address], 08/31/2024 09:31:24 09/01/19 25 08/31/2024 URINA LYSIS WITH MICRO blo 3+ abnormal Not Available [facility] [address], [place], [address], 08/31/2024 09:31:24 09/01/19 25 08/31/2024 URINA LYSIS WITH MICRO sonido 3+ abnormal Not Available [facility] [address], [place], [address], 08/31/2024 09:31:24 09/01/19 25 08/31/2024 URINA LYSIS WITH MICRO WBC NEGATI VE Not Available [facility] [address], [place], [address], 08/31/2024 09:31:24 09/01/19 25 08/31/2024 URINA LYSIS WITH MICRO RBC 100 PACKED abnormal > Not Available [facility] [address] [facility], [place], [address], 08/31/2024 09:31:24 09/01/19 25 08/31/2024 URINA LYSIS WITH MICRO epi cells NEGATI VE Not Available [facility] [address] [facility], [place], [address], 08/31/2024 09:31:24 09/01/19 25 08/31/2024 URINA LYSIS WITH MICRO bacteria NEGATI VE Not Available [facility] [address] [facility], [place], [address], 08/31/2024 09:31:24 09/01/19 25 08/31/2024 URINA LYSIS WITH MICRO other NG Not Available [facility] [address] [facility], [place], [address], 08/31/2024 09:31:24 09/01/19 25 08/31/2024 CMP (MALE ) glucose 94.0 mg/dL 60.0-9 9.0 Not Available [facility] [address] [facility] 1, [place], [address], 08/31/2024 09:56:49 09/01/19 25 08/31/2024 CMP (MALE ) BUN (blood urea nitrogen) 76.0 mg/dL 10.0-2 6.0 high Not Available [facility] [address] [facility], [place], [address], 08/31/2024 09:56:49 09/01/19 25 08/31/2024 CMP (MALE ) creatinine (serum) 3.6 mg/dL 0.4-1. 5 high Not Available [facility] [address] [facility], [place], [address], 08/31/2024 09:56:49 09/01/19 25 08/31/2024 CMP (MALE ) BUN/creatini ne ratio 21.11 ratio Not Available [facility] [address] [facility], [place], [address], 08/31/2024 09:56:49 09/01/19 25 08/31/2024 CMP (MALE ) eGFR calculated 17.3 Not Available [facility] [address] [facility], [place], [address], 08/31/2024 09:56:49 09/01/19 25 08/31/2024 CMP (MALE ) total protein 6.5 g/dL 6.0-8. 5 Not Available [facility] [address] [facility] [address] [address], [place], [address], 08/31/2024 09:56:49 09/01/19 25 08/31/2024 CMP (MALE ) total bilirubin 0.4 mg/dL 0.2-1. 3 Not Available [facility] [address] [facility], [place], [address], 08/31/2024 09:56:49 09/01/19 25 08/31/2024 CMP (MALE ) albumin 3.9 g/dL 3.5-5. 5 Not Available [facility] [address] [facility], [place], [address], 08/31/2024 09:56:49 09/01/19 25 08/31/2024 CMP (MALE ) globulin 2.6 calc Not Available [facility] [address] [facility], [place], [address], 08/31/2024 09:56:49 09/01/19 25 08/31/2024 CMP (MALE ) AST (SGOT) 34.0 U/L 0.0-46 .0 Not Available [facility] [address] [facility], [place], [address], 08/31/2024 09:56:49 09/01/1908/31/2024 CMP (MALE ) altv (SGPT) 70.0 U/L 13.0-6 9.0 abnormal Not Available [facility] [address] [facility], [place], [address], 08/31/2024 09:56:49 09/01/19 25 08/31/2024 CMP (MALE ) A/G ratio 1.5 ratio Not Available [facility] [address] [facility], [place], [address], 08/31/2024 09:56:49 09/01/19 25 08/31/2024 CMP (MALE ) ALP phos 112.0 U/L 30.0-1 40.0 normal Not Available [facility] [address] [facility], [place], [address], 08/31/2024 09:56:49 09/01/19 25 08/31/2024 CMP (MALE ) calcium 9.5 mg/dL 8.4-10 .5 Not Available [facility] [address] [facility], [place], [address], 08/31/2024 09:56:49 09/01/19 25 08/31/2024 CMP (MALE ) sodium 139.0 mmol/ L 136.0- 145.0 Not Available [facility] [address] [facility], [place], [address], 08/31/2024 09:56:49 09/01/1908/31/2024 CMP (MALE ) potassium 4.5 mmol/ L 3.5-5. 1 Not Available [facility] [address] [facility], [place], [address], 08/31/2024 09:56:49 09/01/19 25 08/31/2024 CMP (MALE ) chloride 103.0 mmol/ L 98.0-1 10.0 normal Not Available [facility] [address] [facility], [place], [address], 08/31/2024 09:56:49 09/01/19 25 08/31/2024 CMP (MALE ) C02 28.0 mmol/ L 22.0-3 1.0 Not Available [facility] [address] [facility], [place], [address], 08/31/2024 09:56:49 09/01/19 25 08/31/2024 CMP (MALE ) anion gap 8.0 calc Not Available [facility] [address] [facility], [place], [address], 08/31/2024 09:56:49 09/01/19 25 08/31/2024 CMP (MALE ) osmolality 308.0 calc Not Available [facility] [address] [facility], [place], [address], 08/31/2024 09:56:49 09/01/19 25 08/31/2024 CBC WBC 9.8 x10 4.5-10 .5 Not Available [facility] [address] [facility], [place], [address], 08/31/2024 09:57:03 09/01/19 25 08/31/2024 CBC RBC 2.76 x10 4.30-5 .90 low Not Available [facility] [address] [facility], [place], [address], 08/31/2024 09:57:03 09/01/19 25 08/31/2024 CBC HGB 8.5 g/dL 13.5-1 8.0 low Not Available [facility] [address] [facility], [place], [address], 08/31/2024 09:57:03 09/01/1908/31/2024 CBC HCT 23.5 % 35.0-6 0.0 low Not Available [facility] [address] [facility], [place], [address], 08/31/2024 09:57:03 09/01/19 25 08/31/2024 CBC MCV 85.3 fL 80.0-9 9.9 Not Available [facility] [address] [facility], [place], [address], 08/31/2024 09:57:03 09/01/19 25 08/31/2024 CBC MCH 30.7 pg 27.0-3 2.0 Not Available [facility] [address] [facility], [place], [address], 08/31/2024 09:57:03 09/01/19 25 08/31/2024 CBC MCHC 36.0 g/dL 32.0-3 6.0 Not Available [facility] [address] [facility], [place], [address], 08/31/2024 09:57:03 09/01/1908/31/2024 CBC RDW 16.3 % 11.5-1 4.5 high Not Available [facility] [address] [facility], [place], [address], 08/31/2024 09:57:03 09/01/19 25 08/31/2024 CBC plt 123.6 x10 150.0- 451.0 low Not Available [facility] [address] [facility], [place], [address], 08/31/2024 09:57:03 09/01/19 25 08/31/2024 CBC lymphocytes % 40.6 % 20.0-5 0.0 Not Available [facility] [address] [facility] 1, [place], [address], 08/31/2024 09:57:03 09/01/19 25 08/31/2024 CBC granulcytes % 49.3 % 30.0-7 0.0 Not Available [facility] [address] [facility] 1, [place], [address], 08/31/2024 09:57:03 09/01/19 25 08/31/2024 CBC monocytes % 8.2 % 2.0-16 .0 Not Available [facility] [address] [facility] 1, [place], [address], 08/31/2024 09:57:03 09/01/19 25 08/31/2024 CBC granulcytes# 4.8 x10 Not Halle ilable [facility] [address] [address], [place], [address], 08/31/2024 09:57:03 09/01/1908/31/2024 CBC lymphocytes # 4.0 x10 Not Available [facility] [address] [facility] [address], [place], [address], 08/31/2024 09:57:03 09/01/1908/31/2024 CBC monocytes # 0.8 x10 Not Avai lable [facility] [address] [address], [place], [address], 08/31/2024 09:57:03 09/01/1909/01/2024 ALBUM IN, RANDO M URINE W/CRE ATINI NE creatinine, random urine 89 mg/dL 20-320 normal Not Available [facility] [address] [address], [place], [address], 09/01/2024 08:23:22 09/01/19 25 09/01/2024 ALBUM IN, RANDO M URINE W/CRE ATINI NE albumin, urine 99.9 mg/dL see note: normal Refer ence Range : Refer ence Range Not estab lishe d Resul ts verif ied by repea t richard sis on dilut ion. Not Available [facility] [address] [place], [address], 09/01/2024 08:23:22 09/01/19 25 09/01/2024 ALBUM IN, RANDO M URINE W/CRE ATINI NE albumin/crea tinine ratio, random urine 1122 mg/g_ creat <30 high The ADA defin es abnor malit ies in album in excre tion as follo ws: Album inuri a Categ ory Resul t (mg/g creat inine ) Pauline l to Mildl y incre ased <30 Moder ately incre ased 30-29 9 Sever cristel incre ased > OR = 300 The ADA recom mends that at least two of three speci mens colle cted withi n a 3-6 month perio d be abnor mal befor e consi rome g a patie nt to be withi n a diagn ostic categ ory. Not Available [facility] [address] [place], [address], 09/01/2024 08:23:22 09/01/19 25 09/01/2024 IZABEL TIN ferritin 23 NG/mL 24-380 low Not Available [facility] [address] [address] [place], [address], 09/01/2024 08:23:23 09/17/19 25 09/16/2024 CBC WBC 5.5 x10 4.5-10 .5 Not Available [facility] [address] [facility] 1, [place], [address], 09/16/2024 09:06:29 09/17/19 25 09/16/2024 CBC RBC 2.86 x10 4.30-5 .90 low Not Available [facility] [address], [place], [address], 09/16/2024 09:06:29 09/17/1909/16/2024 CBC HGB 8.3 g/dL 13.5-1 8.0 low Not Available [facility] [address] [facility] [address], [place], [address], 09/16/2024 09:06:29 09/17/1909/16/2024 CBC HCT 26.3 % 35.0-6 0.0 low Not Available [facility] [address], [place], [address], 09/16/2024 09:06:29 09/17/1909/16/2024 CBC MCV 92.0 fL 80.0-9 9.9 Not Available [facility] [address] [facility] [address], [place], [address], 09/16/2024 09:06:29 09/17/1909/16/2024 CBC MCH 29.0 pg 27.0-3 2.0 Not Available [facility] [address] [facility], [place], [address], 09/16/2024 09:06:29 09/17/1909/16/2024 CBC MCHC 31.6 g/dL 32.0-3 6.0 low Not Available [facility] [address], [place], [address], 09/16/2024 09:06:29 09/17/1909/16/2024 CBC RDW 20.5 % 11.5-1 4.5 high Not Available [facility] [address], [place], [address], 09/16/2024 09:06:29 09/17/1909/16/2024 CBC plt 127.0 x10 150.0- 451.0 low Not Available [facility] [address] [facility], [place], [address], 09/16/2024 09:06:29 09/17/1909/16/2024 CBC lymphocytes % 37.9 % 20.0-5 0.0 Not Available [facility] [address] [facility], [place], [address], 09/16/2024 09:06:29 09/17/1909/16/2024 CBC granulcytes % 49.5 % 30.0-7 0.0 Not Available [facility] [address] [facility], [place], [address], 09/16/2024 09:06:29 09/17/1909/16/2024 CBC monocytes % 8.8 % 2.0-16 .0 Not Available [facility] [address] [facility], [place], [address], 09/16/2024 09:06:29 09/17/1909/16/2024 CBC granulcytes# 2.7 x10 Not Halle ilable [facility] [address] [facility], [place], [address], 09/16/2024 09:06:29 09/17/1909/16/2024 CBC lymphocytes # 2.1 x10 Not Available [facility] [address] [facility], [place], [address], 09/16/2024 09:06:29 09/17/1909/16/2024 CBC monocytes # 0.5 x10 Not Avai lable [facility] [address] [facility], [place], [address], 09/16/2024 09:06:29 09/20/1909/19/2024 CBC WBC 4.9 x10 4.5-10 .5 Not Available [facility] [address] [facility], [place], [address], 09/19/2024 09:45:46 09/20/1909/19/2024 CBC RBC 2.95 x10 4.30-5 .90 low Not Available [facility] [address] [facility], [place], [address], 09/19/2024 09:45:46 09/20/1909/19/2024 CBC HGB 9.2 g/dL 13.5-1 8.0 low Not Available [facility] [address] [facility], [place], [address], 09/19/2024 09:45:46 09/20/1909/19/2024 CBC HCT 27.4 % 35.0-6 0.0 low Not Available [facility] [address] [facility], [place], [address], 09/19/2024 09:45:46 09/20/1909/19/2024 CBC MCV 92.8 fL 80.0-9 9.9 Not Available [facility] [address] [facility], [place], [address], 09/19/2024 09:45:46 09/20/1909/19/2024 CBC MCH 31.2 pg 27.0-3 2.0 Not Available [facility] [address] [facility], [place], [address], 09/19/2024 09:45:46 09/20/1909/19/2024 CBC MCHC 33.5 g/dL 32.0-3 6.0 Not Available [facility] [address] [facility], [place], [address], 09/19/2024 09:45:46 09/20/19 25 09/19/2024 CBC RDW 20.9 % 11.5-1 4.5 high Not Available [facility] [address] [facility], [place], [address], 09/19/2024 09:45:46 09/20/19 25 09/19/2024 CBC plt 124.4 x10 150.0- 451.0 low Not Available [facility] [address] [facility], [place], [address], 09/19/2024 09:45:46 09/20/1909/19/2024 CBC lymphocytes % 37.0 % 20.0-5 0.0 Not Available [facility] [address] [facility] [address] [address], [place], [address], 09/19/2024 09:45:46 09/20/19 25 09/19/2024 CBC granulcytes % 51.7 % 30.0-7 0.0 Not Available [facility] [address] [facility] [address] [address], [place], [address], 09/19/2024 09:45:46 09/20/19 25 09/19/2024 CBC monocytes % 8.3 % 2.0-16 .0 Not Available [facility] [address] [facility], [place], [address], 09/19/2024 09:45:46 09/20/19 25 09/19/2024 CBC granulcytes# 2.5 x10 Not Halle ilable [facility] [address], [address], 09/19/2024 09:45:46 09/20/19 25 09/19/2024 CBC lymphocytes # 1.8 x10 Not Available [facility] [address] [place], [address], 09/19/2024 09:45:46 09/20/19 25 09/19/2024 CBC monocytes # 0.4 x10 Not Avai labgila [facility] [address] [facility] [address] [address], [place], [address], 09/19/2024 09:45:46 09/20/19 25 09/19/2024 BMP (MALE ) glucose 174.0 mg/dL 60.0-9 9.0 high Not Available [facility] [address] [address], [place], [address], 09/19/2024 10:36:39 09/20/19 25 09/19/2024 BMP (MALE ) BUN (blood urea nitrogen) 40.0 mg/dL 10.0-2 6.0 high Not Available [facility] [address] [facility] [address] [address], [place], [address], 09/19/2024 10:36:39 09/20/19 25 09/19/2024 BMP (MALE ) creatinine (serum) 3.4 mg/dL 0.4-1. 5 high Not Available [facility] [address] [facility] [address] [address], [place], [address], 09/19/2024 10:36:39 09/20/19 25 09/19/2024 BMP (MALE ) BUN/creatini ne ratio 11.76 ratio Not Available [facility] [address] [facility] [address] [address], [place], [address], 09/19/2024 10:36:39 09/20/19 25 09/19/2024 BMP (MALE ) calcium 9.3 mg/dL 8.4-10 .5 Not Available [facility] [address] [facility] [address] [address], [place], [address], 09/19/2024 10:36:39 09/20/19 25 09/19/2024 BMP (MALE ) sodium 138.0 mmol/ L 136.0- 145.0 Not Available [facility] [address] [facility] 1, [place], [address], 09/19/2024 10:36:39 09/20/19 25 09/19/2024 BMP (MALE ) potassium 4.3 mmol/ L 3.5-5. 1 Not Available [facility] [address] [facility] 1, [place], [address], 09/19/2024 10:36:39 09/20/19 25 09/19/2024 BMP (MALE ) chloride 104.0 mmol/ L 98.0-1 10.0 normal Not Available [facility] [address] [facility] 1, [place], [address], 09/19/2024 10:36:39 09/20/19 25 09/19/2024 BMP (MALE ) C02 27.0 mmol/ L 22.0-3 1.0 Not Available [facility] [address] [facility] 1, [place], [address], 09/19/2024 10:36:39 09/20/19 25 09/20/2024 URIC ACID uric acid 9.1 mg/dL 4.0-8. 0 high Thera carine murillo t for gout patie nts: <6.0 mg/dL Not Available [facility] [address], [place], [address], 09/20/2024 06:01:52 10/18/19 25 10/17/2024 CBC WBC 10.6 x10 4.5-10 .5 high Not Available [facility] [address] [facility] 1, [place], [address], 10/17/2024 09:32:09 10/18/19 25 10/17/2024 CBC RBC 3.27 x10 4.30-5 .90 low Not Available [facility] [address] [facility], [place], [address], 10/17/2024 09:32:09 10/18/1910/17/2024 CBC HGB 9.9 g/dL 13.5-1 8.0 low Not Available [facility] [address] [facility], [place], [address], 10/17/2024 09:32:09 10/18/1910/17/2024 CBC HCT 31.5 % 35.0-6 0.0 low Not Available [facility] [address] [facility], [place], [address], 10/17/2024 09:32:09 10/18/1910/17/2024 CBC MCV 96.4 fL 80.0-9 9.9 Not Available [facility] [address] [facility], [place], [address], 10/17/2024 09:32:09 10/18/1910/17/2024 CBC MCH 30.2 pg 27.0-3 2.0 Not Available [facility] [address] [facility], [place], [address], 10/17/2024 09:32:09 10/18/1910/17/2024 CBC MCHC 31.3 g/dL 32.0-3 6.0 low Not Available [facility] [address] [facility], [place], [address], 10/17/2024 09:32:09 10/18/1910/17/2024 CBC RDW 19.2 % 11.5-1 4.5 high Not Available [facility] [address] [facility], [place], [address], 10/17/2024 09:32:09 10/18/1910/17/2024 CBC plt 141.8 x10 150.0- 451.0 low Not Available [facility] [address] [facility], [place], [address], 10/17/2024 09:32:09 10/18/1910/17/2024 CBC lymphocytes % 41.3 % 20.0-5 0.0 Not Available [facility] [address] [facility], [place], [address], 10/17/2024 09:32:09 10/18/1910/17/2024 CBC granulcytes % 48.6 % 30.0-7 0.0 Not Available [facility] [address] [facility], [place], [address], 10/17/2024 09:32:09 10/18/1910/17/2024 CBC monocytes % 5.2 % 2.0-16 .0 Not Available [facility] [address] [facility], [place], [address], 10/17/2024 09:32:09 10/18/1910/17/2024 CBC granulcytes# 5.1 x10 Not Halle ilable [facility] [address] [facility], [place], [address], 10/17/2024 09:32:09 10/18/1910/17/2024 CBC lymphocytes # 4.4 x10 Not Available [facility] [address] [facility], [place], [address], 10/17/2024 09:32:09 10/18/1910/17/2024 CBC monocytes # 0.6 x10 Not Avai lable [facility] [address] [facility], [place], [address], 10/17/2024 09:32:09 10/18/19 25 10/17/2024 CMP (MALE ) glucose 145.0 mg/dL 60.0-9 9.0 high Not Available [facility], [place], [address], 10/17/2024 09:56:57 10/18/19 25 10/17/2024 CMP (MALE ) BUN (blood urea nitrogen) 60.0 mg/dL 10.0-2 6.0 high Not Available [facility] [address] [facility], [place], [address], 10/17/2024 09:56:57 10/18/19 25 10/17/2024 CMP (MALE ) creatinine (serum) 2.9 mg/dL 0.4-1. 5 high Not Available [facility] [address] [facility] 1, [place], [address], 10/17/2024 09:56:57 10/18/19 25 10/17/2024 CMP (MALE ) BUN/creatini ne ratio 20.69 ratio Not Available [facility] [address] [facility], [place], [address], 10/17/2024 09:56:57 10/18/19 25 10/17/2024 CMP (MALE ) eGFR calculated 22.1 Not Available [facility] [address] [facility] 1, [place], [address], 10/17/2024 09:56:57 10/18/19 25 10/17/2024 CMP (MALE ) total protein 6.4 g/dL 6.0-8. 5 Not Available [facility] [address] [facility], [place], [address], 10/17/2024 09:56:57 10/18/19 25 10/17/2024 CMP (MALE ) total bilirubin 0.4 mg/dL 0.2-1. 3 Not Available [facility] [address] [facility], [place], [address], 10/17/2024 09:56:57 10/18/19 25 10/17/2024 CMP (MALE ) albumin 3.8 g/dL 3.5-5. 5 Not Available [facility] [address] [facility], [place], [address], 10/17/2024 09:56:57 10/18/19 25 10/17/2024 CMP (MALE ) globulin 2.6 calc Not Available [facility] [address] [facility] 1, [place], [address], 10/17/2024 09:56:57 10/18/19 25 10/17/2024 CMP (MALE ) AST (SGOT) 46.0 U/L 0.0-46 .0 Not Available [facility] [address] [facility], [place], [address], 10/17/2024 09:56:57 10/18/19 25 10/17/2024 CMP (MALE ) altv (SGPT) 68.0 U/L 13.0-6 9.0 normal Not Available [facility] [address] [facility], [place], [address], 10/17/2024 09:56:57 10/18/19 25 10/17/2024 CMP (MALE ) A/G ratio 1.5 ratio Not Available [facility] [address] [facility], [place], [address], 10/17/2024 09:56:57 10/18/19 25 10/17/2024 CMP (MALE ) ALP phos 102.0 U/L 30.0-1 40.0 normal Not Available [facility] [address] [facility], [place], [address], 10/17/2024 09:56:57 10/18/19 25 10/17/2024 CMP (MALE ) calcium 9.5 mg/dL 8.4-10 .5 Not Available [facility] [address] [facility] 1, [place], [address], 10/17/2024 09:56:57 10/18/19 25 10/17/2024 CMP (MALE ) sodium 139.0 mmol/ L 136.0- 145.0 Not Available [facility] [address] [facility] 1, [place], [address], 10/17/2024 09:56:57 10/18/1910/17/2024 CMP (MALE ) potassium 4.1 mmol/ L 3.5-5. 1 Not Available [facility] [address] [facility] 1, [place], [address], 10/17/2024 09:56:57 10/18/19 25 10/17/2024 CMP (MALE ) chloride 103.0 mmol/ L 98.0-1 10.0 normal Not Available [facility] [address] [facility] 1, [place], [address], 10/17/2024 09:56:57 10/18/19 25 10/17/2024 CMP (MALE ) C02 30.0 mmol/ L 22.0-3 1.0 Not Available [facility] [address] [facility] 1, [place], [address], 10/17/2024 09:56:57 10/18/1910/17/2024 CMP (MALE ) anion gap 6.0 calc Not Available [facility] [address] [facility] 1, [place], [address], 10/17/2024 09:56:57 10/18/19 25 10/17/2024 CMP (MALE ) osmolality 305.3 calc Not Available [facility] [address] [facility] 1, [place], [address], 10/17/2024 09:56:57 10/18/19 25 10/18/2024 URIC ACID uric acid 9.1 mg/dL 4.0-8. 0 high Thera peuti c targe t for gout patie nts: <6.0 mg/dL Not Available [facility] [address] [place], [address], 10/18/2024 06:00:19 10/18/19 25 10/18/2024 C-VERONICA CTIVE PROTE IN C-reactive protein 4.6 mg/L <8.0 normal Not Available [facility] [address] [place], [address], 10/18/2024 06:00:20 10/18/19 25 10/17/2024 ESR (eryt hrocy te sedim entat ion rate) , blood ESR 26 Not Available [facility]) [address] [place], [address], 10/17/2024 09:07:54 09/27/19 25 09/26/2024 XR, foot, 3 or more view No observ ation record ed. [facility] [address] [place], [address], 09/26/2024 16:04:13 10/11/19 25 10/06/2024 imagi ng/di agnos tic resul t No observ ation record ed. [email or web address] [facility] [address] [facility] 1, [place], [address], 10/11/2024 10:42:56 10/18/19 25 10/17/2024 XR, foot, 3 or more view No observ ation record ed. [email or web address] [facility] [address] [place], [address], 10/19/2024 13:50:45 10/18/19 25 10/17/2024 XR, foot, 3 or more view No observ ation record ed. [email or web address] [place] [address] [address] [place], [address], 10/19/2024 13:50:26 Result Notes None recorded. Problems Name Problem SNOMED Code Status Onset Date Resolution Date Notes Provider Name and Address Organization Details Recorded Time Chronic kidney disease stage 4 263308379 Active 2022 CONCHA mendez, [facility] 5 08:30:03 Benign hyperten altagracia 70194117 Active 2022 CONCHA mendez, [facility] 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 3 09:38:06 Cutaneou s lupus erythema tosus 6291756 Completed 202009/19/2024 cutaneou s lupus erythema tosus; verified by bx Dinah mendez, [facility] 5 23:42:49 Gastroes ophageal reflux disease 546949394 Active 2022 CONCHA mendez [facility] 5 08:30:03 Chronic kidney disease stage 3 340377416 Completed 202007/25/2020 CHRONIC KIDNEY DISEASE, STAGE 3 - Status is Inactive ; Story: [facility]; Recorded 07/25/19 4:02PM by Concha Pimentel LPN, Rachelleati on/Adden dum; Promoted ; acuity set as *; CHRONIC KIDNEY DISEASE (CKD), STAGE III (MODERAT E) - Status is Inactive ; Recorded 07/25/19 4:02PM by Concha Pimentel LPN, Annotati on/Adden dum; Promoted ; acuity set as *; Not Available [facility] 3 03:16:48 Hyperlip idemia 33855811 Active 2022 CONCHA mendez, [facility] 3 09:37:43 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 81652442142 9104 Active 2022 [facility] 09:36:39 Iron deficien cy anemia 49756210 Active 2022 CONCHA mendez, [facility] 5 08:30:33 History of malignan t neoplasm of prostate 475657028 Completed 202209/19/2024 [facility] 23:42:49 History of malignan t neoplasm of bladder 514984771 Completed 202209/19/2024 [facility] 5 23:42:49 Chronic radiatio n cystitis 274956949 Active 2022 [facility] 5 08:30:03 Acute non-ST segment elevatio n myocardi al infarcti on 176157383 Completed 202210/17/2024 h[facility] 5 10:34:13 Severe aortic valve stenosis 294689504 Active 2023 echocard iogram 04/24/24: EF 61%, moderate to severe aortic valve stensosi sTenzin [facility] 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 5 08:30:02 Coronary atherosc lerosis 423086611 Active 2023 CONCHA PIMENTEL andrea [facility] 5 08:30:02 Anemia due to chronic blood loss 342300554 Active 2024 Dinah mendez [facility] 5 23:42:27 Hussein hematuri a 018055671 Active 2024 Dinah Mckeonobloch andrea [facility] 5 23:42:27 Notes:Some problems listed i n Document: #[id number] could not be added to this patient's chart. Please review this document and add these problems to the patient's chart manually as needed. Problem Notes None recorded. 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 02/19/2023 09:41:29 02/21/20 20 transurethral excision of neoplasm of urinary bladder completed [facility] 02/19/2023 09:41:55 04/30/20 18 Cabg vein four completed [facility] 02/19/2023 09:42:10 Imaging Results Imaging Date Name Status LastModified by Organ [facility] Details LastModified Time 09/26/2024 XR, foot, 3 or more view completed [address] [place], [address], 09/26/2024 16:04:13 10/06/2024 imaging/diag nostic result completed [address] [facility] 1, [place], [address], 10/11/2024 10:42:56 10/17/2024 XR, foot, 3 or more view completed [address] [place], [address], 10/19/2024 13:50:45 10/17/2024 XR, foot, 3 or more view completed [address] [place], [address], 10/19/2024 13:50:26 Procedure Notes None recorded. Medical Equipment None Reported. Allergies Allergen ID Allergen Name Allergen Category Reaction Reaction Severity Criticality Documentation Date Start Date Code Code System Note Provider Name and Address Organization Details Recorded Time 3651 Lipitor medicatio n Not available Not available Not available 11/18/2022 81359 5 RxNorm Dinah [facility] 3 10:33:51 3652 Zocor medicatio n Not available Not available Not available 11/18/2022 95589 [address] [facility] 3 10:34:02 3653 Pravachol medicatio n Not available Not available Not available 11/18/2022 86235 3 [facility] 10:34:08 99071 rosuvasta tin calcium medicatio n myalgias (muscle pain) Not available Not available 01/17/2023 52648 8 RxNorm React ion: myalg ias; Comme nt: Recor ded 07/02 11:27 AM by Dinah Guzman RN, Offic e Visit ; Lilian porras; Amirah mills ce: *; Reaso n: Drug aller gy; ; [facility] 3 14:13:26 87997 Iodinated contrast media (substanc e) medicatio n Not available Not available Not available 03/05/2023 20768 2003 SNOMED kidne y probl ems [facility] 3 10:40:25 964 Product containin g 3-hydroxy -3-methyl glutaryl- coenzyme A reductase inhibitor (product) medicatio n myalgias (muscle pain) Not available Not available 09/23/2022 92140 009 SNOMED CONCHA [facility] 3 12:40:46 Medications Name Sig Start Date Stop Date Status Note LastModified by Organization Details LastModified Time amoxicill in 500 mg capsule TAKE 1 CAPSULE BY MOUTH 3 TIMES A DAY UNTIL FINISHED 09/06 completed Not Available Not Available Not Available furosemid e 40 mg tablet TAKE 1 TABLET BY MOUTH ONCE DAILY active Not Available Not Available No t Available prednison e 10 mg tablet TAKE 4 TABLETS BY MOUTH DAILY FOR 2 DAYS, THEN 3 TABLETS DAILY FOR 2 DAYS, THEN 2 TABLETS DAILY FOR 2 DAYS, THEN 1 TABLET DAILY FOR 2 DAYS THEN DISCONTI NUE 09/26 completed Not Available Not Available Not Available Vitamin C 500 mg tablet Take 1 tablet every other day by oral route for 90 days. 2023 active Not Available Not Available Not Avai lable hydrocodo ne 5 mg-acetam inophen 325 mg tablet TAKE 1 TABLET BY MOUTH EVERY 6 HOURS NEEDED FOR PAIN FOR 1 DAY active Not Available Not Available No t Available prednison e 20 mg tablet TAKE 2 TABLETS BY MOUTH DAILY FOR 3 DAYS, THEN 1 TABLET BY MOUTH DAILY FOR 3 DAYS, THEN 1/2 TABLET BY MOUTH DAILY FOR 3 DAYS 02/19 completed Not Available Not Available Not Available potassium chloride ER 10 mEq tablet,ex tended release TAKE 1 TABLET BY MOUTH ONCE DAILY active Not Available Not Available No t Available ciproflox acin 500 mg tablet TAKE 1 TABLET BY MOUTH EVERY 12 HOURS FOR 7 DAYS 12/14 completed Not Available Not Available Not Available triamcino lone acetonide 0.1 % topical cream APPLY CREAM EXTERNAL LY TO AFFECTED AREA TWICE DAILY NEEDED active Not Available Not Available No t Available carvedilo l 3.125 mg tablet TAKE 1 TABLET BY MOUTH TWICE DAILY active Not Available Not Available No t Available ofloxacin 0.3 % ear drops INSTILL 4 DROPS INTO LEFT EAR TWICE DAILY FOR 10 DAYS 10/11 completed Not Available Not Available Not Available famotidin e 20 mg tablet Take 1 tablet twice a day by oral route. 02/19 completed Not Available Not Available Not Available hydrocodo ne 7.5 mg-acetam inophen 325 mg tablet TAKE 1 TABLET BY MOUTH EVERY 4 HOURS NEEDED FOR PAIN 10/11 completed Not Available Not Available Not Available pantopraz ole 40 mg tablet,de layed release TAKE 1 TABLET BY MOUTH ONCE DAILY active Not Available Not Available No t Available prednison e 50 mg tablet TAKE 1 TABLET BY MOUTH ONCE DAILY 09/23 completed Not Available Not Available Not Available betametha sone dipropion ate 0.05 % topical cream APPLY A THIN LAYER TO THE AFFECTED AREA(S) BY TOPICAL ROUTE twice daily 01/22 completed avoid the face, armpits and groin area Not Available Not Available Not Available magnesium 250 mg tablet Take 1 tablet every day by oral route. active Not Available Not Available No t Available methylpre dnisolone 4 mg tablets in a dose pack TAKE 6 TABLETS ON DAY 1 DIRECTED ON PACKAGE AND DECREASE BY 1 TAB EACH DAY FOR A TOTAL OF 6 DAYS active Not Available Not Available No t Available cefdinir 300 mg capsule 01/22 completed Not Available Not Available Not Available doxycycli ne hyclate 100 mg tablet TAKE 1 TABLET BY MOUTH TWICE DAILY 09/23 completed Not Available Not Available Not Available finasteri de 5 mg tablet TAKE 1 TABLET BY MOUTH ONCE DAILY active Not Available Not Available No t Available amoxicill in 500 mg-potass ium clavulana te 125 mg tablet TAKE 1 TABLET BY MOUTH EVERY 12 HOURS FOR 7 DAYS 02/18 completed Not Available Not Available Not Available alfuzosin ER 10 mg tablet,ex tended release 24 hr Take 1 tablet every day by oral route for 90 days. 2024 active Not Available Not Available Not Avai lable nitrofura ntoin monohydra te/macroc rystals 100 mg capsule Take 1 capsule every 12 hours by oral route for 7 days. 02/19 completed Not Available Not Available Not Available magnesium daily 01/22 completed 0; Recorded 07/02/19 23 11:28AM by Dinah Guzman RN, Office Visit; Not Available Not Available Not Available aspirin daily 01/22 completed 0; Recorded 07/02/19 11:28AM by Dinah Guzman RN, Office Visit; Not Available Not Available Not Available carvedilo l two times daily 01/[address] Sweet; 0; Recorded 07/02/19 11:28AM by Dinah Guzman RN, Office Visit; Not Available Not Available Not Available [place]-3 two times daily active 0; Recorded 07/02/19 11:28AM by Dinah Guzman RN, Office Visit; Not Available Not Available Not Available Centrum Silver 1 daily active Not Available Not Available Not Available Vitamin D3 1 daily active Not Available Not Available Not Available [place] 3 2 twice daily 01/22 completed Not Available Not Available Not Available alfuzosin at bedtime 01/22 completed d/c silodosi n. insuranc e prefers alfuzosi n AM/evelina; 436; Recorded 08/27/19 8:13AM by Concha Pimentel LPN (Authori keren through Luis Alberto Laurent MD), Refill Request; Refill Quantity : 30; Tablet; Not Available Not Available Not Available ferrous gluconate 324 mg (38 mg iron) tablet TAKE 1 TABLET BY MOUTH EVERY OTHER DAY TAKE WITH VITAMIN C AND FOOD 07/12 completed Not Available Not Available Not Available Easy Touch Alcohol Prep Pads USE DIRECTED WITH INJECTIO NS active Not Available Not Available No t Available Repatha SureClick 140 mg/mL subcutane ous pen injector INJECT 140 MG UNDER THE SKIN EVERY 2 WEEKS active Not Available Not Available No t Available Repatha Pushtrone x 420 mg/3.5 mL subcutane ous wearable injector INJECT 420MG UNDER THE SKIN EVERY 30 DAYS 01/13 completed Not Available Not Available Not Available Repatha Pushtrone x monthly 02/19 completed dx statin myopathy hx mi,cabg drug induced lupus with statin; 436; Recorded 01/21/20 8:22AM by Concha Pimentel LPN (Authori keren through Luis Alberto Laurent MD), Annotati on/Adden dum; Refill Quantity : 3; Applicat or; Not Available Not Available Not Available Adult Aspirin Regimen 81 mg tablet,de layed release Take 1 tablet every day by oral route. 04/28 completed Not Available Not Available Not Available Vitals Date Recorded Body height Body mass index (BMI) Body weight Body temperature Heart rate Oxygen saturation Oxygen saturation in Arterial blood by Pulse oximetry Systolic blood pressure Diastolic blood pressure Provider Name and Address Organization Details Last Updated DateTime 5 166.37 cm 27 kg/m2 87590.7 4 g 96.2 [degF] 74 /min 97 % 97 % 118 mm[Hg] 72 mm[Hg] [facility] 5 08:44:48 Date Recorded Body height Body mass index (BMI) Body weight Body temperature Heart rate Oxygen saturation Oxygen saturation in Arterial blood by Pulse oximetry Systolic blood pressure Diastolic blood pressure Provider Name and Address Organization Details Last Updated DateTime 5 166.37 cm 27 kg/m2 64154.7 4 g 96.8 [degF] 72 /min 95 % 95 % 122 mm[Hg] 72 mm[Hg] [facility] 5 09:13:33 Date Recorded Body height Body mass index (BMI) Body weight Body temperature Heart rate Oxygen saturation Oxygen saturation in Arterial blood by Pulse oximetry Systolic blood pressure Diastolic blood pressure Provider Name and Address Organization Details Last Updated DateTime 5 166.37 cm 26.2 kg/m2 99315.7 8 g 97.1 [degF] 70 /min 99 % 99 % 114 mm[Hg] 60 mm[Hg] [facility] 5 10:22:45 Date Recorded Body height Body mass index (BMI) Body weight Body temperature Heart rate Oxygen saturation Oxygen saturation in Arterial blood by Pulse oximetry Systolic blood pressure Diastolic blood pressure Provider Name and Address Organization Details Last Updated DateTime 5 166.37 cm 26.4 kg/m2 92150.3 7 g 97.5 [degF] 82 /min 98 % 98 % 104 mm[Hg] 62 mm[Hg] CONCHA PIMENTEL [facility] 04/22/202 5 09:59:31 Date Recorded Body height Body mass index (BMI) Body weight Body temperature Heart rate Oxygen saturation Oxygen saturation in Arterial blood by Pulse oximetry Systolic blood pressure Diastolic blood pressure Provider Name and Address Organization Details Last Updated DateTime 5 166.37 cm 26.2 kg/m2 26228.7 8 g 97.3 [degF] 74 /min 96 % 96 % 118 mm[Hg] 64 mm[Hg] Dinah Huffman [facility] 5 08:31:47 Social History Question Answer Notes LastModified by [employer] Details LastModified Time Tobacco Smoking Status Never Smoker [facility] 09/23/2022 12:47:29 What Is Your Relationship Status? [email or web address] Information not available 09/23/2022 Sex: Unknown Functional Status Question Answer Note LastModified by [employer] Details LastModified Time Do you use any illicit or recreational drugs? No [email or web address] Information not available 09/23/2022 Do you or have you ever used any other forms of tobacco or nicotine? No [email or web address] Information not available 02/19/2023 What is your level of alcohol consumption? None [email or web address] Information not available 09/23/2022 Do you or have you ever used any nicotine-free cigarettes, vape, or chewing tobacco? No [email or web address] Information not available 07/12/2024 Mental Status None recorded. Family History Relationship Description Onset Age of this Age Resolved Age Notes LastModified by Organization Details LastModified Time Brother Diabetes mellitus [email or web address] Not available 02/19 09:13:20 Brother Coronary atherosclero sis [email or web address] Not available 02/19 09:13:29 Medical History No medical history recorded. Immunizations Vaccine Type Date Status Note Provider Nam e and Address Organization Details Recorded Time Tdap 4 completed Not Available [facility] 06/09/2023 09:09:05 Influenza, split virus, trivalent, preservative 1 completed Not Available [facility] 06/09/2023 09:09:05 Influenza, split virus, trivalent, preservative 1 completed Not Available [facility] 06/09/2023 09:09:05 Influenza, split virus, trivalent, preservative 6 completed Not Available [facility] 06/09/2023 09:09:05 Pneumococcal conjugate PCV 13 6 completed Not Available [facility] 06/09/2023 09:09:05 pneumococcal polysaccharide PPV23 0 completed Not Available [facility] 06/09/2023 09:09:05 Influenza, adjuvanted, quadrivalent, PF 3 completed CONCHA PIMENTEL null, [facility] 03/26/2023 10:15:49 COVID-19, mRNA, LNP-S, PF, 50 mcg/0.5 mL 3 completed [facility]/26/2023 10:15:49 COVID-19, mRNA, LNP-S, PF, 50 mcg/0.5 mL 4 completed CONCHA PIMENTEL null, [facility] 07/12/2024 12:49:37 Influenza, high-dose, trivalent, PF 4 completed [facility] 07/12/2024 12:49:37 Influenza, high-dose, quadrivalent, PF 2 completed [facility] 11/18/2022 10:19:27 COVID-19, mRNA, LNP-S, PF, 100 mcg/0.5mL dose or 50 mcg/0.25mL dose 1 completed [facility] 11/18/2022 10:19:27 COVID-19, mRNA, LNP-S, PF, 100 mcg/0.5mL dose or 50 mcg/0.25mL dose 1 completed [facility] 11/18/2022 10:19:27 COVID-19, mRNA, LNP-S, PF, 100 mcg/0.5mL dose or 50 mcg/0.25mL dose 2 completed Dinah Meehanoch andrea, [facility] 11/18/2022 10:19:27 COVID-19, mRNA, LNP-S, PF, 100 mcg/0.5mL dose or 50 mcg/0.25mL dose 1 completed Dinah Mckenoobloch null, [facility] 11/18/2022 10:19:27 COVID-19, mRNA, LNP-S, bivalent, PF, 50 mcg/0.5 mL or 25mcg/0.25 mL dose 2 completed Dinah Meehanoch andrea, [facility] 11/18/2022 10:19:27 Past Encounters Encounter ID Performer Location Encounter Start Date Encounter Closed Date Diagnosis/Indication Diagnosis SNOMED-CT Code Diagnosis ICD10 Code Diagnosis Note [id number] Luis Alberto Laurent MD [facility] ([facility]) [address] [place] [address] [id number] 5 09/23/2022 12:24:41 10/01/2022 21:32:07 Hussein hematuria 654815895 R31.0 he will see urology in 30 minsor so. his bleeding has stopped. he will go to ER if fever unable to void, pelvic pain or significan t bleeding was due for surveillan ce in December will need to establish with a new urologist for future care after November. [id number] Luis Alberto Laurent MD [facility] ([facility]) [address] [place] [address] [id number] 5 11/18/2022 10:02:12 11/18/2022 19:23:40 Chronic kidney disease stage 4 318255748 N18.4 Anemia due to blood loss 544994383 D50.0 Moderate a ortic valve stenosis 255026275 I35.0 Luis Alberto Laurent MD [facility] ([facility]) [address] [place] [address] 12/04/2022 13:11:03 12/04/2022 15:58:49 Blood in urine 30558298 R31.9 normal penis on exam skin intact urethra normal [id number] Luis Alberto Laurent MD [facility] ([facility]) [address] [place] [address] [id number] 5 12/10/2022 09:03:30 12/10/2022 17:19:40 Blood in urine 46823554 R31.9 normal penis on exam skin intact urethra normalwill call urology once again. [id number] DHRUV JOSEPH [facility] ([facility]) [address] [place] [address] [id number] 5 01/16/2023 15:52:37 01/16/2023 18:11:22 Acute gout 229727084 M10.[address] Easley due to patients kidney disease status and medication s. Discussed with patient that this is suspected gout. Will check uric acid level today for confirmato ry diagnosis. Will start prednisone taper dose today. Encouraged to drink alcocer juice and continue to monitor symptoms. Will check CMP today due to chronic kidney disease. Patient will follow up with walk in clinic next week for re-evaluat ion and probable repeat CMP. Patient agrees to plan of care. [id number] Lavinia Camarena MD [facility] ([facility]) [address] [place] [address] [id number] 5 01/22/2023 14:04:01 01/22/2023 14:36:56 Hyperuricemia 51831795 E79.0 >6.8 but less than cutoff of 8. First episode was last week. Pt is now asymptomat ic without treatment. Monitor. [id number] Luis Alberto Laurent MD [facility] ([facility]) [address] [place] [address] [id number] 5 02/12/2023 13:46:23 02/12/2023 14:53:02 Iron deficiency anemia 79079347 D50.9 he will see nephrology in march. will fax his bloodwork to nephrology and to urology. [id number] Luis Alberto Laurent MD [facility] ([facility]) [address] [place] [address] [id number] 5 02/19/2023 08:43:53 02/19/2023 12:39:18 Occult blood detected in feces 35037161 R19.5 Iron defic iency anemia 66706279 D50.9 he will see nephrology in march. will fax his bloodwork to nephrology and to urology. 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 he will go to er if sx develop as discussed [id number] Luis Alberto Laurent MD [facility] ([facility]) [address] [place] [address] [id number] 5 03/26/2023 10:09:56 03/26/2023 12:29:41 [id number] Luis Alberto Laurent MD [facility] ([facility]) [address] [place] [address] [id number] 5 04/28/2023 09:37:54 04/28/2023 18:16:03 Anemia due to blood loss 896897604 D50.0 appears improved no gi sx. 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 4245992371 15061 N18.4 Thrombocyt openic disorder 976975558 D69.6 [id number] Luis Alberto Laurent MD [facility] ([facility]) [address] [place] [address] [id number] 5 05/19/2023 08:46:16 05/19/2023 09:43:33 Blood in urine 33683831 R31.9 Gastroesop hageal reflux disease 074889265 K21.01 Lower urin donald tract symptoms 952276163 R39.9 History of malignant neoplasm of prostate 787775110 Z85.46 History of malignant neoplasm of bladder 205604779 Z85.51 Chronic ra diation cystitis 118874026 N30.40 completed hyperbaric therapy with pretty good success [id number] Luis Alberto Laurent MD [facility] ([facility]) [address] [place], [place] [phone] 05/25/2023 14:24:38 05/25/2023 15:59:02 [id number] Luis Alberto Laurent MD [facility] ([facility]) [address] [place], [place] [phone] 06/09/2023 09:08:50 06/09/2023 11:14:35 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 4736670161 60750 N18.4 Benign hypertension 1072 5009 I10 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 43980396 N25.81 Moderate a ortic valve stenosis 324253258 I35.0 History of malignant neoplasm of prostate 940521624 Z85.46 History of malignant neoplasm of bladder 245549745 Z85.51 Chronic ra diation cystitis 803236170 N30.40 completed hyperbaric therapy with pretty good success [id number] Luis Alberto Laurent MD [facility] ([facility]) [address] [place], [place] [address] 08/24/2023 08:39:06 08/24/2023 09:15:50 Severe aortic valve stenosis 401553955 I35.0 Acute on c hronic diastolic heart failure 081205204 I50.33 [id number] Luis Alberto Laurent MD [facility] ([facility]) [address] [place], [place] [address] 08/27/2023 08:12:26 08/28/2023 09:39:22 Benign hypertension 89719717 I10 [id number] Luis Alberto Laurent MD [facility] ([facility]) [address] [place], [place] [address] 08/28/2023 08:48:27 08/28/2023 09:35:18 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 1931120543 57690 N18.4 Benign hypertension 1072 5009 I10 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 23504587 N25.81 Moderate a ortic valve stenosis 269832899 I35.0 Chronic ra diation cystitis 606877115 N30.40 completed hyperbaric therapy with pretty good success Hyperlipidemia 82273997 E78.5 Malignant neoplasm of prostate 919555386 C61 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 Acquired thrombocytopenia 48070165 D69.6 [id number] Luis Alberto Laurent MD [facility] ([facility]) [address] [place] [address] [id number] 5 09/03/2023 08:03:19 09/04/2023 12:22:26 Anemia 229434594 D64.9 Benign hypertension 1072 5009 I10 [id number] Luis Alberto Laurent MD [facility] ([facility]) [address] [place] [address] [id number] 5 09/10/2023 09:58:42 09/10/2023 13:51:04 Severe aortic valve stenosis 590804221 I35.0 Hussein hematuria 22856801 5 R31.0 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 4985505913 78323 N18.4 Benign hypertension 1072 5009 I10 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 57927285 N25.81 Chronic ra diation cystitis 108648264 N30.40 Malignant neoplasm of prostate 178307367 C61 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 083326166 C67.9 sees urology in [facility] current hussein hematuria and hgb is stable Acquired thrombocytopenia 67270754 D69.6 stable Acute on c hronic diastolic heart failure 312358074 I50.33 [id number] Luis Alberto Laurent MD [facility] ([facility]) [address] [place] [address] [id number] 5 10/14/2023 08:04:44 10/15/2023 10:55:15 Benign hypertension 36338191 I10 Anemia 227190762 D64.9 [id number] Luis Alberto Laurent MD [facility] ([facility]) [address] [place] [address] [id number] 5 10/21/2023 09:44:52 10/21/2023 12:21:43 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 2165170768 79029 N18.4 Benign hypertension 1072 5009 I10 Hyperlipidemia 98095070 E78.5 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 27125692 N25.81 [id number] Luis Alberto Laurent MD [facility] ([facility]) [address] [place] [address] [id number] 5 12/15/2023 09:57:11 12/15/2023 10:57:46 Blood in urine 64831875 R31.9 [id number] Luis Alberto Laurent MD [facility] ([facility]) [address] [place] [address] [id number] 5 01/12/2024 08:06:14 01/12/2024 09:44:38 Benign hypertension 84904050 I10 Hyperlipidemia 91086682 E78.5 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 will fax his bloodwork to nephrology and to urology. [id number] Luis Alberto Laurent MD [facility] ([facility]) [address] [place] [address] [id number] 5 02/09/2024 13:00:44 02/09/2024 14:35:10 Blood in urine 71626497 R31.9 if light headed weak short of breath chest pain unable to void go to ER [id number] Luis Alberto Laurent MD [facility] ([facility]) [address] [place] [address] [id number] 5 02/19/2024 13:31:18 02/19/2024 14:57:37 [id number] Luis Alberto Laurent MD [facility] ([facility]) [address] [place] [address] [id number] 5 02/23/2024 11:52:47 02/24/2024 12:10:12 Anemia due to blood loss 387794904 D50.0 appears improved no gi sx. he will go to er if sx develop as discussedh e is tolerating his iron [id number] Luis Alberto Laurent MD [facility] ([facility]) [address] [place] [address] [id number] 5 03/24/2024 08:19:49 03/24/2024 08:59:27 Anemia due to blood loss 926517981 D50.0 he is still actively bleeding. will plan on recheck in a few weeks as scheduled. likely will need an iron infusions. Chronic ki dney disease stage 4 137692909 N18.4 they are going to discuss dialysis what it is like. Severe aor tic valve stenosis 605265554 I35.0 [id number] Luis Alberto Laurent MD [facility] ([facility]) [address] [place] [address] [id number] 5 04/05/2024 08:03:51 04/05/2024 08:18:26 Anemia 384080163 D64.9 [id number] Luis Alberto Laurent MD [facility] ([facility]) [address] [place] [address] [id number] 5 04/27/2024 14:34:44 04/28/2024 10:30:55 Hussein hematuria 590622331 R31.0 [id number] Luis Alberto Laurent MD [facility] ([facility]) [address] [place] [address] [id number] 5 06/01/2024 08:06:30 06/02/2024 13:24:43 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 3126903980 28233 N18.4 [id number] Luis Alberto Laurent MD [facility] ([facility]) [address] [place] [address] [id number] 5 06/08/2024 13:49:41 06/08/2024 17:42:43 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 5512507209 73014 N18.4 Blood in urine 34875986 R31.9 if light headed weak short of breath chest pain unable to void go to ER [id number] Luis Alberto Laurent MD [facility] ([facility]) [address] [place] [address] [id number] 5 07/05/2024 08:11:20 07/06/2024 13:08:33 Anemia 379720260 D64.9 [id number] Luis Alberto Laurent MD [facility] ([facility]) [address] [place] [address] [id number] 5 07/12/2024 12:47:15 07/13/2024 11:41:26 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 has been told it is inoperable and given no surgical interventi on options to stop the bleeding. he would like to be evaluated in [facility] to see if there are any other ameliorati ve treatment options that would be acceptable to him. he has had full hyperbaric therapy regimen twice. 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 0802170492 18393 N18.4 [id number] Luis Alberto Laurent MD [facility] ([facility]) [address] [place], [place] [address] 5 07/28/2024 12:31:37 08/05/2024 23:10:04 Ear pressure sensation 678190923 H93.8X9 [id number] Luis Alberto Laurent MD [facility] ([facility]) [address] [place] [address] [id number] 5 08/08/2024 08:09:51 08/08/2024 08:22:02 Anemia 600987327 D64.9 hgb is stable [id number] Luis Alberto Laurent MD [facility] ([facility]) [address] [place] [address] [id number] 5 08/23/2024 08:26:29 08/24/2024 12:38:48 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 no orthostasi s, palpitatio ns, dyspnea, or chest discomfort by hx Pain of to e of left foot 5245052555 29322 M79.675 Hussein hematuria 22710946 5 R31.0 has failed quite a few therapies. has been told it is inoperable and given no surgical interventi on options to stop the bleeding. he would like to be evaluated in [facility] to see if there are any other ameliorati ve treatment options that would be acceptable to him. he has had full hyperbaric therapy regimen twice. 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 Anemia due to chronic blood loss 426536284 D50.0 [id number] Luis Alberto Laurent MD [facility] ([facility]) [address] [place] [phone] 09/16/2024 08:04:05 09/17/2024 07:01:28 Anemia due to blood loss [id number] D50.0 he is still actively bleeding. will plan on recheck in a few weeks as scheduled. likely will need an iron infusions. [id number] Luis Alberto Laurent MD [facility] ([facility]) [address] [place] [address] [phone] 09/19/2024 08:37:30 09/19/2024 09:26:54 Gout [id number] M10.9 we discussed causes of gout including renal Pain of to e of left foot [id number] 42041 M79.709 [id number] Luis Alberto Laurent MD [facility] ([facility]) [address] [place] [address] [phone] 09/26/2024 09:03:44 09/26/2024 13:05:35 Pain in right foot [id number] 18246 M79.671 declines additional pain med above tylenol. appears typical of gout and uric acid is incresED. GFR 17 SO NSAIDS AND COLCHICHIN E ARE CONTRAINDI CATED. WILL CYAHGE TO A MEDROL DOSE PACK. I will refer to podiatry to consider further evaluation apnd possible injection if not improving. No obvious sign of infection. radiology report pending. Anemia due to blood loss [id number] D50.0 stable no active bleeding. hgb improving. [id number] Luis Alberto Laurent MD [facility] ([facility]) [address] [place] [address] [phone] 10/07/2024 09:58:15 10/07/2024 11:16:31 Hussein hematuria [id number] R31.0 he has some bleeding again now.he was told to continue his finasterid e [id number] Luis Alberto Laurent MD [facility] ([facility]) [address] [place] [address] [phone] 10/11/2024 09:36:57 10/11/2024 14:02:41 Gouty arthritis [id number] M10.9 Pain in right foot 74024 [id number] 13253 M79.671 declines additional pain med above tylenol. appears typical of gout and uric acid is incresED. GFR 17 SO NSAIDS AND COLCHICHIN E ARE CONTRAINDI CATED. WILL CYAHGE TO A MEDROL DOSE PACK. I will refer to podiatry to consider further evaluation apnd possible injection if not improving. No obvious sign of infection. radiology report pending. Chronic ki dney disease stage 4 [id number] N18.4 [id number] Luis Alberto Laurent MD [facility] ([facility]) [address] [place] [phone] 10/17/2024 08:16:56 10/17/2024 13:00:48 Pain in right foot [id number] 02950 M79.671 declines additional pain med above tylenol. appears typical of gout and uric acid is increased. GFR 17 SO NSAIDS AND COLCHICHIN E ARE CONTRAINDI CATED. I will refer to podiatry to consider further evaluation and possible injection if not improving. No obvious sign of infection. radiology report pending. i will repeat xrays today Health Concerns Section Related Observation LastModified by Organization Detai ls LastModified Time None Recorded Concern Status LastModified by Organization Details LastModified Time None Recorded Advance Directives Directive None Recorded Payers Encounter Date Sequence Insurance Name Policy Number Policy Calloway Covered Member ID Calloway Member ID Guarantor Name 09/19/2024 1 [place] Augusto Quispe [id number] Augusto Quispe 09/19/2024 2 [employer] - MEDICARE SELECT - PLAN F (MEDICARE SUPPLEMENT) Augusto Quispe [id number] Augusto Quispe 09/26/2024 1 [place] Augusto Quispe [id number] Augusto Quispe 09/26/2024 2 [employer] - MEDICARE SELECT - PLAN F (MEDICARE SUPPLEMENT) Augusto Quispe [id number] Augusto Quispe 10/07/2024 1 [place] Augusto Quispe [id number] Augusto Quispe 10/07/2024 2 [employer] - MEDICARE SELECT - PLAN F (MEDICARE SUPPLEMENT) Augusto Quispe [id number] Augusto Quispe 10/11/2024 1 [place] Augusto Quispe [id number] Augusto Quispe 10/11/2024 2 [employer] - MEDICARE SELECT - PLAN F (MEDICARE SUPPLEMENT) Augusto Quispe [id number] Augusto Quispe 10/17/2024 1 [place] Augusto Quispe [id number] Augusto Quispe 10/17/2024 2 [employer] - MEDICARE SELECT - PLAN F (MEDICARE SUPPLEMENT) Augusto Quispe [id number] Augusto Quispe Notes Date Note Type Note Provider Name and Address Organization Details Recorded Time 09/19/2024 text/html Musculoskeletal PainReported bypatient.Notes:Pt has had what he believes to be gout-related pain in his right foot. This pain started on Thursday and has been increasing. There is mild swelling and pt does have some difficulty with ambulation due to the pain. Luis Alberto Laurent MD [address] [place] [address], [phone], [facility], [facility] 09/19/2024 09:04:06 09/26/2024 text/html Musculoskeletal PainReported bypatient.Notes:Pt has had what he believes to be gout-related pain in his right foot. This pain started on Sunday 09/17 and has been increasing. There is mild swelling and pt does have some difficulty with ambulation due to the pain. He has taken a round of steroids with no relief during or after this tx. he can't hardly touch it. surprisingly prednisone didn't help a bit. we reviewed and he did start at 4 tabs per day and tapered. Luis Alberto Laurent MD [address] [place] [address], [phone], [facility] 09/26/2024 10:01:54 10/07/2024 text/html Pt is here for a follow up from his specialist. Pt had a CT yesterday in [place] and then saw his urologist afterward. There he had a cystoscopy where they saw 2-3 growths on his prostate that need to be removed. They said this is where his bleeding is coming from, so he is going to have an operation to have these growths removed. His foot is still sore from the gout, but is not as painful after the medrol mango. Luis Alberto Laurent MD [address] [place] [address], [phone], [facility] 10/07/2024 11:06:37 10/11/2024 text/html Musculoskeletal PainReported bypatient.Location:[facility] great toe Severity:worsening Duration:present <1 month (2 days) Timing:constant Associated Symptoms:pt reports that the toe is not swollen or red, but it is shiny ADLs Affected:walkingNotes :hx of gouthis sx's recurred 2-3 days after his steroid was discontinued. while on the steroids no pain was present at all. Luis Alberto Laurent MD [address] [place] [address], [phone], [facility], Sue 10/11/2024 10:26:49 10/17/2024 text/html Musculoskeletal PainReported bypatient.Location:ri ght great toe Duration:present for 1-6 months (started in August) Timing:constant Associated Symptoms:pt reports that the toe is mildly swollen, but not red ADLs Affected:walkingNotes :hx of gouthis sx's are recurrent after finishing steriod course Luis Alberto Laurent MD [address] [place] [address], [phone], [facility], Sue 10/17/2024 09:01:14
--- OUTSIDE RECORDS SUMMARY | 2024-11-11 19:31 | XMS_ITS | Encounter Summary ---
Author Organization [facility] Address [address] [place] [address] Care Team Providers Care Social Media Editor Name Role Phone Unavailable Primary Care Provider Unavailabl e Encounter Details Date Type Department Care Team (Late st Contact Info) Description 12/10/2007 Emergency [facility] Emergency Department [address] [place] [address] Ed, Physician NO ADDRESS ON FILE Alvaro Mendez MD [address] [place] [phone] Social History Tobacco Use Types Packs/Day Years Used Date Smoking Tobacco: Never Assessed Sex and Gender Information Value Date Recorded Sex Assigned at Not on file Legal Sex Male 6:59 AM [employer] Gender Identity Not on file Sexual Orientation Not on file documented as of this encounter Plan of Treatment Not on file documented as of this encounter Procedures Procedure Name Priority Date/Time Associated Diagnosis Comments CARDIAC ENZYMES Stat 12/10/2007 11:45 AM CDT CBC WITH DIFFERENTIAL Stat 12/10/2007 11:45 AM CDT PTT Stat 12/10/2007 11:45 AM CDT PROTIME-INR Stat 12/10/2007 11:45 AM CDT BASIC METABOLIC PANEL Stat 12/10/2007 11:45 AM CDT XR CHEST PA OR AP 1 VW Routine 12/10/2007 11:44 AM CDT documented in this encounter Results * (ABNORMAL) BASIC METABOLIC PANEL (12/10/2007 11:45 AM CDT) CHLORIDE 107 95 - 110 mEq/L [facility] ANION GAP 12 9 - 20 mEq/L [facility] SODIUM 138 136 - 145 mEq/L [facility] BUN 27(H) 9 - 20 mg/dL [facility] CO2 23 22 - 32 mmol/l [facility] POTASSIUM 4.3 3.5 - 5.0 mEq/L [facility] OSMOLALITY, CALCULATED 291 275 - 295 mOsm/Kg [facility] CREATININE 2.0(H) 0.7 - 1.5 mg/dL [facility] CALCIUM 10.2 8.4 - 10.5 mg/dL [facility] GLUCOSE 121(H) 70 - 110 mg/dL [facility] Blood specimen (specimen) 12/10/2007 11:45 AM CDT 12/10/2007 11:45 AM CDT Alvaro Mendez MD CHEMISTRY ORDERABLES Final R esult [facility] CLIA# [id number] [address] [place] [address] * (ABNORMAL) CBC WITH DIFFERENTIAL (12/10/2007 11:45 AM CDT) [facility] LYMPHOCYTE ABSOLUTE 4.7(H) 1.2 - 4.0 K/ul [facility] HEMATOCRIT 37.5(L) 41.0 - 53.0 % [facility] EOSINOPHILS 0.5 0.0 - 7.0 % [facility] PLATELETS 147 140 - 440 K/ul [facility] MONOCYTE ABSOLUTE 0.4 0.1 - 0.6 K/ul [facility] BASOPHILS 0.1 0.0 - 1.0 % [facility] RBC 4.03(L) 4.60 - 6.20 Mil/ul [facility] PERIPHERAL BLOOD SMEAR REVIEW Automated Diff [facility] LYMPHOCYTES 53.2(H) 24.0 - 44.0 % [facility] MCHC 34.1 30.0 - 35.0 g/dL [facility] MCV 93.1 84.0 - 103.0 Fl [facility] MPV 9.9 8.9 - 12.8 Fl [facility] EOSINOPHIL ABSOLUTE 0.0 0.0 - 0.7 K/ul [facility] NEUTROPHIL ABSOLUTE 3.6 2.0 - 8.0 K/ul [facility] HEMOGLOBIN 12.8(L) 14.0 - 18.0 g/dL [facility] RDW 14.0 11.0 - 14.5 % [facility] MONOCYTES 4.8 2.0 - 10.0 % [facility] WBC 8.7 4.8 - 10.8 K/ul [facility] MCH 31.8 27.0 - 34.0 pg [facility] NEUTROPHILS 41.4(L) 42.2 - 75.2 % [facility] BASOPHILS ABSOLUTE 0.0 0.0 - 0.2 K/ul [facility] Blood specimen (specimen) 12/10/2007 11:45 AM CDT 12/10/2007 11:45 AM CDT Alvaro Mendez MD HEMATOLOGY ORDERABLES Final Result Performing Organization Address City/State/[place] Co de Phone Number [facility] CLIA# [id number] [address] [place] [phone] * PTT (12/10/2007 11:45 AM CDT) PTT 27.4 22.5 - 36.5 Secs [facility] Comment: Therapeutic Range: Hi-level PE/DVT heparin protocol 80.1 -95.0 sec Lo-level PE/DVT heparin protocol 67.1 - 80.0 sec Cardiac Heparin Protocol 67.1 - 85.0 sec Neuro Heparin Protocol 67.1 - 80.0 sec As of 09/09/2007 note change in APTT Normal Range. Blood specimen (specimen) 12/10/2007 11:45 AM CDT 12/10/2007 11:45 AM CDT Alvaro Mendez MD HEMATOLOGY ORDERABLES Final Result Performing Organization Address [facility]/[place] Co de Phone Number [facility] CLIA# [id number] [address] [place] [address] * PROTIME-INR (12/10/2007 11:45 AM CDT) PROTIME 13.9 12.8 - 15.8 Secs [facility] Comment:As of 2007 not e change in normal range. INR 1.0 [facility] Comment: Expected Values for INR: DVT/PE Goal INR 2.5; range 2.0 - 3.0 Valve Replacement Tissue Goal INR 2.5; range 2.0 - 3.0 Mechanical Goal INR 3.0; range 2.5 - 3.5 POST-WI Goal INR 2.5; range 2.0 - 3.0 or Goal 3.0; range 2.5 - 3.5 Atrial Fibrillation Goal INR 2.5; range 2.0 - 3.0 Ischemic Stroke Goal INR 2.5; range 2.0 - 3.0 For additional information see Guidelines for Anticoagulation available from the pharmacy [facility] [phone] Blood specimen (specimen) 12/10/2007 11:45 AM CDT 12/10/2007 11:45 AM CDT us Alvaro Mendez MD HEMATOLOGY ORDERABLES Final Result Performing Organization Address [facility] de Phone Number [facility] CLIA# [id number] [address] [place] [address] * CARDIAC ENZYMES (12/10/2007 11:45 AM CDT) CKMB 1.8 0.0 - 5.0 ng/mL [facility] TROPONIN I <0.1 0.0 - 1.3 ng/mL [facility] Blood specimen (specimen) 12/10/2007 11:45 AM CDT 12/10/2007 11:45 AM CDT us Alvaro Mendez MD CHEMISTRY ORDERABLES Final R esult [facility] CLIA# [id number] [facility] [place] [address] * XR CHEST PA OR AP (12/10/2007 11:44 AM CDT) Anatomical Region Laterality Modality Chest Other 12/10/2007 11:4 4 AM CDT Narrative 12/10/2007 2:02 PM CDT The heart and mediastinum are normal in size and contour. The lungs are essentially clear without evidence of infiltrates, nodules, or effusions. The bones and other structures visualized are largely unremarkable. Impression: No active disease. - Dictated By: Kg Duncan M.D. Electronically Signed By: Kg Duncan M.D. Date Signed: 12/10/07 Procedure Note Kg Duncan - 01/15/2008 The heart and mediastinum are normal in size and contour. The lungs areessentially clear without evidence of infiltrates, nodules, or effusions. The bones and otherstructures visualized are largely unremarkable. Impression: No active disease. - Dictated By: Kg Duncan M.D. Electronically Signed By: Kg Duncan M.D. Date Signed: 12/10/07 us Alvaro Mendez MD DIAGNOSTIC IMAGING ORDERABLE S Final Result documented in this encounter Visit Diagnoses Not on filedocumented in this encounter
--- OUTSIDE RECORDS SUMMARY | 2024-11-11 19:31 | XMS_ITS | Patient Health Record ---
Author Organization [facility] Address [address] [place] [address] Care Team Providers Care Liquefaction Supervisor Name Role Phone Mehran ANAND, Andry Primary Care Provider Bacilio PATELALEXEY HERNANDEZ Unavailable [phone] MACEYGALOPATRICIA Unavailable [phone] Allergies Allergen (clinical drug ingredient) Drug/Non Drug Allergy documented on EMR Reaction Allergy Type Onset Date Status Substance with 3-cduysba-5-methylgluta ryl-coenzyme A reductase inhibitor mechanism of action (substance) Statins Unknown Drug Allergy Active Results Component Value Reference Range Notes Urinalysis, Routine Reviewed date:12/15/2023 04:22:37 PM Interpretation: Performing Lab: Notes/Report: Urine-Color dark cranberry Appearance slightly cloudy Glucose - Bilirubin - Ketones - Specific [place] 1.015 Occult Blood 3+ pH 6.0 Urine Protein 2+ Urobilinogen,Semi-Qn - Nitrite, Urine - WBC Esterase 1+ UTI Pathogen Panel PCR Reviewed date:02/15/2024 10:42:04 AM Interpretation: Performing Lab: Notes/Report: UTI Pathogen Panel PCR Reviewed date:11/19/2023 12:01:39 PM Interpretation: Performing Lab: Notes/Report: Urinalysis, Routine Reviewed date:03/03/2024 01:21:25 PM Interpretation: Performing Lab: Notes/Report: Urine-Color dark red Appearance slightly cloudy Glucose - Bilirubin - Ketones - Specific [place] 1.015 Occult Blood 3+ pH 6.0 Urine Protein 2+ Urobilinogen,Semi-Qn - Nitrite, Urine - WBC Esterase 1+ Urinalysis Gross Exam - Urinalysis, Routine Reviewed date:02/12/2024 09:26:56 AM Interpretation: Performing Lab: Notes/Report: Urine-Color dark red Appearance cloudy Glucose - Bilirubin 1+ Ketones trace Specific [place] 1.015 Occult Blood 3+ pH 6.0 Urine Protein 2+ Urobilinogen,Semi-Qn trace Nitrite, Urine + WBC Esterase 3+ Urinalysis, Routine Reviewed date:11/18/2023 01:45:19 PM Interpretation: Performing Lab: Notes/Report: Urine-Color tea color Appearance slightly cloudy Glucose - Bilirubin - Ketones - Specific [place] 1.025 Occult Blood 3+ pH 6.0 Urine Protein 1+ Urobilinogen,Semi-Qn - Nitrite, Urine - WBC Esterase trace Reason For Referral Reason [facility] treatment ( ) Diagnosis 1 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 adiation cystitis (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.41) Diagnosis 2 History of radiation therapy (Z92.3) Referral Organization [employer] Referring Provider First Name PATRICIA Referring Provider Last Name SHYLA Referring Provider Speciality [facility] Referred Provider Specialty Unknown Referral Priority Routine Medications Medication SIG (Take, Route, Frequency, Duration) Notes Start Date End Date Status Multivitamin Active Furosemide 40 MG 1 tablet Orally Once a day Active Pantoprazole Sodium 40 MG 1 tablet Orally Once a day Active Aspirin Adult Low Dose 81 MG 1 tablet Orally Once a day Not-Taking Magnesium Active Nitrofurantoin Macrocrystal 100 MG 1 capsule at bedtime with food or milk Orally Once a day Not-Taking Carvedilol 3.125 MG 1 tablet with food Orally Twice a day Active Famotidine 20 MG 1 tablet at bedtime as needed Orally Once a day Not-Taking Alfuzosin HCl ER 10 MG 1 tablet immediately after the same meal Orally Once a day Active Ward 3 Active Repatha *Pick strength-form from [employer] for eRX* Active Potassium Active Vitamin D Active Social History Tobacco Use: Social History Observation Description Date Details (start date - stop date) Former Smoker NA - NA Tobacco Control (Standard) Question Answer Notes Tobacco use: Former smoker How long has it been since you last smoked? 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 Problem History of radiation therapy (774877045) History of radiation therapy (Z92.3) Active confirmed Problem 26176944 Hematuria (R31.9) Active confirmed Problem 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 Problem 866191152 History of bladder cancer (Z85.51) Active confirmed Problem 081121773 Hussein hematuria (R31.0) Active confirmed Problem Malignant tumor of urinary bladder (514740402) Malignant neoplasm of urinary bladder, unspecified site (C67.9) Active confirmed Problem 842470681 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 Vital Signs Heart Rate 70 /min 03/03/2024 Temperature 97.6 degrees Fahrenheit 03/03/2024 Blood pressure diastolic 64 mm Hg 03/03/2024 Height-cm 167.64 cm 03/03/2024 Weight-kg 77.11 kg 03/03/2024 Height 66 in 03/03/2024 Blood pressure systolic 104 mm Hg 03/03/2024 Weight 170 lbs 03/03/2024 BMI 27.44 kg/m2 03/03/2024 Procedures Procedure Date Ordered Date Performed Result Body Sit e Bladder Scan 11/18/2023 N/A Bladder Scan 12/15/2023 N/A Bladder Scan 02/12/2024 02/12/2024 [id number] Bladder Scan 03/03/2024 N/A Encounters Encounter Location Date Provider Diagnosis [facility] [address] [place] [address] 11/18/2023 PATRICIA REANO Hematuria R31.9 ; History of prostate cancer Z85.46 ; 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adiation cystitis N30.41 ; History of bladder cancer Z85.51 and History of radiation therapy Z92.3 [facility], [facility] [address] [place] [address] 12/15/2023 PATRICIA REANO 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adiation cystitis N30.41 ; Chronic kidney disease N18.9 ; History of prostate cancer Z85.46 ; History of bladder cancer Z85.51 and History of radiation therapy Z92.3 [facility] [address] [place] [address] 02/12/2024 PATRICIA MANSFIELD Hematuria R31.9 ; Acute UTI N39.0 ; Chronic kidney disease N18.9 ; History of prostate cancer Z85.46 ; History of bladder cancer Z85.51 and History of radiation therapy Z92.3 [facility], [facility] [address] [place] [address] 03/03/2024 ALEXEY VEE Hematuria R31.9 ; Radiation cystitis N30.40 ; Anxiety about health F41.8 ; History of prostate cancer Z85.46 ; History of bladder cancer Z85.51 and History of radiation therapy Z92.3 [facility], [facility] [address] [place] [address] 09/27/2024 ALEXEY VEE History of prostate cancer Z85.46 Assessments Encounter Date Diagnosis (ICD Code) Assessment Notes Treatment Notes Treatment Clinical Notes Section Notes 09/27/2024 History of prostate cancer (ICD-10 - Z85.46) 03/03/2024 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 Pt and elects to this plan of care and will return sooner with any concerns Plan: -RTC as scheduled Cystoscopy -RTC or call sooner with any concerns IDominga, Art, am scribing for, and in the presence of, Dr. Vee. I, Dr. Alexey Vee, personally performed the services prescribed in this documentation, as scribed by Dominga Salazar, in my presence, and it is both accurate and complete. 03/03/2024 Hematuria (ICD-10 - R31.9) 83 y/o M with h/o prostate cancer (s/p XBRT in 2006), h/o bladder cancer, hematuria and radiation cystitis. 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 Pt and elects to this plan of care and will return sooner with any concerns Plan: -RTC as scheduled Cystoscopy -RTC or call sooner with any concerns IDominga Scribe, am scribing for, and in the presence of, Dr. Vee. I, Dr. Alexey Vee, personally performed the services prescribed in this documentation, as scribed by Dominga Salazar, in my presence, and it is both accurate and complete. 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 Pt and elects to this plan of care and will return sooner with any concerns Plan: -RTC as scheduled Cystoscopy -RTC or call sooner with any concerns IDominga Scribe, am scribing for, and in the presence of, Dr. Vee. I, Dr. Alexey Vee, personally performed the services prescribed in this documentation, as scribed by Dominga Salazar, in my presence, and it is both accurate and complete. 03/03/2024 History of prostate cancer (ICD-10 - Z85.46) 83 y/o M with h/o prostate cancer (s/p XBRT in 2006), h/o bladder cancer, hematuria and radiation cystitis. 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 Pt and elects to this plan of care and will return sooner with any concerns Plan: -RTC as scheduled Cystoscopy -RTC or call sooner with any concerns Dominga Mejias Scribe, am scribing for, and in the presence of, Dr. Vee. I, Dr. Alexey Vee, personally performed the services prescribed in this documentation, as scribed by Dominga Salazar, in my presence, and it is both accurate and complete. 02/12/2024 History of prostate cancer (ICD-10 - Z85.46) 12/15/2023 History of bladder cancer (ICD-10 - Z85.51) 11/18/2023 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adiation cystitis (ICD-10 - N30.41) 11/18/2023 History of bladder cancer (ICD-10 - Z85.51) 11/18/2023 History of radiation therapy (ICD-10 - Z92.3) 12/15/2023 History of radiation therapy (ICD-10 - Z92.3) 02/12/2024 History of bladder cancer (ICD-10 - Z85.51) 03/03/2024 History of bladder cancer (ICD-10 - Z85.51) 83 y/o M with h/o prostate cancer (s/p XBRT in 2006), h/o bladder cancer, hematuria and radiation cystitis. 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 Pt and elects to this plan of care and will return sooner with any concerns Plan: -RTC as scheduled Cystoscopy -RTC or call sooner with any concerns IDominga Scribe, am scribing for, and in the presence of, Dr. Vee. I, Dr. Alexey Vee, personally performed the services prescribed in this documentation, as scribed by oDminga Salazar, in my presence, and it is both accurate and complete. 02/12/2024 History of radiation therapy (ICD-10 - Z92.3) 03/03/2024 History of radiation therapy (ICD-10 - Z92.3) 83 y/o M with h/o prostate cancer (s/p XBRT in 2006), h/o bladder cancer, hematuria and radiation cystitis. 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 Pt and elects to this plan of care and will return sooner with any concerns Plan: -RTC as scheduled Cystoscopy -RTC or call sooner with any concerns IDominga, Art, am scribing for, and in the presence of, Dr. Vee. I, Dr. Alexey Vee, personally performed the services prescribed in this documentation, as scribed by Dominga Salazar, in my presence, and it is both accurate and complete. 11/18/2023 Other UA with gross hematuria, PVR 34 ml. He states this is his first episode of gross hematuria in some time. He has been seeing tea colored urine since cystoscopy earlier this month, then had hussein blood starting yesterday. Send for PCR. I will call with results. Keep f/u as scheduled, PRN sooner. All questions that were asked were answered. Patient satisfied with plan of care. 12/15/2023 Other UA with painles s hematuria, PVR [address] Vee. Recommend referral back to Hyperbaric treatment at as this worked well for him in the past. Referral placed today. Recommended follow up in 2-3 months, but he states he will keep follow up as scheduled and will come sooner PRN. All questions that were asked were answered. Patient satisfied with plan of care. 02/12/2024 Other UA appears infected, but is grossly bloody which may be altering results. Send for PCR. Start on renal dosed Augmentin prophylactically over the weekend. He will RTC in 2-3 weeks for follow up with Dr. Vee as he should be done with the hyperbaric treatments at that time. All questions that were asked were answered. Patient satisfied with plan of care. Plan Of Treatment Pending Test Test Name Order Date PSA, total (cpt 05664) 09/27/2024 UA Without Micro-Auto [id number] 12/11/2022 PSA Diagnostic--[id number] 12/11/2022 Bladder Scan 12/15/2023 Bladder Scan 11/18/2023 Bladder Scan 03/03/2024 Insurance Providers Payer Name Payer Address Payer Phone Subscriber Number Group Number Insured Name Patient Relationship to Insured Coverage Start Date Coverage End Date [place] [address] VADIM COLON [id number] Augusto Quispe Self - patient is the insured [employer] [address] [address] [place] [id number] Augusto Quispe Self - patient is the insured Medical (General) History Medical History History ICD Code Measles Mumps Chicken Pox Heart Disease Bladder Infections Bladder Cancer Hemorrhoids Prostate Cancer Surgical History Surgery Date(Month/Year) Heart Bypass Hospitalization History Reason Date(Month/Year) surgery
--- OUTSIDE RECORDS SUMMARY | 2024-11-11 19:31 | XMS_ITS | Clinical Summary ---
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 Filler Hopper Feeder Name Role Phone Unavailable Primary Care Provider Unavailabl e Social History Tobacco Use Types Packs/Day Years Used Date Smoking Tobacco: Never Assessed Sex and Gender Information Value Date Recorded Sex Assigned at Not on file Legal Sex Male 6:59 AM [employer] Gender Identity Not on file Sexual Orientation Not on file Plan of Treatment Health Maintenance Due Date Last Done Comments DTAP/TDAP/TD VACCINES (1 - Tdap) 1959 PNEUMOCOCCAL VACCINE 50+ YEARS (1 of 1 - PCV) 04/30/19 90 ZOSTER VACCINE (1 of 2) 1990 RSV VACCINE (60+ or ) (1 - 1-dose 75+ series) 2015 INFLUENZA VACCINE (#1) 2024
--- NOTE | 2024-11-11 20:33 | PC.NURSE ---
Patient came to icu with amato catheter in place from OR.
[2024-11-11] MEDS: alfuzosin 10 mg ER Tablet PO (21:39)
[2024-11-11] MEDS: sodium chloride 0.9% 500 ML 999 ML IV (22:54)
[2024-11-12] VITALS (72 sets, daily range): BP systolic 68–115; BP diastolic 42–67; PULSE 72–100; RESP 0–31; TEMP 36.3; O2SAT 87–100
[2024-11-12] MEDS: ceFAZolin 2,000 mg SDV 2000 MG IVP ×3 (00:15→14:47)
[2024-11-12] MEDS: norepinephrine 4 MG/250 ML BAG 7.5 MG IV (00:25)
[2024-11-12 03:15] LABS: Basophils % 0.4 %; Eosinophils # 0.2 10^3/uL (0.0-0.8); Eosinophils % 3.2 %; Hematocrit 26.5 % (37-53); Lymphocytes # 1.5 10^3/uL (0.8-4.8); Mean Corpuscular HGB Conc 30.6 g/dL (30-55); Mean Corpuscular Hemoglobin 30.3 pg (27-33); Mean Corpuscular Volume 99.3 fl (82-101); Mean Platelet Volume 9.6 fL (7.4-10.4); Monocytes # 0.6 10^3/uL (0.2-0.9); Monocytes % 11.6 %; Neutrophils # 2.67 10^3/uL (1.8-7.7); Neutrophils % 54.2 %; Nucleated Red Blood Cells % 0 %; Platelet Count 147 10^3/cmm (157-399); Red Blood Count 2.67 10^6/uL (3.85-5.65); Red Cell Distribution Width 17.5 % (12.1-15.1); White Blood Count 4.93 10^3/uL (3.29-11.43)
[2024-11-12 03:34] LABS: Partial Thromboplastin Time 27.5 SECONDS (23.9-36.7)
[2024-11-12 03:39] LABS: Phosphorus 3.1 mg/dL (2.5-4.5)
[2024-11-12 03:43] LABS: Anion Gap 15.2 (5-19); Blood Urea Nitrogen 32 mg/dL (8-23); Calcium 8.6 mg/dL (8.5-10.5); Carbon Dioxide 25 mmol/L (22-29); Chloride 105 mmol/L (98-107); Glucose 129 mg/dL (65-115); Osmolality Calculated 301 mOsm/kg (285-295); Potassium 4.2 mmol/L (3.5-5.1); Sodium 141 mmol/L (136-145)
[2024-11-12 04:13] LABS: Iron 22 ug/dL (59-158); Total Iron Binding Capacity 243 mcg/dl; Unsaturated Iron Binding 221 ug/dL (112-347)
[2024-11-12 05:01] LABS: Reticulocyte % 3.3 % (0.5-2.0)
[2024-11-12] MEDS: oxyCODONE 5 mg IR Tab/Cap PO ×2 (06:17→14:47)
[2024-11-12] MEDS: carvedilol 3.125 mg Tablet PO ×2 (08:32→17:44)
[2024-11-12] MEDS: pantoprazole DR 40 mg Tablet PO (08:32)
[2024-11-12] MEDS: aspirin 325 mg EC Tablet PO (08:32)
[2024-11-12] MEDS: iron sucrose 200 MG in sodium chloride 0.9% (100 ml) 100 ML 220 MG IV (09:12)
--- NOTE | 2024-11-12 12:06 | P.PN_ITS ---
Subjective 2 Subjective: 84-year-old male with aortic s tenosis follows at [facility]. He states this is being followed but not currently planned for surgery. Patient denies chest pain. Patient missed a step Thursday morning fell down and broke his right hip. He had this repaired but last evening had hypotension requiring Levophed currently on 4 micrograms per minute. Patient tells me he tries to drink 2-3 bottles of water a day but sometimes only gets 1-1/2. He states he stays chronically dehydrated. Currently he is getting a unit of blood Vitals/I&O/Wt Last Vital Signs Temp 97.4 F L 11/12/24 04:00 Pulse 95 11/12/24 10:30 Resp 31 H 11/12/24 10:30 BP 95/57 11/12/24 10:00 Pulse Ox 94 11/12/24 10:30 O2 Del Method Nasal Cannula 11/12/24 04:45 O2 Flow Rate 1 11/12/24 04:45 11/11/24 11/12/24 11/12/24 22:59 06:59 14:59 Intake Total 1120 / 1220 500 / 1720 120 / 120 Output Total 1450 / 1450 650 / 2100 Balance -330 / -230 -150 / -380 120 / 120 Weight last 48 hrs Weight 68.946 kg Weight 69.485 kg Physical Exam 2 Narrative: General well-developed well-nourished male in no acute cardiopulmonary stress CV regular rate and rhythm with a 5/6 systolic ejection murmur murmur best heard at the right upper sternal border and radiates of the chest to the neck Lungs clear to auscultation bilaterally with poor effort Abdomen positive bowel sounds soft nontender Calves pneumatic compression boots present bilaterally no significant swelling Exam minimal swelling of the right hip he is mildly tender Urinary Catheter Management: Vogt: Cath Placed During This Visit: yes Reason for Continuing Indwelling Catheter: Accurate Measurement of Urinary Output in Critically Ill Patients Urinary Catheter Date of Insertion: 11/11/24 Urinary Catheter Time of Insertion: 12:00 Data 11/12/24 03:08 11/12/24 03:08 A&P Assessment and plan (1) Fracture of hip: Patient status post repair with some hypotension attributed to hypovolemia and oozing into the hip (2) Aortic stenosis: EKG is sinus with nonspecific ST-T wave changes. Echo 02/2024 showed LVEF 60 to 65% moderate to severe . (3) Hypotension (arterial): Will bolus 1 L of fluid over 2 hours wean Levophed. Concur with blood transfusion. Anticipate transfer to medical floor to continue physical therapy prior to discharge [facility]. 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 No current active cardiac symptoms reported. Underlying cardiac disease increases perioperative risk. Does not appear to be on antiplatelet medication. Continue beta-magi. Statin allergy. On Repatha. Plan Peripheral arterial disease with stents : History of peripheral arterial disease with stent placement. No acute limb symptoms reported. With statin allergy. On Repatha. - Monitor for vascular complications perioperatively. Prostate cancer (remission) : History of prostate cancer, treated with radiation, currently in remission. No active treatment ongoing. Bladder cancer (under surveillance) : History of bladder cancer with ongoing surveillance and recent intervention (intermittent bladder clean out per patient and his ). No current active bleeding reported but with history of hematuria and related anemia. - Continue urology follow-up for bladder cancer surveillance. Chronic kidney disease (stage 4) : Chronic kidney disease, stage 4. Cannot receive contrast dye due to renal impairment. Renal function monitored regularly. - Monitor renal function during hospitalization. Anemia : History of anemia, previously requiring transfusions. History of hematuria. Additionally reports some dark stools he states due to medications. Will check iron studies. Obtain Hemoccult. Discussed risk of further blood loss with hip fracture and surgery. - Monitor hemoglobin and hematocrit levels. - Transfuse as needed based on clinical status and lab results. Aortic valve disease (under evaluation) : Moderate to severe risk stenosis. Follows with cardiology for aortic valve disease under evaluation for possible replacement. At risk of hypotension. Blood pressures usually run soft. Reviewed echocardiogram. - Continue cardiology follow-up for valve disease. PDMP PDMP Reviewed: Not Reviewed Attestations 2 Medical Necessity Statement*: Patient will remain in the hospital postoperatively for therapy and discharge planning. Wean off Levophed administering fluid boluses now Coding Level of Care Code 54713 Diagnoses Fracture of hip S72.009A Nonrheumatic aortic valve stenosis I35.0 Cardiac valve disease etiology: nonrheumatic Hypotension (arterial) I95.9 S/P CABG (coronary artery bypass graft) Z95.1 Time Spent (min) 33
[2024-11-12] MEDS: sodium chloride 0.9% 1,000 ML 500 ML IV ×2 (12:41→15:58)
[2024-11-12] MEDS: water for injection-sterile 10 ML 10000 ML (15:50)
[2024-11-12] MEDS: sodium chloride 0.9% 500 ML IV (16:00)
--- NOTE | 2024-11-12 16:20 | PC.NURSE ---
up ambulated in room with walker with pt . pain medication given back to bed , noted decrease in blood pressure doctor notified 500 ns bouls and levophed increased to 6 mcg
[2024-11-12] MEDS: norepinephrine 4 MG/250 ML BAG 22.5 MG IV (16:27)
--- NOTE | 2024-11-12 16:29 | P.PN_ITS ---
Subjective 2 Subjective: Patient is seen in the ICU. He is still on pressors following his surgery. This is being evaluated by the medical team. With regards to his hip, he has little to no complaints. Blood pressure is limiting his ability to participate with therapy. Medications: Reviewed: Yes Vitals/I&O/Wt Last Vital Signs Temp 97.4 F L 11/12/24 04:00 Pulse 87 11/12/24 15:30 Resp 5 L 11/12/24 15:30 BP 82/54 11/12/24 15:30 Pulse Ox 87 L 11/12/24 15:30 O2 Del Method Nasal Cannula 11/12/24 04:45 O2 Flow Rate 1 11/12/24 04:45 11/12/24 11/12/24 11/12/24 06:59 14:59 22:59 Intake Total 500 / 1720 1479.375 / 1479.375 145.00 / 1624.375 Output Total 650 / 2100 Balance -150 / -380 1479.375 / 1479.375 145.00 / 1624.375 Weight last 48 hrs Weight 152 lb Weight 153 lb 3 oz Physical Exam 2 Const: COMMON NORMALS: no acute distress, average body habitus, patient oriented x3 and alert GENERAL APPEARANCE: cooperative and comfortable O RIENTATION/CONSCIOUSNESS: Yes awake HENMT: COMMON NORMALS: normocephalic and atraumatic HEAD & SCALP: n ormocephalic and atraumatic Eye: GENERAL EYE: appearance normal, both eyes and all related structures Chest: COMMONS NORMALS: normal inspection of the chest Resp: COMMON NORMALS: normal respiratory effort EFFORT & INSPECTION: Yes able to speak in complete sentences and Yes symmetric chest movement Extremity: RIGHT LOWER EXTREMITY: Yes hip joint (Dressing dry and intact) Right hip: Yes neurovascular exam (Intact distally) Neuro: COMMON NORMALS: patient oriented x3 SENSORIUM/ORIENTATION: Yes alert Psych: COMMON NORMALS: mental status grossly normal APPEARANCE: Yes grossly normal ATTITUDE: Yes calm and Yes engaged ATTENTION/CONCENTRATION: Yes attention grossly intact Skin: COMMON NORMALS: no rashes or lesions noted GENERAL SKIN EXAM: no rashes or lesions noted Urinary Catheter Management: Vogt: Cath Placed During This Visit: yes Reason for Continuing Indwelling Catheter: Accurate Measurement of Urinary Output in Critically Ill Patients Urinary Catheter Date of Insertion: 11/11/24 Urinary Catheter Time of Insertion: 12:00 Data 11/12/24 03:08 11/12/24 03:08 A&P Assessment and plan (1) Closed intertrochanteric fracture of right hip: This 84-year-old gentleman was admitted through the emergency department today after a fall at home. Reportedly, he was walking down about 3 steps in his home where he lives with his . He missed the last step falling onto his right side and suffering the above injury. Patient underwent open reduction internal fixation of his right intertrochanteric hip fracture last evening. Postoperatively, he had diminished blood pressure and was placed in the ICU for evaluation and observation. The patient remains on pressors. He has been improving in his status, however. This is limiting his rehab capabilities. (2) Fracture of greater trochanter of right femur: PDMP PDMP Reviewed: Not Reviewed Attestations 2 Medical Necessity Statement*: Per hospitalist team Coding Level of Care Code Acute Code for Chg Fwd Diagnoses Closed nondisplaced intertrochanteric fracture of right femur, initial encounter S72.144A Encounter type: initial encounter Fracture alignment: nondisplaced Closed nondisplaced fracture of greater trochanter of right femur, initial encounter S72.114A Encounter type: initial encounter Fracture type: closed Fracture alignment: nondisplaced
--- NOTE | 2024-11-12 17:00 | PC.NURSE ---
pt remains on levophed post of and recieving fluid bolus for accurate i and o measurment amato left in place
[2024-11-12] MEDS: alfuzosin 10 mg ER Tablet PO (20:06)
[2024-11-13] VITALS (95 sets, daily range): BP systolic 74–125; BP diastolic 45–78; PULSE 68–121; RESP 12–26; TEMP 36.1–36.7; O2SAT 85–98
[2024-11-13] MEDS: norepinephrine 4 MG/250 ML BAG 30 MG IV (01:56)
[2024-11-13 05:20] LABS: Basophils % 0.4 %; Eosinophils # 0.3 10^3/uL (0.0-0.8); Eosinophils % 4.4 %; Hematocrit 21.3 % (37-53); Lymphocytes # 1.4 10^3/uL (0.8-4.8); Lymphocytes % 23.9 %; Mean Corpuscular HGB Conc 31.5 g/dL (30-55); Mean Corpuscular Hemoglobin 30.9 pg (27-33); Mean Corpuscular Volume 98.2 fl (82-101); Monocytes # 0.7 10^3/uL (0.2-0.9); Monocytes % 12.1 %; Neutrophils # 3.27 10^3/uL (1.8-7.7); Nucleated Red Blood Cells % 0 %; Platelet Count 134 10^3/cmm (157-399); Red Blood Count 2.17 10^6/uL (3.85-5.65); Red Cell Distribution Width 17.8 % (12.1-15.1); White Blood Count 5.64 10^3/uL (3.29-11.43)
[2024-11-13] MEDS: pantoprazole DR 40 mg Tablet PO (08:57)
[2024-11-13] MEDS: aspirin 325 mg EC Tablet PO (08:57)
[2024-11-13] MEDS: iron sucrose 200 MG in sodium chloride 0.9% (100 ml) 100 ML 220 MG IV (08:57)
[2024-11-13] MEDS: carvedilol 3.125 mg Tablet PO ×2 (08:57→17:23)
[2024-11-13] MEDS: norepinephrine 4 MG/250 ML BAG 26.25 MG IV (09:24)
--- NOTE | 2024-11-13 11:11 | P.PN_ITS ---
Subjective 2 Subjective: 84-year-old male on Levophed i n the ICU postoperatively. Hematocrit has dropped this morning to 21. He has just been on full dose aspirin for anticoagulation due to low blood pressure and drop in crit but still worsening. Patient states he ate a good breakfast denies chest pain nausea vomiting shortness of breath Medications: Reviewed: Yes Vitals/I&O/Wt Last Vital Signs Temp 97 F L 11/13/24 07:45 Pulse 68 11/13/24 10:15 Resp 16 11/13/24 10:15 BP 87/51 11/13/24 10:15 Pulse Ox 92 11/13/24 09:30 O2 Del Method Room Air 11/13/24 05:45 O2 Flow Rate 1 11/12/24 04:45 11/12/24 11/13/24 11/13/24 22:59 06:59 14:59 Intake Total 1792.625 / 3272.000 101 / 3373.000 680.188 / 680.188 Output Total 250 / 250 350 / 600 Balance 1542.625 / 3022.000 -249 / 2773.000 680.188 / 680.188 Weight last 48 hrs Weight 77.156 kg Weight 68.946 kg Weight 69.485 kg Physical Exam 2 Narrative: General well-developed well-nourished male in no acute cardiopulmonary stress CV irregularly irregular rate and rhythm with a 5/6 systolic ejection murmur murmur best heard at the right upper sternal border and radiates of the chest to the neck Lungs clear to auscultation bilaterally with poor effort Abdomen positive bowel sounds soft nontender Calves pneumatic compression boots present bilaterally no significant swelling Exam mild swelling of the right hip he is mildly tender Skin with pallor but no diaphoresis Urinary Catheter Management: Vogt: Cath Placed During This Visit: yes Reason for Continuing Indwelling Catheter: Accurate Measurement of Urinary Output in Critically Ill Patients Urinary Catheter Date of Insertion: 11/11/24 Urinary Catheter Time of Insertion: 12:00 Data 11/13/24 04:02 11/12/24 03:08 A&P Assessment and plan (1) Acute blood loss as cause of postoperative anemia: This is complicating his coronary artery disease and need for antiplatelet therapy. Risks and benefits deem that we should stop the aspirin for now. Give 2 units packed red cells. He was also given iron infusion overnight by the night hospitalist (2) Fracture of hip: Patient status post repair with some hypotension attributed to hypovolemia and oozing into the hip Hematocrit dropped to 21 and he is on pressors will give 2 units packed red cell (3) Aortic stenosis: EKG is sinus with nonspecific ST-T wave changes. Echo 02/2024 showed LVEF 60 to 65% moderate to severe . 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 No current active cardiac symptoms reported. Underlying cardiac disease increases perioperative risk. Does not appear to be on antiplatelet medication. Continue beta-magi. Statin allergy. On Repatha. Aspirin held due to bleeding Plan Peripheral arterial disease with stents : History of peripheral arterial disease with stent placement. No acute limb symptoms reported. With statin allergy. On Repatha. - Monitor for vascular complications perioperatively. Prostate cancer (remission) : History of prostate cancer, treated with radiation, currently in remission. No active treatment ongoing. Bladder cancer (under surveillance) : History of bladder cancer with ongoing surveillance and recent intervention (intermittent bladder clean out per patient and his ). No current active bleeding reported but with history of hematuria and related anemia. - Continue urology follow-up for bladder cancer surveillance. Chronic kidney disease (stage 4) : Chronic kidney disease, stage 4. Cannot receive contrast dye due to renal impairment. Renal function monitored regularly. - Monitor renal function during hospitalization. Anemia : History of anemia, previously requiring transfusions. History of hematuria. Additionally reports some dark stools he states due to medications. Will check iron studies. Obtain Hemoccult. Discussed risk of further blood loss with hip fracture and surgery. - Monitor hemoglobin and hematocrit levels. - Transfuse as needed based on clinical status and lab results. Aortic valve disease (under evaluation) : Moderate to severe risk stenosis. Follows with cardiology for aortic valve disease under evaluation for possible replacement. At risk of hypotension. Blood pressures usually run soft. Reviewed echocardiogram. - Continue cardiology follow-up for valve disease. PDMP PDMP Reviewed: Not Reviewed Attestations 2 Medical Necessity Statement*: Patient will be in the hospital for additional blood transfusion and aspirin held. Anticipate additional 2 midnights in the hospital Coding Level of Care Code 45629 Diagnoses Acute blood loss as cause of postoperative anemia D62 Fracture of hip S72.009A Nonrheumatic aortic valve stenosis I35.0 Cardiac valve disease etiology: nonrheumatic Hypotension (arterial) I95.9 S/P CABG (coronary artery bypass graft) Z95.1 Time Spent (min) 35
--- NOTE | 2024-11-13 12:04 | PC.NURSE ---
Dr christy here aware of h and h order noted for prbc , started slowly, monitor vs and remains on levophed gtt
--- NOTE | 2024-11-13 14:50 | P.PN_ITS ---
Subjective 2 Subjective: This 84-year-old gentleman underwent open reduction internal fixation of a right greater trochanteric fracture with intertrochanteric extension. Postoperatively, his blood pressure was low, and he was admitted to the intensive care unit. He has required Levophed for maintenance of his blood pressure, although his requirements are improving. The patient denies any other symptoms. H&H dropped causing the need for transfusion today. Medications: Reviewed: Yes Vitals/I&O/Wt Last Vital Signs Temp 97.4 F L 11/13/24 14:34 Pulse 68 11/13/24 14:34 Resp 22 H 11/13/24 14:34 BP 98/47 11/13/24 14:24 Pulse Ox 96 11/13/24 14:34 O2 Del Method Room Air 11/13/24 05:45 O2 Flow Rate 1 11/12/24 04:45 11/12/24 11/13/24 11/13/24 22:59 06:59 14:59 Intake Total 1792.625 / 3272.000 101 / 3373.000 1380.188 / 1380.188 Output Total 250 / 250 350 / 600 Balance 1542.625 / 3022.000 -249 / 2773.000 1380.188 / 1380.188 Weight last 48 hrs Weight 170 lb 1.6 oz Weight 152 lb Physical Exam 2 Const: COMMON NORMALS: no acute distress, average body habitus, patient oriented x3 and alert GENERAL APPEARANCE: cooperative and comfortable O RIENTATION/CONSCIOUSNESS: Yes awake HENMT: COMMON NORMALS: normocephalic and atraumatic HEAD & SCALP: n ormocephalic and atraumatic Eye: GENERAL EYE: appearance normal, both eyes and all related structures Chest: COMMONS NORMALS: normal inspection of the chest Resp: COMMON NORMALS: normal respiratory effort EFFORT & INSPECTION: Yes able to speak in complete sentences and Yes symmetric chest movement Extremity: RIGHT LOWER EXTREMITY: Yes hip joint (Minimal swelling.) Right hip: Yes inspection (Dressings are dry and intact) and Yes neurovascular exam (No evidence of DVT, motor and sensory function intact) Neuro: COMMON NORMALS: patient oriented x3 SENSORIUM/ORIENTATION: Yes alert Psych: COMMON NORMALS: mental status grossly normal APPEARANCE: Yes grossly normal ATTITUDE: Yes calm and Yes engaged ATTENTION/CONCENTRATION: Yes attention grossly intact Skin: COMMON NORMALS: no rashes or lesions noted GENERAL SKIN EXAM: no rashes or lesions noted Urinary Catheter Management: Vogt: Cath Placed During This Visit: yes Reason for Continuing Indwelling Catheter: Accurate Measurement of Urinary Output in Critically Ill Patients Urinary Catheter Date of Insertion: 11/11/24 Urinary Catheter Time of Insertion: 12:00 Data 11/13/24 04:02 11/12/24 03:08 A&P Assessment and plan (1) Closed intertrochanteric fracture of right hip: This 84-year-old gentleman was admitted through the emergency department today after a fall at home. Reportedly, he was walking down about 3 steps in his home where he lives with his . He missed the last step falling onto his right side and suffering the above injury. Patient underwent open reduction internal fixation of his right intertrochanteric hip fracture. He has remained in the ICU postoperatively secondary to diminished blood pressures. He received 2 units of packed red blood cells today, and these are improving. Plan is that he will go to the floor tomorrow provided blood pressure remains responsive. (2) Fracture of greater trochanter of right femur: PDMP PDMP Reviewed: Not Reviewed Attestations 2 Medical Necessity Statement*: Per hospitalist team Coding Level of Care Code Acute Code for Chg Fwd Diagnoses Closed nondisplaced intertrochanteric fracture of right femur, initial encounter S72.144A Encounter type: initial encounter Fracture alignment: nondisplaced Closed nondisplaced fracture of greater trochanter of right femur, initial encounter S72.114A Encounter type: initial encounter Fracture alignment: nondisplaced Fracture type: closed
--- NOTE | 2024-11-13 15:53 | PC.NURSE ---
up ambulated few steps in room with walker ,sat up in recliner for approx 30 min 2nd unit of prbc infusing at this time
[2024-11-13] MEDS: alfuzosin 10 mg ER Tablet PO (20:32)
[2024-11-14] VITALS (48 sets, daily range): BP systolic 79–130; BP diastolic 50–79; PULSE 65–100; RESP 4–21; TEMP 36.6–37.6; O2SAT 90–97
[2024-11-14 04:42] LABS: Basophils % 0.3 %; Eosinophils # 0.3 10^3/uL (0.0-0.8); Hematocrit 32.2 % (37-53); Lymphocytes # 1.6 10^3/uL (0.8-4.8); Lymphocytes % 25.3 %; Mean Platelet Volume 10.4 fL (7.4-10.4); Monocytes # 0.8 10^3/uL (0.2-0.9); Monocytes % 12.7 %; Neutrophils % 54.1 %; Nucleated Red Blood Cells % 0.3 %; Platelet Count 146 10^3/cmm (157-399); Red Blood Count 3.32 10^6/uL (3.85-5.65); Red Cell Distribution Width 18.4 % (12.1-15.1); White Blood Count 6.47 10^3/uL (3.29-11.43)
[2024-11-14 04:59] LABS: Anion Gap 14.8 (5-19); Blood Urea Nitrogen 33 mg/dL (8-23); Calcium 8.5 mg/dL (8.5-10.5); Carbon Dioxide 20 mmol/L (22-29); Chloride 111 mmol/L (98-107); Creatinine Clr Calc Pharmacy 19.2062; Glucose 88 mg/dL (65-115); Osmolality Calculated 301 mOsm/kg (285-295); Potassium 3.8 mmol/L (3.5-5.1); Sodium 142 mmol/L (136-145)
[2024-11-14] MEDS: iron sucrose 200 MG in sodium chloride 0.9% (100 ml) 100 ML 220 MG IV (08:39)
[2024-11-14] MEDS: pantoprazole DR 40 mg Tablet PO (08:39)
[2024-11-14] MEDS: carvedilol 3.125 mg Tablet PO ×2 (08:39→17:49)
--- NOTE | 2024-11-14 09:22 | PC.SOCIAL ---
IMM Update Pg. 2 of IMM updated. Copy provided at bedside.
--- NOTE | 2024-11-14 13:06 | XRR_ITS ---
PROCEDURE INFORMATION: Exam: XR Chest Exam date and time: 11/14/2024 1:31 PM Age: 84 years old Clinical indication: Cough and other: Poss pneumonia; Prior surgery; Surgery date: 6+ months; Surgery type: Open heart; Additional info: Assess for pneumonia TECHNIQUE: Imaging protocol: Radiologic exam of the chest. Views: 1 view. COMPARISON: CR XR chest 1V portable [id number] 11/11/2024 8:21 AM FINDINGS: Lungs: Suboptimal pulmonary expansion with associated accentuation of bronchovascular markings. No acute pulmonary pathology. Pleural spaces: No pleural effusion. Heart/Mediastinum: Cardiomediastinal contours accentuated by low lung volumes and AP technique. Bones/joints: Prior median sternotomy. Degenerative changes again seen in the shoulders. XR/XR chest 1V portable [id number] IMPRESSION: No acute pathology or significant interval change given technique.
--- NOTE | 2024-11-14 13:21 | P.PN_ITS ---
Subjective 2 Subjective: Chart reviewed. Blood pressure 87/52 this morning. Patient denies any symptoms. Noted to have some hematuria. Medications: Reviewed: Yes Vitals/I&O/Wt Last Vital Signs Temp 99.7 F H 11/14/24 09:30 Pulse 88 11/14/24 09:30 Resp 14 11/14/24 09:30 BP 87/52 11/14/24 10:00 Pulse Ox 94 11/14/24 09:30 O2 Del Method Room Air 11/14/24 09:30 O2 Flow Rate 1 11/12/24 04:45 11/13/24 11/14/24 11/14/24 22:59 06:59 14:59 Intake Total 1004.375 / 2384.563 Output Total 350 / 350 500 / 850 Balance 654.375 / 2034.563 -500 / 1534.563 Weight last 48 hrs Weight 77.111 kg Weight 77.156 kg Physical Exam 2 Narrative: General: No acute distress, AO x3 HEENT: PERRLA, pupils bilaterally equal and reactive, pallors not present Chest: Normal vesicular breath sounds, no added sounds, equal good air entry bilaterally CVS: S1-S2 regular, no murmurs, no tachycardia, no gallops, no rubs Abdomen: Soft, nontender, no organomegaly, bowel sounds present Neuro: No focal deficits, no facial deformity, AO x3, power 5/5 in all limbs Urinary Catheter Management: Vogt: Cath Placed During This Visit: yes Reason for Continuing Indwelling Catheter: Accurate Measurement of Urinary Output in Critically Ill Patients Urinary Catheter Date of Insertion: 11/11/24 Urinary Catheter Time of Insertion: 12:00 Data 11/14/24 04:04 11/14/24 04:04 A&P Assessment and plan (1) Acute blood loss as cause of postoperative anemia: This is complicating his coronary artery disease and need for antiplatelet therapy. Risks and benefits deem that we should stop the aspirin for now. Give 2 units packed red cells. He was also given iron infusion overnight by the night hospitalist (2) Fracture of hip: Patient status post repair with some hypotension attributed to hypovolemia and oozing into the hip Hematocrit dropped to 21 and he is on pressors will give 2 units packed red cell (3) Aortic stenosis: EKG is sinus with nonspecific ST-T wave changes. Echo 02/2024 showed LVEF 60 to 65% moderate to severe . 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 No current active cardiac symptoms reported. Underlying cardiac disease increases perioperative risk. Does not appear to be on antiplatelet medication. Continue beta-magi. Statin allergy. On Repatha. Aspirin held due to bleeding Plan Peripheral arterial disease with stents : History of peripheral arterial disease with stent placement. No acute limb symptoms reported. With statin allergy. On Repatha. - Monitor for vascular complications perioperatively. Prostate cancer (remission) : History of prostate cancer, treated with radiation, currently in remission. No active treatment ongoing. Bladder cancer (under surveillance) : History of bladder cancer with ongoing surveillance and recent intervention (intermittent bladder clean out per patient and his ). No current active bleeding reported but with history of hematuria and related anemia. - Continue urology follow-up for bladder cancer surveillance. Chronic kidney disease (stage 4) : Chronic kidney disease, stage 4. Cannot receive contrast dye due to renal impairment. Renal function monitored regularly. - Monitor renal function during hospitalization. Anemia : History of anemia, previously requiring transfusions. History of hematuria. Additionally reports some dark stools he states due to medications. Will check iron studies. Obtain Hemoccult. Discussed risk of further blood loss with hip fracture and surgery. - Monitor hemoglobin and hematocrit levels. - Transfuse as needed based on clinical status and lab results. Aortic valve disease (under evaluation) : Moderate to severe risk stenosis. Follows with cardiology for aortic valve disease under evaluation for possible replacement. At risk of hypotension. Blood pressures usually run soft. Reviewed echocardiogram. - Continue cardiology follow-up for valve disease. November 14, 2024 Hemoglobin is stable at 10.3 this morning. Platelet count at 146. Tmax noted to be at 99.7 Fahrenheit. Patient denies any current symptoms. Will check respiratory viral panel, chest x-ray as consideration for atelectasis postoperatively, additionally check UA and urine culture. Noted to have hematuria with blood-tinged urine in the catheter and bag. Patient last had cystoscopy evaluation with ?Fulguration for bladder cancer. No gross hematuria or clot noted currently. Will remove Vogt catheter today.He has been off Levophed since last evening. PDMP PDMP Reviewed: Not Reviewed Attestations 2 Medical Necessity Statement*: Remove Vogt, low-grade fever, evaluation as above. Coding Level of Care Code Acute Code for Chg Fwd Diagnoses Acute blood loss as cause of postoperative anemia D62 Fracture of hip S72.009A Nonrheumatic aortic valve stenosis I35.0 Cardiac valve disease etiology: nonrheumatic Hypotension (arterial) I95.9 S/P CABG (coronary artery bypass graft) Z95.1
[2024-11-14 14:06] LABS: Bilirubin Urine Negative (Negative); Blood Urine 3+ (Negative); Glucose Urine UA Negative (Normal); Ketones Urine Negative (Negative); Leukocyte Esterase Urine 2+ (Negative); Nitrate Urine Negative (Negative); Protein Urine 2+ (Negative); Specific Gravity, Urine 1.018 (1.005-1.030); Urine Appearance Cloudy (CLEAR); Urobilinogen Urine 0.2 mg/dL (Negative)
[2024-11-14 14:09] LABS: Add Urine Microscopic? YES; Bacteria Urine None Seen /hpf; Hyaline Casts Urine 6.17 /lpf; RBC Urine >100 /hpf (0-2); WBC Urine 21-50 /hpf (0-5)
[2024-11-14 14:20] LABS: Urine Color Red (Yellow)
[2024-11-14 15:54] LABS: Adenovirus Not Detected (NOT DETECT); Chlamydia Pneumoniae Not Detected (NOT DETECT); Coronavirus 229E,HKU1,NL63,OC4 Not Detected (NOT DETECT); Human Metapneumovirus Not Detected (NOT DETECT); Human Rhinovirus/Enterovirus Not Detected (NOT DETECT); Influenza A Not Detected (NOT DETECT); Influenza A H1 Not Detected (NOT DETECT); Influenza A H1-2009 Not Detected (NOT DETECT); Influenza A H3 Not Detected (NOT DETECT); Influenza B Not Detected (NOT DETECT); Mycoplasma Pneumoniae Not Detected (NOT DETECT); Parainfluenza Virus Type 1 Not Detected (NOT DETECT); Parainfluenza Virus Type 2 Not Detected (NOT DETECT); Parainfluenza Virus Type 3 Not Detected (NOT DETECT); Parainfluenza Virus Type 4 Not Detected (NOT DETECT); Respiratory Syncytial Virus A Not Detected (NOT DETECT); Respiratory Syncytial Virus B Not Detected (NOT DETECT); SARS-COV-2 Not Detected (NOT DETECT)
[2024-11-14] MEDS: alfuzosin 10 mg ER Tablet PO (21:15)
[2024-11-15] VITALS (24 sets, daily range): BP systolic 100–130; BP diastolic 61–80; PULSE 69–83; RESP 10–19; TEMP 36.2–36.4; O2SAT 90–97
[2024-11-15 03:59] LABS: Alanine Aminotransferase < 5 U/L (0-41); Albumin Level 2.9 g/dL (3.5-5.2); Alkaline Phosphatase 139 U/L (40-130); Anion Gap 15.1 (5-19); Aspartate Amino Transferase 24 U/L (0-40); Blood Urea Nitrogen 34 mg/dL (8-23); Carbon Dioxide 21 mmol/L (22-29); Chloride 110 mmol/L (98-107); Creatinine Clr Calc Pharmacy 19.9124; Globulin 2.4 g/dL (1.3-4.6); Glucose 86 mg/dL (65-115); Osmolality Calculated 301 mOsm/kg (285-295); Potassium 4.1 mmol/L (3.5-5.1); Sodium 142 mmol/L (136-145); Total Bilirubin 0.5 mg/dL (0.15-1.2); Total Protein 5.3 g/dL (6.6-8.7)
[2024-11-15 08:26] LABS: Basophils % 0.6 %; Eosinophils # 0.2 10^3/uL (0.0-0.8); Eosinophils % 4.1 %; Hematocrit 34.4 % (37-53); Lymphocytes # 1.7 10^3/uL (0.8-4.8); Lymphocytes % 30.9 %; Mean Corpuscular HGB Conc 32.6 g/dL (30-55); Mean Corpuscular Volume 95.3 fl (82-101); Mean Platelet Volume 10.6 fL (7.4-10.4); Monocytes # 0.7 10^3/uL (0.2-0.9); Monocytes % 13.4 %; Neutrophils # 2.51 10^3/uL (1.8-7.7); Neutrophils % 46.2 %; Nucleated Red Blood Cells % 0 %; Platelet Count 146 10^3/cmm (157-399); Red Blood Count 3.61 10^6/uL (3.85-5.65); Red Cell Distribution Width 18.4 % (12.1-15.1); White Blood Count 5.43 10^3/uL (3.29-11.43)
[2024-11-15] MEDS: carvedilol 3.125 mg Tablet PO (08:51)
[2024-11-15] MEDS: pantoprazole DR 40 mg Tablet PO (08:51)
[2024-11-15] MEDS: iron sucrose 200 MG in sodium chloride 0.9% (100 ml) 100 ML 220 MG IV (08:51)
--- NOTE | 2024-11-15 10:41 | PM.DCS ---
Discharge Providers Date of Admission: 11/11/24 12:38 Date of Discharge: November 15, 2024 Attending Provider at Admission: Ray Brannon Attending Provider at Discharge: Janette Ortiz MD Primary Care Provider: Andry Laurent MD Diagnoses at Discharge Discharge Diagnosis (1) Acute blood loss as cause of postoperative anemia: Status: Acute (2) Fracture of hip: Status: Acute (3) Aortic stenosis: Status: Acute Qualifiers: Cardiac valve disease etiology: nonrheumatic Qualified Code(s): I35.0 - Nonrheumatic aortic (valve) stenosis (4) Hypotension (arterial): Status: Acute (5) S/P CABG (coronary artery bypass graft): Status: Acute Reason for Visit Reason for Visit: fall Hospital Course Hospital Course Augusto Quispe is a 84 year old male with a history of coronary artery disease (status post triple bypass), aortic aneurysm (with stents and ongoing surveillance), peripheral arterial disease, prior prostate and bladder cancer (bladder under surveillance and history of radiation for prostate cancer), chronic kidney disease (stage 4), anemia, and moderate to severe aortic valve stenosis (undergoing evaluation for possible replacement), presenting after a mechanical fall at home resulting in right hip fracture. On November 11 he underwent Open reduction internal fixation right intertrochanteric hip fracture with trochanteric nail. Postoperative course was notable for acute blood loss anemia Which resulted in hypotension and a hemoglobin dropped to 6.7. He received blood transfusion for symptomatic anemia following which his hemoglobin has now stabilized at 11.2 at the time of discharge. Patient additionally has noted to have chronic CKD with a baseline creatinine between 2.1-3.5. At the time of discharge his creatinine is at 2.7 which is his baseline. Patient was additionally noted to have mild hematuria during the course of this admission which patient states is chronic for him. He has a known history of bladder cancer and underwent fulguration about a week ago with his urologist. There are no major blood clots or any urinary outflow obstruction encountered. Vogt catheter was removed on November 14, 2024 and patient has been voiding urine. His urine output is 1200 cc in the last 24 hours. Postsurgery patient needed to be on Levophed but this was able to be weaned off by November 13, 2024. Discharge summary Patient was evaluated by physical therapy, discharged with home health is recommended and this has been arranged for the patient. He has assistive devices at home to help with ambulation. With regards to DVT prophylaxis, aspirin 81 mg is being chosen instead of full dose aspirin or DOAC's due to high bleeding risk as demonstrated by chronic hematuria and acute blood loss anemia during the course of his hospitalization. Patient is instructed to follow-up with his primary care physician for a recheck of CBC within 1 week of discharge. To report to emergency room in case of worsening hematuria. He had a Tmax of 99.7 on 11/14/2024 without other localizing signs or symptoms of infection. Potentially this may be related to atelectasis. Chest x-ray did not show any consolidation. Urine analysis showed hematuria and 21-50 WBCs. Negative nitrite and 2+ leukocyte esterase. Potentially this may be related to catheterization or hematuria however possibility of UTI not excluded. He is being discharged with an empiric course for oral ciprofloxacin while urine culture remains pending. Physical Exam Narrative: General: No acute distress, AO x3 HEENT: PERRLA, pupils bilaterally equal and reactive, pallors not present Chest: Normal vesicular breath sounds, no added sounds, equal good air entry bilaterally CVS: S1-S2 regular, no murmurs, no tachycardia, no gallops, no rubs Abdomen: Soft, nontender, no organomegaly, bowel sounds present Neuro: No focal deficits, no facial deformity, AO x3, power 5/5 in all limbs Urinary Catheter Management: Vogt: Cath Placed During This Visit: yes, but has since been removed by the nurse Reason for Continuing Indwelling Catheter: Decision to DC Catheter Urinary Catheter Date of Insertion: 11/11/24 Urinary Catheter Time of Insertion: 12:00 Date Urinary Catheter Removed: 11/14/24 Time Urinary Catheter Discontinued: 15:09 Discharge Data Studies Completed and Pending Completed Studies During Hospitalization Category Date Time Status CT hip RT wo con* [id number] Stat Cat Scan 11/11/24 08:33 Completed CXRP [XR chest 1V portable [id number]] Routine Exams 11/14/24 13:06 Completed CXRP [XR chest 1V portable [id number]] Stat Exams 11/11/24 08:19 Completed XR hip RT 2-3V wo/w pel* [id number] Routine Exams 11/11/24 17:15 Completed XR hip RT 2-3V wo/w pel* [id number] Stat Exams 11/11/24 08:19 Completed Pending at discharge Category Date Time Status PRBC [Leukocyte Reduced RBC] Stat Lab 11/11/24 10:31 Results Type and Screen Stat Lab 11/11/24 10:31 Results Urine Culture Routine Lab 11/14/24 13:23 Results Radiology Impressions Hip CT 11/11/24 08:33 IMPRESSION: 1. Nondisplaced comminuted fractures involving the greater trochanter slightly extending into the subtrochanteric femur. 2. Advanced degenerative arthritis RIGHT hip. 3. No other acute findings. Hip/Pelvis X-Ray 11/11/24 17:15 IMPRESSION: Status post ORIF RIGHT hip fracture. Chest X-Ray 11/14/24 13:06 IMPRESSION: No acute pathology or significant interval change given technique. Laboratory Results WBC 5.43 10^3/uL (3.29-11.43) 11/15/24 03:12 RBC 3.61 10^6/uL (3.85-5.65) L 11/15/24 03:12 Hgb 11.20 g/dL (11.27-16.99) L 11/15/24 03:12 Hct 34.4 % (37-53) L 11/15/24 03:12 MCV 95.3 fl (82-101) 11/15/24 03:12 MCH 31.0 pg (27-33) 11/15/24 03:12 MCHC 32.6 g/dL (30-55) 11/15/24 03:12 RDW 18.4 % (12.1-15.1) H 11/15/24 03:12 Plt Count 146 10^3/cmm (157-399) L 11/15/24 03:12 MPV 10.6 fL (7.4-10.4) H 11/15/24 03:12 Neut % (Auto) 46.2 % 11/15/24 03:12 Lymph % (Auto) 30.9 % 11/15/24 03:12 Campbell % (Auto) 13.4 % 11/15/24 03:12 Eos % (Auto) 4.1 % 11/15/24 03:12 Baso % (Auto) 0.6 % 11/15/24 03:12 Reticulocyte % (Auto) 3.3 % (0.5-2.0) H 11/12/24 03:08 Neut # (Auto) 2.51 10^3/uL (1.8-7.7) 11/15/24 03:12 Lymph # (Auto) 1.7 10^3/uL (0.8-4.8) 11/15/24 03:12 Campbell # (Auto) 0.7 10^3/uL (0.2-0.9) 11/15/24 03:12 Eos # (Auto) 0.2 10^3/uL (0.0-0.8) 11/15/24 03:12 Baso # (Auto) 0.0 10^3/uL (0.0-0.1) 11/15/24 03:12 Nucleated RBC % (auto) 0 % 11/15/24 03:12 Nucleated RBCs # 0.0 /100WBC 11/15/24 03:12 PT 15.00 SECONDS (12.1-14.9) H 11/12/24 03:08 INR 1.10 (0.8-1.2) 11/12/24 03:08 APTT 27.5 SECONDS (23.9-36.7) 11/12/24 03:08 Sodium 142 mmol/L (136-145) 11/15/24 03:12 Potassium 4.1 mmol/L (3.5-5.1) 11/15/24 03:12 Chloride 110 mmol/L (98-107) H 11/15/24 03:12 Carbon Dioxide 21 mmol/L (22-29) L 11/15/24 03:12 Anion Gap 15.1 (5-19) 11/15/24 03:12 BUN 34 mg/dL (8-23) H 11/15/24 03:12 Creatinine 2.7 mg/dL (0.7-1.2) H 11/15/24 03:12 GFR Calculation Not Reportable 11/15/24 03:12 Glucose 86 mg/dL (65-115) 11/15/24 03:12 Calculated Osmolality 301 mOsm/kg (285-295) H 11/15/24 03:12 Calcium 9.0 mg/dL (8.5-10.5) 11/15/24 03:12 Phosphorus 3.1 mg/dL (2.5-4.5) 11/12/24 03:08 Magnesium 2.0 mg/dL (1.7-2.3) 11/12/24 03:08 Iron 22 ug/dL (59-158) L 11/12/24 03:08 TIBC 243 mcg/dl 11/12/24 03:08 % Saturation 9.0 % (20-50) L 11/12/24 03:08 Unsat Iron Binding 221 ug/dL (112-347) 11/12/24 03:08 Ferritin 274 ng/mL (30-400) 11/11/24 09:54 Total Bilirubin 0.5 mg/dL (0.15-1.2) 11/15/24 03:12 AST 24 U/L (0-40) 11/15/24 03:12 ALT < 5 U/L (0-41) 11/15/24 03:12 Alkaline Phosphatase 139 U/L (40-130) H 11/15/24 03:12 NT-Pro-B Natriuret Pep 710 pg/mL (0-450) H 11/11/24 09:54 Total Protein 5.3 g/dL (6.6-8.7) L 11/15/24 03:12 Albumin 2.9 g/dL (3.5-5.2) L 11/15/24 03:12 Globulin 2.4 g/dL (1.3-4.6) 11/15/24 03:12 Urine Color Red (Yellow) A 11/14/24 13:23 Urine Appearance Cloudy (CLEAR) A 11/14/24 13:23 Urine pH 6.0 (5-7) 11/14/24 13:23 Ur Specific [place] 1.018 (1.005-1.030) 11/14/24 13:23 Urine Protein 2+ (Negative) A 11/14/24 13:23 Urine Glucose (UA) Negative (Normal) 11/14/24 13:23 Urine Ketones Negative (Negative) 11/14/24 13:23 Urine Blood 3+ (Negative) A 11/14/24 13:23 Urine Nitrate Negative (Negative) 11/14/24 13:23 Urine Bilirubin Negative (Negative) 11/14/24 13:23 Urine Urobilinogen 0.2 mg/dL (Negative) 11/14/24 13:23 Ur Leukocyte Esterase 2+ (Negative) A 11/14/24 13:23 Urine RBC >100 /hpf (0-2) H 11/14/24 13:23 Urine WBC 21-50 /hpf (0-5) H 11/14/24 13:23 Ur Squamous Epith Cells 11-20 /hpf (0-5) H 11/14/24 13:23 Amorphous Sediment Not Reportable 11/14/24 13:23 Urine Bacteria None seen /hpf (NONE) 11/14/24 13:23 Hyaline Casts 6.17 /lpf 11/14/24 13:23 Adenovirus (PCR) Not detected (NOT DETECT) 11/14/24 13:23 C. pneumoniae DNA (PCR) Not detected (NOT DETECT) 11/14/24 13:23 Coronavirus 229E (PCR) Not detected (NOT DETECT) 11/14/24 13:23 Human Metapneumovir PCR Not detected (NOT DETECT) 11/14/24 13:23 Influenza A (H1) PCR Not detected (NOT DETECT) 11/14/24 13:23 Influ A (H1/09) PCR Not detected (NOT DETECT) 11/14/24 13:23 Influenza A (H3) PCR Not detected (NOT DETECT) 11/14/24 13:23 Influenza Type A (PCR) Not detected (NOT DETECT) 11/14/24 13:23 Influenza Type B (PCR) Not detected (NOT DETECT) 11/14/24 13:23 M. pneumoniae (PCR) Not detected (NOT DETECT) 11/14/24 13:23 Parainfluenza 1 (PCR) Not detected (NOT DETECT) 11/14/24 13:23 Parainfluenza 2 (PCR) Not detected (NOT DETECT) 11/14/24 13:23 Parainfluenza 3 (PCR) Not detected (NOT DETECT) 11/14/24 13:23 Parainfluenza 4 (PCR) Not detected (NOT DETECT) 11/14/24 13:23 RSV Type A (PCR) Not detected (NOT DETECT) 11/14/24 13:23 RSV Type B (PCR) Not detected (NOT DETECT) 11/14/24 13:23 Entero/Rhino (PCR) Not detected (NOT DETECT) 11/14/24 13:23 SARS-CoV-2 (PCR) Not detected (NOT DETECT) 11/14/24 13:23 Blood Type A Positive 11/11/24 10:31 Rho(D) Type Rh positive 11/11/24 10:31 Antibody Screen Negative 11/11/24 10:31 Crossmatch See Detail 11/11/24 10:31 Vitals Last Vital Signs Temp 97.1 F L 11/15/24 09:30 Pulse 81 11/15/24 10:00 Resp 18 11/15/24 10:00 BP 103/67 11/15/24 10:00 Pulse Ox 96 11/15/24 10:00 O2 Del Method Room Air 11/15/24 10:00 O2 Flow Rate 1 11/12/24 04:45 Discharge Plan Discharge Patient Disposition: Home Condition: Stable Prescriptions: New aspirin 81 mg tablet 81 mg PO DAILY Qty: 30 0RF ciprofloxacin HCl 500 mg tablet 500 mg PO BID 3 Days Qty: 6 0RF Continued magnesium oxide 400 mg magnesium capsule 400 mg PO DAILY Centrum Silver Men 300-600-300 mcg tablet 1 tab PO DAILY cholecalciferol (vitamin D3) 25 mcg (1,000 unit) capsule 25 mcg PO DAILY pantoprazole 40 mg tablet,delayed release (DR/EC) 40 mg PO DAILY furosemide 40 mg tablet 40 mg PO DAILY potassium chloride 10 mEq capsule, extended release 10 meq PO DAILY alfuzosin 10 mg tablet extended release 24 hr 10 mg PO BEDTIME Repatha SureClick 140 mg/mL pen injector 140 mg SUBCUT Q14D acetaminophen [Tylenol] 325 mg Tablet 650 mg PO QID PRN (Reason: Fever Or Pain) carvedilol 3.125 mg tablet 3.125 mg PO BID Rx Instructions: Take 1 tablet by mouth twice daily Discharge Orders: Discharge Order (Routine); Ordered 11/15/24 Ordered By: Janette Ortiz Other Ambulatory Orders: DME: [facility] (Order) Location: None Selected Ordered By: Janette Ortiz Referrals: Andry Laurent MD [Primary Care Provider, Family Practice] - 11/22/24 7:45 am Discharge Diet: Usual diet Discharge Activity: Resume usual activity Patient Instructions: Acute Wound Care (DC), Hip Fracture (GEN), Opioid Safety, Post Anesthesia Care, Pain Management Discharge Attestations Time Spent in Discharge Care*: greater than 30 min Quality Metrics Clinical Quality Measures [ No reported AMI, CVA or VTE this stay] Coding Level of Care Code Acute Code for Chg Fwd Diagnoses Acute blood loss as cause of postoperative anemia D62 Fracture of hip S72.009A Nonrheumatic aortic valve stenosis I35.0 Cardiac valve disease etiology: nonrheumatic Hypotension (arterial) I95.9 S/P CABG (coronary artery bypass graft) Z95.1
--- NOTE | 2024-11-15 10:43 | PC.NURSE ---
Patient was given all discharge instructions. No new medications to go over. All IVs were taken off. Patient was stable during discharge.
== END 2024-11-15 10:32 | disposition home or self-care (01) | DRG 481 ==
LOC: ER 09:56 → MEDSURG 15:32 → ICU 19:29
PROVIDERS: Internal Medicine; Specialist; Admitting Provider Internal Medicine; Emergency Provider Emergency Medicine; PCP Family Medicine; Visit Provider Student in an Organized Health Care Education/Training Program
PROC: 0QS604Z Reposition Right Upper Femur with Internal Fixation Device, Open Approach (ICD-10-PCS; CPT 27245; principal; 2024-11-11 17:40)
DX: S72.144A Nondisplaced intertrochanteric fracture of right femur, initial encounter for closed fracture (principal); D62 Acute posthemorrhagic anemia; N18.4 Chronic kidney disease, stage 4 (severe); Z79.899 Other long term (current) drug therapy; Z88.8 Allergy status to other drugs, medicaments and biological substances; Z91.041 Radiographic dye allergy status; I25.10 Atherosclerotic heart disease of native coronary artery without angina pectoris; Z95.1 Presence of aortocoronary bypass graft; E78.5 Hyperlipidemia, unspecified; I71.40 Abdominal aortic aneurysm, without rupture, unspecified; Z87.891 Personal history of nicotine dependence; I12.9 Hypertensive chronic kidney disease with stage 1 through stage 4 chronic kidney disease, or unspecified chronic kidney disease; D63.1 Anemia in chronic kidney disease; I35.0 Nonrheumatic aortic (valve) stenosis; Z85.46 Personal history of malignant neoplasm of prostate; Z85.51 Personal history of malignant neoplasm of bladder; W19.XXXA Unspecified fall, initial encounter; I73.9 Peripheral vascular disease, unspecified; I95.9 Hypotension, unspecified; S72.114A Nondisplaced fracture of greater trochanter of right femur, initial encounter for closed fracture
CPT/HCPCS: 36415; 36430; 51702; 71045; 73502; 73700; 76000; 80048; 80053; 81001; 82728; 83540; 83550; 83735; 83880; 84100; 85025; 85045; 85610; 85730; 86850; 86900; 86920; 87086; 87486; 87581; 87633; 93005; 96374; 96375; 96376; 97110; 97116; 97161; 97165; 97530; 97535; 99285; C1713; C1776; J0131; J0690; J1756; J2270; J2405; J2704; J3010; J7030; J7040; J9999; P9016

== ENCOUNTER 2024-11-19 10:49 | Emergency (ER) | payer MEDICARE, OTHER, SELFPAY ==
[2024-11-19 10:50] VITALS: BP 111/75; PULSE 79; RESP 17; TEMP 37.1; O2SAT 95; BMI 25.8
--- NOTE | 2024-11-19 10:57 | XRR_ITS ---
PROCEDURE INFORMATION: Exam: XR Right Hip Exam date and time: 11/19/2024 11:30 AM Age: 84 years old Clinical indication: Right hip; Prior surgery; Surgery date: 3-7 days post-operative; RT hip pain; Post op RT hip surg x 1 week ago TECHNIQUE: Imaging protocol: Radiologic exam of the right hip. Views: 1 view hip with pelvis when performed. COMPARISON: OT XR hip RT 2-3V wo/w pel* [id number] 11/11/2024 4:18 PM FINDINGS: Bones/joints: Intramedullary edward in the proximal right femur with right hip screw. Mild adjacent soft tissue edema compatible with recent surgery. Diffusely decreased bone density. Generalized bony degenerative changes. Previously seen proximal right femoral fracture is not well seen at this time. No other acute bony fractures identified. Soft tissues: Surgical clip in the medial right upper thigh region. Surgical clips in the medial left upper thigh region. Vasculature: Calcifications in the pelvis, most compatible with phleboliths. Moderate diffuse atherosclerotic arterial vascular wall calcifications are demonstrated. Iliac stents bilaterally. Proximal extent not seen. Notes: If there is further concern, recommend follow-up radiographs or bone scan for complete assessment. XR/XR hip RT 2-3V wo/w pel* [id number] IMPRESSION: 1. Findings compatible with recent internal fixation of the proximal right femur. Mild adjacent edema. 2. Chronic bony degenerative changes. Decreased bone density. 3. Arterial vascular calcifications.
[2024-11-19] MEDS: acetaminophen 325 mg Tablet 650 MG PO (11:55)
--- NOTE | 2024-11-19 12:12 | W.ED.EXTPRO ---
HPI - Extremity Problem General: Chief complaint: Extremity Problem,Nontraumatic Stated complaint: HIP PAIN Time Seen by Provider: 11/19/24 10:57 History of Present Illness: Chief complaints right hip pain. The patient history is obtained from the patient and the . The patient states he had surgery on his right hip for a broken hip a week ago. He states that his pain has been tolerable but yesterday he did more activity than normal and it was hurting him yesterday evening and during the night and this morning. He states he is able to walk on it. No fall or repeat injury. No headache chest pain shortness of breath or cough. No new swelling in the legs. No fever. No vomiting or diarrhea. No numbness or tingling distally that is new. He states he did not have any pain medicine at home and has been taking Tylenol. Related Data Home Medications ?Medication ?Instructions ?Recorded ?Confirmed magnesium oxide 400 mg PO DAILY 10/28/19 11/11/24 [id number] 300 mcg-K 60 1 tab PO DAILY 10/28/19 11/11/24 mcg-lycop 600 mcg-lutein 300 mcg tablet (Centrum Silver Men) alfuzosin 10 mg tablet,extended 10 mg PO BEDTIME 11/07/20 11/11/24 release 24 hr cholecalciferol (vitamin D3) 25 25 mcg PO DAILY 11/12/20 11/11/24 mcg (1,000 unit) capsule furosemide 40 mg tablet 40 mg PO DAILY 08/26/23 11/11/24 potassium chloride 10 mEq 10 meq PO DAILY 08/26/23 11/11/24 capsule,extended release pantoprazole 40 mg tablet,delayed 40 mg PO DAILY 11/23/23 11/11/24 release carvedilol 3.125 mg tablet 3.125 mg PO BID 07/06/24 11/11/24 acetaminophen 325 mg tablet 650 mg PO QID PRN Fever Or Pain 11/11/24 11/11/24 (Tylenol) evolocumab 140 mg/mL subcutaneous 140 mg SUBCUT Q14D 11/11/24 11/11/24 pen injector (Marcellus Vincent) Previous Rx's ?Medication ?Instructions ?Recorded aspirin 81 mg tablet 81 mg PO DAILY #30 tabs 11/15/24 Allergies Allergy/AdvReac Type Severity Reaction Status Date / Time Iodinated Contrast Media Allergy Intermediate messes Verified 11/11/24 08:25 with kidney's tamsulosin Allergy ALGY-Rash Verified 11/11/24 08:25 pravastatin (From Pravachol) AdvReac Intermediate Unknown Verified 11/11/24 08:25 simvastatin (From Zocor) AdvReac Unknown Unknown Verified 11/11/24 08:25 PFSH ED PFSH: Medical History Bladder cancer BPH loc w urin obs/LUTS Bladder tumor Prostate CA Abdominal aortic aneurysm (AAA) Hyperlipidemia HTN (hypertension) Renal insufficiency Aortic stenosis Carotid stenosis, bilateral ASHD (arteriosclerotic heart disease) Surgical History Status post nasal surgery H/O hernia repair ABDOMINAL H/O transurethral resection of bladder tumor (TURBT) S/P CABG (coronary artery bypass graft) Family History Brother CAD (coronary artery disease) Mother , at age 61 Alzheimer disease Father , at age 81 No problems noted. Other Hypertension Social History Smoking and tobacco/nicotine status: former use of tobacco/nicotine Alcohol intake: never Substance/Drug Use: never Marital status: Current occupational status: retired Physical Exam Narrative: EXAM NARRATIVE: Patient is alert oriented no acute distress. Neck is supple. No icterus. Moist mucous membranes. Heart regular rhythm with significant murmur which patient is aware of. Lung sounds are clear. Abdomen soft nontender. Extremities warm well-perfused. He has mild edema in both legs that is pitting. No calf tenderness. His right hip surgical wounds are well-appearing with no erythema or drainage. He has a dry dressing in place. He has no pain with narrow range of motion of about 20 degrees. Beyond 20 to 25 degrees of flexion he has some pain in his right hip but he is able to sit up on his own without difficulty and without pain. He has intact pulses motor and sensation distally. Course Vital Signs: Vital signs: Vital Signs Temperature 98.7 F 11/19/24 10:50 Pulse Rate 79 11/19/24 10:50 Respiratory Rate 17 11/19/24 10:50 Blood Pressure 111/75 11/19/24 10:50 Pulse Oximetry 95 11/19/24 10:50 Oxygen Delivery Me thod Room Air 11/19/24 10:50 MDM - Extremity (Nontraumatic) Medical Decision Making Patient presents with pain approximately a week out postop per report from patient and the from having nail in his right hip for intertrochanteric fracture. Patient is not anticoagulated as he had some bleeding with surgery. He has some symmetric edema in his legs and he is not having any lower extremity pain or discomfort or chest pain or shortness of breath to suggest DVT. He tolerates neuro range of motion well without any pain. He sits up freely without any pain. He states he was able to ambulate at home from his bed to the ambulance bed. X-ray was ordered which did not show evidence of acute changes beyond what is expected postoperatively. I reviewed with Dr. Russo from orthopedist. He recommends continued outpatient management which is appropriate based on patient exam and history. Patient denies fever. I advised patient and regarding the difficulties in ascertaining infection early on. Postoperatively it would be difficult to detect significant infectious process with his low level of symptoms and patient feels this was from increased use yesterday which is likely. I discussed pain treatment and the patient does not want any pain medication stronger than Tylenol due to concern for potential adverse effects. His knows how to dose it. I gave him a Tylenol here. He wants to go home and watch and see how he does. I advised signs of infection to watch and return for including progressive or increasing pain continuing or fever or redness or swelling or any worse. Patient understands limits of ED evaluation and that I cannot exclude early infectious process at this time and he understands signs of developing infection to watch and return for and importance of close follow-up. Lab Data Radiology Impressions Hip/Pelvis X-Ray 11/19/24 10:57 IMPRESSION: 1. Findings compatible with recent internal fixation of the proximal right femur. Mild adjacent edema. 2. Chronic bony degenerative changes. Decreased bone density. 3. Arterial vascular calcifications. All radiology interpretation(s) finalized by discharge Discharge Plan Discharge Patient Disposition: Home Clinical Impression: Acute pain of right hip Condition: Stable Prescriptions: No Action magnesium oxide 400 mg magnesium capsule 400 mg PO DAILY Centrum Silver Men 300-600-300 mcg tablet 1 tab PO DAILY cholecalciferol (vitamin D3) 25 mcg (1,000 unit) capsule 25 mcg PO DAILY pantoprazole 40 mg tablet,delayed release (DR/EC) 40 mg PO DAILY furosemide 40 mg tablet 40 mg PO DAILY potassium chloride 10 mEq capsule, extended release 10 meq PO DAILY alfuzosin 10 mg tablet extended release 24 hr 10 mg PO BEDTIME Repatha SureClick 140 mg/mL pen injector 140 mg SUBCUT Q14D acetaminophen [Tylenol] 325 mg Tablet 650 mg PO QID PRN (Reason: Fever Or Pain) aspirin 81 mg tablet 81 mg PO DAILY Qty: 30 0RF carvedilol 3.125 mg tablet 3.125 mg PO BID Rx Instructions: Take 1 tablet by mouth twice daily Discharge Orders: Discharge ED (Routine); Ordered 11/19/24 Ordered By: Jason Chapman Referrals: Andry Laurent MD [Primary Care Provider, Family Practice] Patient Instructions: Pain Management Activity Restrictions/Additional Instructions: Call Dr. Mar's office for follow-up early this week. 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
[2024-11-19 12:25] VITALS: BP 126/76; PULSE 82; O2SAT 96
== END 2024-11-19 12:26 | disposition home or self-care (01) ==
PROVIDERS: Emergency Provider Emergency Medicine; PCP Family Medicine
DX: M25.551 Pain in right hip (principal); Z98.890 Other specified postprocedural states; Z87.891 Personal history of nicotine dependence; Z95.1 Presence of aortocoronary bypass graft; E78.5 Hyperlipidemia, unspecified; I10 Essential (primary) hypertension; Z85.51 Personal history of malignant neoplasm of bladder
CPT/HCPCS: 12345; 73502; 99283; J9999

== ENCOUNTER → 2024-11-23 15:41 | Outpatient (BNVA) | payer SELFPAY | PROVIDERS: PCP Family Medicine; Visit Provider Nurse Practitioner | DX: Z98.890 Other specified postprocedural states (principal) | CPT/HCPCS: 73502 ==

== ENCOUNTER → 2024-12-19 10:04 | Outpatient (BNVA) | payer MEDICARE, OTHER, SELFPAY | PROVIDERS: PCP Family Medicine; Visit Provider Nurse Practitioner | DX: S72.144A Nondisplaced intertrochanteric fracture of right femur, initial encounter for closed fracture (principal); X58.XXXA Exposure to other specified factors, initial encounter | CPT/HCPCS: 73502 ==

== ENCOUNTER 2025-01-17 18:12 | Emergency (ER) | payer MEDICARE, OTHER, SELFPAY ==
--- OUTSIDE RECORDS SUMMARY | 2024-11-03 12:00 | XMS_ITS ---
Author Organization [facility] Address [address] [place] [address] Care Team Providers Care Pulp Maker Name Role Phone Mehran ANAND, Andry Primary Care Provider ALEXEY Willingham [phone] REASON FOR VISIT 1 yr w/ ua/pvr/psa Encounters Encounter Location Date Provider Diagnosis [facility] [address] [place] [facility] [place] [address] 11/03/2024 ALEXEY VEE Plan Of Treatment No Information Progress Notes * Augusto QUISPE LDOB: [birth year] (84 yo M)Acc No.[id number]:11/03/2024 Patient: Augusto STRAUSS Provider: Julian VEE MD :1940 A ge:84 Y S ex:Male Date:11/03/2024 Address:[address] [place], [place] [id number] Pcp:Andry Laurent MD Subjective: * Chief Complaints: * 1 . 1 yr w/ ua/pvr/psa. * Medical History: Objective: * Vitals: Assessment: Plan: * Treatment: * Billing Information: * Visit Code: * Procedure Codes: * Electronic signature of AUST IN MD MARIUSZ on 01/17/2025 at 06:19 PM CDT Sign off status: Pending * Provider: Julian VEE MD Date: 11/03/2024 Generated for Printi ng/Fadanielg/eTransmitting on: 0 01/17/2025 06:19 PM CDT
--- OUTSIDE RECORDS SUMMARY | 2025-01-17 18:19 | XMS_ITS | Encounter Summary ---
Author Organization [facility] Address [address] [address] Phone Care Team Providers Care Respiratory Support Technician Name Role Phone Andry Laurent MD Primary Care Provider [phone] Encounter Details Date Type Department Care Team (Late Contact Info) Description 06/30/2019 Orders Only [place] Attainia, [address] [address] Dalton Peters MD [address] [address] Chronic kidney disease stage 3 (HCC) Social History Tobacco Use Types Packs/Day Years Used Date Smoking Tobacco: Former Smokeless Tobacco: Never Alcohol Use Standard Drinks/Week Comments No 0 (1 standard drink = 0.6 oz pur e alcohol) Sex and Gender Information Value Date Recorded Sex Assigned at Not on file Legal Sex Male 12:41 PM EST Gender Identity Not on file Sexual Orientation Not on file documented as of this encounter Plan of Treatment Upcoming Encounters Date Type Department Care Team (Late st Contact Info) Description 05/09/2025 9:30 AM POLICY DIRECTOR Office Visit [facility] [employer] [facility] [place] [address] Elsy Carpenter NP [address] [facility] [address] [place] [address] documented as of this encounter Procedures Procedure Name Priority Date/Time Associated Diagnosis Comments URINE ALBUMIN / CREATININE RATIO Routine 06/30/2019 8:26 AM POLICY DIRECTOR Chronic kidney disease stage 3 (HCC) PTH, INTACT Routine 06/30/2019 8:26 AM POLICY DIRECTOR Chronic kidney disease stage 3 (HCC) RENAL FUNCTION PANEL Routine 06/30/2019 8:26 AM POLICY DIRECTOR Chronic kidney disease stage 3 (HCC) documented in this encounter Results * PTH, intact (06/30/2019 8:26 AM POLICY DIRECTOR) Parathyroid Hormone, Intact 40 pg/mL Blood specimen (specimen) 06/30/2019 8:26 AM POLICY DIRECTOR Alberto Christina SanchezKENIA - 07/05/2019 6:11 AM POLICY DIRECTOR [employer] [address] [employer] [address] Manager Of Investigations: Jose Patel DO MPH CLIA: [id number] Dalton Peters MD LAB BLOOD ORDERABLES Fi nal Result * Urine albumin / creatinine ratio (06/30/2019 8:26 AM POLICY DIRECTOR) Creatinine, Urine Random 100 mg/dL Albumin, Urine 1.5 mg/dL Alb/Creat Ratio, Ur 15.00 mcg/mg Urine specimen (specimen) 06/30/2019 8:26 AM [facility] Alberto Christina SanchezKENIA - 07/05/2019 6:09 AM POLICY DIRECTOR [facility] lab [facility] [place] [address] [facility] [address] Manager Of Investigations: Jose Patel DO MPH CLIA: [id number] Dalton Peters MD LAB URINE ORDERABLES Fi nal Result * (ABNORMAL) Renal function panel (06/30/2019 8:26 AM POLICY DIRECTOR) Albumin 4.4 3.5 - 5.0 g/dL BUN 26(A) 4 - 21 mg/dL BUN/Creatinine Ratio 12.00 Calcium 9.7 8.7 - 10.7 mg/dL Chloride 106 99 - 108 Bicarbonate (CO2) 24 22 - 30 mmol/L Creatinine 2.20(A) 0.60 - 1.30 mg/dL eGFR 32.0 mL/min/1.7 3m*2 eGFR Non- 27.0 mL/min/1.7 3m*2 Glucose 100 Phosphorus, Serum 3.2 Potassium 4.6 3.4 - 5.5 Sodium 140 137 - 147 Blood specimen (specimen) 06/30/2019 8:26 AM POLICY DIRECTOR Narrative Christina Sanchez MA - 07/05/2019 6:08 AM POLICY DIRECTOR [facility] [place] [address] [address] [place] [address] Manager Of Investigations: Jose Patel DO MPH CLIA: [id number] us Dalton Peters MD LAB BLOOD ORDERABLES Fi nal Result documented in this encounter Visit Diagnoses Diagnosis Chronic kidney disease stage 3 (HCC) documented in this encounter Care Teams Respiratory Support Technician Relationship Specialty Start Date End Date Andry Laurent MD [address] [place] [phone] PCP - General Family Medicine 08/04/23 documented as of this encounter
--- OUTSIDE RECORDS SUMMARY | 2025-01-17 18:19 | XMS_ITS | Patient Health Record ---
Author Organization [facility] Address [address] [facility] [address] Care Team Providers Care Manufacturing Area Manager Name Role Phone Mehran ANAND, Andry Primary Care Provider Bacilio VEEALEXEY Unavailable [phone] PATRICIA MANSFIELD Unavailable [phone] Allergies Allergen (clinical drug ingredient) Drug/Non Drug Allergy documented on EMR Reaction Allergy Type Onset Date Status Substance with 8-zmwlqnl-1-methylgluta ryl-coenzyme A reductase inhibitor mechanism of action (substance) Statins Unknown Drug Allergy Active Results Component Value Reference Range Notes Urinalysis, Routine Reviewed date:02/12/2024 09:26:56 AM Interpretation: Performing Lab: Notes/Report: Urine-Color dark red Appearance cloudy Glucose - Bilirubin 1+ Ketones trace Specific [place] 1.015 Occult Blood 3+ pH 6.0 Urine Protein 2+ Urobilinogen,Semi-Qn trace Nitrite, Urine + WBC Esterase 3+ UTI Pathogen Panel PCR Reviewed date:02/15/2024 10:42:04 AM Interpretation: Performing Lab: Notes/Report: Urinalysis, Routine Reviewed date:03/03/2024 01:21:25 PM Interpretation: Performing Lab: Notes/Report: Urine-Color dark red Appearance slightly cloudy Glucose - Bilirubin - Ketones - Specific [place] 1.015 Occult Blood 3+ pH 6.0 Urine Protein 2+ Urobilinogen,Semi-Qn - Nitrite, Urine - WBC Esterase 1+ Urinalysis Gross Exam - Reason For Referral No Information Medications Medication SIG (Take, Route, Frequency, Duration) [...] same meal Orally Once a day Active [place] 3 Active Repatha *Pick strength-form from [employer] for eRX* Active Potassium Active Vitamin D [...] Problem Status W/U Status Risk Notes Problem 773231708 Recurrent gross hematuria (N02.9) Active confirmed Problem Chronic kidney disease (469280686) Chronic kidney disease (N18.9) Active confirmed Problem 683420809 History of prostate cancer (Z85.46) Active confirmed Problem 498960787 History of bladder carcinoma (Z85.51) Active confirmed Problem 16875582 Cystitis, 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 Problem History of radiation therapy (079281421) History of radiation therapy (Z92.3) Active confirmed Problem 65467554 Hematuria (R31.9) Active confirmed Problem 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 Problem 416595998 History of bladder cancer (Z85.51) Active confirmed Problem 443235192 Hussein hematuria (R31.0) Active confirmed Problem Malignant tumor of urinary bladder (588087642) Malignant neoplasm of urinary bladder, unspecified site (C67.9) Active confirmed Problem 845040404 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 Vital Signs Heart Rate 70 /min 03/03/2024 Temperature 97.6 degrees Fahrenheit 03/03/2024 Height-cm 167.64 cm 03/03/2024 Blood pressure diastolic 64 mm Hg 03/03/2024 Weight-kg 77.11 kg 03/03/2024 Height 66 in 03/03/2024 Blood pressure systolic 104 mm Hg 03/03/2024 Weight 170 lbs 03/03/2024 BMI 27.44 kg/m2 03/03/2024 Procedures Procedure Date Ordered Date Performed Result Body Sit e Bladder Scan 02/12/2024 02/12/2024 [id number] Bladder Scan 03/03/2024 N/A Encounters Encounter Location Date Provider Diagnosis [facility] [address] [facility] [place] [address] 02/12/2024 PATRICIA MANSFIELD Hematuria R31.9 ; Acute UTI N39.0 ; Chronic kidney disease N18.9 ; History of prostate cancer Z85.46 ; History of bladder cancer Z85.51 and History of radiation therapy Z92.3 [facility] [address] [facility] [address] [place] [address] 03/03/2024 ALEXEY VEE Hematuria R31.9 ; Radiation cystitis N30.40 ; Anxiety about health F41.8 ; History of prostate cancer Z85.46 ; History of bladder cancer Z85.51 and History of radiation therapy Z92.3 [facility] [address] [place] [address] 09/27/2024 ALEXEY VEE History of prostate cancer Z85.46 Assessments Encounter Date Diagnosis (ICD Code) Assessment Notes Treatment Notes Treatment Clinical Notes Section Notes 02/12/2024 Acute UTI (ICD-10 - N39.0) 02/12/2024 Hematuria (ICD-10 - R31.9) 09/27/2024 History of prostate cancer (ICD-10 - [...] it is both accurate and complete. 03/03/2024 Anxiety about health (ICD-10 - F41.8) [...] it is both accurate and complete. 02/12/2024 Chronic kidney disease (ICD-10 - N18.9) 02/12/2024 History of prostate cancer (ICD-10 - Z85.46) 03/03/2024 History of prostate cancer (ICD-10 - [...] both accurate and complete. 03/03/2024 History of bladder cancer (ICD-10 - [...] both accurate and complete. 02/12/2024 History of bladder cancer (ICD-10 - Z85.51) 02/12/2024 History of radiation therapy (ICD-10 - [...] call sooner with any concerns Dominga Mejias Scribe am scribing for, and in the presence of, Dr. Vee. I, Dr. Alexey Vee, personally performed the services prescribed in this documentation, as scribed by Dominga Salazar, in my presence, and it is both accurate and complete. 02/12/2024 Other UA appears infected, but is [...] Test Name Order Date PSA, total (cpt 52364) 09/27/2024 UA Without Micro-Auto 71231 12/11/2022 PSA Diagnostic--81379 12/11/2022 Bladder Scan 11/18/2023 Bladder Scan 12/15/2023 Bladder Scan 03/03/2024 Insurance Providers Payer Name Payer Address Payer Phone Subscriber Number Group Number Insured Name Patient Relationship to Insured Coverage Start Date Coverage End Date [place] [address] VADIM COLON [id number] Augusto Quispe Self - patient is the insured [employer] [address] [address] [place], [place] [id number] Augusto Quispe Self - patient is the insured Medical (General) History Medical History History ICD Code Measles Mumps Chicken Pox Heart Disease Bladder Infections Bladder Cancer Hemorrhoids Prostate Cancer Surgical History Surgery Date(Month/Year) Heart Bypass Hospitalization History Reason Date(Month/Year) surgery
[2025-01-17 18:20] VITALS: BP 110/71; PULSE 77; RESP 18; TEMP 36.6; O2SAT 98; BMI 25.8
--- OUTSIDE RECORDS SUMMARY | 2025-01-17 18:20 | XMS_ITS | Encounter Summary ---
Author Organization [place] [employer] Address [address] [address] Phone Care Team Providers Care Manager Cafe Name Role Phone Andry Laurent MD Primary Care Provider Encounter Details Date Type Department Care Team (Late Contact Info) Description 04/04/2024 Office Communication [facility] [address] [address] Tom Kingsley Social History Tobacco Use Types Packs/Day Years [...] st Contact Info) Description 05/09/2025 9:30 AM HAND GLOVE CLEANER Office Visit [place] [employer], [facility] [address] [place] [address] Elsy Carpenter LIMITED RADIOLOGY TECHNICIAN [address] [facility] [address] [place] [address] documented as of this encounter Visit Diagnoses Not on filedocumented in this encounter Care Teams Manager Cafe Relationship Specialty Start Date End Date Andry Laurent MD [address] [place] [address] PCP - General Family Medicine 08/04/23 documented as of this encounter
--- OUTSIDE RECORDS SUMMARY | 2025-01-17 18:20 | XMS_ITS | Encounter Summary ---
Author Organization [facility] Address [address] [place] [address] Care Team Providers Care Evp Operations Name Role Phone Unavailable Primary Care Provider Unavailabl e Encounter Details Date Type Department Care Team (Late st Contact Info) Description 12/10/2007 Emergency [facility] Emergency Department [address] [place] [address] Ed, Physician NO ADDRESS ON FILE Alvaro Mendez MD [address] [place] [phone] Social History Tobacco Use Types Packs/Day Years Used Date Smoking Tobacco: Never Assessed Sex and Gender Information Value Date Recorded Sex Assigned at Not on file Legal Sex Male 6:59 AM INKER AND OPAQUER Gender Identity Not on file Sexual Orientation [...] CDT) CHLORIDE 107 95 - 110 mEq/L [facility] ANION GAP 12 9 - 20 mEq/L [facility] SODIUM 138 136 - 145 mEq/L [facility] BUN 27(H) 9 - 20 mg/dL [facility] CO2 23 22 - 32 mmol/l [facility] POTASSIUM 4.3 3.5 - 5.0 mEq/L [facility] OSMOLALITY, CALCULATED 291 275 - 295 mOsm/Kg [facility] CREATININE 2.0(H) 0.7 - 1.5 mg/dL [facility] CALCIUM 10.2 8.4 - 10.5 mg/dL [facility] GLUCOSE 121(H) 70 - 110 mg/dL [facility] Blood specimen (specimen) 12/10/2007 11:45 AM CDT 12/10/2007 11:45 AM CDT Alvaro Mendez MD CHEMISTRY ORDERABLES Final R esult [facility] CLIA# [id number] [address] [place] [address] * (ABNORMAL) CBC WITH DIFFERENTIAL (12/10/2007 11:45 AM CDT) [facility] LYMPHOCYTE ABSOLUTE 4.7(H) 1.2 - 4.0 K/ul [facility] HEMATOCRIT 37.5(L) 41.0 - 53.0 % [facility] EOSINOPHILS 0.5 0.0 - 7.0 % [facility] PLATELETS 147 140 - 440 K/ul [facility] MONOCYTE ABSOLUTE 0.4 0.1 - 0.6 K/ul [facility] BASOPHILS 0.1 0.0 - 1.0 % [facility] RBC 4.03(L) 4.60 - 6.20 Mil/ul [facility] PERIPHERAL BLOOD SMEAR REVIEW Automated Diff [facility] LYMPHOCYTES 53.2(H) 24.0 - 44.0 % [facility] MCHC 34.1 30.0 - 35.0 g/dL [facility] MCV 93.1 84.0 - 103.[address] [facility] MPV 9.9 8.9 - 12.[address] [facility] EOSINOPHIL ABSOLUTE 0.0 0.0 - 0.7 K/ul [facility] NEUTROPHIL ABSOLUTE 3.6 2.0 - 8.0 K/ul [facility] HEMOGLOBIN 12.8(L) 14.0 - 18.0 g/dL [facility] RDW 14.0 11.0 - 14.5 % [facility] MONOCYTES 4.8 2.0 - 10.0 % [facility] WBC 8.7 4.8 - 10.8 K/ul [facility] MCH 31.8 27.0 - 34.[address] [facility] NEUTROPHILS 41.4(L) 42.2 - 75.2 % [facility] BASOPHILS ABSOLUTE 0.0 0.0 - 0.2 K/ul [facility] Blood specimen (specimen) 12/10/2007 11:45 AM CDT 12/10/2007 11:45 AM CDT Alvaro Mendez MD HEMATOLOGY ORDERABLES Final Result Performing Organization Address City/State/[facility] Co de Phone Number [facility] CLIA# [id number] [address] [place] [address] * PTT (12/10/2007 11:45 AM CDT) PTT 27.4 22.5 - 36.[address] [facility] Comment: Therapeutic Range: Hi-level [...] HEMATOLOGY ORDERABLES Final Result Performing Organization Address [facility] Co de Phone Number [facility] CLIA# [id number] [address] [place] [address] * PROTIME-INR (12/10/2007 11:45 AM CDT) PROTIME 13.9 12.8 - 15.[address] [facility] Comment:As of 2007 not e change in normal range. INR 1.0 [facility] Comment: Expected Values for INR: DVT/PE Goal INR 2.5; range 2.0 - 3.0 Valve Replacement Tissue Goal INR 2.5; range 2.0 - 3.0 Mechanical Goal INR 3.0; range 2.5 - 3.5 POST-OK Goal INR 2.5; range 2.0 - 3.0 or Goal 3.0; range 2.5 - 3.5 Atrial Fibrillation Goal INR 2.5; range 2.0 - 3.0 Ischemic Stroke Goal INR 2.5; range 2.0 - 3.0 For additional information see Guidelines for Anticoagulation available from the pharmacy Lynette Lezama Pharm D. [phone] Blood specimen (specimen) 12/10/2007 11:45 AM CDT 12/10/2007 11:45 AM CDT us Alvaro Mendez MD HEMATOLOGY ORDERABLES Final Result Performing Organization Address [facility] de Phone Number [facility] CLIA# [id number] [address] [place] [address] * CARDIAC ENZYMES (12/10/2007 11:45 AM CDT) CKMB 1.8 0.0 - 5.0 ng/mL [facility] TROPONIN I <0.1 0.0 - 1.3 ng/mL [facility] Blood specimen (specimen) 12/10/2007 11:45 AM CDT 12/10/2007 11:45 AM CDT us Alvaro Mendez MD CHEMISTRY ORDERABLES Final R esult [facility] CLIA# [id number] [facility] [place] [address] * XR CHEST PA OR AP (12/10/2007 [...]
--- OUTSIDE RECORDS SUMMARY | 2025-01-17 18:20 | XMS_ITS | Encounter Summary ---
Author Organization [facility] Address [address] [place] [address] Phone Care Team Providers Care Flour Tester Name Role Phone Andry Laurent MD Primary Care Provider [phone] Encounter Details Date Type Department Care Team (Late st Contact Info) Description 12/21/2024 [facility] [employer] [address] [place] [address] Kassie Boland [address] [place] [address] Social History Tobacco Use Types Packs/Day Years [...] on file documented as of this encounter Progress Notes * Milena Ospina NP - 12/22/2024 11:02 AM CDT Reviewed: deferring UA results to ordering provider/urology * Kassie Boland - 12/21/2024 10:32 AM CDT Courtesy lab Call out to [facility], they were trying to send to urology not us but courtesy lab documented in this encounter Plan of Treatment Upcoming Encounters Date Type Department Care Team (Late st Contact Info) Description 05/09/2025 9:30 AM PONY EDGER Office Visit [facility] [address] [place] [phone] Elsy Carpenter, BORING MACHINE OPERATOR HELPER [address] [address] documented as of this encounter Visit Diagnoses Not on filedocumented in this encounter Care Teams Flour Tester Relationship Specialty Start Date End Date Andry Laurent MD [address] [place] [address] PCP - General Family Medicine 08/04/23 documented as of this encounter
--- OUTSIDE RECORDS SUMMARY | 2025-01-17 18:20 | XMS_ITS | Clinical Summary ---
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 omega-3 acid ethyl esters (LOVAZA) 1 g capsule Take 2 capsules by mouth 2 (two) times a day Active cholecalciferol (VITAMIN D-3) 1000 units tablet Take 1 capsule by mouth 3 times weekly on Thursday Active multivitamine, geriatric, (CENTRUM SILVER) tablet Take 1 tablet by mouth 1 (one) time each day Active Magnesium 100 MG tablet Take 1 tablet by mouth 1 (one) time each day Active carvedilol (COREG) 3.125 MG tablet Take 3.125 mg by mouth 2 (two) times a day with meals Active alfuzosin (UROXATRAL) 10 MG 24 hr tablet Take 10 mg by mouth at bed time 1 Active Repatha Pushtronex System 420 MG/3.5ML solution cartridge every 14 (fourteen) days 1 Active pantoprazole (PROTONIX) 40 MG EC tablet Take 1 tablet every day by oral route for 90 days. 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 Thrombocytopenia 09/26/2022 Other and unspecified hyperlipidemia 07/06/2019 Chronic kidney disease, Stage IV (severe) 2019 Proteinuria 12/27/2018 Resolved Problems Problem Noted Date Diagnosed Date Resolved Date Chronic kidney disease, Stage III (moderate) 9 07/06/2019 Encounters Date Type Department Care Team Description 12/21/2024 Results Follow-Up [facility], [facility] [address] [place] [phone] Camasse, Kassie 12/21/2024 Documentation Only [facility], [facility] [address] [place] [phone] Camasse, Kassie 11/02/2024 Patient Outreach [facility], [facility] [address] [place] [phone] Teresa Wilkins 11/01/2024 9:30 AM CDT Office Visit [facility], [address] [phone] Elsy Carpenter, MARY JO Vitamin D deficiency, not otherwise specified (Primary Dx); Proteinuria, not otherwise specified; Chronic kidney disease, Stage IV (severe) ([facility]); Other and unspecified hyperlipidemia 10/31/2024 Orders Only [facility], [address] [phone] Elsy Carpenter NP Chronic kidney disease, Stage IV (severe) (HCC); Proteinuria, not otherwise specified; Vitamin D deficiency, not otherwise specified from Last 3 Months Immunizations Immunization Administration Dates Next Due Influenza Split High Dose Pr eservative Free IM 03/13/2020,04/08/2018,03/22/2015 Influenza TIV (IM) 03/22/2013 Pneumococcal Polysaccharide 11/20/2009 Family History Medical History Relation Comments No Known Problems Father No Known Problems Mother Diabetes Sibling Heart disease Sibling Relation Status Comments Father Mother Sibling Social History Tobacco Use Types Packs/Day Years Used Date Smoking Tobacco: Former Smokeless Tobacco: Never Tobacco Cessation:Counseling Given: Not Answered Alcohol Use Standard Drinks/Week Comments No 0 (1 standard drink = 0.6 oz pur e alcohol) Sex and Gender Information Value Date Recorded Sex Assigned at Not on file Legal Sex Male 12:41 PM EST Gender Identity Not on file Sexual Orientation Not on file Last Filed Vital Signs Vital Sign Reading Time Taken Comments Blood Pressure 110/68 11/01/2024 9:23 AM CDT Pulse 84 11/01/2024 9:23 AM CDT Temperature 35.9 C (96.7 F) 11/21/2020 9:22 AM CDT Respiratory Rate - - Oxygen Saturation 99% 11/01/2024 9:23 AM CDT Inhaled Oxygen Concentration - - Weight 72.3 kg (159 lb 6.4 oz) 11/01/2024 9:23 A M CDT Height 167.6 cm (5' 6 ) 11/01/2024 9:23 AM CDT Body Mass Index 25.73 11/01/2024 9:23 AM CDT Plan of Treatment Upcoming Encounters Date Type Department Care Team (Late st Contact Info) Description 05/09/2025 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 Office 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 [facility], [facility] [address] [place] [address] Elsy Carpenter, PERSONAL BANKER [address] [phone] Health Maintenance Due Date Last Done Comments Influenza Vaccine (#1) 2025 4, 03/12/2023, 03/13/2020, Additional history exists Pneumococcal Vaccine: 50+ Years Completed 09/21/2015, 11/20/2009 Pneumococcal Vaccine: Peds (0 to 5 Years) and At-Risk Patients (6 to 49 Years) Discontinued 09/21/2015, 11/20/2009 Hepatitis B Vaccine Aged Out No longe r eligible based on patient's age to complete this topic Procedures Procedure Name Priority Date/Time Associated Diagnosis Comments CBC (INCLUDES DIFF/PLT) (EXTERNAL LAB ENTRY) Routine 12/20/2024 8:20 AM CDT URINALYSIS (EXT LAB ENTRY) Routine 12/20/2024 8:20 AM CDT COMPREHENSIVE METABOLIC PANEL (CMP) (EXTERNAL LAB ENTRY) Routine 12/20/2024 8:20 AM CDT VITAMIN D 25 HYDROXY Routine 10/24/2024 6:55 AM CDT Chronic kidney disease, Stage IV (severe) (HCC) Vitamin D deficiency, not otherwise specified PTH, INTACT Routine 10/24/2024 6:55 AM CDT Chronic kidney disease, Stage IV (severe) (HCC) URINE ALBUMIN / CREATININE RATIO Routine 10/24/2024 6:55 AM CDT Proteinuria, not otherwise specified Chronic kidney disease, Stage IV (severe) (HCC) CBC Routine 10/24/2024 6:55 AM CDT Chronic kidney disease, Stage IV (severe) (HCC) RENAL FUNCTION PANEL Routine 10/24/2024 6:55 AM CDT Chronic kidney disease, Stage IV (severe) (HCC) from Last 3 Months Results * Comprehensive Metabolic Panel (CMP) (12/20/2024 8:20 AM CDT) Glucose 111.0 mg/dL BUN 32 mg/dL Creatinine 2.9 mg/dL Sodium 139 mEq/L Potassium 4.4 mEq/L Chloride 104 Carbon Dioxide 31.0 mmol/L Calcium 9.7 mg/dL Albumin (Blood) 3.7 g/dL AST (SGOT) 35.0 U/L ALT (SGPT) 26.0 U/L Alkaline Phosphatase 188.0 U/L Total Bilirubin 0.50 MG/DL eGFR Non-Afr Welsh 22.1 Total Protein, Serum 6.1 Globulin, Total 2.4 g/dL A/G Ratio 1.5 Blood 12/20/2024 8:20 AM CDT us Andry Laurent MD LAB BLOOD ORDERABLES Final Resul t * Urinalysis (12/20/2024 8:20 AM CDT) Color, Urine red Clarity, Urine cloudy Urine Specific [place] 1.015 pH Urine 6.0 Leukocyte Esterase UA 3+ Nitrite, Urine positive Protein, Urine 3+ Glucose, Urine trace Ketones, Urine 1+ Urobilinogen, Urine 2.0 Bilirubin, Urine 3+ Blood, Urine 3+ WBC, Urine negative RBC, Urine gross blood Bacteria, Urine negative Epithelial Cells, (Ext Lab Entry) negative Urine 12/20/2024 8:20 AM CDT Narrative Kassie Boland - 12/21/2024 10:22 AM CDT [facility] [address] [address] [facility] Andry Laurent MD LAB URINE ORDERABLES Final Resul t * CBC (Includes Diff/Plt) (External Lab) (12/20/2024 8:20 AM CDT) WBC 5.6 K/uL Red Blood Cell Count 3.04 Hemoglobin 9.7 g/dL Hematocrit 30.4 % MCV 100.1 MCH 32.0 MCHC 32.0 RDW 15.0 Platelet Count 112 Absolute Lymphocytes 1.8 Absolute Monocytes 0.5 Lymphocytes 31.2 Monocytes 8.1 Granulocytes Absolute 3.2 Granulocytes % 57.1 Blood 12/20/2024 8:20 AM CDT us Andry Laurent MD LAB BLOOD ORDERABLES Final Resul t * (ABNORMAL) Urine albumin / creatinine ratio (10/24/2024 6:55 AM CDT) Creatinine, Ur 89 20 - 320 mg/dL [facility] Urine Microalbumin 36.2 See Note: mg/dL [facility] Comment: Reference Range: Reference Range Not established Verified by repeat analysis. Microalb/Creat Ratio 407(H) <30 mg/g creat [facility] Comment: The ADA defines abnormalities in albumin excretion as follows: Albuminuria Category Result (mg/g creatinine) Normal to Mildly increased <30 Moderately increased 30-299 Severely increased > OR = 300 The ADA recommends that at least two of three specimens collected within a 3-6 month period be abnormal before considering a patient to be within a diagnostic category. Urine specimen (specimen) Urine specimen obtained by clean catch procedure / Unknown 10/24/2024 6:55 AM CDT 10/24/2024 6:55 AM CDT Narrative Resulting Agency Comment Performing Organization Information: Site ID: [id number] Name: [facility] Address: [address] [place] [phone] Director: Claude Pearson MD Elsy Carpenter PERSONAL BANKER LAB URINE ORDERABLES Final Resu lt [facility] [phone] * Vit D 25 hydroxy (10/24/2024 6:55 AM CDT) Vitamin D, 25-OH, Total, IA 73 30 - 100 ng/mL [facility] Comment: Vitamin D Status 25-OH Vitamin D: Deficiency: <20 ng/mL Insufficiency: 20 - 29 ng/mL Optimal: > or = 30 ng/mL For 25-OH Vitamin D testing on patients on D2-supplementation and patients for whom quantitation of D2 and D3 fractions is required, the [facility](TM) 25-OH VIT D, (D2,D3), LC/MS/MS is recommended: order code 58610 (patients >2yrs). See Note 1 Note 1 For additional information, please refer to http://education.comment.com/faq/ERR888 (This link is being provided for informational/ educational purposes only.) Blood specimen (specimen) Venous blood / Unknown 10/24/2024 6:55 AM CDT 10/24/2024 6:55 AM CDT Narrative Resulting Agency Comment Performing Organization Information: Site ID: [id number] Name: [facility] Address: [address] [address] Director: Claude Pearson MD Elsy Carpenter NP LAB BLOOD ORDERABLES Final Resu lt [facility] [address] * (ABNORMAL) CBC (10/24/2024 6:55 AM CDT) WBC 10.4 3.8 - 10.8 Thousand/u L [facility] RBC 3.09(L) 4.20 - 5.80 Million/uL [facility] Hemoglobin 9.5(L) 13.2 - 17.1 g/dL [facility] Hematocrit 30.1(L) 38.5 - 50.0 % [facility] MCV 97.4 80.0 - 100.0 fL [facility] MCH 30.7 27.0 - 33.0 pg [facility] MCHC 31.6(L) 32.0 - 36.0 g/dL [facility] Comment: For adults, a slight decrease in the calculated MCHC value (in the range of 30 to 32 g/dL) is most likely not clinically significant; however, it should be interpreted with caution in correlation with other red cell parameters and the patient's clinical condition. RDW 18.4(H) 11.0 - 15.0 % [facility] Platelets 130(L) 140 - 400 Thousand/u L [facility] MPV 10.6 7.5 - 12.5 fL [facility] Blood specimen (specimen) Venous blood / Unknown 10/24/2024 6:55 AM CDT 10/24/2024 6:55 AM CDT Narrative Resulting Agency Comment Performing Organization Information: Site ID: [place] Name: [facility] Address: [address] [place] [id number] Director: Claude Pearson MD Elsy Carpenter NP LAB BLOOD ORDERABLES Final Resu lt Performing Organization Address [facility] Co de Phone Number [facility] [address] * (ABNORMAL) PTH, intact (10/24/2024 6:55 AM CDT) Parathyroid Hormone, Intact 136(H) 16 - 77 pg/mL [facility] Comment: Interpretive Guide Intact PTH Calcium ------- Normal Parathyroid Normal Normal Hypoparathyroidism Low or Low Normal Low Hyperparathyroidism Primary Normal or High High Secondary High Normal or Low Tertiary High High Non-Parathyroid Hypercalcemia Low or Low Normal High Blood specimen (specimen) Venous blood / Unknown 10/24/2024 6:55 AM CDT 10/24/2024 6:55 AM CDT Narrative Resulting Agency Comment Performing Organization Information: Site ID: [id number] Name: [facility] Address: [address] [place] [phone] Director: Claude Pearson MD Elsy Carpenter NP LAB BLOOD ORDERABLES Final Resu lt Performing Organization Address [facility] de Phone Number [facility] [phone] * (ABNORMAL) Renal function panel (10/24/2024 6:55 AM CDT) Glucose 161(H) 65 - 99 mg/dL [facility] Comment: Fasting reference interval For someone without known diabetes, a glucose value >125 mg/dL indicates that they may have diabetes and this should be confirmed with a follow-up test. BUN 49(H) 7 - 25 mg/dL [facility] Creatinine 3.13(H) 0.70 - 1.22 mg/dL [facility] eGFR CKD-EPI CR 2020 19(L) > OR = 60 mL/min/1.7 3m2 [facility] BUN/Creatinine Ratio 16 6 - 22 (calc) [facility] Sodium 141 135 - 146 mmol/L [facility] Potassium 4.1 3.5 - 5.3 mmol/L [facility] Chloride 103 98 - 110 mmol/L [facility] Bicarbonate (CO2) 30 20 - 32 mmol/L [facility] Calcium 9.1 8.6 - 10.3 mg/dL [facility] Phosphorus 2.8 2.1 - 4.3 mg/dL [facility] Albumin 3.5(L) 3.6 - 5.1 g/dL [facility] Blood specimen (specimen) Venous blood / Unknown 10/24/2024 6:55 AM CDT 10/24/2024 6:55 AM CDT Narrative Resulting Agency Comment Performing Organization Information: Site ID: [place] Name: [facility] Address: [address] [place] [phone] Director: Claude Pearson MD Elsy Carpenter NP LAB BLOOD ORDERABLES Final Resu [facility] [phone] from Last 3 Months Insurance Medicare [employer] [place] [id number] Care Teams Mobile Home Installer Relationship Specialty Start Date End Date Andry Laurent MD [address] [place] [address] PCP - General Family Medicine 08/04/23
--- OUTSIDE RECORDS SUMMARY | 2025-01-17 18:20 | XMS_ITS | Clinical Summary ---
Author Organization 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
--- OUTSIDE RECORDS SUMMARY | 2025-01-17 18:20 | XMS_ITS | Data Portability ---
Author Organization LUCAS Sims [facility] Sue Keith [facility] Address [address] [facility] [address] [place] [address] Care Team Providers Care Dough Panner Name Role Phone ELLEN LAURENTON Primary Care Provider ROXIE SWARTZ Referring Provider [phone] [facility] Refe rring Provider Assessment Encounter Date Assessment Date Assessment LastModified by Organization Details LastModified Time 10/11/2024 10/11/2024 he does have some milder hematuria this last week. he has surgery planned. 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 i am still awaiting his doctor's notes. [email or web address] Not available 10/11/2024 10:19:59 Plan of Treatment Reminders Order Date Submit Date Provider Last Modified By Organization Details Last Modified Time Details Appointments None recorded. Lab CBC 2024 025 MONTICELLO [facility], [address], [address], [place], [address], 09:48:11 CMP, serum or plasma 2024 025 [facility], [address], [address], [place], [address], 10:34:44 urinalysis, complete 2024 025 [facility], [address] [facility] [address], [address], [place], [address], 10:33:05 culture, urine 2024 [facility], [address] [place] [address], [address], [place], [address], 5 02:58:40 CBC 2024 [facility], [address] [facility], [address], [address], 09:32:10 CMP, serum or plasma 2024 [facility], [address] [facility], [address], [address], 5 09:56:57 uric acid, serum or plasma 2024 [facility], [address] [place] [address], [address], [place], [address], 5 06:00:19 C-reactive protein, quantitativ e, serum or plasma 2024 025 [facility], [address] [place] [address], [address], [place], [address], 5 06:00:20 ESR (erythrocyt e sedimentati on rate), blood 2024 [facility] ([facility]), [address] [place], [address], 10:42:31 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 Surgeries None recorded. Imaging XR, foot, 3 or more view 2024 025 [email or web address] 2 [facility], [address], [place], [address], 14:20:20 XR, foot, 3 or more view 2024 025 [email or web address] 2 [facility], [address], [place], [address], 14:19:59 Medication Orders hydrocodone 5 mg-acetamin ophen 325 mg tablet 2024 025 [facility] #[id number], [address] [facility] [address], [facility] 2, [place], [address], 05:02:17 Medrol (Mango) 4 mg tablets in a dose pack 2024 025 [id number], [address] [facility] [address], [facility] 2, [place], [address], 09:05:17 Patient TargetsNo targets recorded. Patient InstructionsNo instructions recorded. 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 Referring Physician: Luis Alberto Laurent, Family Medicine, Encounter Date: 10/17/2024 Results Created Date Observation Date Name Description Value Unit Range Abnormal Flag Note LastModifiedBy Organization Detail LastModifiedTime 09/17/1909/16/2024 CBC WBC 5.5 x10 4.5-10 .5 Not Available [facility] [address], [place], [address], 09/16/2024 09:06:29 09/17/1909/16/2024 CBC RBC 2.86 x10 4.30-5 .90 low Not Available [facility] [address], [place], [address], 09/16/2024 09:06:29 09/17/1909/16/2024 CBC HGB 8.3 g/dL 13.5-1 8.0 low Not Available [facility] [address] [facility] 1, [place], [address], 09/16/2024 09:06:29 09/17/1909/16/2024 CBC HCT 26.3 % 35.0-6 0.0 low Not Available [facility] [address] [facility] 1, [place], [address], 09/16/2024 09:06:29 09/17/1909/16/2024 CBC MCV 92.0 fL 80.0-9 9.9 Not Available [facility] [address] [facility] 1, [place], [address], 09/16/2024 09:06:29 09/17/1909/16/2024 CBC MCH 29.0 pg 27.0-3 2.0 Not Available [facility] [address] [facility] [address] [facility] 1, [place], [address], 09/16/2024 09:06:29 09/17/1909/16/2024 CBC MCHC 31.6 g/dL 32.0-3 6.0 low Not Available [facility] [address] [facility] [address] [facility] 1, [place], [address], 09/16/2024 09:06:29 09/17/1909/16/2024 CBC RDW 20.5 % 11.5-1 4.5 high Not Available [facility] [address] [facility] 1, [place], [address], 09/16/2024 09:06:29 09/17/1909/16/2024 CBC plt 127.0 x10 150.0- 451.0 low Not Available [facility] [address] [facility] 1, [place], [address], 09/16/2024 09:06:29 09/17/1909/16/2024 CBC lymphocytes % 37.9 % 20.0-5 0.0 Not Available [place] [facility] [address] [facility] 1, [place], [address], 09/16/2024 09:06:29 09/17/1909/16/2024 CBC granulcytes % 49.5 % 30.0-7 0.0 Not Available [place] [facility] [address] [facility] 1, [place], [address], 09/16/2024 09:06:29 09/17/1909/16/2024 CBC monocytes % 8.8 % 2.0-16 .0 Not Available [facility] [address] [facility], [place], [address], 09/16/2024 09:06:29 09/17/19 25 09/16/2024 CBC granulcytes# 2.7 x10 Not Halle ilable [facility] [address] [facility] 1, [place], [address], 09/16/2024 09:06:29 09/17/1909/16/2024 CBC lymphocytes # 2.1 x10 Not Available [facility] [address] [facility] 1, [place], [address], 09/16/2024 09:06:29 09/17/1909/16/2024 CBC monocytes # 0.5 x10 Not Avai lable [facility] [address] [facility] 1, [place], [address], 09/16/2024 09:06:29 09/20/1909/19/2024 CBC WBC 4.9 x10 4.5-10 .5 Not Available [facility] [address] [facility] 1, [place], [address], 09/19/2024 09:45:46 09/20/19 25 09/19/2024 CBC RBC 2.95 x10 4.30-5 .90 low Not Available [facility] [address] [facility] 1, [place], [address], 09/19/2024 09:45:46 09/20/19 25 09/19/2024 CBC HGB 9.2 g/dL 13.5-1 8.0 low Not Available [facility] [address] [facility] 1, [place], [address], 09/19/2024 09:45:46 09/20/1909/19/2024 CBC HCT 27.4 % 35.0-6 0.0 low Not Available [facility] [address] [facility] 1, [place], [address], 09/19/2024 09:45:46 09/20/19 25 09/19/2024 CBC MCV 92.8 fL 80.0-9 9.9 Not Available [facility] [address] [facility] 1, [place], [address], 09/19/2024 09:45:46 09/20/19 25 09/19/2024 CBC MCH 31.2 pg 27.0-3 2.0 Not Available [facility] [address] [facility] 1, [place], [address], 09/19/2024 09:45:46 09/20/19 25 09/19/2024 CBC MCHC 33.5 g/dL 32.0-3 6.0 Not Available [facility] [address] [facility] [address] 1, [place], [address], 09/19/2024 09:45:46 09/20/19 25 09/19/2024 CBC RDW 20.9 % 11.5-1 4.5 high Not Available [facility] [address] [facility], [place], [address], 09/19/2024 09:45:46 09/20/19 25 09/19/2024 CBC plt 124.4 x10 150.0- 451.0 low Not Available [facility] [address] [address], [place], [address], 09/19/2024 09:45:46 09/20/19 25 09/19/2024 CBC lymphocytes % 37.0 % 20.0-5 0.0 Not Available [facility] [address] [address], [place], [address], 09/19/2024 09:45:46 09/20/19 25 09/19/2024 CBC granulcytes % 51.7 % 30.0-7 0.0 Not Available [facility] [address] [address], [place], [address], 09/19/2024 09:45:46 09/20/19 25 09/19/2024 CBC monocytes % 8.3 % 2.0-16 .0 Not Available [facility] [address] [address], [place], [address], 09/19/2024 09:45:46 09/20/19 25 09/19/2024 CBC granulcytes# 2.5 x10 Not Halle ilable [facility] [address] [address], [place], [address], 09/19/2024 09:45:46 09/20/19 25 09/19/2024 CBC lymphocytes # 1.8 x10 Not Available [facility] [address] [address], [place], [address], 09/19/2024 09:45:46 09/20/19 25 09/19/2024 CBC monocytes # 0.4 x10 Not [facility] [address] [facility] 1, [place], [address], 09/19/2024 09:45:46 09/20/19 25 09/19/2024 BMP (MALE ) glucose 174.0 mg/dL 60.0-9 9.0 high Not Available [facility] [address] [place] [facility], [place], [address], 09/19/2024 10:36:39 09/20/19 25 09/19/2024 BMP (MALE ) BUN (blood urea nitrogen) 40.0 mg/dL 10.0-2 6.0 high Not Available [facility] [address] [facility] 1, [place], [address], 09/19/2024 10:36:39 09/20/19 25 09/19/2024 BMP (MALE ) creatinine (serum) 3.4 mg/dL 0.4-1. 5 high Not Available [facility] [address] [place] [facility], [place], [address], 09/19/2024 10:36:39 09/20/19 25 09/19/2024 BMP (MALE ) BUN/creatini ne ratio 11.76 ratio Not Available [facility] [address] [place] [facility], [place], [address], 09/19/2024 10:36:39 09/20/19 25 09/19/2024 BMP (MALE ) calcium 9.3 mg/dL 8.4-10 .5 Not Available Rodriguez [facility] [address] [facility] 1, [place], [address], 09/19/2024 10:36:39 09/20/19 25 09/19/2024 BMP (MALE ) sodium 138.0 mmol/ L 136.0- 145.0 Not Available [facility] [address] [place] [facility], [place], [address], 09/19/2024 10:36:39 09/20/19 25 09/19/2024 BMP (MALE ) potassium 4.3 mmol/ L 3.5-5. 1 Not Available [facility] [address] [facility] 1, [place], [address], 09/19/2024 10:36:39 09/20/19 25 09/19/2024 BMP (MALE ) chloride 104.0 mmol/ L 98.0-1 10.0 normal Not Available [facility] [address] [place] [facility], [place], [address], 09/19/2024 10:36:39 09/20/19 25 09/19/2024 BMP (MALE ) C02 27.0 mmol/ L 22.0-3 1.0 Not Available [facility] [address] [facility], [place], [address], 09/19/2024 10:36:39 09/20/19 25 09/20/2024 URIC ACID uric acid 9.1 mg/dL 4.0-8. 0 high Thera carine murillo t for gout patie nts: <6.0 mg/dL Not Available [employer] [facility] [address] [address] , [place], [address], 09/20/2024 06:01:52 10/18/19 25 10/17/2024 CBC WBC 10.6 x10 4.5-10 .5 high Not Available [facility] [address] [facility], [place], [address], 10/17/2024 09:32:09 10/18/19 25 10/17/2024 CBC RBC 3.27 x10 4.30-5 .90 low Not Available [facility] [address] [facility], [place], [address], 10/17/2024 09:32:09 0410/17/2024 CBC HGB 9.9 g/dL 13.5-1 8.0 low Not Available [facility] [address] [facility] 1, [place], [address], 10/17/2024 09:32:09 10/18/1910/17/2024 CBC HCT 31.5 % 35.0-6 0.0 low Not Available [facility] [address] [facility] [address] [facility] 1, [place], [address], 10/17/2024 09:32:09 10/18/1910/17/2024 CBC MCV 96.4 fL 80.0-9 9.9 Not Available [facility] [address] [facility] 1, [place], [address], 10/17/2024 09:32:09 10/18/1910/17/2024 CBC MCH 30.2 pg 27.0-3 2.0 Not Available [facility] [address] [facility] [address] [facility] 1, [place], [address], 10/17/2024 09:32:09 10/18/1910/17/2024 CBC MCHC 31.3 g/dL 32.0-3 6.0 low Not Available [facility] [address] [facility] 1, [place], [address], 10/17/2024 09:32:09 10/18/1910/17/2024 CBC RDW 19.2 % 11.5-1 4.5 high Not Available [facility] [address] [facility] 1, [place], [address], 10/17/2024 09:32:09 10/18/1910/17/2024 CBC plt 141.8 x10 150.0- 451.0 low Not Available [facility] [address] [facility] [address] [facility] 1, [place], [address], 10/17/2024 09:32:09 10/18/19 25 10/17/2024 CBC lymphocytes % 41.3 % 20.0-5 0.0 Not Available [place] [facility] [address] [facility] 1, [place], [address], 10/17/2024 09:32:09 10/18/1910/17/2024 CBC granulcytes % 48.6 % 30.0-7 0.0 Not Available [place] [facility] [address] [facility] 1, [place], [address], 10/17/2024 09:32:09 10/18/1910/17/2024 CBC monocytes % 5.2 % 2.0-16 .0 Not Available [facility] [address] [address], [place], [address], 10/17/2024 09:32:09 10/18/19 25 10/17/2024 CBC granulcytes# 5.1 x10 Not Halle ilable [facility] [address] [address], [place], [address], 10/17/2024 09:32:09 10/18/1910/17/2024 CBC lymphocytes # 4.4 x10 Not Available [facility] [address] [address], [place], [address], 10/17/2024 09:32:09 10/18/1910/17/2024 CBC monocytes # 0.6 x10 Not Avai lable [facility] [address] [address], [place], [address], 10/17/2024 09:32:09 10/18/1910/17/2024 CMP (MALE ) glucose 145.0 mg/dL 60.0-9 9.0 high Not Available [facility] [address] [place] [facility], [place], [address], 10/17/2024 09:56:57 10/18/19 25 10/17/2024 CMP (MALE ) BUN (blood urea nitrogen) 60.0 mg/dL 10.0-2 6.0 high Not Available [facility] [address] [facility] 1, [place], [address], 10/17/2024 09:56:57 10/18/19 25 10/17/2024 CMP (MALE ) creatinine (serum) 2.9 mg/dL 0.4-1. 5 high Not Available [facility] [address] [facility], [place], [address], 10/17/2024 09:56:57 10/18/19 25 10/17/2024 CMP (MALE ) BUN/creatini ne ratio 20.69 ratio Not Available [facility] [address] [facility] [address] [address], [place], [address], 10/17/2024 09:56:57 10/18/19 25 10/17/2024 CMP (MALE ) eGFR calculated 22.1 Not Available [facility] [address] [facility] [address] [address], [place], [address], 10/17/2024 09:56:57 10/18/19 25 10/17/2024 CMP (MALE ) total protein 6.4 g/dL 6.0-8. 5 Not Available [facility] [address] [facility] [address] [address], [place], [address], 10/17/2024 09:56:57 10/18/19 25 10/17/2024 CMP (MALE ) total bilirubin 0.4 mg/dL 0.2-1. 3 Not Available [facility] [address] [facility] [address] [address], [place], [address], 10/17/2024 09:56:57 04/28/10/17/2024 CMP (MALE ) albumin 3.8 g/dL 3.5-5. 5 Not Available [facility] [address] [facility] 1, [place], [address], 10/17/2024 09:56:57 10/18/19 25 10/17/2024 CMP (MALE ) globulin 2.6 calc Not Available [facility] [address] [facility], [place], [address], 10/17/2024 09:56:57 10/18/19 25 10/17/2024 CMP (MALE ) AST (SGOT) 46.0 U/L 0.0-46 .0 Not Available [facility] [address] [place] [facility], [place], [address], 10/17/2024 09:56:57 10/18/19 25 10/17/2024 CMP (MALE ) altv (SGPT) 68.0 U/L 13.0-6 9.0 normal Not Available [facility] [address] [place] [facility], [place], [address], 10/17/2024 09:56:57 10/18/19 25 10/17/2024 CMP (MALE ) A/G ratio 1.5 ratio Not Available [facility] [address] [address], [place], [address], 10/17/2024 09:56:57 10/18/19 25 10/17/2024 CMP (MALE ) ALP phos 102.0 U/L 30.0-1 40.0 normal Not Available [facility] [address] [place] [address] [facility] 1, [place], [address], 10/17/2024 09:56:57 10/18/19 25 10/17/2024 CMP (MALE ) calcium 9.5 mg/dL 8.4-10 .5 Not Available [facility] [address] [facility] 1, [place], [address], 10/17/2024 09:56:57 10/18/1910/17/2024 CMP (MALE ) sodium 139.0 mmol/ L 136.0- 145.0 Not Available [facility] [address] [place] [facility], [place], [address], 10/17/2024 09:56:57 10/18/19 25 10/17/2024 CMP (MALE ) potassium 4.1 mmol/ L 3.5-5. 1 Not Available [facility] [address] [facility] 1, [place], [address], 10/17/2024 09:56:57 10/18/1910/17/2024 CMP (MALE ) chloride 103.0 mmol/ L 98.0-1 10.0 normal Not Available [facility] [address] [facility] 1, [place], [address], 10/17/2024 09:56:57 10/18/1910/17/2024 CMP (MALE ) C02 30.0 mmol/ L 22.0-3 1.0 Not Available [facility] [address] [facility] 1, [place], [address], 10/17/2024 09:56:57 10/18/19 25 10/17/2024 CMP (MALE ) anion gap 6.0 calc Not Available [facility] [address] [facility] 1, [place], [address], 10/17/2024 09:56:57 10/18/1910/17/2024 CMP (MALE ) osmolality 305.3 calc Not Available [facility] [address] [place] [facility], [place], [address], 10/17/2024 09:56:57 10/18/19 25 10/18/2024 URIC ACID uric acid 9.1 mg/dL 4.0-8. 0 high Thera peuti c targe t for gout patie nts: <6.0 mg/dL Not Available [facility] [address] [place], [address], 10/18/2024 06:00:19 10/18/1910/18/2024 C-VERONICA CTIVE PROTE IN C-reactive protein 4.6 mg/L <8.0 normal Not Available [facility] [address] [place], [address], 10/18/2024 06:00:20 10/18/19 25 10/17/2024 ESR (eryt hrocy te sedim entat ion rate) , blood ESR 26 Not Available [facility] [address] [place], [address], 10/17/2024 09:07:54 12/21/19 25 12/20/2024 CBC WBC 5.6 x10 4.5-10 .5 Not Available [facility] [address], [address], 12/20/2024 09:48:11 12/21/19 25 12/20/2024 CBC RBC 3.04 x10 4.30-5 .90 low Not Available [facility] [address], [address], 12/20/2024 09:48:11 12/21/19 25 12/20/2024 CBC HGB 9.7 g/dL 13.5-1 8.0 low Not Available [facility] [address], [address], 12/20/2024 09:48:11 12/21/19 25 12/20/2024 CBC HCT 30.4 % 35.0-6 0.0 low Not Available [facility] [address] [place], [address], 12/20/2024 09:48:11 12/21/1912/20/2024 CBC MCV 100.1 fL 80.0-9 9.9 high Not Available [facility] [address] [facility] 1, [place], [address], 12/20/2024 09:48:11 12/21/1912/20/2024 CBC MCH 32.0 pg 27.0-3 2.0 Not Available [facility] [address] [facility] 1, [place], [address], 12/20/2024 09:48:11 12/21/1912/20/2024 CBC MCHC 32.0 g/dL 32.0-3 6.0 Not Available [facility] [address] [facility], [place], [address], 12/20/2024 09:48:11 12/21/1912/20/2024 CBC RDW 15.0 % 11.5-1 4.5 high Not Available [facility] [address] [facility] 1, [place], [address], 12/20/2024 09:48:11 12/21/1912/20/2024 CBC plt 112.0 x10 150.0- 451.0 low Not Available [facility] [address] [facility], [place], [address], 12/20/2024 09:48:11 12/21/1912/20/2024 CBC lymphocytes % 31.2 % 20.0-5 0.0 Not Available [facility] [address] [facility], [place], [address], 12/20/2024 09:48:11 12/21/1912/20/2024 CBC granulcytes % 57.1 % 30.0-7 0.0 Not Available [facility] [address] [facility] 1, [place], [address], 12/20/2024 09:48:11 12/21/19 25 12/20/2024 CBC monocytes % 8.1 % 2.0-16 .0 Not Available [facility] [address] [facility] 1, [place], [address], 12/20/2024 09:48:11 12/21/19 25 12/20/2024 CBC granulcytes# 3.2 x10 Not Halle ilable [facility] [address] [facility], [place], [address], 12/20/2024 09:48:11 12/21/19 25 12/20/2024 CBC lymphocytes # 1.8 x10 Not Available [facility] [address] [facility], [place], [address], 12/20/2024 09:48:11 12/21/19 25 12/20/2024 CBC monocytes # 0.5 x10 Not Avai lable [facility] [address] [facility] 1, [place], [address], 12/20/2024 09:48:11 12/21/1912/20/2024 URINA LYSIS WITH MICRO color RED abnormal Not Available [facility] [address] [place] [address] [facility] 1, [place], [address], 12/20/2024 10:33:05 12/21/19 25 12/20/2024 URINA LYSIS WITH MICRO clarity CLOUDY abnormal Not Available [facility] [address] [place] [address] [facility] 1, [place], [address], 12/20/2024 10:33:05 12/21/19 25 12/20/2024 URINA LYSIS WITH MICRO glu TRACE abnormal Not Available [facility] [address] [facility] [address], [place], [address], 12/20/2024 10:33:05 12/21/19 25 12/20/2024 URINA LYSIS WITH MICRO bili 3+ abnormal Not Available [facility] [address], [place], [address], 12/20/2024 10:33:05 12/21/19 25 12/20/2024 URINA LYSIS WITH MICRO ket 1+ abnormal Not Available [facility] [address], [place], [address], 12/20/2024 10:33:05 12/21/19 25 12/20/2024 URINA LYSIS WITH MICRO S.g 1.015 Not Available [facility] [address] [facility] [place], [address], 12/20/2024 10:33:05 12/21/19 25 12/20/2024 URINA LYSIS WITH MICRO pH 6.0 Not Available [facility] [address] [facility] [address], [place], [address], 12/20/2024 10:33:05 12/21/19 25 12/20/2024 URINA LYSIS WITH MICRO pro 3+ abnormal Not Available [facility] [address] [facility] [address], [place], [address], 12/20/2024 10:33:05 12/21/19 25 12/20/2024 URINA LYSIS WITH MICRO uro 2.0 E.U./D L Not Available [facility] [address] [facility] [address], [place], [address], 12/20/2024 10:33:05 12/21/19 25 12/20/2024 URINA LYSIS WITH MICRO nit POSITI VE abnormal Not Available [facility] [address], [place], [address], 12/20/2024 10:33:05 12/21/19 25 12/20/2024 URINA LYSIS WITH MICRO blo 3+ abnormal Not Available [facility] [address] [facility] 1, [place], [address], 12/20/2024 10:33:05 12/21/19 25 12/20/2024 URINA LYSIS WITH MICRO sonido 3+ abnormal Not Available [facility] [address] [facility] 1, [place], [address], 12/20/2024 10:33:05 12/21/19 25 12/20/2024 URINA LYSIS WITH MICRO WBC NEGATI VE Not Available [facility] [address] [facility] [place], [address], 12/20/2024 10:33:05 12/21/19 25 12/20/2024 URINA LYSIS WITH MICRO RBC GROSS BLOOD abnormal Not Available [facility] [address] [facility], [place], [address], 12/20/2024 10:33:05 12/21/19 25 12/20/2024 URINA LYSIS WITH MICRO epi cells NEGATI VE Not Available [facility] [address] [facility] 1, [place], [address], 12/20/2024 10:33:05 12/21/19 25 12/20/2024 URINA LYSIS WITH MICRO bacteria NEGATI VE Not Available [facility] [address] [facility] 1, [place], [address], 12/20/2024 10:33:05 12/21/19 25 12/20/2024 URINA LYSIS WITH MICRO other NG Not Available [facility] [address] [facility] 1, [place], [address], 12/20/2024 10:33:05 12/21/19 25 12/20/2024 CMP (MALE ) glucose 111.0 mg/dL 60.0-9 9.0 high Not Available [facility] [address] [facility], [place], [address], 12/20/2024 10:34:44 12/21/19 25 12/20/2024 CMP (MALE ) BUN (blood urea nitrogen) 32.0 mg/dL 10.0-2 6.0 high Not Available [facility] [address] [facility] 1, [place], [address], 12/20/2024 10:34:44 12/21/19 25 12/20/2024 CMP (MALE ) creatinine (serum) 2.9 mg/dL 0.4-1. 5 high Not Available [facility] [address] [address], [place], [address], 12/20/2024 10:34:44 12/21/19 25 12/20/2024 CMP (MALE ) BUN/creatini ne ratio 11.03 ratio Not Available [facility] [address] [address], [place], [address], 12/20/2024 10:34:44 12/21/19 25 12/20/2024 CMP (MALE ) eGFR calculated 22.1 Not Available [facility] [address] [address], [place], [address], 12/20/2024 10:34:44 12/21/19 25 12/20/2024 CMP (MALE ) total protein 6.1 g/dL 6.0-8. 5 Not Available [facility] [address] [facility] [address] [address], [place], [address], 12/20/2024 10:34:44 12/21/19 25 12/20/2024 CMP (MALE ) total bilirubin 0.5 mg/dL 0.2-1. 3 Not Available [facility] [address] [facility] 1, [place], [address], 12/20/2024 10:34:44 12/21/19 25 12/20/2024 CMP (MALE ) albumin 3.7 g/dL 3.5-5. 5 Not Available [facility] [place] [facility] [facility] [address] [facility] 1, [place], [address], 12/20/2024 10:34:44 12/21/19 25 12/20/2024 CMP (MALE ) globulin 2.4 calc Not Available [facility] [address] [facility] 1, [place], [address], 12/20/2024 10:34:44 12/21/19 25 12/20/2024 CMP (MALE ) AST (SGOT) 35.0 U/L 0.0-46 .0 Not Available [facility] [address] [address], [place], [address], 12/20/2024 10:34:44 12/21/19 25 12/20/2024 CMP (MALE ) altv (SGPT) 26.0 U/L 13.0-6 9.0 normal Not Available [facility] [address] [address], [place], [address], 12/20/2024 10:34:44 12/21/19 25 12/20/2024 CMP (MALE ) A/G ratio 1.5 ratio Not Available [facility] [address] [facility] 1, [place], [address], 12/20/2024 10:34:44 12/21/19 25 12/20/2024 CMP (MALE ) ALP phos 188.0 U/L 30.0-1 40.0 abnormal Not Available [facility] [address] [address], [place], [address], 12/20/2024 10:34:44 12/21/19 25 12/20/2024 CMP (MALE ) calcium 9.7 mg/dL 8.4-10 .5 Not Available [facility] [place] [facility] [facility] [address] [facility] 1, [place], [address], 12/20/2024 10:34:44 12/21/19 25 12/20/2024 CMP (MALE ) sodium 139.0 mmol/ L 136.0- 145.0 Not Available [facility] [place] [facility] [address] [facility] 1, [place], [address], 12/20/2024 10:34:44 12/21/19 25 12/20/2024 CMP (MALE ) potassium 4.4 mmol/ L 3.5-5. 1 Not Available [facility] [place] [facility] [address] [facility] 1, [place], [address], 12/20/2024 10:34:44 12/21/19 25 12/20/2024 CMP (MALE ) chloride 104.0 mmol/ L 98.0-1 10.0 normal Not Available [facility] [place] [facility] [address] [facility] 1, [place], [address], 12/20/2024 10:34:44 12/21/19 25 12/20/2024 CMP (MALE ) C02 31.0 mmol/ L 22.0-3 1.0 Not Available [facility] [place] [facility] [address] [facility] 1, [place], [address], 12/20/2024 10:34:44 12/21/19 25 12/20/2024 CMP (MALE ) anion gap 4.0 calc Not Available Michael [facility]on [facility] [address] [facility] 1, [place], [address], 12/20/2024 10:34:44 12/21/19 25 12/20/2024 CMP (MALE ) osmolality 294.2 calc Not Available [facility] [address] [facility] 1, [place], [address], 12/20/2024 10:34:44 12/21/19 25 12/22/2024 CULTU RE, URINE , ROUTI NE culture, urine, routine SEE NOTE CULTU RE, URINE , ROUTI NE Micro Numbe r: [id number] Test Statu s: Final Speci men Sourc e: Urine , clean catch Speci men Quali ty: Adequ ate Resul t: Less than 10,00 0 CFU/m L of singl e Gram posit wes organ ism isola vern. No furth er testi ng will be perfo rmed. If clini juany indic ated, recol lecti on using a metho d to minim ize conta minat ion, with promp t trans james to Urine Cultu re Trans port Tube, is recom barb d. Not Available [facility] [address], [place], [address], 12/22/2024 02:58:40 09/27/19 25 09/26/2024 XR, foot, 3 or more view No observ ation record ed. [address] [place], [address], 09/26/2024 16:04:13 10/11/19 25 10/06/2024 imagi ng/di agnos tic resul t No observ ation record ed. [email or web address] [facility] [address] [facility] 1, [place], [address], 10/11/2024 10:42:56 10/18/19 25 10/17/2024 XR, foot, 3 or more view No observ ation record ed. [address] [place], [address], 10/19/2024 13:50:45 10/18/19 25 10/17/2024 XR, foot, 3 or more view No observ ation record ed. [address] [facility] [address] [place], [address], 10/19/2024 13:50:26 Result Notes None recorded. Problems Name Problem SNOMED Code Status Onset Date Resolution Date Notes Provider Name and Address Organization Details Recorded Time Chronic kidney disease stage 3 228406356 Completed 202007/25/2020 CHRONIC KIDNEY DISEASE, STAGE 3 - Status is Inactive ; Story: Darlin eld Neurolog y; Recorded 07/25/19 4:02PM by Concha Pimentel LPN, Annotati on/Adden dum; Promoted ; acuity set as *; CHRONIC KIDNEY DISEASE (CKD), STAGE III (MODERAT E) - Status is Inactive ; Recorded 07/25/19 4:02PM by Concha Pimentel LPN, Annotati on/Adden dum; Promoted ; acuity set as *; Not Available [facility] 3 03:16:48 Cutaneou s lupus erythema tosus 5748014 Completed 202009/19/2024 cutaneou s lupus erythema tosus; verified by bx Dinah mendez [facility] 5 23:42:49 Benign hyperten altagracia 52169032 Active 2022 CONCHA mendez [facility] 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 3 09:38:06 Gastroes ophageal reflux disease 761743465 Active 2022 CONCHA mendez [facility] 5 08:30:03 Hyperlip idemia 78097247 Active 2022 CONCHA mendez [facility] 3 09:37:43 Chronic kidney disease stage 4 689316472 Active 2022 CONCHA mendez, [facility] 5 08:30:03 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 99093970662 9104 Active 2022 CONCHA mendez, [facility] 3 09:36:39 Iron deficien cy anemia 12509626 Active 2022 [facility] 5 08:30:33 History of malignan t neoplasm of prostate 496153120 Completed 202209/19/2024 [facility] 5 23:42:49 History of malignan t neoplasm of bladder 749727705 Completed 202209/19/2024 [facility] 5 23:42:49 Chronic radiatio n cystitis 206719531 Active 2022 [facility] 5 08:30:03 Acute non-ST segment elevatio n myocardi al infarcti on 902908595 Completed 202210/17/2024 hx of Dinah mendez [facility] 5 10:34:13 Severe aortic valve stenosis 117003817 Active 2023 echocard iogram 04/24/24: EF 61%, moderate to severe aortic valve stensosi sTenzin [facility] 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 5 10:44:43 Coronary atherosc lerosis 835066540 Active 2023 CONCHA PIMENTEL [facility]in 5 08:30:02 Anemia due to chronic blood loss 592355769 Active 2024 Dinah Huffman [facility] 5 23:42:27 Hussein hematuri a 525383786 Active 2024 Dinah Armida [facility] 5 23:42:27 Notes:Some problems listed i n Documents: #[id number], #[id number], #[id number] could not be added to this patient's chart. Please review these documents and add these problems to the patient's chart manually as needed. Problem Notes None recorded. Procedures Surgical History Date Name Laterality Status Provider Name and Address Organization Details Recorded Time 11/12/19 [address] 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 02/19/2023 09:42:10 Imaging Results None recorded. Procedure Notes None recorded. Medical Equipment None Reported. Allergies Allergen ID Allergen Name Allergen Category Reaction Reaction Severity Criticality Documentation Date Start Date Code Code System Note Provider Name and Address Organization Details Recorded Time 3650 Lipitor medicatio n Not available Not available Not available 11/18/2022 17308 5 RxNorm Dinah Huffman [facility], LTenzinL.CTenzin 10:33:51 3652 Zocor medicatio n Not available Not available Not available 11/18/2022 20501 3 RxNorm [facility] 3 10:34:02 3653 Pravachol medicatio n Not available Not available Not available 11/18/2022 52291 3 RxNorm Dinah Huffman [facility] 3 10:34:08 23600 rosuvasta tin calcium medicatio n myalgias (muscle pain) Not available Not available 01/17/2023 58406 8 RxNorm React ion: myalg ias; Comme nt: Recor ded 07/02 11:27 AM by Dinah Guzman RN, Offic e Visit ; Lilian porras; Amirah mills ce: *; Reaso n: Drug aller gy; ; LAURA LOPEZ [facility] 3 14:13:26 78618 Iodinated contrast media (substanc e) medicatio n Not available Not available Not available 03/05/2023 27735 2003 SNOMED kidne y probl ems Dinah Huffman [facility] 3 10:40:25 964 Product containin g 3-hydroxy -3-methyl glutaryl- coenzyme A reductase inhibitor (product) medicatio n myalgias (muscle pain) Not available Not available 09/23/2022 52644 009 SNOMED CONCHA PIMENTEL [facility] 3 12:40:46 Medications Name Sig Start Date [...] 2023 active Not Available Not Available Not Avbo osorio hydrocodo ne 5 mg-acetam inophen 325 mg tablet Take 1 tablet every 6 hours by oral route for 5 days, for prn to severe postoper ative pain. 12/04 completed Not Available Not Available Not Available prednison e 20 mg tablet TAKE [...] TAKE 1 TABLET BY MOUTH TWICE DAILY FOR 3 DAYS 11/22 completed Not Available Not Available Not Available [...] DAY FOR A TOTAL OF 6 DAYS 11/22 completed Not Available Not Available Not Available cefdinir 300 mg capsule 01/22 completed [...] 10 mg tablet,ex tended release 24 hr TAKE 1 TABLET BY MOUTH ONCE DAILY active Not Available Not Available No t Available nitrofura ntoin monohydra te/macroc rystals 100 mg capsule Take 1 capsule every 12 hours by oral route for 7 days. 02/19 completed Not Available Not Available Not Available magnesium daily 01/22 completed 0; Recorded 07/02/19 23 11:28AM by Dinah Guzman RN, Office Visit; Not Available Not Available Not Available aspirin daily 01/22 completed 0; Recorded 07/02/19 23 11:28AM by Dinah Guzman RN, Office Visit; Not Available Not Available Not Available carvedilo l two times daily 01/[address] Sweet; 0; Recorded 07/02/19 23 11:28AM by Dinah Guzman RN, Office Visit; Not Available Not Available Not Available [place]-3 two times daily active 0; Recorded 07/02/19 23 11:28AM by Dinah Guzman RN, Office Visit; Not Available Not Available Not Available Centrum Silver 1 daily active Not Available Not Available Not Available Vitamin D3 1 daily active Not Available Not Available Not Available [place] 3 2 twice daily 01/22 completed Not Available Not Available Not Available alfuzosin at bedtime 01/22 completed d/c lima rubio e prefers ludy chavez AM/evelina; 436; Recorded 08/27/19 23 8:13AM by Concha Pimentel LPN (Authori keren [...] MG UNDER THE SKIN EVERY 2 WEEKS 2024 active Not Available Not Available Not Avai lable Repatha Pushtrone x 420 mg/3.5 mL subcutane ous wearable injector INJECT 420MG UNDER THE SKIN EVERY 30 DAYS 01/13 completed Not Available Not Available Not Available Repatha Pushtrone x monthly 02/19 completed dx statin myopathy hx mi,cabg drug induced lupus with statin; 436; Recorded 01/21/20 22 8:22AM by Concha Pimetnel LPN (Authori keren through Luis Alberto Laurent [...] in Arterial blood by Pulse oximetry Systolic And Diastolic Provider Name and Address Organization Details Last Updated DateTime 5 166.37 cm 26.2 kg/m2 34592.7 8 g 97.1 [degF] 70 /min 99 % 99 % 114/60 mm[Hg] Dinah Huffman [facility] 5 10:22:45 Date Recorded Body height Body mass index (BMI) Body weight Body temperature Heart rate Oxygen saturation Oxygen saturation in Arterial blood by Pulse oximetry Systolic And Diastolic Provider Name and Address Organization Details Last Updated DateTime 5 166.37 cm 26.4 kg/m2 53154.3 7 g 97.5 [degF] 82 /min 98 % 98 % 104/62 mm[Hg] CONCHA PIMENTEL [facility] 5 09:59:31 Date Recorded Body height Body mass index (BMI) Body weight Body temperature Heart rate Oxygen saturation Oxygen saturation in Arterial blood by Pulse oximetry Systolic And Diastolic Provider Name and Address Organization Details Last Updated DateTime 5 166.37 cm 26.2 kg/m2 81870.7 8 g 97.3 [degF] 74 /min 96 % 96 % 118/64 mm[Hg] [facility] 5 08:31:47 Date Recorded Body height Body mass index (BMI) Body weight Body temperature Heart rate Oxygen saturation Oxygen saturation in Arterial blood by Pulse oximetry Systolic And Diastolic Provider Name and Address Organization Details Last Updated DateTime 5 166.37 cm 26.1 kg/m2 02516.1 9 g 97.6 [degF] 76 /min 96 % 96 % 116/70 mm[Hg] Dinah [facility] 5 09:07:14 Date Recorded Body height Body mass index (BMI) Body weight Body temperature Respiratory rate Oxygen saturation Oxygen saturation in Arterial blood by Pulse oximetry Heart rate Systolic And Diastolic Provider Name and Address Organization Details Last Updated DateTime 5 166.37 cm 25.2 kg/m2 90463.2 2 g 96.9 [degF] 18 /min 96 % 96 % 76 /min 118/74 mm[Hg] CHIDI MARCANO [facility] 5 08:50:19 Social History Question Answer Notes LastModified by Organizat ion Details LastModified Time Tobacco Smoking Status Former Smoker CHIDI mendez [facility] 12/20/2024 08:51:16 When Did You Quit Smoking? 16+yearssinc elastcigaret te [email or web address] Information not available 12/20/2024 What Was The Date Of Your Most Recent Tobacco Screening? 12/20/2024 [email or web address] Information not available 12/20/2024 What Is Your Relationship Status? [email or web address] Information not available 09/23/2022 Sex: Unknown Functional Status Question Answer Note LastModified by Organizat ion Details LastModified Time Do you use any illicit or recreational drugs? No [email or web address] Information not available 09/23/2022 Do you or have you ever used any other forms of tobacco or nicotine? No [email or web address] Information not available 02/19/2023 What is your level of alcohol consumption? None [email or web address] Information not available 09/23/2022 Do you or have you ever used any nicotine-free cigarettes, vape, or chewing tobacco? No Information not available 07/12/2024 Mental Status None recorded. Family History Relationship Description Onset Age of this Age Resolved Age Notes LastModified by Organization Details LastModified Time Brother Diabetes mellitus [email or web address] Not available 02/19 09:13:20 Brother Coronary atherosclero sis [email or web address] Not available 02/19 09:13:29 Medical History No medical history recorded. Immunizations Vaccine Type Date Status Note Provider Nam e and Address Organization Details Recorded Time Tdap 4 completed Not Available [facility] 06/09/2023 09:09:05 Influenza, split virus, trivalent, preservative 1 completed Not Available [facility] 06/09/2023 09:09:05 Influenza, split virus, trivalent, preservative 1 completed Not Available [facility] 06/09/2023 09:09:05 Influenza, split virus, trivalent, preservative 6 completed Not Available [facility] 06/09/2023 09:09:05 Pneumococcal conjugate PCV 13 6 completed Not Available [facility] 06/09/2023 09:09:05 pneumococcal polysaccharide PPV23 0 completed Not Available [facility] 06/09/2023 09:09:05 Influenza, adjuvanted, quadrivalent, PF 3 [facility]/26/2023 10:15:49 COVID-19, mRNA, LNP-S, PF, 50 mcg/0.5 mL 3 completed CONCHA PIMENTEL [facility] 03/26/2023 10:15:49 COVID-19, mRNA, LNP-S, PF, 50 mcg/0.5 mL 4 completed CONCHA PIMENTEL [facility] 07/12/2024 12:49:37 Influenza, high-dose, trivalent, PF 4 completed [facility] 07/12/2024 12:49:37 Influenza, high-dose, quadrivalent, PF 2 completed [facility] 11/18/2022 10:19:27 COVID-19, mRNA, LNP-S, PF, 100 mcg/0.5mL dose or 50 mcg/0.25mL dose 1 completed [facility] 11/18/2022 10:19:27 COVID-19, mRNA, LNP-S, PF, 100 mcg/0.5mL dose or 50 mcg/0.25mL dose 1 completed [facility] 11/18/2022 10:19:27 COVID-19, mRNA, LNP-S, PF, 100 mcg/0.5mL dose or 50 mcg/0.25mL dose 2 completed [facility] 11/18/2022 10:19:27 COVID-19, mRNA, LNP-S, PF, 100 mcg/0.5mL dose or 50 mcg/0.25mL dose 1 completed [facility] 11/18/2022 10:19:27 COVID-19, mRNA, LNP-S, bivalent, PF, 50 mcg/0.5 mL or 25mcg/0.25 mL dose 2 completed Dinah mendez [facility], Sue 11/18/2022 10:19:27 Past Encounters Encounter ID Performer Location Encounter Start Date Encounter Closed Date Diagnosis/Indication Diagnosis SNOMED-CT Code Diagnosis ICD10 Code Diagnosis Note [id number] Luis Alberto Laurent MD [facility] ([facility]) [address] [place] [address] 09/23/2022 12:24:41 10/01/2022 21:32:07 Hussein hematuria 935397110 R31.0 he will see urology in 30 minsor so. his bleeding has stopped. he will go to ER if fever unable to void, pelvic pain or significan t bleeding was due for surveillan ce in December will need to establish with a new urologist for future care after November. [id number] Luis Alberto Laurent MD [facility] ([facility]) [address] [place] [id number] 11/18/2022 10:02:12 11/18/2022 19:23:40 Chronic kidney disease stage 4 487634970 N18.4 Anemia due to blood loss 080527013 D50.0 Moderate a ortic valve stenosis 702488527 I35.0 Luis Alberto Laurent MD [facility] ([facility]) [address] [place] [id number] 5 12/04/2022 13:11:03 12/04/2022 15:58:49 Blood in urine 06328205 R31.9 normal penis on exam skin intact urethra normal [id number] Luis Alberto Laurent MD [facility] ([facility]) [address] [place] [id number] 5 12/10/2022 09:03:30 12/10/2022 17:19:40 Blood in urine 20046496 R31.9 normal penis on exam skin intact urethra normalwill call urology once again. [id number] DHRUV JOSEPH [facility] ([facility]) [address] [place] [id number] 5 01/16/2023 15:52:37 01/16/2023 18:11:22 Acute gout 149873192 M10.[address] Easley due to [...] CMP. Patient agrees to plan of care. [id number] Lavinia Camarena MD [facility] ([facility]) [address] [place] [id number] 5 01/22/2023 14:04:01 01/22/2023 14:36:56 Hyperuricemia 41502263 E79.0 >6.8 but less than cutoff of 8. First episode was last week. Pt is now asymptomat ic without treatment. Monitor. [id number] Luis Alberto Laurent MD [facility] ([facility]) [address] [place] [id number] 5 02/12/2023 13:46:23 02/12/2023 14:53:02 Iron deficiency anemia 36788611 D50.9 he will see nephrology in march. will fax his bloodwork to nephrology and to urology. [id number] Luis Alberto Laurent MD [facility] ([facility]) [address] [place] [id number] 5 02/19/2023 08:43:53 02/19/2023 12:39:18 Occult blood detected in feces 14986384 R19.5 Iron defic iency anemia 22119501 D50.9 he will see nephrology in march. will fax his bloodwork to nephrology and to urology. 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 4990542851 58993 N18.4 [id number] Luis Alberto Laurent MD [facility] ([facility]) [address] [place] [id number] 5 03/05/2023 09:40:04 03/05/2023 11:23:56 Anemia due to blood loss 481293706 D50.0 appears improved no gi sx. he will go to er if sx develop as discussed [id number] Luis Alberto Laurent MD [facility] ([facility]) [address] [place] [id number] 5 03/26/2023 10:09:56 03/26/2023 12:29:41 [id number] Luis Alberto Laurent MD [facility] ([facility]) [address] [place] [id number] 5 04/28/2023 09:37:54 04/28/2023 18:16:03 Anemia due to blood loss 631503689 D50.0 appears improved no gi sx. 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 3910341611 12677 N18.4 Thrombocyt openic disorder 695732726 D69.6 [id number] Luis Alberto Laurent MD [facility] ([facility]) [address] [place] [id number] 5 05/19/2023 08:46:16 05/19/2023 09:43:33 Blood in urine 24496952 R31.9 Gastroesop hageal reflux disease 005235513 K21.01 Lower urin donald tract symptoms 188127421 R39.9 History of malignant neoplasm of prostate 458482804 Z85.46 History of malignant neoplasm of bladder 578682859 Z85.51 Chronic ra diation cystitis 364652491 N30.40 completed hyperbaric therapy with pretty good success [id number] Luis Alberto Laurent MD [facility] ([facility]) [address] [place] [id number] 5 05/25/2023 14:24:38 05/25/2023 15:59:02 [id number] Luis Alberto Laurent MD [facility] ([facility]) [address] [place] [address] [phone] 5 06/09/2023 09:08:50 06/09/2023 11:14:35 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 [id number] 55500 N18.4 Benign hypertension 1072 5009 I10 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 89671041 N25.81 Moderate a ortic valve stenosis 035128598 I35.0 History of malignant neoplasm of prostate 055163311 Z85.46 History of malignant neoplasm of bladder 664657878 Z85.51 Chronic ra diation cystitis 894274583 N30.40 completed hyperbaric therapy with pretty good success [id number] Luis Alberto Laurent MD [facility] ([facility]) [address] [place] [address] [phone] 5 08/24/2023 08:39:06 08/24/2023 09:15:50 Severe aortic valve stenosis 236110509 I35.0 Acute on c hronic diastolic heart failure 108585768 I50.33 [id number] Luis Alberto Laurent MD [facility] ([facility]) [address] [place] [address] [phone] 5 08/27/2023 08:12:26 08/28/2023 09:39:22 Benign hypertension 88344658 I10 [id number] Luis Alberto Laurent MD [facility] ([facility]) [address] [place] [address] [phone] 5 08/28/2023 08:48:27 08/28/2023 09:35:18 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 4353706462 87901 N18.4 Benign hypertension 1072 5009 I10 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 51151244 N25.81 Moderate a ortic valve stenosis 047574872 I35.0 Chronic ra diation cystitis 693143742 N30.40 completed hyperbaric therapy with pretty good success Hyperlipidemia 86282362 E78.5 Malignant neoplasm of prostate 155451661 C61 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 648788995 C67.9 Acquired thrombocytopenia 96403561 D69.6 [id number] Luis Alberto Laurent MD [facility] ([facility]) [address] [place] [address] [phone] 5 09/03/2023 08:03:19 09/04/2023 12:22:26 Anemia 187058614 D64.9 Benign hypertension 1072 5009 I10 [id number] Luis Alberto Laurent MD [facility] ([facility]) [address] [place] [address] [phone] 5 09/10/2023 09:58:42 09/10/2023 13:51:04 Severe aortic valve stenosis 589017309 I35.0 Hussein hematuria 77267610 5 R31.0 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 3924225702 87521 N18.4 Benign hypertension 1072 5009 I10 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 98074537 N25.81 Chronic ra diation cystitis 309063234 N30.40 Malignant neoplasm of prostate 874225962 C61 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 352287294 C67.9 sees urology in current hussein hematuria and hgb is stable Acquired thrombocytopenia 95887307 D69.6 stable Acute on c hronic diastolic heart failure 929168507 I50.33 [id number] Luis Alberto Laurent MD [facility] ([facility]) [address] [place], [place] 490785-204 5 10/14/2023 08:04:44 10/15/2023 10:55:15 Benign hypertension 05409615 I10 Anemia 310954386 D64.9 [id number] Luis Alberto Laurent MD [facility] ([facility]) [address] [place] [address] [phone] 5 10/21/2023 09:44:52 10/21/2023 12:21:43 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 6347484064 98467 N18.4 Benign hypertension 1072 5009 I10 Hyperlipidemia 11964717 E78.5 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 67371648 N25.81 [id number] Luis Alberto Laurent MD [facility] ([facility]) [address] [place] [address] [phone] 5 12/15/2023 09:57:11 12/15/2023 10:57:46 Blood in urine 06356355 R31.9 [id number] Luis Alberto Laurent MD [facility] ([facility]) [address] [place] [address] [phone] 5 01/12/2024 08:06:14 01/12/2024 09:44:38 Benign hypertension 84221568 I10 Hyperlipidemia 22104592 E78.5 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 6288723006 37536 N18.4 [id number] Luis Alberto Laurent MD [facility] ([facility]) [address] [place] [address] [phone] 5 01/22/2024 13:49:02 01/22/2024 14:54:12 Hussein hematuria 339151770 R31.0 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 1506389881 04259 N18.4 Iron defic iency anemia 24999346 D50.9 he will see nephrology in march. will fax his bloodwork to nephrology and to urology. [id number] Luis Alberto Laurent MD [facility] ([facility]) [address] [place] [address] [phone] 5 02/09/2024 13:00:44 02/09/2024 14:35:10 Blood in urine 35917056 R31.9 if light headed weak short of breath chest pain unable to void go to ER [id number] Luis Alberto Laurent MD [facility] ([facility]) [address] [place] [address] [phone] 5 02/19/2024 13:31:18 02/19/2024 14:57:37 [id number] Luis Alberto Laurent MD [facility] ([facility]) [address] [place] [address] [phone] 5 02/23/2024 11:52:47 02/24/2024 12:10:12 Anemia due to blood loss 086157855 D50.0 appears improved no gi sx. he will go to er if sx develop as discussedh e is tolerating his iron [id number] Luis Alberto Laurent MD [facility] ([facility]) [address] [place] [address] [phone] 5 03/24/2024 08:19:49 03/24/2024 08:59:27 Anemia due to blood loss 543705669 D50.0 he is still actively bleeding. will plan on recheck in a few weeks as scheduled. likely will need an iron infusions. Chronic ki dney disease stage 4 884013117 N18.4 they are going to discuss dialysis what it is like. Severe aor tic valve stenosis 941286222 I35.0 [id number] Luis Alberto Laurent MD [facility] ([facility]) [address] [place] [address] [phone] 5 04/05/2024 08:03:51 04/05/2024 08:18:26 Anemia 082641178 D64.9 [id number] Luis Alberto Laurent MD [facility] ([facility]) [address] [place] [address] [phone] 5 04/27/2024 14:34:44 04/28/2024 10:30:55 Hussein hematuria 325688972 R31.0 [id number] Luis Alberto Laurent MD [facility] ([facility]) [address] [place] [address] [phone] 5 06/01/2024 08:06:30 06/02/2024 13:24:43 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 8094819826 00125 N18.4 [id number] Luis Alberto Laurent MD [facility] ([facility]) [address] [place] [address] [phone] 5 06/08/2024 13:49:41 06/08/2024 17:42:43 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 0132641331 42118 N18.4 Blood in urine 94807296 R31.9 if light headed weak short of breath chest pain unable to void go to ER [id number] Luis Alberto Laurent MD [facility] ([facility]) [address] [place] [address] [phone] 5 07/05/2024 08:11:20 07/06/2024 13:08:33 Anemia 926842766 D64.9 [id number] Luis Alberto Laurent MD [facility] ([facility]) [address] [place] [address] [phone] 5 07/12/2024 12:47:15 07/13/2024 11:41:26 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 2986904439 14796 N18.4 Benign hypertension 1072 5009 I10 Hyperlipidemia 89743439 E78.5 Coronary atherosclerosis 551958763 I25.10 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 has been told it is inoperable and given no surgical interventi on options to stop the bleeding. he would like to be evaluated in [facility] to see if there are any other ameliorati ve treatment options that would be acceptable to him. he has had full hyperbaric therapy regimen twice. [id number] Luis Alberto Laurent MD [facility] ([facility]) [address] [place] [address] [phone] 5 07/26/2024 10:48:34 07/27/2024 11:33:42 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 6716051874 08887 N18.4 [id number] Luis Alberto Laurent MD [facility] ([facility]) [address] [place] [address] [phone] 5 07/28/2024 12:31:37 08/05/2024 23:10:04 Ear pressure sensation 203740868 H93.8X9 [id number] Luis Alberto Laurent MD [facility] ([facility]) [address] [place] [address] [phone] 5 08/08/2024 08:09:51 08/08/2024 08:22:02 Anemia 216197683 D64.9 hgb is stable [id number] Luis Alberto Laurent MD [facility] ([facility]) [address] [place] [address] [phone] 5 08/23/2024 08:26:29 08/24/2024 12:38:48 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 7096087815 32426 N18.4 Severe aor tic valve stenosis 619219599 I35.0 hemodinyam ically stable despite the heaturia. no orthostasi s, palpitatio ns, dyspnea, or chest discomfort by hx Pain of to e of left foot 5043132324 23194 M79.675 Hussein hematuria 94113241 5 R31.0 has failed quite a few therapies. has been told it is inoperable and given no surgical interventi on options to stop the bleeding. he would like to be evaluated in [facility] to see if there are any other ameliorati ve treatment options that would be acceptable to him. he has had full hyperbaric therapy regimen twice. 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 Anemia due to chronic blood loss 214415828 D50.0 [id number] Luis Alberto Laurent MD [facility] ([facility]) [address] [place] [address] [phone] 5 09/16/2024 08:04:05 09/17/2024 07:01:28 Anemia due to blood loss 591908254 D50.0 he is still actively bleeding. will plan on recheck in a few weeks as scheduled. likely will need an iron infusions. [id number] Luis Alberto Laurent MD [facility] ([facility]) [address] [place] [address] [id number] 5 09/19/2024 08:37:30 09/19/2024 09:26:54 Gout 88933002 M10.9 we discussed causes of gout including renal Pain of to e of left foot 1733425408 92558 M79.579 [id number] Luis Alberto Laurent MD [facility] ([facility]) [address] [place] [address] [id number] 5 09/26/2024 09:03:44 09/26/2024 13:05:35 Pain in right foot 4269094286 48719 M79.671 declines additional pain med above tylenol. appears typical of gout and uric acid is incresED. GFR 17 SO NSAIDS AND COLCHICHIN E ARE CONTRAINDI CATED. WILL CYAHGE TO A MEDROL DOSE PACK. I will refer to podiatry to consider further evaluation apnd possible injection if not improving. No obvious sign of infection. radiology report pending. Anemia due to blood loss 576967053 D50.0 stable no active bleeding. hgb improving. [id number] Luis Alberto Laurent MD [facility] ([facility]) [address] [place] [address] [phone] 5 10/07/2024 09:58:15 10/07/2024 11:16:31 Hussein hematuria 200051676 R31.0 he has some bleeding again now.he was told to continue his finasterid e [id number] Luis Alberto Laurent MD [facility] ([facility]) [address] [place] [address] [id number] 5 10/11/2024 09:36:57 10/11/2024 14:02:41 Gouty arthritis 15121636 M10.9 Pain in right foot 47660 39581 42078 M79.671 declines additional pain med above tylenol. appears typical of gout and uric acid is incresED. GFR 17 SO NSAIDS AND COLCHICHIN E ARE CONTRAINDI CATED. WILL CYAHGE TO A MEDROL DOSE PACK. I will refer to podiatry to consider further evaluation apnd possible injection if not improving. No obvious sign of infection. radiology report pending. Chronic ki dney disease stage 4 602982740 N18.4 [id number] Luis Alberto Laurent MD [facility] ([facility]) [address] [place] [address] [id number] 5 10/17/2024 08:16:56 10/17/2024 13:00:48 Pain in right foot 1038152047 97349 M79.671 declines additional pain med above tylenol. appears typical of gout and uric acid is increased. GFR 17 SO NSAIDS AND COLCHICHIN E ARE CONTRAINDI CATED. I will refer to podiatry to consider further evaluation and possible injection if not improving. No obvious sign of infection. radiology report pending. i will repeat xrays today [id number] Luis Alberto Laurent MD [facility] ([facility]) [address] [place] [address] [id number] 5 11/22/2024 08:29:45 11/22/2024 10:13:12 Closed fracture of hip 828655848 S72.001D [id number] Luis Alberto Laurent MD [facility] ([facility]) [address] [place] [address] 5 12/20/2024 08:42:31 12/20/2024 13:01:56 Hussein hematuria 930526127 R31.0 he has some bleeding again now.he was told to continue his finasterid e Health Concerns Section Related Observation LastModified by Organization Detai ls LastModified Time None Recorded Concern Status LastModified by Organization Details LastModified Time None Recorded Advance Directives Directive None Recorded Payers Insurance Date Sequence Insurance Name Policy Number Policy Calloway Covered Member ID Calloway Member ID Guarantor Name 12/20/2024 [place] - [place] A - [facility] (MEDICARE) Augusto Quispe [id number] Augusto Quispe 12/20/2024 1 [place]: [place] Augusto Quispe [id number] Augusto Quispe 12/20/2024 2 [employer] - MEDICARE SELECT - PLAN F (MEDICARE SUPPLEMENT) Augusto Quispe [id number] Augusto Quispe
[2025-01-17 18:44] LABS: Hematocrit 29.6 % (37-53); Hemoglobin 9.60 g/dL (11.27-16.99); Mean Corpuscular HGB Conc 32.4 g/dL (30-55); Mean Corpuscular Hemoglobin 32.4 pg (27-33); Mean Corpuscular Volume 100.0 fl (82-101); Nucleated Red Blood Cells % 0 %; Platelet Count 135 10^3/cmm (157-399); Red Blood Count 2.96 10^6/uL (3.85-5.65); White Blood Count 7.58 10^3/uL (3.29-11.43)
[2025-01-17 19:01] LABS: Alanine Aminotransferase 26 U/L (0-41); Albumin Level 3.9 g/dL (3.5-5.2); Alkaline Phosphatase 187 U/L (40-130); Anion Gap 17.2 (5-19); Aspartate Amino Transferase 26 U/L (0-40); Blood Urea Nitrogen 31 mg/dL (8-23); Calcium 9.3 mg/dL (8.5-10.5); Carbon Dioxide 25 mmol/L (22-29); Chloride 103 mmol/L (98-107); Creatinine Clr Calc Pharmacy 18.0525; Globulin 2.4 g/dL (1.3-4.6); Glucose 116 mg/dL (65-115); Osmolality Calculated 300 mOsm/kg (285-295); Potassium 4.2 mmol/L (3.5-5.1); Sodium 141 mmol/L (136-145); Total Protein 6.3 g/dL (6.6-8.7)
[2025-01-17 19:07] LABS: Glucose Urine UA Negative (Normal); Nitrate Urine Positive (Negative); Specific Gravity, Urine 1.016 (1.005-1.030)
[2025-01-17 19:09] LABS: Add Urine Microscopic? YES
== END 2025-01-17 19:45 | disposition left against medical advice (07) ==
LOC: ER 18:17
PROVIDERS: Emergency Medicine; Emergency Provider Family Medicine; PCP Family Medicine
DX: Z01.89 Encounter for other specified special examinations (principal); Z53.21 Procedure and treatment not carried out due to patient leaving prior to being seen by health care provider
CPT/HCPCS: 36415; 80053; 81001; 85025; 87086

== ENCOUNTER → 2025-03-27 10:46 | Outpatient (BNVA) | payer MEDICARE, OTHER, SELFPAY | PROVIDERS: PCP Family Medicine; Visit Provider Nurse Practitioner | DX: S72.144D Nondisplaced intertrochanteric fracture of right femur, subsequent encounter for closed fracture with routine healing (principal); X58.XXXD Exposure to other specified factors, subsequent encounter; Z47.89 Encounter for other orthopedic aftercare | CPT/HCPCS: 73502; 99213 ==

== ENCOUNTER 2025-04-14 23:49 | Emergency (ER) | payer MEDICARE, OTHER, SELFPAY ==
--- OUTSIDE RECORDS SUMMARY | 2024-11-03 12:00 | XMS_ITS ---
Author Organization [facility] Address [address] [place] [address] Care Team Providers Care Ticket Dispatcher Name Role Phone Mehran ANAND, Andry Primary Care Provider ALEXEY Willingham [phone] REASON FOR VISIT 1 yr w/ ua/pvr/psa Encounters Encounter Location Date Provider Diagnosis [facility] [address] [place] [facility] [place] [address] 11/03/2024 ALEXEY VEE Plan Of Treatment No Information Progress Notes * Augusto QUISPE LDOB: [birth year] (84 yo M)Acc No.[id number]:11/03/2024 Patient: Augusto STRAUSS Provider: Julian VEE MD :1940 A ge:84 Y S ex:Male Date:11/03/2024 Address:[address] [place], [place] [id number] Pcp:Andry Laurent MD Subjective: * Chief Complaints: * 1 . 1 yr w/ ua/pvr/psa. * Medical History: Objective: * Vitals: Assessment: Plan: * Treatment: * Billing Information: * Visit Code: * Procedure Codes: * Electronic signature of AUST IN MD MARIUSZ on 04/14/2025 at 11:55 PM CDT Sign off status: Pending * Provider: Julian VEE MD Date: 0 11/03/2024 Generated for Printi ng/Faxing/eTransmitting on: 1 11:55 PM CDT
--- OUTSIDE RECORDS SUMMARY | 2025-04-14 23:54 | XMS_ITS | Clinical Summary ---
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
--- OUTSIDE RECORDS SUMMARY | 2025-04-14 23:54 | XMS_ITS | Patient Health Record ---
Author Organization [facility] Address [address] [place] [address] Care Team Providers Care Lead Php Developer Name Role Phone Andry Laurent MD Primary Care Provider Bacilio womack VEE ALEXEY Unavailable [phone] Allergies Allergen (clinical drug ingredient) Drug/Non Drug Allergy documented on EMR Reaction Allergy Type Onset Date Status Substance with 2-bidfwln-3-methylgluta ryl-coenzyme A reductase inhibitor mechanism of action (substance) Statins Unknown Drug Allergy Active Reason For Referral No Information Medications Medication [...] same meal Orally Once a day Active [place] 3 Active Repatha *Pick strength-form from [employer] for eRX* Active Potassium Active Vitamin D [...] Problem Status W/U Status Risk Notes Problem Nephrotic syndrome (76717387) Recurrent gross hematuria (N02.9) Active confirmed Problem Chronic kidney disease (751457040) Chronic kidney disease (N18.9) Active confirmed Problem History of malignant neoplasm of prostate (080177164) History of prostate cancer (Z85.46) Active confirmed Problem Personal history of primary malignant neoplasm of urinary bladder (425058597) History of bladder carcinoma (Z85.51) Active confirmed Problem 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, 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 Problem History of radiation therapy (961495296) History of radiation therapy (Z92.3) Active confirmed Problem Hematuria (54932617) Hematuria (R31.9) Active confirmed Problem Irradiation cystitis (17303818) 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 Problem Personal history of primary malignant neoplasm of urinary bladder (333232064) History of bladder cancer (Z85.51) Active confirmed Problem Hussein hematuria (052320368) Hussein hematuria (R31.0) Active confirmed Problem Malignant tumor of urinary bladder (576336306) Malignant neoplasm of urinary bladder, unspecified site (C67.9) Active confirmed Problem Benign prostatic hypertrophy with outflow obstruction (642227197) 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 Encounters Encounter Location Date Provider Diagnosis [facility] [address] [place] [address] 09/27/2024 ALEXEY VEE History of prostate cancer Z85.46 Assessments Encounter Date Diagnosis (ICD Code) Assessment Notes Treatment Notes Treatment Clinical Notes Section Notes 09/27/2024 History of prostate cancer (ICD-10 - Z85.46) Plan Of Treatment Pending Test Test Name Order Date PSA, total (cpt 23118) 09/27/2024 UA Without Micro-Auto [id number] 12/11/2022 PSA Diagnostic--[id number] 12/11/2022 Bladder Scan 03/03/2024 Bladder Scan 11/18/2023 Bladder Scan 12/15/2023 Insurance Providers Payer Name Payer Address Payer Phone Subscriber Number Group Number Insured Name Patient Relationship to Insured Coverage Start Date Coverage End Date [place] [address] VADIM COLON [id number] Augusto Quispe Self - patient is the insured [employer] [address] [address] SHELBIE ASHER [id number] Augusto Quispe Self - patient is the insured Medical (General) History Medical History History ICD Code Measles Mumps Chicken Pox Heart Disease Bladder Infections Bladder Cancer Hemorrhoids Prostate Cancer Surgical History Surgery Date(Month/Year) Heart Bypass Hospitalization History Reason Date(Month/Year) surgery
--- OUTSIDE RECORDS SUMMARY | 2025-04-14 23:54 | XMS_ITS | Encounter Summary ---
Author Organization [facility] Address [address] [place] [address] Care Team Providers Care Counterintelligence Agent Name Role Phone Unavailable Primary Care Provider Unavailabl e Encounter Details Date Type Department Care Team (Late st Contact Info) Description 12/10/2007 Emergency [facility] Emergency Department [address] [place] [address] Ed, Physician NO ADDRESS ON FILE Alvaro Mendez MD [address] [place] [phone] Social History Tobacco Use Types Packs/Day Years Used Date Smoking Tobacco: Never Assessed Sex and Gender Information Value Date Recorded Sex Assigned at Not on file Legal Sex Male 6:59 AM [employer] Gender Identity Not on file Sexual Orientation [...] CDT) CHLORIDE 107 95 - 110 mEq/L [facility] ANION GAP 12 9 - 20 mEq/L [facility] SODIUM 138 136 - 145 mEq/L [facility] BUN 27(H) 9 - 20 mg/dL [facility] CO2 23 22 - 32 mmol/l [facility] POTASSIUM 4.3 3.5 - 5.0 mEq/L [facility] OSMOLALITY, CALCULATED 291 275 - 295 mOsm/Kg [facility] CREATININE 2.0(H) 0.7 - 1.5 mg/dL [facility] CALCIUM 10.2 8.4 - 10.5 mg/dL [facility] GLUCOSE 121(H) 70 - 110 mg/dL [facility] Blood specimen (specimen) 12/10/2007 11:45 AM CDT 12/10/2007 11:45 AM CDT Alvaro Mendez MD CHEMISTRY ORDERABLES Final R esult [facility] CLIA# [id number] [address] [place] [id number] * (ABNORMAL) CBC WITH DIFFERENTIAL (12/10/2007 11:45 AM CDT) [facility] LYMPHOCYTE ABSOLUTE 4.7(H) 1.2 - 4.0 K/ul [facility] HEMATOCRIT 37.5(L) 41.0 - 53.0 % [facility] EOSINOPHILS 0.5 0.0 - 7.0 % [facility] PLATELETS 147 140 - 440 K/ul [facility] MONOCYTE ABSOLUTE 0.4 0.1 - 0.6 K/ul [facility] BASOPHILS 0.1 0.0 - 1.0 % [facility] RBC 4.03(L) 4.60 - 6.20 Mil/ul [facility] PERIPHERAL BLOOD SMEAR REVIEW Automated Diff [facility] LYMPHOCYTES 53.2(H) 24.0 - 44.0 % [facility] MCHC 34.1 30.0 - 35.0 g/dL [facility] MCV 93.1 84.0 - 103.0 Fl [facility] MPV 9.9 8.9 - 12.8 Fl [facility] EOSINOPHIL ABSOLUTE 0.0 0.0 - 0.7 K/ul [facility] NEUTROPHIL ABSOLUTE 3.6 2.0 - 8.0 K/ul [facility] HEMOGLOBIN 12.8(L) 14.0 - 18.0 g/dL [facility] RDW 14.0 11.0 - 14.5 % [facility] MONOCYTES 4.8 2.0 - 10.0 % [facility] WBC 8.7 4.8 - 10.8 K/ul [facility] MCH 31.8 27.0 - 34.0 pg [facility] NEUTROPHILS 41.4(L) 42.2 - 75.2 % [facility] BASOPHILS ABSOLUTE 0.0 0.0 - 0.2 K/ul [facility] Blood specimen (specimen) 12/10/2007 11:45 AM CDT 12/10/2007 11:45 AM CDT Alvaro Mendez MD HEMATOLOGY ORDERABLES Final Result Performing Organization Address City/State/[facility] Co de Phone Number [facility] CLIA# [id number] [address] [place] [id number] * PTT (12/10/2007 11:45 AM CDT) PTT 27.4 22.5 - 36.5 Secs [facility] Comment: Therapeutic Range: Hi-level PE/DVT heparin protocol 80.1 -95.0 sec Lo-level PE/DVT heparin protocol 67.1 - 80.0 sec Cardiac Heparin Protocol 67.1 - 85.0 sec Neuro Heparin Protocol 67.1 - 80.0 sec As of 09/09/2007 note change in APTT Normal Range. Blood specimen (specimen) 12/10/2007 11:45 AM CDT 12/10/2007 11:45 AM CDT Alvaro Mendez MD HEMATOLOGY ORDERABLES Final Result Performing Organization Address [facility] Co de Phone Number [facility] CLIA# [id number] [address] [place] [address] * PROTIME-INR (12/10/2007 11:45 AM CDT) PROTIME 13.9 12.8 - 15.8 Secs [facility] Comment:As of 2007 not e change in normal range. INR 1.0 [facility] Comment: Expected Values for INR: DVT/PE Goal INR 2.5; range 2.0 - 3.0 Valve Replacement Tissue Goal INR 2.5; range 2.0 - 3.0 Mechanical Goal INR 3.0; range 2.5 - 3.5 POST-NH Goal INR 2.5; range 2.0 - 3.0 or Goal 3.0; range 2.5 - 3.5 Atrial Fibrillation Goal INR 2.5; range 2.0 - 3.0 Ischemic Stroke Goal INR 2.5; range 2.0 - 3.0 For additional information see Guidelines for Anticoagulation available from the pharmacy [facility] [phone] Blood specimen (specimen) 12/10/2007 11:45 AM CDT 12/10/2007 11:45 AM CDT us Alvaro Mendez MD HEMATOLOGY ORDERABLES Final Result Performing Organization Address [facility] de Phone Number [facility] CLIA# [id number] [address] [place] [id number] * CARDIAC ENZYMES (12/10/2007 11:45 AM CDT) CKMB 1.8 0.0 - 5.0 ng/mL [facility] TROPONIN I <0.1 0.0 - 1.3 ng/mL [facility] Blood specimen (specimen) 12/10/2007 11:45 AM CDT 12/10/2007 11:45 AM CDT us Alvaro Mendez MD CHEMISTRY ORDERABLES Final R esult [facility] CLIA# [id number] [facility] [place] [address] * XR CHEST PA OR AP (12/10/2007 [...]
--- OUTSIDE RECORDS SUMMARY | 2025-04-14 23:55 | XMS_ITS | Data Portability ---
Author Organization LUCAS Sims [facility] Sue Keith [facility] Address [address] [facility] [address] [place] [address] Care Team Providers Care Dish Carrier Name Role Phone ELLEN LAURENTON Primary Care Provider [phone] ROXIE SWARTZ Referring Provider [facility] Refe rring Provider Assessment Encounter Date Assessment Date Assessment LastModified by Organization Details LastModified Time 10/11/2024 10/11/2024 he does have some milder hematuria this last week. he has surgery planned. 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 i am still awaiting his doctor's notes. [email or web address] Not available 10/11/2024 10:19:59 Plan of Treatment Reminders Order Date Submit Date Provider Last Modified By Organization Details Last Modified Time Details Appointments None recorded. Lab CBC 2024 025 [place] [facility], [address], [place], [address], 09:48:11 CMP, serum or plasma 2024 025 [facility], [address], [place], [address], 10:34:44 urinalysis, complete 2024 025 [place] [facility], [address] [facility] [address], [address], [place], [address], 10:33:05 culture, urine 2024 [employer] [facility], [address] [place] [address], [address], [place], [address], 5 02:58:[address] [facility], [address] [facility], [address], [address], 09:32:10 CMP, serum or plasma 2024 [facility], [address] [facility], [address], [address], 5 09:56:57 uric acid, serum or plasma 2024 [employer] [facility], [address] [place] [address], [address], [place], [address], 5 06:00:19 C-reactive protein, quantitativ e, serum or plasma 2024 025 [employer] [facility], [address] [place] [address], [address], [place], [address], 5 06:00:20 ESR (erythrocyt e sedimentati on rate), blood 2024 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 Surgeries None recorded. Imaging XR, foot, 3 or more view 2024 025 [email or web address] 2 [facility], [address], [place], [address], 14:20:20 XR, foot, 3 or more view 2024 025 [email or web address] 2 [facility], [address], [place], [address], 14:19:59 Medication Orders hydrocodone 5 mg-acetamin ophen 325 mg tablet 2024 025 [id number], [address] [facility] [address], [facility], [place], [address], 05:02:17 Medrol (Mango) 4 mg tablets in a dose pack 2024 025 [id number] [address] [facility] [address], [facility], [place], [address], 09:05:17 Patient TargetsNo targets recorded. Patient InstructionsNo instructions recorded. 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 Referring Physician: Luis Alberto Laurent, Family Medicine, Encounter Date: 10/17/2024 Results Created Date Observation Date Name Description Value Unit Range Abnormal Flag Note LastModifiedBy Organization Detail LastModifiedTime 09/17/1909/16/2024 CBC WBC 5.5 x10 4.5-10 .5 Not Available [facility] [address], [place], [address], 09/16/2024 09:06:29 09/17/1909/16/2024 CBC RBC 2.86 x10 4.30-5 .90 low Not Available [facility] [address], [place], [address], 09/16/2024 09:06:29 09/17/1909/16/2024 CBC HGB 8.3 g/dL 13.5-1 8.0 low Not Available [facility] [address] [facility], [place], [address], 09/16/2024 09:06:29 09/17/1909/16/2024 CBC HCT 26.3 % 35.0-6 0.0 low Not Available [facility] [address] [facility], [place], [address], 09/16/2024 09:06:29 09/17/1909/16/2024 CBC MCV 92.0 fL 80.0-9 9.9 Not Available [facility] [address] [facility], [place], [address], 09/16/2024 09:06:29 09/17/1909/16/2024 CBC MCH 29.0 pg 27.0-3 2.0 Not Available [facility] [address] [facility] [address] [facility], [place], [address], 09/16/2024 09:06:29 09/17/1909/16/2024 CBC MCHC 31.6 g/dL 32.0-3 6.0 low Not Available [facility] [address] [facility] [address] [facility], [place], [address], 09/16/2024 09:06:29 09/17/1909/16/2024 CBC RDW 20.5 % 11.5-1 4.5 high Not Available [facility] [address] [facility] [address], [place], [address], 09/16/2024 09:06:29 09/17/1909/16/2024 CBC plt 127.0 x10 150.0- 451.0 low Not Available [facility] [address] [facility] [address], [place], [address], 09/16/2024 09:06:29 09/17/1909/16/2024 CBC lymphocytes % 37.9 % 20.0-5 0.0 Not Available [place] [facility] [address] [place] [address] [facility] 1, [place], [address], 09/16/2024 09:06:29 09/17/1909/16/2024 CBC granulcytes % 49.5 % 30.0-7 0.0 Not Available [place] [facility] [address] [place] [address] [facility], [place], [address], 09/16/2024 09:06:29 09/17/1909/16/2024 CBC monocytes % 8.8 % 2.0-16 .0 Not Available [facility] [address] [facility], [place], [address], 09/16/2024 09:06:29 09/17/19 25 09/16/2024 CBC granulcytes# 2.7 x10 Not Halle ilable [facility] [address] [facility], [place], [address], 09/16/2024 09:06:29 09/17/1909/16/2024 CBC lymphocytes # 2.1 x10 Not Available [facility] [address] [facility], [place], [address], 09/16/2024 09:06:29 09/17/1909/16/2024 CBC monocytes # 0.5 x10 Not Avai lable [facility] [address] [facility], [place], [address], 09/16/2024 09:06:29 09/20/1909/19/2024 CBC WBC 4.9 x10 4.5-10 .5 Not Available [facility] [address] [facility], [place], [address], 09/19/2024 09:45:46 09/20/19 25 09/19/2024 CBC RBC 2.95 x10 4.30-5 .90 low Not Available [facility] [address] [facility] 1, [place], [address], 09/19/2024 09:45:46 09/20/19 25 09/19/2024 CBC HGB 9.2 g/dL 13.5-1 8.0 low Not Available [facility] [address] [facility] [address], [place], [address], 09/19/2024 09:45:46 09/20/1909/19/2024 CBC HCT 27.4 % 35.0-6 0.0 low Not Available [facility] [address] [facility] [address], [place], [address], 09/19/2024 09:45:46 09/20/19 25 09/19/2024 CBC MCV 92.8 fL 80.0-9 9.9 Not Available [facility] [address] [facility] [address], [place], [address], 09/19/2024 09:45:46 09/20/19 25 09/19/2024 CBC MCH 31.2 pg 27.0-3 2.0 Not Available [facility] [address] [facility], [place], [address], 09/19/2024 09:45:46 09/20/19 25 09/19/2024 CBC MCHC 33.5 g/dL 32.0-3 6.0 Not Available [facility] [address] [facility] [address], [place], [address], 09/19/2024 09:45:46 09/20/19 25 09/19/2024 CBC RDW 20.9 % 11.5-1 4.5 high Not Available [facility] [address] [facility], [place], [address], 09/19/2024 09:45:46 09/20/19 25 09/19/2024 CBC plt 124.4 x10 150.0- 451.0 low Not Available [facility] [address] [address], [place], [address], 09/19/2024 09:45:46 09/20/19 25 09/19/2024 CBC lymphocytes % 37.0 % 20.0-5 0.0 Not Available [facility] [address] [address], [place], [address], 09/19/2024 09:45:46 09/20/19 25 09/19/2024 CBC granulcytes % 51.7 % 30.0-7 0.0 Not Available [facility] [address] [address], [place], [address], 09/19/2024 09:45:46 09/20/19 25 09/19/2024 CBC monocytes % 8.3 % 2.0-16 .0 Not Available [facility] [address] [address], [place], [address], 09/19/2024 09:45:46 09/20/19 25 09/19/2024 CBC granulcytes# 2.5 x10 Not Halle ilable [facility] [address] [address], [place], [address], 09/19/2024 09:45:46 09/20/19 25 09/19/2024 CBC lymphocytes # 1.8 x10 Not Available [facility] [address] [address], [place], [address], 09/19/2024 09:45:46 09/20/19 25 09/19/2024 CBC monocytes # 0.4 x10 Not [facility] [address] [facility] [address], [place], [address], 09/19/2024 09:45:46 09/20/19 25 09/19/2024 BMP (MALE ) glucose 174.0 mg/dL 60.0-9 9.0 high Not Available [facility] [address] [place] [facility], [place], [address], 09/19/2024 10:36:39 09/20/19 25 09/19/2024 BMP (MALE ) BUN (blood urea nitrogen) 40.0 mg/dL 10.0-2 6.0 high Not Available [facility] [address] [place] [address] [facility], [place], [address], 09/19/2024 10:36:39 09/20/19 25 09/19/2024 BMP (MALE ) creatinine (serum) 3.4 mg/dL 0.4-1. 5 high Not Available [facility] [address] [place] [facility], [place], [address], 09/19/2024 10:36:39 09/20/19 25 09/19/2024 BMP (MALE ) BUN/creatini ne ratio 11.76 ratio Not Available [facility] [address] [place] [facility], [place], [address], 09/19/2024 10:36:39 09/20/19 25 09/19/2024 BMP (MALE ) calcium 9.3 mg/dL 8.4-10 .5 Not Available [facility] [address] [place] [address] [facility] 1, [place], [address], 09/19/2024 10:36:39 09/20/19 25 09/19/2024 BMP (MALE ) sodium 138.0 mmol/ L 136.0- 145.0 Not Available [facility] [address] [place] [facility], [place], [address], 09/19/2024 10:36:39 09/20/19 25 09/19/2024 BMP (MALE ) potassium 4.3 mmol/ L 3.5-5. 1 Not Available [facility] [address] [place] [address] [facility] 1, [place], [address], 09/19/2024 10:36:39 09/20/19 25 09/19/2024 BMP (MALE ) chloride 104.0 mmol/ L 98.0-1 10.0 normal Not Available [facility] [address] [place] [facility], [place], [address], 09/19/2024 10:36:39 09/20/19 25 09/19/2024 BMP (MALE ) C02 27.0 mmol/ L 22.0-3 1.0 Not Available [facility] [address] [facility], [place], [address], 09/19/2024 10:36:39 09/20/19 25 09/20/2024 URIC ACID uric acid 9.1 mg/dL 4.0-8. 0 high Thera carine murillo t for gout patie nts: <6.0 mg/dL Not Available [facility] [address] , [place], [address], 09/20/2024 06:01:52 10/18/19 25 10/17/2024 CBC WBC 10.6 x10 4.5-10 .5 high Not Available [facility] [address] [facility], [place], [address], 10/17/2024 09:32:09 10/18/19 25 10/17/2024 CBC RBC 3.27 x10 4.30-5 .90 low Not Available [facility] [address] [facility], [place], [address], 10/17/2024 09:32:09 0410/17/2024 CBC HGB 9.9 g/dL 13.5-1 8.0 low Not Available [facility] [address] [facility] 1, [place], [address], 10/17/2024 09:32:09 10/18/1910/17/2024 CBC HCT 31.5 % 35.0-6 0.0 low Not Available [facility] [address] [facility] [address] [facility], [place], [address], 10/17/2024 09:32:09 10/18/1910/17/2024 CBC MCV 96.4 fL 80.0-9 9.9 Not Available [facility] [address] [facility] 1, [place], [address], 10/17/2024 09:32:09 10/18/1910/17/2024 CBC MCH 30.2 pg 27.0-3 2.0 Not Available [facility] [address] [facility] [address] [facility], [place], [address], 10/17/2024 09:32:09 10/18/1910/17/2024 CBC MCHC 31.3 g/dL 32.0-3 6.0 low Not Available [facility] [address] [facility] [address], [place], [address], 10/17/2024 09:32:09 10/18/1910/17/2024 CBC RDW 19.2 % 11.5-1 4.5 high Not Available [facility] [address] [facility] [address], [place], [address], 10/17/2024 09:32:09 10/18/1910/17/2024 CBC plt 141.8 x10 150.0- 451.0 low Not Available [facility] [address] [facility] [address] [facility], [place], [address], 10/17/2024 09:32:09 10/18/19 25 10/17/2024 CBC lymphocytes % 41.3 % 20.0-5 0.0 Not Available [place] [facility] [address] [facility] [address], [place], [address], 10/17/2024 09:32:09 10/18/1910/17/2024 CBC granulcytes % 48.6 % 30.0-7 0.0 Not Available [place] [facility] [address] [place] [address] [facility] 1, [place], [address], 10/17/2024 09:32:09 10/18/1910/17/2024 CBC monocytes % 5.2 % 2.0-16 .0 Not Available [facility] [address] [address], [place], [address], 10/17/2024 09:32:09 10/18/19 25 10/17/2024 CBC granulcytes# 5.1 x10 Not Halle ilable [facility] [address] [address], [place], [address], 10/17/2024 09:32:09 10/18/1910/17/2024 CBC lymphocytes # 4.4 x10 Not Available [facility] [address] [address], [place], [address], 10/17/2024 09:32:09 10/18/1910/17/2024 CBC monocytes # 0.6 x10 Not Avai lable [facility] [address] [address], [place], [address], 10/17/2024 09:32:09 10/18/1910/17/2024 CMP (MALE ) glucose 145.0 mg/dL 60.0-9 9.0 high Not Available [facility] [address] [place] [facility], [place], [address], 10/17/2024 09:56:57 10/18/19 25 10/17/2024 CMP (MALE ) BUN (blood urea nitrogen) 60.0 mg/dL 10.0-2 6.0 high Not Available [facility] [address] [facility], [place], [address], 10/17/2024 09:56:57 10/18/19 25 10/17/2024 CMP (MALE ) creatinine (serum) 2.9 mg/dL 0.4-1. 5 high Not Available [facility] [address] [facility], [place], [address], 10/17/2024 09:56:57 10/18/19 25 10/17/2024 CMP (MALE ) BUN/creatini ne ratio 20.69 ratio Not Available [facility] [address] [facility] [address] [address], [place], [address], 10/17/2024 09:56:57 10/18/19 25 10/17/2024 CMP (MALE ) eGFR calculated 22.1 Not Available [facility] [address] [facility] [address] [address], [place], [address], 10/17/2024 09:56:57 10/18/19 25 10/17/2024 CMP (MALE ) total protein 6.4 g/dL 6.0-8. 5 Not Available [facility] [address] [facility] [address] [address], [place], [address], 10/17/2024 09:56:57 10/18/19 25 10/17/2024 CMP (MALE ) total bilirubin 0.4 mg/dL 0.2-1. 3 Not Available [facility] [address] [facility] [address] [address], [place], [address], 10/17/2024 09:56:57 04/28/10/17/2024 CMP (MALE ) albumin 3.8 g/dL 3.5-5. 5 Not Available [facility] [address] [facility] [address], [place], [address], 10/17/2024 09:56:57 10/18/19 25 10/17/2024 CMP (MALE ) globulin 2.6 calc Not Available [facility] [place] [facility] [address] [place] [facility], [place], [address], 10/17/2024 09:56:57 10/18/19 25 10/17/2024 CMP (MALE ) AST (SGOT) 46.0 U/L 0.0-46 .0 Not Available [facility] [address] [place] [facility], [place], [address], 10/17/2024 09:56:57 10/18/19 25 10/17/2024 CMP (MALE ) altv (SGPT) 68.0 U/L 13.0-6 9.0 normal Not Available [facility] [address] [place] [facility], [place], [address], 10/17/2024 09:56:57 10/18/19 25 10/17/2024 CMP (MALE ) A/G ratio 1.5 ratio Not Available [facility] [address] [address], [place], [address], 10/17/2024 09:56:57 10/18/19 25 10/17/2024 CMP (MALE ) ALP phos 102.0 U/L 30.0-1 40.0 normal Not Available [facility] [address] [place] [address] [facility], [place], [address], 10/17/2024 09:56:57 10/18/19 25 10/17/2024 CMP (MALE ) calcium 9.5 mg/dL 8.4-10 .5 Not Available [facility] [address] [facility], [place], [address], 10/17/2024 09:56:57 10/18/1910/17/2024 CMP (MALE ) sodium 139.0 mmol/ L 136.0- 145.0 Not Available [facility] [address] [place] [facility], [place], [address], 10/17/2024 09:56:57 10/18/19 25 10/17/2024 CMP (MALE ) potassium 4.1 mmol/ L 3.5-5. 1 Not Available [facility] [address] [facility], [place], [address], 10/17/2024 09:56:57 10/18/1910/17/2024 CMP (MALE ) chloride 103.0 mmol/ L 98.0-1 10.0 normal Not Available [facility] [address] [facility], [place], [address], 10/17/2024 09:56:57 10/18/1910/17/2024 CMP (MALE ) C02 30.0 mmol/ L 22.0-3 1.0 Not Available [facility] [address] [facility], [place], [address], 10/17/2024 09:56:57 10/18/19 25 10/17/2024 CMP (MALE ) anion gap 6.0 calc Not Available [facility] [address] [facility], [place], [address], 10/17/2024 09:56:57 10/18/1910/17/2024 CMP (MALE ) osmolality 305.3 calc Not Available [facility] [address] [place] [facility], [place], [address], 10/17/2024 09:56:57 10/18/19 25 10/18/2024 URIC ACID uric acid 9.1 mg/dL 4.0-8. 0 high Thera peuti c targe t for gout patie nts: <6.0 mg/dL Not Available [facility] [address] [place], [address], 10/18/2024 06:00:19 10/18/1910/18/2024 C-VERONICA CTIVE PROTE IN C-reactive protein 4.6 mg/L <8.0 normal Not Available [facility] [address] [place], [address], 10/18/2024 06:00:20 10/18/19 25 10/17/2024 ESR (eryt hrocy te sedim entat ion rate) , blood ESR 26 Not Available [facility] [address] [place], [address], 10/17/2024 09:07:54 12/21/19 25 12/20/2024 CBC WBC 5.6 x10 4.5-10 .5 Not Available [facility] [address], [address], 12/20/2024 09:48:11 12/21/19 25 12/20/2024 CBC RBC 3.04 x10 4.30-5 .90 low Not Available [facility] [address], [address], 12/20/2024 09:48:11 12/21/19 25 12/20/2024 CBC HGB 9.7 g/dL 13.5-1 8.0 low Not Available [facility] [address], [address], 12/20/2024 09:48:11 12/21/19 25 12/20/2024 CBC HCT 30.4 % 35.0-6 0.0 low Not Available [facility] [address] [place], [address], 12/20/2024 09:48:11 12/21/1912/20/2024 CBC MCV 100.1 fL 80.0-9 9.9 high Not Available [facility] [address] [facility], [place], [address], 12/20/2024 09:48:11 12/21/1912/20/2024 CBC MCH 32.0 pg 27.0-3 2.0 Not Available [facility] [address] [facility], [place], [address], 12/20/2024 09:48:11 12/21/1912/20/2024 CBC MCHC 32.0 g/dL 32.0-3 6.0 Not Available [facility] [address] [facility], [place], [address], 12/20/2024 09:48:11 12/21/1912/20/2024 CBC RDW 15.0 % 11.5-1 4.5 high Not Available [facility] [address] [facility], [place], [address], 12/20/2024 09:48:11 12/21/1912/20/2024 CBC plt 112.0 x10 150.0- 451.0 low Not Available [facility] [address] [facility], [place], [address], 12/20/2024 09:48:11 12/21/1912/20/2024 CBC lymphocytes % 31.2 % 20.0-5 0.0 Not Available [facility] [address] [facility], [place], [address], 12/20/2024 09:48:11 12/21/1912/20/2024 CBC granulcytes % 57.1 % 30.0-7 0.0 Not Available [facility] [address] [place] [address] [facility], [place], [address], 12/20/2024 09:48:11 12/21/19 25 12/20/2024 CBC monocytes % 8.1 % 2.0-16 .0 Not Available [facility] [address] [place] [address] [facility], [place], [address], 12/20/2024 09:48:11 12/21/19 25 12/20/2024 CBC granulcytes# 3.2 x10 Not Halle ilable [facility] [address] [facility], [place], [address], 12/20/2024 09:48:11 12/21/19 25 12/20/2024 CBC lymphocytes # 1.8 x10 Not Available [facility] [address] [facility], [place], [address], 12/20/2024 09:48:11 12/21/19 25 12/20/2024 CBC monocytes # 0.5 x10 Not Avai lable [facility] [address] [facility], [place], [address], 12/20/2024 09:48:11 12/21/1912/20/2024 URINA LYSIS WITH MICRO color RED abnormal Not Available [facility] [place] [facility] [place] [facility] [address] [place] [address] [facility], [place], [address], 12/20/2024 10:33:05 12/21/19 25 12/20/2024 URINA LYSIS WITH MICRO clarity CLOUDY abnormal Not Available [facility] [place] [facility] [place] [address] [place] [address] [facility], [place], [address], 12/20/2024 10:33:05 12/21/19 25 12/20/2024 URINA LYSIS WITH MICRO glu TRACE abnormal Not Available [facility] [place] [facility] [place] [facility] [address] [facility] [address] [address], [place], [address], 12/20/2024 10:33:05 12/21/19 25 12/20/2024 URINA LYSIS WITH MICRO bili 3+ abnormal Not Available [facility] [place] [facility] [place] [facility] [address] [place] [address], [place], [address], 12/20/2024 10:33:05 12/21/19 25 12/20/2024 URINA LYSIS WITH MICRO ket 1+ abnormal Not Available [facility] [place] [facility] [place] [facility] [address] [place] [address], [place], [address], 12/20/2024 10:33:05 12/21/19 25 12/20/2024 URINA LYSIS WITH MICRO S.g 1.015 Not Available [facility] [address] [place] [facility], [place], [address], 12/20/2024 10:33:05 12/21/19 25 12/20/2024 URINA LYSIS WITH MICRO pH 6.0 Not Available [facility] [address] [place] [address] [facility], [place], [address], 12/20/2024 10:33:05 12/21/19 25 12/20/2024 URINA LYSIS WITH MICRO pro 3+ abnormal Not Available [facility] [place] [facility] [employer] [place] [address] [facility] [address], [place], [address], 12/20/2024 10:33:05 12/21/19 25 12/20/2024 URINA LYSIS WITH MICRO uro 2.0 E.U./D L Not Available [facility] [address] [facility] [address], [place], [address], 12/20/2024 10:33:05 12/21/19 25 12/20/2024 URINA LYSIS WITH MICRO nit POSITI VE abnormal Not Available [facility] [address], [place], [address], 12/20/2024 10:33:05 12/21/19 25 12/20/2024 URINA LYSIS WITH MICRO blo 3+ abnormal Not Available [facility] [place] [facility] [place] [employer] [place] [facility] [address] [facility], [place], [address], 12/20/2024 10:33:05 12/21/19 25 12/20/2024 URINA LYSIS WITH MICRO sonido 3+ abnormal Not Available [facility] [place] [facility] [employer] [place] [facility] [address] [facility] [address], [place], [address], 12/20/2024 10:33:05 12/21/19 25 12/20/2024 URINA LYSIS WITH MICRO WBC NEGATI VE Not Available [facility] [address] [facility] [place], [address], 12/20/2024 10:33:05 12/21/19 25 12/20/2024 URINA LYSIS WITH MICRO RBC GROSS BLOOD abnormal Not Available [facility] [address] [facility] [place], [address], 12/20/2024 10:33:05 12/21/19 25 12/20/2024 URINA LYSIS WITH MICRO epi cells NEGATI VE Not Available [facility] [address] [facility] [facility], [place], [address], 12/20/2024 10:33:05 12/21/19 25 12/20/2024 URINA LYSIS WITH MICRO bacteria NEGATI VE Not Available [facility] [address] [facility], [place], [address], 12/20/2024 10:33:05 12/21/19 25 12/20/2024 URINA LYSIS WITH MICRO other NG Not Available [facility] [address] [facility], [place], [address], 12/20/2024 10:33:05 12/21/19 25 12/20/2024 CMP (MALE ) glucose 111.0 mg/dL 60.0-9 9.0 high Not Available [facility] [address] [facility], [place], [address], 12/20/2024 10:34:44 12/21/19 25 12/20/2024 CMP (MALE ) BUN (blood urea nitrogen) 32.0 mg/dL 10.0-2 6.0 high Not Available [facility] [address] [facility] 1, [place], [address], 12/20/2024 10:34:44 12/21/19 25 12/20/2024 CMP (MALE ) creatinine (serum) 2.9 mg/dL 0.4-1. 5 high Not Available [facility] [address] [address], [place], [address], 12/20/2024 10:34:44 12/21/19 25 12/20/2024 CMP (MALE ) BUN/creatini ne ratio 11.03 ratio Not Available [facility] [address] [address], [place], [address], 12/20/2024 10:34:44 12/21/19 25 12/20/2024 CMP (MALE ) eGFR calculated 22.1 Not Available [facility] [address] [address], [place], [address], 12/20/2024 10:34:44 12/21/19 25 12/20/2024 CMP (MALE ) total protein 6.1 g/dL 6.0-8. 5 Not Available [facility] [address] [facility] [address] [address], [place], [address], 12/20/2024 10:34:44 12/21/19 25 12/20/2024 CMP (MALE ) total bilirubin 0.5 mg/dL 0.2-1. 3 Not Available [facility] [address] [facility] 1, [place], [address], 12/20/2024 10:34:44 12/21/19 25 12/20/2024 CMP (MALE ) albumin 3.7 g/dL 3.5-5. 5 Not Available [facility] [address] [facility] 1, [place], [address], 12/20/2024 10:34:44 12/21/19 25 12/20/2024 CMP (MALE ) globulin 2.4 calc Not Available [facility] [address] [facility] 1, [place], [address], 12/20/2024 10:34:44 12/21/19 25 12/20/2024 CMP (MALE ) AST (SGOT) 35.0 U/L 0.0-46 .0 Not Available [facility] [address] [address], [place], [address], 12/20/2024 10:34:44 12/21/19 25 12/20/2024 CMP (MALE ) altv (SGPT) 26.0 U/L 13.0-6 9.0 normal Not Available [facility] [address] [address], [place], [address], 12/20/2024 10:34:44 12/21/19 25 12/20/2024 CMP (MALE ) A/G ratio 1.5 ratio Not Available [facility] [address] [facility] 1, [place], [address], 12/20/2024 10:34:44 12/21/19 25 12/20/2024 CMP (MALE ) ALP phos 188.0 U/L 30.0-1 40.0 abnormal Not Available [facility] [address] [address], [place], [address], 12/20/2024 10:34:44 12/21/19 25 12/20/2024 CMP (MALE ) calcium 9.7 mg/dL 8.4-10 .5 Not Available [facility] [address] [facility] 1, [place], [address], 12/20/2024 10:34:44 12/21/19 25 12/20/2024 CMP (MALE ) sodium 139.0 mmol/ L 136.0- 145.0 Not Available [facility] [address] [facility] 1, [place], [address], 12/20/2024 10:34:44 12/21/19 25 12/20/2024 CMP (MALE ) potassium 4.4 mmol/ L 3.5-5. 1 Not Available [facility] [address] [facility] 1, [place], [address], 12/20/2024 10:34:44 12/21/19 25 12/20/2024 CMP (MALE ) chloride 104.0 mmol/ L 98.0-1 10.0 normal Not Available [facility] [address] [facility] 1, [place], [address], 12/20/2024 10:34:44 12/21/19 25 12/20/2024 CMP (MALE ) C02 31.0 mmol/ L 22.0-3 1.0 Not Available [facility] [address] [facility] 1, [place], [address], 12/20/2024 10:34:44 12/21/19 25 12/20/2024 CMP (MALE ) anion gap 4.0 calc Not Available [facility] [address] [facility] 1, [place], [address], 12/20/2024 10:34:44 12/21/19 25 12/20/2024 CMP (MALE ) osmolality 294.2 calc Not Available [facility] [address] [facility] 1, [place], [address], 12/20/2024 10:34:44 12/21/19 25 12/22/2024 CULTU RE, URINE , ROUTI NE culture, urine, routine SEE NOTE CULTU RE, URINE , ROUTI NE Micro Numbe r: [id number] Test Statu s: Final Speci men [...] Tube, is recom barb d. Not Available [facility] [address], [place], [address], 12/22/2024 02:58:40 09/27/19 25 09/26/2024 XR, foot, 3 or more view No observ ation record ed. [address] [place], [address], 09/26/2024 16:04:13 10/11/19 25 10/06/2024 imagi ng/di agnos tic resul t No observ ation record ed. [email or web address] [facility] [address] [facility] 1, [place], [address], 10/11/2024 10:42:56 10/18/19 25 10/17/2024 XR, foot, 3 or more view No observ ation record ed. [address] [place], [address], 10/19/2024 13:50:45 10/18/19 25 10/17/2024 XR, foot, 3 or more view No observ ation record ed. [address] [facility] [address] [place], [address], 10/19/2024 13:50:26 Result Notes None recorded. Problems Name Problem SNOMED Code Status Onset Date Resolution Date Notes Provider Name and Address Organization Details Recorded Time Chronic kidney disease stage 3 861019104 Completed 202007/25/2020 CHRONIC KIDNEY DISEASE, STAGE 3 [...] ; acuity set as *; Not Available [facility] 03:16:48 Cutaneou s lupus erythema tosus 3213827 Completed 202009/19/2024 cutaneou s lupus erythema tosus; verified by bx Dinah mendez [facility] 5 23:42:49 Benign hyperten altagracia 79868161 Active 2022 CONCHA mendez [facility] 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 3 09:38:06 Gastroes ophageal reflux disease 721263379 Active 2022 CONCHA mendez [facility] 5 08:30:03 Hyperlip idemia 96095633 Active 2022 CONCHA mendez [facility] 3 09:37:43 Chronic kidney disease stage 4 866581567 Active 2022 CONCHA mendez, [facility] 5 08:30:03 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 31585910805 9104 [facility] 09:36:39 Iron deficien cy anemia 11505740 Active 2022 [facility] 08:30:33 History of malignan t neoplasm of prostate 693451931 Completed 202209/19/2024 [facility] 23:42:49 History of primary malignan t neoplasm of urinary bladder 403048706 Completed 202209/19/2024 [facility] 23:42:49 Chronic radiatio n cystitis 878937855 Active 2022 [facility] 08:30:03 Acute non-ST segment elevatio n myocardi al infarcti on 916503251 Completed 202210/17/2024 hx of Dinah mendez [facility] 5 10:34:13 Severe aortic valve stenosis 522408381 Active 2023 echocard iogram 04/24/24: EF 61%, moderate to severe aortic valve stensosi sTenzin [facility]St. [facility] 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 5 10:44:43 Coronary atherosc lerosis 796243866 Active 2023 [facility] 5 08:30:02 Anemia due to chronic blood loss 413975461 Active 2024 [facility] 5 23:42:27 Hussein hematuri a 718538036 Active 2024 Dinah Huffman [facility] 5 23:42:27 Notes:Some problems listed i n Documents: #[id number], #[id number], #[id number] could not be added to this patient's chart. Please review these documents and add these problems to the patient's chart manually as needed. Problem Notes None recorded. 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 Procedure Notes None recorded. Medical Equipment None Reported. Allergies Allergen ID Allergen Name Allergen Category Reaction Reaction Severity Criticality Documentation Date Start Date Code Code System Note Provider Name and Address Organization Details Recorded Time 3650 Lipitor medicatio n Not available Not available Not available 11/18/2022 31651 5 RxNorm [facility] 10:33:51 3652 Zocor medicatio n Not available Not available Not available 11/18/2022 60473 3 RxNorm [facility] 3 10:34:02 3653 Pravachol medicatio n Not available Not available Not available 11/18/2022 70572 3 RxNorm Dinah Huffman [facility] 3 10:34:08 50850 rosuvasta tin calcium medicatio n myalgias (muscle pain) Not available Not available 01/17/2023 71846 8 RxNorm React ion: myalg ias; Comme nt: Recor ded 07/02 11:27 AM by Dinah Guzman RN, Offic e Visit ; Lilian porras; Amirah mills ce: *; Reaso n: Drug aller gy; ; LAURA LOPEZ [facility] 3 14:13:26 30781 Iodinated contrast media (substanc e) medicatio n Not available Not available Not available 03/05/2023 70149 2003 SNOMED kidne y probl ems Dinah Meehanoch [facility] 3 10:40:25 964 Product containin g 3-hydroxy -3-methyl glutaryl- coenzyme A reductase inhibitor (product) medicatio n myalgias (muscle pain) Not available Not available 09/23/2022 48085 009 SNOMED CONCHA PIMENTEL [facility] 3 12:40:46 Medications Name Sig Start [...] 2023 active Not Available Not Available Not Shakila osorio hydrocodo ne 5 mg-acetam inophen 325 [...] 1 TABLET BY MOUTH EVERY 12 HOURS 03/26 completed Not Available Not Available Not Available [...] Visit; Not Available Not Available Not Available Babb-3 two times daily active 0; Recorded 07/02/19 23 11:28AM by Dinah Guzman RN, Office Visit; Not Available Not Available Not Available Centrum Silver 1 daily active Not Available Not Available Not Available Vitamin D3 1 daily active Not Available Not Available Not Available Babb 3 2 twice daily 01/22 completed Not [...] 436; Recorded 01/21/20 22 8:22AM by Concha Pimentel LPN (Authori keren [...] Updated DateTime 5 166.37 cm 26.2 kg/m2 67423.7 8 g 97.1 [degF] 70 /min 99 % 99 % 114/60 mm[Hg] Dinah Huffman [facility] 5 10:22:45 Date Recorded Body height Body mass index (BMI) Body weight Body temperature Heart rate Oxygen saturation Oxygen saturation in Arterial blood by Pulse oximetry Systolic And Diastolic Provider Name and Address Organization Details Last Updated DateTime 5 166.37 cm 26.4 kg/m2 30456.3 7 g 97.5 [degF] 82 /min 98 % 98 % 104/62 mm[Hg] CONCHA PIMENTEL [facility] 5 09:59:31 Date Recorded Body height Body mass index (BMI) Body weight Body temperature Heart rate Oxygen saturation Oxygen saturation in Arterial blood by Pulse oximetry Systolic And Diastolic Provider Name and Address Organization Details Last Updated DateTime 5 166.37 cm 26.2 kg/m2 50063.7 8 g 97.3 [degF] 74 /min 96 % 96 % 118/64 mm[Hg] [facility] 5 08:31:47 Date Recorded Body height Body mass index (BMI) Body weight Body temperature Heart rate Oxygen saturation Oxygen saturation in Arterial blood by Pulse oximetry Systolic And Diastolic Provider Name and Address Organization Details Last Updated DateTime 5 166.37 cm 26.1 kg/m2 07133.1 9 g 97.6 [degF] 76 /min 96 % 96 % 116/70 mm[Hg] [facility] 5 09:07:14 Date Recorded Body height Body mass index (BMI) Body weight Body temperature Respiratory rate Oxygen saturation Oxygen saturation in Arterial blood by Pulse oximetry Heart rate Systolic And Diastolic Provider Name and Address Organization Details Last Updated DateTime 5 166.37 cm 25.2 kg/m2 41756.2 2 g 96.9 [degF] 18 /min 96 % 96 % 76 /min 118/74 mm[Hg] CHIDI HART [facility] 5 08:50:19 Social History Question Answer Notes LastModified by Organizat ion Details LastModified Time Tobacco Smoking Status Former Smoker CHIDI mendez [facility] 12/20/2024 08:51:16 When Did You Quit Smoking? 16+yearssinc elastcigaret te [email or web address] Information not available 12/20/2024 What Was The Date Of Your Most Recent Tobacco Screening? 12/20/2024 [email or web address] Information not available 12/20/2024 What Is Your Relationship Status? [email or web address] Information not available 09/23/2022 Sex: Unknown Functional Status Question Answer Note LastModified by Organizat ion Details LastModified Time Do you use any illicit or recreational drugs? No [email or web address] Information not available 09/23/2022 Do you or have you ever used any other forms of tobacco or nicotine? No [email or web address] Information not available 02/19/2023 What is your level of alcohol consumption? None [email or web address] Information not available 09/23/2022 Do you or have you ever used any nicotine-free cigarettes, vape, or chewing tobacco? No [email or web address] Information not available 07/12/2024 Mental Status None recorded. Family History Relationship Description Onset Age of this Age Resolved Age Notes LastModified by Organization Details LastModified Time Brother Diabetes mellitus [email or web address] Not available 02/19 09:13:20 Brother Coronary atherosclero sis [email or web address] Not available 02/19 09:13:29 Medical History No medical history recorded. Immunizations Vaccine Type Date Status Note Provider Nam e and Address Organization Details Recorded Time Tdap 4 completed Not Available [facility] 06/09/2023 09:09:05 Influenza, split virus, trivalent, preservative 1 completed Not Available [facility] 06/09/2023 09:09:05 Influenza, split virus, trivalent, preservative 1 completed Not Available [facility] 06/09/2023 09:09:05 Influenza, split virus, trivalent, preservative 6 completed Not Available [facility] 06/09/2023 09:09:05 Pneumococcal conjugate PCV 13 6 completed Not Available [facility] 06/09/2023 09:09:05 pneumococcal polysaccharide PPV23 0 completed Not Available [facility] 06/09/2023 09:09:05 Influenza, adjuvanted, quadrivalent, PF 3 completed LUCAS [facility] 03/26/2023 10:15:49 COVID-19, mRNA, LNP-S, PF, 50 mcg/0.5 mL 3 completed CONCHA PIMENTEL null, [facility] 03/26/2023 10:15:49 COVID-19, mRNA, LNP-S, PF, 50 mcg/0.5 mL 4 completed CONCHAYOBANI PIMENTEL [facility] 07/12/2024 12:49:37 Influenza, high-dose, trivalent, PF 4 completed CONCHA PIMENTEL [facility] 07/12/2024 12:49:37 Influenza, high-dose, quadrivalent, PF 2 completed Dinah Armida [facility] 11/18/2022 10:19:27 COVID-19, mRNA, LNP-S, PF, 100 mcg/0.5mL dose or 50 mcg/0.25mL dose 1 completed Dinah Armida [facility] 11/18/2022 10:19:27 COVID-19, mRNA, LNP-S, PF, 100 mcg/0.5mL dose or 50 mcg/0.25mL dose 1 completed Dinah Huffman [facility] 11/18/2022 10:19:27 COVID-19, mRNA, LNP-S, PF, 100 mcg/0.5mL dose or 50 mcg/0.25mL dose 2 completed Dinah Armida [facility] 11/18/2022 10:19:27 COVID-19, mRNA, LNP-S, PF, 100 mcg/0.5mL dose or 50 mcg/0.25mL dose 1 completed Dinah Armida [facility] 11/18/2022 10:19:27 COVID-19, mRNA, LNP-S, bivalent, PF, 50 mcg/0.5 mL or 25mcg/0.25 mL dose 2 completed Dinah mendez [place] [facility] [place] 11/18/2022 10:19:27 Past Encounters Encounter ID Performer Location Encounter Start Date Encounter Closed Date Diagnosis/Indication Diagnosis SNOMED-CT Code Diagnosis ICD10 Code Diagnosis IMO Codes Diagnosis Note [id number] Luis Alberto Laurent MD [facility] ([facility]) [address] [place] [address] [phone] 5 09/23/2022 12:24:41 10/01/2022 21:32:07 Hussein hematuria 305764890 R31.0 he will see urology in 30 minsor so. his bleeding has stopped. he will go to ER if fever unable to void, pelvic pain or significan t bleeding was due for surveillan ce in December will need to establish with a new urologist for future care after November. [id number] Luis Alberto Laurent MD [facility] ([facility]) [address] [place] [address] [id number] 5 11/18/2022 10:02:12 11/18/2022 19:23:40 Chronic kidney disease stage 4 681013816 N18.4 Anemia due to blood loss 985236589 D50.0 Moderate a ortic valve stenosis 927269241 I35.0 Luis Alberto Laurent MD [facility] ([facility]) [address] [place] [address] [id number] 5 12/04/2022 13:11:03 12/04/2022 15:58:49 Blood in urine 90123352 R31.9 normal penis on exam skin intact urethra normal [id number] Luis Alberto Laurent MD [facility] ([facility]) [address] [place] [address] [id number] 5 12/10/2022 09:03:30 12/10/2022 17:19:40 Blood in urine 07215006 R31.9 normal penis on exam skin intact urethra normalwill call urology once again. [id number] DHRUV JOSEPH [facility] ([facility]) [address] [place] [address] [id number] 5 01/16/2023 15:52:37 01/16/2023 18:11:22 Acute gout 100540603 M10.[address] Easley due to [...] CMP. Patient agrees to plan of care. [id number] Lavinia Camarena MD [facility] ([facility]) [address] [place] [address] [id number] 5 01/22/2023 14:04:01 01/22/2023 14:36:56 Hyperuricemia 22590358 E79.0 >6.8 but less than cutoff of 8. First episode was last week. Pt is now asymptomat ic without treatment. Monitor. [id number] Luis Alberto Laurent MD [facility] ([facility]) [address] [place] [address] [id number] 5 02/12/2023 13:46:23 02/12/2023 14:53:02 Iron deficiency anemia 30827934 D50.9 he will see nephrology in march. will fax his bloodwork to nephrology and to urology. [id number] Luis Alberto Laurent MD [facility] ([facility]) [address] [place] [address] [id number] 5 02/19/2023 08:43:53 02/19/2023 12:39:18 Occult blood detected in feces 60851937 R19.5 Iron defic iency anemia 49945085 D50.9 he will see nephrology in march. will fax his bloodwork to nephrology and to urology. 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 2767121781 74417 N18.4 [id number] Luis Alberto Laurent MD [facility] ([facility]) [address] [place] [address] [id number] 5 03/05/2023 09:40:04 03/05/2023 11:23:56 Anemia due to blood loss 020689986 D50.0 appears improved no gi sx. he will go to er if sx develop as discussed [id number] Luis Alberto Laurent MD [facility] ([facility]) [address] [place] [address] [id number] 5 03/26/2023 10:09:56 03/26/2023 12:29:41 [id number] Luis Alberto Laurent MD [facility] ([facility]) [address] [place] [address] [id number] 5 04/28/2023 09:37:54 04/28/2023 18:16:03 Anemia due to blood loss 810186448 D50.0 appears improved no gi sx. he will go to er if sx develop as discussedh vu is tolerating his iron 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 8202174473 03284 N18.4 Thrombocyt openic disorder 172824727 D69.6 [id number] Luis Alberto Laurent MD [facility] ([facility]) [address] [place] [address] [id number] 5 05/19/2023 08:46:16 05/19/2023 09:43:33 Blood in urine 28105100 R31.9 Gastroesop hageal reflux disease 314077543 K21.01 Lower urin donald tract symptoms 847463951 R39.9 History of malignant neoplasm of prostate 305303388 Z85.46 History of primary malignant neoplasm of urinary bladder 702230011 Z85.51 Chronic ra diation cystitis 742572860 N30.40 completed hyperbaric therapy with pretty good success [id number] Luis Alberto Laurent MD [facility] ([facility]) [address] [place] [address] [id number] 5 05/25/2023 14:24:38 05/25/2023 15:59:02 [id number] Luis Alberto Laurent MD [facility] ([facility]) [address] [place] [address] [id number] 5 06/09/2023 09:08:50 06/09/2023 11:14:35 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 4808050480 06625 N18.4 Benign hypertension 1072 5009 I10 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 11202937 N25.81 Moderate a ortic valve stenosis 602351604 I35.0 History of malignant neoplasm of prostate 791352107 Z85.46 History of primary malignant neoplasm of urinary bladder 628467664 Z85.51 Chronic ra diation cystitis 903202429 N30.40 completed hyperbaric therapy with pretty good success [id number] Luis Alberto Laurent MD [facility] ([facility]) [address] [place] [address] [id number] 5 08/24/2023 08:39:06 08/24/2023 09:15:50 Severe aortic valve stenosis 206437036 I35.0 Acute on c hronic diastolic heart failure 665997046 I50.33 [id number] Luis Alberto Laurent MD [facility] ([facility]) [address] [place] [address] [id number] 5 08/27/2023 08:12:26 08/28/2023 09:39:22 Benign hypertension 99946436 I10 [id number] Luis Alberto Laurent MD [facility] ([facility]) [address] [place] [address] [id number] 5 08/28/2023 08:48:27 08/28/2023 09:35:18 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 8892571492 07582 N18.4 Benign hypertension 1072 5009 I10 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 64352232 N25.81 Moderate a ortic valve stenosis 971894987 I35.0 Chronic ra diation cystitis 924545856 N30.40 completed hyperbaric therapy with pretty good success Hyperlipidemia 13650540 E78.5 Malignant neoplasm of prostate 337241670 C61 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 015073279 C67.9 Acquired thrombocytopenia 86944783 D69.6 [id number] Luis Alberto Laurent MD [facility] ([facility]) [address] [place] [address] [id number] 5 09/03/2023 08:03:19 09/04/2023 12:22:26 Anemia 046590306 D64.9 Benign hypertension 1072 5009 I10 [id number] Luis Alberto Laurent MD [facility] ([facility]) [address] [place] [address] [id number] 5 09/10/2023 09:58:42 09/10/2023 13:51:04 Severe aortic valve stenosis 949158430 I35.0 Hussein hematuria 30732375 5 R31.0 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 8797582531 88163 N18.4 Benign hypertension 1072 5009 I10 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 68235097 N25.81 Chronic ra diation cystitis 150121914 N30.40 Malignant neoplasm of prostate 865422422 C61 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 894537931 C67.9 sees urology in current hussein hematuria and hgb is stable Acquired thrombocytopenia 57113743 D69.6 stable Acute on c hronic diastolic heart failure 269532483 I50.33 [id number] Luis Alberto Laurent MD [facility] ([facility]) [address] [place], [place] [address]75[address] 5 10/14/2023 08:04:44 10/15/2023 10:55:15 Benign hypertension [id number] I10 Anemia 661642106 D64.9 [id number] Luis Alberto Laurent MD [facility] ([facility]) [address] [place] [address] [phone] 5 10/21/2023 09:44:52 10/21/2023 12:21:43 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 [id number] 59059 N18.4 Benign hypertension 1072 5009 I10 Hyperlipidemia 92272346 E78.5 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 04865179 N25.81 [id number] Luis Alberto Laurent MD [facility] ([facility]) [address] [place] [address] [phone] 5 12/15/2023 09:57:11 12/15/2023 10:57:46 Blood in urine 91564225 R31.9 [id number] Luis Alberto Laurent MD [facility] ([facility]) [address] [place] [address] [phone] 5 01/12/2024 08:06:14 01/12/2024 09:44:38 Benign hypertension 36997327 I10 Hyperlipidemia 72816496 E78.5 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 [id number] 16371 N18.4 [id number] Luis Alberto Laurent MD [facility] ([facility]) [address] [place] [address] [phone] 5 01/22/2024 13:49:02 01/22/2024 14:54:12 Hussein hematuria 443568633 R31.0 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 2803422587 57895 N18.4 Iron defic iency anemia 13986659 D50.9 he will see nephrology in march. will fax his bloodwork to nephrology and to urology. [id number] Luis Alberto Laurent MD [facility] ([facility]) [address] [place] [address] [phone] 5 02/09/2024 13:00:44 02/09/2024 14:35:10 Blood in urine 80058656 R31.9 if light headed weak short of breath chest pain unable to void go to ER [id number] Luis Alberto Laurent MD [facility] ([facility]) [address] [place] [address] [phone] 5 02/19/2024 13:31:18 02/19/2024 14:57:37 [id number] Luis Alberto Laurent MD [facility] ([facility]) [address] [place] [address] [phone] 5 02/23/2024 11:52:47 02/24/2024 12:10:12 Anemia due to blood loss 842932448 D50.0 appears improved no gi sx. he will go to er if sx develop as discussedh e is tolerating his iron [id number] Luis Alberto Laurent MD [facility] ([facility]) [address] [place] [address] [phone] 5 03/24/2024 08:19:49 03/24/2024 08:59:27 Anemia due to blood loss 870409465 D50.0 he is still actively bleeding. will plan on recheck in a few weeks as scheduled. likely will need an iron infusions. Chronic ki dney disease stage 4 352315576 N18.4 they are going to discuss dialysis what it is like. Severe aor tic valve stenosis 387610803 I35.0 [id number] Luis Alberto Laurent MD [facility] ([facility]) [address] [place] [address] [phone] 5 04/05/2024 08:03:51 04/05/2024 08:18:26 Anemia 737234458 D64.9 [id number] Luis Alberto Laurent MD [facility] ([facility]) [address] [place] [address] [phone] 5 04/27/2024 14:34:44 04/28/2024 10:30:55 Hussein hematuria 772535867 R31.0 [id number] Luis Alberto Laurent MD [facility] ([facility]) [address] [place] [address] [phone] 5 06/01/2024 08:06:30 06/02/2024 13:24:43 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 [id number] 07177 N18.4 [id number] Luis Alberto Laurent MD [facility] ([facility]) [address] [place] [address] [phone] 5 06/08/2024 13:49:41 06/08/2024 17:42:43 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 [id number] 51163 N18.4 Blood in urine 00103445 R31.9 if light headed weak short of breath chest pain unable to void go to ER [id number] Luis Alberto Laurent MD [facility] ([facility]) [address] [place] [address] [phone] 5 07/05/2024 08:11:20 07/06/2024 13:08:33 Anemia 963528110 D64.9 [id number] Luis Alberto Laurent MD [facility] ([facility]) [address] [place] [address] [phone] 5 07/12/2024 12:47:15 07/13/2024 11:41:26 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 6506572330 39301 N18.4 Benign hypertension 1072 5009 I10 Hyperlipidemia 86666265 E78.5 Coronary atherosclerosis 873871820 I25.10 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 has been told it is inoperable and given no surgical interventi on options to stop the bleeding. he would like to be evaluated in [facility] to see if there are any other ameliorati ve treatment options that would be acceptable to him. he has had full hyperbaric therapy regimen twice. [id number] Luis Alberto Laurent MD [facility] ([facility]) [address] [place] [address] [phone] 5 07/26/2024 10:48:34 07/27/2024 11:33:42 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 2325755816 51943 N18.4 [id number] Luis Alberto Laurent MD [facility] ([facility]) [address] [place] [address] [phone] 5 07/28/2024 12:31:37 08/05/2024 23:10:04 Ear pressure sensation 431349169 H93.8X9 [id number] Luis Alberto Laurent MD [facility] ([facility]) [address] [place] [address] [phone] 5 08/08/2024 08:09:51 08/08/2024 08:22:02 Anemia 641740927 D64.9 hgb is stable [id number] Luis Alberto Laurent MD [facility] ([facility]) [address] [place] [address] [phone] 5 08/23/2024 08:26:29 08/24/2024 12:38:48 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 4532624297 57496 N18.4 Severe aor tic valve stenosis 823521755 I35.0 hemodinyam ically stable despite the heaturia. no orthostasi s, palpitatio ns, dyspnea, or chest discomfort by hx Pain of to e of left foot 8181546323 61635 M79.675 Hussein hematuria 26168024 5 R31.0 has failed quite a few therapies. has been told it is inoperable and given no surgical interventi on options to stop the bleeding. he would like to be evaluated in [facility] to see if there are any other ameliorati ve treatment options that would be acceptable to him. he has had full hyperbaric therapy regimen twice. 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 Anemia due to chronic blood loss 630073016 D50.0 [id number] Luis Alberto Laurent MD [facility] ([facility]) [address] [place] [address] [phone] 5 09/16/2024 08:04:05 09/17/2024 07:01:28 Anemia due to blood loss 618449163 D50.0 he is still actively bleeding. will plan on recheck in a few weeks as scheduled. likely will need an iron infusions. [id number] Luis Alberto Laurent MD [facility] ([facility]) [address] [place] [address] [phone] 5 09/19/2024 08:37:30 09/19/2024 09:26:54 Gout 01251627 M10.9 we discussed causes of gout including renal Pain of to e of left foot 3708021194 74018 M79.080 [id number] Luis Alberto Laurent MD [facility] ([facility]) [address] [place] [address] [id number] 5 09/26/2024 09:03:44 09/26/2024 13:05:35 Pain in right foot 1993903052 75193 M79.671 declines additional pain med above tylenol. appears typical of gout and uric acid is incresED. GFR 17 SO NSAIDS AND COLCHICHIN E ARE CONTRAINDI CATED. WILL CYAHGE TO A MEDROL DOSE PACK. I will refer to podiatry to consider further evaluation apnd possible injection if not improving. No obvious sign of infection. radiology report pending. Anemia due to blood loss 550019086 D50.0 stable no active bleeding. hgb improving. [id number] Luis Alberto Laurent MD [facility] ([facility]) [address] [place] [address] [phone] 5 10/07/2024 09:58:15 10/07/2024 11:16:31 Hussein hematuria 887673062 R31.0 [id number] he has some bleeding again now.he was told to continue his finasterid e [id number] Luis Alberto Laurent MD [facility] ([facility]) [address] [place] [address] [phone] 5 10/11/2024 09:36:57 10/11/2024 14:02:41 Gouty arthritis 89770056 M10.9 72856 Pain in right foot 92891 78355 31335 M79.671 declines additional pain med above tylenol. appears typical of gout and uric acid is incresED. GFR 17 SO NSAIDS AND COLCHICHIN E ARE CONTRAINDI CATED. WILL CYAHGE TO A MEDROL DOSE PACK. I will refer to podiatry to consider further evaluation apnd possible injection if not improving. No obvious sign of infection. radiology report pending. Chronic ki dney disease stage 4 573032376 N18.4 060040 [id number] Luis Alberto Laurent MD [facility] ([facility]) [address] [place] [address] [phone] 5 10/17/2024 08:16:56 10/17/2024 13:00:48 Pain in right foot 6406439169 31557 M79.671 [id number] declines additional pain med above tylenol. appears typical of gout and uric acid is increased. GFR 17 SO NSAIDS AND COLCHICHIN E ARE CONTRAINDI CATED. I will refer to podiatry to consider further evaluation and possible injection if not improving. No obvious sign of infection. radiology report pending. i will repeat xrays today [id number] Luis Alberto Laurent MD [facility] ([facility]) [address] [place] [address] [phone] 5 11/22/2024 08:29:45 11/22/2024 10:13:12 Closed fracture of hip 342765130 S72.001D [id number] [id number] Luis Alberto Laurent MD [facility] ([facility]) [address] [place] [address] 5 12/20/2024 08:42:31 12/20/2024 13:01:56 Hussein hematuria 585129726 R31.0 143935 he has some bleeding again now.he was [...] [place] - [place] A - [facility] (MEDICARE) Augusto Quispe [id number] Augusto Quispe 12/20/2024 1 MEDICARE B-[place]: [employer] Augusto Quispe [id number] Augusto Quispe 12/20/2024 2 [employer] (MEDICARE SUPPLEMENT) Augusto Quispe [id number] Augusto Quispe Notes Date Note Type Note Provider Name and Address Organization Details Recorded Time 10/07/2024 text/html Pt is here for a follow up from his specialist. Pt had a CT yesterday in [place] and then saw his urologist afterward. There [...] the medrol mango. Luis Alberto Laurent MD [address] [place] [address], [phone], [facility], [place] 10/07/2024 11:06:37 10/11/2024 text/html Musculoskeletal PainReported by PatientHPIFor severity, patient reportsworsening. For location, patient reportsright great toe. For duration, patient reportspresent <1 month (2 days). For timing, patient reportsconstant. For adls affected, patient reportswalking. For associated symptoms, (pt reports that the toe is not swollen or red, but it is shiny).hx of gouthis sx's recurred 2-3 days after his steroid was discontinued. while on the steroids no pain was present at all. ROS as noted in the [facility] Luis Alberto Laurent MD [address] [place] [address], [phone], [facility] 10/11/2024 10:26:49 10/17/2024 text/html Musculoskeletal PainReported by PatientHPIFor location, patient reportsright great toe. For duration, patient reportspresent for 1-6 months (started in august). For timing, patient reportsconstant. For adls affected, patient reportswalking. For associated symptoms, (pt reports that the toe is mildly swollen, but not red).hx of gouthis sx's are recurrent after finishing steriod courseROS as noted in the [facility] Luis Alberto Laurent MD [address] [place] [address], [phone], [facility] 10/17/2024 09:01:14 11/22/2024 text/html Pt went to the ER on 11/19 due to right hip pain. He broke his hip 1 week prior (due to a fall) and had it surgically repaired. He had done more activity then usual on the and was in significant pain. At the ER they could not rule out early joint infection. Pt is here today for a follow up. He is still having pain with that hip, but states it's pretty stable. No fevers. No more falls. He is ambulating by walker. He did not hit his head during the fall, only his hip. He states he is managing his pain with tylenol. Luis Alberto Laurent MD [address] [place], [phone], [facility] 11/22/2024 09:41:57 12/20/2024 text/html HematuriaReporte d by PatientHPIFor severity, patient reportsno pain. For duration, patient reportscontinuous. For onset/timing, patient reportsrecurring. Patient has been having some blood in his urine. Today has been better but patient states that it has been bad for several days. He has a procedure scheduled later in the month and wanted to have some labs done prior. there is no obstruction of flow beyond baseline. no dysuria. Luis Alberto Laurent MD [address] [place] [address], [phone], [facility] 12/20/2024 09:16:06
[2025-04-15 00:08] VITALS: BP 121/75; PULSE 82; RESP 18; TEMP 37; O2SAT 99; BMI 26.6
--- NOTE | 2025-04-17 10:54 | PC.NURSE ---
Attempt to call pt after LWBS Thursday. No answer.
== END 2025-04-15 01:30 | disposition left against medical advice (07) ==
PROVIDERS: Emergency Provider Emergency Medicine; PCP Family Medicine
DX: Z53.21 Procedure and treatment not carried out due to patient leaving prior to being seen by health care provider (principal)

== ENCOUNTER 2025-06-02 12:57 | Emergency (ER) | payer MEDICARE, OTHER, SELFPAY ==
[2025-06-02 13:02] VITALS: BP 108/69; PULSE 79; RESP 16; TEMP 36.5; O2SAT 100; BMI 26.1
--- NOTE | 2025-06-02 13:19 | W.ED.EAR ---
HPI - Ear Problem General: Chief complaint: Ear Stated complaint: Lt ear plugged up Time Seen by Provider: 06/02/25 13:18 Source: patient Mode of arrival: ambulatory Limitations: no limitations History of Present Illness: Patient is a nice 85-year-old male presents to ED today along with his significant other reporting that his left ear feels plugged up . Patient states he began noticing it a few days ago. He is not having any pain. Denies tinnitus. He is not having any hearing loss. No ear discharge. Denies injury or trauma. Has not placed anything inside of his ear. He has no other complaints at this time. MD Complaint: other (feels like L ear is clogged up ) Location: left ear Severity: mild Relieving factors: nothing Exacerbating factors: nothing Discharge from ear: no Associated symptoms: Reports no associated symptoms; Denies ear or mastoid pain, fever(s), headache(s), neck pain or tinnitus Treatment prior to arrival: none Related Data Home Medications ?Medication ?Instructions ?Recorded ?Confirmed magnesium oxide 400 mg PO DAILY 10/28/19 03/27/25 tbljusos-xi-goqki 300 mcg-K 60 1 tab PO DAILY 10/28/19 03/27/25 mcg-lycop 600 mcg-lutein 300 mcg tablet (Centrum Silver Men) alfuzosin 10 mg tablet,extended 10 mg PO BEDTIME 11/07/20 03/27/25 release 24 hr cholecalciferol (vitamin D3) 25 25 mcg PO DAILY 11/12/20 03/27/25 mcg (1,000 unit) capsule furosemide 40 mg tablet 40 mg PO DAILY 08/26/23 03/27/25 potassium chloride 10 mEq 10 meq PO DAILY 08/26/23 03/27/25 capsule,extended release pantoprazole 40 mg tablet,delayed 40 mg PO DAILY 11/23/23 03/27/25 release acetaminophen 325 mg tablet 650 mg PO QID PRN Fever Or Pain 11/11/24 03/27/25 (Tylenol) evolocumab 140 mg/mL subcutaneous 140 mg SUBCUT Q14D 11/11/24 03/27/25 pen injector (Marcellus Vincent) hydrocodone 5 mg-acetaminophen 300 1 tab PO Q4H PRN 11/23/24 03/27/25 mg tablet Previous Rx's ?Medication ?Instructions ?Recorded aspirin 81 mg tablet 81 mg PO DAILY #30 tabs 11/15/24 carvedilol 3.125 mg tablet 3.125 mg PO BID #90 tabs 05/22/25 Allergies Allergy/AdvReac Type Severity Reaction Status Date / Time Iodinated Contrast Media Allergy Intermediate messes Verified 03/27/25 10:56 with kidney's tamsulosin Allergy ALGY-Rash Verified 03/27/25 10:56 pravastatin (From Pravachol) AdvReac Intermediate Unknown Verified 03/27/25 10:56 simvastatin (From Zocor) AdvReac Unknown Unknown Verified 03/27/25 10:56 Review of Systems Const: Denies: fever(s), chills, body aches, fatigue or malaise Eyes: Denies: change in vision ENMT: Denies: throat pain, odynophagia, ear or mastoid pain, ear discharge, tinnitus, disequilibrium, nasal discharge, nasal congestion or sinus pain Card: Denies: chest pain Resp: Denies: dyspnea GI: Denies: nausea or vomiting Musc: Denies: neck pain Neuro: Denies: headache(s) or dizziness PFSH ED PFSH: Medical History Bladder cancer BPH loc w urin obs/LUTS Bladder tumor Prostate CA Abdominal aortic aneurysm (AAA) Hyperlipidemia HTN (hypertension) Renal insufficiency Aortic stenosis Carotid stenosis, bilateral ASHD (arteriosclerotic heart disease) Surgical History Status post nasal surgery H/O hernia repair ABDOMINAL H/O transurethral resection of bladder tumor (TURBT) S/P CABG (coronary artery bypass graft) Family History Brother CAD (coronary artery disease) Mother , at age 61 Alzheimer disease Father , at age 81 No problems noted. Other Hypertension Social History Smoking and tobacco/nicotine status: never used tobacco/nicotine Alcohol intake: never Substance/Drug Use: never Marital status: Current occupational status: retired Physical Exam Const: COMMON NORMALS: no acute distress, average body habitus, no limitations, healthy appearing, alert and well nourished GENERAL APPEARANCE: cooperative HENMT: COMMON NORMALS: hearing grossly normal bilaterally, external ears normal, EAC's normal, Normal external nose present, Normal nasal mucous membranes and turbinates present, moist oral mucous membranes and oropharynx normal FACE & SINUS: normal facial exam; no sinus tenderness NOSE: Normal external nose present and Normal nasal mucous membranes and turbinates present EXTERNAL EAR: Yes external ears normal EXTERNAL AUDITORY CANAL: EAC's normal TYMPANIC MEMBRANE: TM abnormal TM laterality: left Details: effusion and fluid behind TM Neck/C-Spine: GENERAL: No anterior neck swelling and No submandibular swelling Neuro: SENSORIUM/ORIENTATION: Yes alert Course Vital Signs: Vital signs: Vital Signs Temperature 97.7 F 06/02/25 13:02 Pulse Rate 79 06/02/25 13:02 Respiratory Rate 16 06/02/25 13:02 Blood Pressure 108/69 06/02/25 13:02 Pulse Oximetry 100 06/02/25 13:02 Oxygen Delivery Me thod Room Air 06/02/25 13:02 MDM - Ear Medical Decision Making Patient appears to have a left serous otitis without evidence for infection. Discussed how most medications including steroids/intranasal corticosteroids, antihistamines, antibiotics are ineffective and time is usually sufficient for treatment. He can follow-up with primary care in 3 to 4 weeks if symptoms are not improved in and certainly sooner if he begins develop other symptoms such as severe pain, tinnitus, hearing loss, fevers, etc. Differential Diagnosis Likely otitis media, foreign body in ear, ruptured TM and cerumen impaction Medical Records I reviewed the patient's medical records. No radiology studies performed this visit Discharge Plan Discharge Patient Disposition: Home Clinical Impression: Acute serous otitis media, left ear Condition: Stable Prescriptions: No Action magnesium oxide 400 mg magnesium capsule 400 mg PO DAILY Centrum Silver Men 300-600-300 mcg tablet 1 tab PO DAILY cholecalciferol (vitamin D3) 25 mcg (1,000 unit) capsule 25 mcg PO DAILY pantoprazole 40 mg tablet,delayed release (DR/EC) 40 mg PO DAILY furosemide 40 mg tablet 40 mg PO DAILY potassium chloride 10 mEq capsule, extended release 10 meq PO DAILY hydrocodone-acetaminophen 5-300 mg tablet 1 tab PO Q4H PRN carvedilol 3.125 mg tablet 3.125 mg PO BID Qty: 90 3RF Rx Instructions: Take 1 tablet by mouth twice daily alfuzosin 10 mg tablet extended release 24 hr 10 mg PO BEDTIME Repatha SureClick 140 mg/mL pen injector 140 mg SUBCUT Q14D acetaminophen [Tylenol] 325 mg Tablet 650 mg PO QID PRN (Reason: Fever Or Pain) aspirin 81 mg tablet 81 mg PO DAILY Qty: 30 0RF Discharge Orders: Discharge ED (Routine); Ordered 06/02/25 Ordered By: Katerina Selby Referrals: Andry Laurent MD [Primary Care Provider, Family Practice] Patient Instructions: Fluid In The Ear (Serous Otitis Media) (ED), Patient Portal & [facility] Instructions Print Language: Spanish Coding Level of Care Code ED Teamsite Developer for Martha Enamorado
== END 2025-06-02 14:19 | disposition home or self-care (01) ==
PROVIDERS: Emergency Provider Physician Assistant; PCP Family Medicine
DX: H65.02 Acute serous otitis media, left ear (principal); Z79.82 Long term (current) use of aspirin; E78.5 Hyperlipidemia, unspecified; I10 Essential (primary) hypertension; Z85.46 Personal history of malignant neoplasm of prostate; Z85.51 Personal history of malignant neoplasm of bladder; Z95.1 Presence of aortocoronary bypass graft
CPT/HCPCS: 99282

== ENCOUNTER 2025-06-17 10:29 | Inpatient (IN) | payer MEDICARE, OTHER, SELFPAY ==
[2025-06-17] VITALS (27 sets, daily range): BP systolic 100–134; BP diastolic 58–71; PULSE 69–83; RESP 14–18; TEMP 36.4–36.9; O2SAT 93–100; BMI 25.9
--- OUTSIDE RECORDS SUMMARY | 2025-06-17 10:33 | XMS_ITS | Encounter Summary ---
Author Organization [place] [facility] Address [address] [place] [address] Phone Care Team Providers Care Mask Design Engineer Name Role Phone Andry Laurent MD Primary Care Provider [phone] Encounter Details Date Type Department Care Team (Late st Contact Info) Description 06/30/2019 Orders Only [facility] [address] [address] Dalton Peters MD Chronic kidney disease stage 3 (HCC) Social [...] Care Team (Late st Contact Info) Description 07/09/2025 Orders Only [facility], [address] [address] Elsy Carpenter NP [address] [facility] [facility] [address] [place] [address] Chronic kidney disease, Stage IV (severe) (HCC); Vitamin D deficiency, not otherwise specified 07/17/2025 10:00 AM BOX OFFICE AGENT Office Visit [place] [facility] [address] [phone] Milena Ospina NP [address] [facility] [facility] [address] [place] [id number] documented as of this encounter Procedures Procedure Name Priority Date/Time Associated Diagnosis Comments URINE ALBUMIN / CREATININE RATIO Routine 06/30/2019 8:26 AM BOX OFFICE AGENT Chronic kidney disease stage 3 (HCC) PTH, INTACT Routine 06/30/2019 8:26 AM BOX OFFICE AGENT Chronic kidney disease stage 3 (HCC) RENAL FUNCTION PANEL Routine 06/30/2019 8:26 AM BOX OFFICE AGENT Chronic kidney disease stage 3 (HCC) documented in this encounter Results * PTH, intact (06/30/2019 8:26 AM BOX OFFICE AGENT) Parathyroid Hormone, Intact 40 pg/mL Blood specimen (specimen) 06/30/2019 8:26 AM BOX OFFICE AGENT Christina Pena MA - 07/05/2019 6:11 AM BOX OFFICE AGENT job captain lab [facility] [place] [address] [address] [facility] [address] Hand Packager: Jose Patel DO MPH CLIA: [id number] Dalton Peters MD LAB BLOOD ORDERABLES Fi nal Result * Urine albumin / creatinine ratio (06/30/2019 8:26 AM BOX OFFICE AGENT) Creatinine, Urine Random 100 mg/dL Albumin, Urine 1.5 mg/dL Alb/Creat Ratio, Ur 15.00 mcg/mg Urine specimen (specimen) 06/30/2019 8:26 AM BOX OFFICE AGENT Christina Pena MA - 07/05/2019 6:09 AM BOX OFFICE AGENT job captain lab [facility] [place] [address] [facility] [address] Hand Packager: Jose Patel DO MPH CLIA: [id number] Dalton Peters MD LAB URINE ORDERABLES Fi nal Result * (ABNORMAL) Renal function panel (06/30/2019 8:26 AM BOX OFFICE AGENT) Albumin 4.4 3.5 - 5.0 g/dL BUN [...] 147 Blood specimen (specimen) 06/30/2019 8:26 AM BOX OFFICE AGENT Narrative Christina Sanchez MA - 07/05/2019 6:08 AM BOX OFFICE AGENT job captain lab [facility] [place] [address] [facility] [place] [address] Hand Packager: Jose Patel DO MPH CLIA: [id number] Dalton Peters MD LAB BLOOD ORDERABLES Fi nal Result documented in this encounter Visit Diagnoses Diagnosis Chronic kidney disease stage 3 (HCC) Chronic kidney disease, Stage IV (severe) (HCC) Chronic kidney disease, Stage IV (severe) Vitamin D deficiency, not otherwise specified documented in this encounter Care Teams Mask Design Engineer Relationship Specialty Start Date End Date Andry Laurent MD [address] [place] [address] PCP - General Family Medicine 08/04/23 documented as of this encounter
--- OUTSIDE RECORDS SUMMARY | 2025-06-17 10:33 | XMS_ITS | Clinical Summary ---
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
--- OUTSIDE RECORDS SUMMARY | 2025-06-17 10:33 | XMS_ITS | Data Portability ---
Author Organization LUCAS Michael Sims 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 he has surgery planned. 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 i am still awaiting his doctor's notes. [email or web address] Not available 10/11/2024 10:19:59 Plan of Treatment Reminders Order Date Submit Date Provider Last Modified By Organization Details Last Modified Time Details Appointments OFFICE VISIT LAURENT 2025 09:00A M Luis Alebrto Laurent MD Not available Not available Not available Lab urinalysi s, complete 2024 025 MARKUS Rodriguez [facility], [address] [facility] [address], [place], [address], 04/26/2025 10:11:30 culture, urine 2024 025 Repair Report [facility], [address] [facility] [address], [address] [place], [address], 04/27/2025 22:19:31 CBC 2024 025 MARKUS Rodriguez [facility], [address], [address], [place], [address], 12/20/2024 09:48:11 CMP, serum or plasma 2024 025 [facility], [address], [address], [place], [address], 12/20/2024 10:34:44 urinalysi s, complete 2024 025 [facility], [address] [facility] [address], [address], [place], [address], 12/20/2024 10:33:05 culture, urine 2024 025 Repair Report [facility], [address] [place] [address], [address], [place], [address], 12/22/2024 02:58:40 CBC 2024 025 [facility], [address], [address], [place], [address], 10/17/2024 09:32:10 CMP, serum or plasma 2024 025 [facility], [address], [address], [place], [address], 10/17/2024 09:56:57 uric acid, serum or plasma 2024 025 Repair Report [facility], [address] [place] [address], [address], [place], [address], 10/18/2024 06:00:19 C-reactiv e protein, quantitat wes, serum or plasma 2024 025 Repair Report [facility], [address] [place] [address], [address], [place], [address], 10/18/2024 06:00:20 ESR (erythroc yte sedimenta tion rate), blood 2024 025 [facility] ([facility]), [address] [place], [address], 10/17/2024 10:42:31 Referral podiatris t referral 2024 [facility], [address] [place] [address], [address], 10/18/2024 15:48:01 Procedures None recorded. Surgeries None recorded. Imaging XR, foot, 3 or more view [address], [address] [place], [address], 10/17/2024 14:20:20 XR, foot, 3 or more view [address], [address] [place], [address], 10/17/2024 14:19:59 Medication Orders hydrocodo ne 5 mg-acetam inophen 325 mg tablet 2024 [facility]armacy #[id number], [address], [address], 12/04/2024 05:02:17 Medrol (Mango) 4 mg tablets in a dose pack 2024 [facility]/Pharmacy #[id number], [address], [address], 11/22/2024 09:05:17 Patient TargetsNo targets recorded. Patient InstructionsNo instructions recorded. 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 Referring Physician: Luis Alberto Laurent, Family Medicine, Encounter Date: 10/17/2024 Results Created Date Observation Date Name Description Value Unit Range Abnormal Flag Note LastModifiedBy Organization Detail LastModifiedTime 09/17/1909/16/2024 CBC WBC 5.5 x10 4.5-10 .5 Not Available Rodriguez [facility] [address], [place], [address], 09/16/2024 09:06:29 09/17/1909/16/2024 CBC RBC 2.86 x10 4.30-5 .90 low Not Available Rodriguez [facility] [address], [place], [address], 09/16/2024 09:06:29 09/17/1909/16/2024 CBC HGB 8.3 g/dL 13.5-1 8.0 low Not Available Rodriguez [facility] [address], [place], [address], 09/16/2024 09:06:29 09/17/1909/16/2024 CBC HCT 26.3 % 35.0-6 0.0 low Not Available Rodriguez [facility] [address], [place], [address], 09/16/2024 09:06:29 09/17/1909/16/2024 CBC MCV 92.0 fL 80.0-9 9.9 Not Available Rodriguez [facility] [address], [place], [address], 09/16/2024 09:06:29 09/17/1909/16/2024 CBC MCH 29.0 pg 27.0-3 2.0 Not Available Rodriguez [facility] [address], [place], [address], 09/16/2024 09:06:29 09/17/1909/16/2024 CBC MCHC 31.6 g/dL 32.0-3 6.0 low Not Available Rodriguez [facility] [address], [place], [address], 09/16/2024 09:06:29 09/17/1909/16/2024 CBC RDW 20.5 % 11.5-1 4.5 high Not Available Rodriguez [facility] [address] [facility] 1, [place], [address], 09/16/2024 09:06:29 09/17/1909/16/2024 CBC plt 127.0 x10 150.0- 451.0 low Not Available Rodriguez [facility] [address] [facility] [facility], [place], [address], 09/16/2024 09:06:29 09/17/1909/16/2024 CBC lymphocytes % 37.9 % 20.0-5 0.0 Not Available Rodriguez [facility] [address] [facility] [address] [facility] 1, [place], [address], 09/16/2024 09:06:29 09/17/19 25 09/16/2024 CBC granulcytes % 49.5 % 30.0-7 0.0 Not Available Rodriguez [facility] [address] [facility] [address] [facility] 1, [place], [address], 09/16/2024 09:06:29 09/17/1909/16/2024 CBC monocytes % 8.8 % 2.0-16 .0 Not Available Rodriguez [facility] [address] [facility] [address] [facility] 1, [place], [address], 09/16/2024 09:06:29 09/17/1909/16/2024 CBC granulcytes# 2.7 x10 Not Halle ilable Rodriguez [facility] [address] [facility] [address] [facility] 1, [place], [address], 09/16/2024 09:06:29 09/17/19 25 09/16/2024 CBC lymphocytes # 2.1 x10 Not Available Rodriguez [facility] [address] [facility] 1, [place], [address], 09/16/2024 09:06:29 09/17/1909/16/2024 CBC monocytes # 0.5 x10 Not Avai lable Rodriguez [facility] [address] [facility] 1, [place], [address], 09/16/2024 09:06:29 09/20/1909/19/2024 CBC WBC 4.9 x10 4.5-10 .5 Not Available Rodriguez [facility] [address] [facility] 1, [place], [address], 09/19/2024 09:45:46 09/20/1909/19/2024 CBC RBC 2.95 x10 4.30-5 .90 low Not Available Rodriguez [facility] [address] [facility] [facility] 1, [place], [address], 09/19/2024 09:45:46 09/20/19 25 09/19/2024 CBC HGB 9.2 g/dL 13.5-1 8.0 low Not Available Rodriguez [facility] [address] [facility] [facility], [place], [address], 09/19/2024 09:45:46 09/20/1909/19/2024 CBC HCT 27.4 % 35.0-6 0.0 low Not Available Rodriguez [facility] [address] [facility] [address] [facility] 1, [place], [address], 09/19/2024 09:45:46 09/20/19 25 09/19/2024 CBC MCV 92.8 fL 80.0-9 9.9 Not Available Rodriguez [facility] [address] [facility] [address] [facility] 1, [place], [address], 09/19/2024 09:45:46 09/20/19 25 09/19/2024 CBC MCH 31.2 pg 27.0-3 2.0 Not Available Rodriguez [facility] [address] [facility] [address] [facility] 1, [place], [address], 09/19/2024 09:45:46 09/20/1909/19/2024 CBC MCHC 33.5 g/dL 32.0-3 6.0 Not Available Rodriguez [facility] [address] [facility] 1, [place], [address], 09/19/2024 09:45:46 09/20/1909/19/2024 CBC RDW 20.9 % 11.5-1 4.5 high Not Available Rodriguez [facility] [address] [facility] [address] [facility], [place], [address], 09/19/2024 09:45:46 09/20/1909/19/2024 CBC plt 124.4 x10 150.0- 451.0 low Not Available Rodriguez [facility] [address] [address], [place], [address], 09/19/2024 09:45:46 09/20/1909/19/2024 CBC lymphocytes % 37.0 % 20.0-5 0.0 Not Available Rodriguez [facility] [address] [facility], [place], [address], 09/19/2024 09:45:46 09/20/1909/19/2024 CBC granulcytes % 51.7 % 30.0-7 0.0 Not Available Rodriguez [facility] [address] [facility] 1, [place], [address], 09/19/2024 09:45:46 09/20/1909/19/2024 CBC monocytes % 8.3 % 2.0-16 .0 Not Available Rodriguez [facility] [address] [facility] [address] [facility], [place], [address], 09/19/2024 09:45:46 09/20/19 09/19/2024 CBC granulcytes# 2.5 x10 Not Halle ilable [facility] [address] [address], [place], [address], 09/19/2024 09:45:46 09/20/19 25 09/19/2024 CBC lymphocytes # 1.8 x10 Not Available [facility] [address] [address], [place], [address], 09/19/2024 09:45:46 09/20/19 25 09/19/2024 CBC monocytes # 0.4 x10 Not Avai lable [facility] [address] [address], [place], [address], 09/19/2024 09:45:46 09/20/19 25 09/19/2024 BMP (MALE ) glucose 174.0 mg/dL 60.0-9 9.0 high Not Available [facility] [address] [address], [place], [address], 09/19/2024 10:36:39 09/20/19 25 09/19/2024 BMP (MALE ) BUN (blood urea nitrogen) 40.0 mg/dL 10.0-2 6.0 high Not Available [facility] [address], [address], 09/19/2024 10:36:39 09/20/19 25 09/19/2024 BMP (MALE ) creatinine (serum) 3.4 mg/dL 0.4-1. 5 high Not Available [facility] [address], [address], 09/19/2024 10:36:39 09/20/19 25 09/19/2024 BMP (MALE ) BUN/creatini ne ratio 11.76 ratio Not Available [facility] [address] [address], [place], [address], 09/19/2024 10:36:39 09/20/19 25 09/19/2024 BMP (MALE ) calcium 9.3 mg/dL 8.4-10 .5 Not Available [place] [facility] [address] [facility], [place], [address], 09/19/2024 10:36:39 09/20/19 25 09/19/2024 BMP (MALE ) sodium 138.0 mmol/ L 136.0- 145.0 Not Available [facility] [address] [facility], [place], [address], 09/19/2024 10:36:39 09/20/19 25 09/19/2024 BMP (MALE ) potassium 4.3 mmol/ L 3.5-5. 1 Not Available [facility] [address] [facility], [place], [address], 09/19/2024 10:36:39 09/20/19 25 09/19/2024 BMP (MALE ) chloride 104.0 mmol/ L 98.0-1 10.0 normal Not Available [facility] [address] [facility], [place], [address], 09/19/2024 10:36:39 09/20/19 25 09/19/2024 BMP (MALE ) C02 27.0 mmol/ L 22.0-3 1.0 Not Available [facility] [address] [facility], [place], [address], 09/19/2024 10:36:39 09/20/19 25 09/20/2024 URIC ACID uric acid 9.1 mg/dL 4.0-8. 0 high Thera carine garrettge t for gout patie nts: <6.0 mg/dL Not Available [employer] [facility] [address], [place], [address], 09/20/2024 06:01:52 10/18/1910/17/2024 CBC WBC 10.6 x10 4.5-10 .5 high Not Available Rodriguez [facility] [address] [facility] 1, [place], [address], 10/17/2024 09:32:09 10/18/1910/17/2024 CBC RBC 3.27 x10 4.30-5 .90 low Not Available Rodriguez [facility] [address] [facility] [facility] [facility] [address] [facility] 1, [place], [address], 10/17/2024 09:32:09 10/18/1910/17/2024 CBC HGB 9.9 g/dL 13.5-1 8.0 low Not Available Rodriguez [facility] [address] [facility] [address] [facility] 1, [place], [address], 10/17/2024 09:32:09 10/18/19 25 10/17/2024 CBC HCT 31.5 % 35.0-6 0.0 low Not Available Rodriguez [facility] [address] [facility] [address] [facility] 1, [place], [address], 10/17/2024 09:32:09 10/18/1910/17/2024 CBC MCV 96.4 fL 80.0-9 9.9 Not Available Rodriguez [facility] [address] [facility] [address] [facility] 1, [place], [address], 10/17/2024 09:32:09 10/18/1910/17/2024 CBC MCH 30.2 pg 27.0-3 2.0 Not Available Rodriguez [facility] [address] [facility] [address] [facility] 1, [place], [address], 10/17/2024 09:32:09 10/18/1910/17/2024 CBC MCHC 31.3 g/dL 32.0-3 6.0 low Not Available Rodriguez [facility] [address] [facility] 1, [place], [address], 10/17/2024 09:32:09 10/18/1910/17/2024 CBC RDW 19.2 % 11.5-1 4.5 high Not Available Rodriguez [facility] [address] [facility] [address] [facility] 1, [place], [address], 10/17/2024 09:32:09 10/18/1910/17/2024 CBC plt 141.8 x10 150.0- 451.0 low Not Available Rodriguez [facility] [address] [facility] [address] [facility] 1, [place], [address], 10/17/2024 09:32:09 10/18/1910/17/2024 CBC lymphocytes % 41.3 % 20.0-5 0.0 Not Available Rodriguez [facility] [address] [facility] [address] [facility], [place], [address], 10/17/2024 09:32:09 10/18/1910/17/2024 CBC granulcytes % 48.6 % 30.0-7 0.0 Not Available Rodriguez [facility] [address] [facility] [address] [facility] 1, [place], [address], 10/17/2024 09:32:09 10/18/1910/17/2024 CBC monocytes % 5.2 % 2.0-16 .0 Not Available Rodriguez [facility] [address] [facility], [place], [address], 10/17/2024 09:32:09 10/18/1910/17/2024 CBC granulcytes# 5.1 x10 Not Halle ilable Rodriguez [facility] [address] [facility] [address] [facility], [place], [address], 10/17/2024 09:32:09 10/18/1910/17/2024 CBC lymphocytes # 4.4 x10 Not Available Rodriguez [facility] [address] [facility] [address] [facility], [place], [address], 10/17/2024 09:32:09 10/18/1910/17/2024 CBC monocytes # 0.6 x10 Not Avai lable [facility] [address] [facility], [place], [address], 10/17/2024 09:32:09 10/18/19 25 10/17/2024 CMP (MALE ) glucose 145.0 mg/dL 60.0-9 9.0 high Not Available [facility] [address] [facility], [place], [address], 10/17/2024 09:56:57 10/18/19 25 10/17/2024 CMP (MALE ) BUN (blood urea nitrogen) 60.0 mg/dL 10.0-2 6.0 high Not Available [facility] [address] [facility], [place], [address], 10/17/2024 09:56:57 10/18/19 25 10/17/2024 CMP (MALE ) creatinine (serum) 2.9 mg/dL 0.4-1. 5 high Not Available [facility] [address] [facility], [place], [address], 10/17/2024 09:56:57 10/18/19 25 10/17/2024 CMP (MALE ) BUN/creatini ne ratio 20.69 ratio Not Available [facility] [address] [facility], [place], [address], 10/17/2024 09:56:57 10/18/19 25 10/17/2024 CMP (MALE ) eGFR calculated 22.1 Not Available [facility] [address] [facility] [address] [facility] 1, [place], [address], 10/17/2024 09:56:57 10/18/19 25 10/17/2024 CMP (MALE ) total protein 6.4 g/dL 6.0-8. 5 Not Available [facility] [address] [facility], [place], [address], 10/17/2024 09:56:57 10/18/19 25 10/17/2024 CMP (MALE ) total bilirubin 0.4 mg/dL 0.2-1. 3 Not Available [facility] [address] [facility], [place], [address], 10/17/2024 09:56:57 10/18/19 25 10/17/2024 CMP (MALE ) albumin 3.8 g/dL 3.5-5. 5 Not Available [facility] [address] [facility] 1, [place], [address], 10/17/2024 09:56:57 10/18/19 25 10/17/2024 CMP (MALE ) globulin 2.6 calc Not Available [facility] [address] [address], [place], [address], 10/17/2024 09:56:57 10/18/19 25 10/17/2024 CMP (MALE ) AST (SGOT) 46.0 U/L 0.0-46 .0 Not Available [facility] [address] [address], [place], [address], 10/17/2024 09:56:57 10/18/19 25 10/17/2024 CMP (MALE ) altv (SGPT) 68.0 U/L 13.0-6 9.0 normal Not Available [facility] [address] [facility], [place], [address], 10/17/2024 09:56:57 10/18/19 25 10/17/2024 CMP (MALE ) A/G ratio 1.5 ratio Not Available [facility] [address] [facility] 1, [place], [address], 10/17/2024 09:56:57 10/18/1910/17/2024 CMP (MALE ) ALP phos 102.0 U/L 30.0-1 40.0 normal Not Available [facility] [address] [facility] 1, [place], [address], 10/17/2024 09:56:57 10/18/1910/17/2024 CMP (MALE ) calcium 9.5 mg/dL 8.4-10 .5 Not Available [place] [facility] [address] [facility] 1, [place], [address], 10/17/2024 09:56:57 10/18/1910/17/2024 CMP (MALE ) sodium 139.0 mmol/ L 136.0- 145.0 Not Available [facility] [address] [facility] 1, [place], [address], 10/17/2024 09:56:57 10/18/1910/17/2024 CMP (MALE ) potassium 4.1 mmol/ L 3.5-5. 1 Not Available [place] [facility] [address] [facility] 1, [place], [address], 10/17/2024 09:56:57 10/18/1910/17/2024 CMP (MALE ) chloride 103.0 mmol/ L 98.0-1 10.0 normal Not Available Rodriguez [facility] [address] [facility] 1, [place], [address], 10/17/2024 09:56:57 10/18/1910/17/2024 CMP (MALE ) C02 30.0 mmol/ L 22.0-3 1.0 Not Available [place] [facility] [address] [facility] 1, [place], [address], 10/17/2024 09:56:57 10/18/19 25 10/17/2024 CMP (MALE ) anion gap 6.0 calc Not Available Rodriguez [facility] [address], [address], 10/17/2024 09:56:57 10/18/19 25 10/17/2024 CMP (MALE ) osmolality 305.3 calc Not Available [facility] [address] [address], [place], [address], 10/17/2024 09:56:57 10/18/19 25 10/18/2024 URIC ACID uric acid 9.1 mg/dL 4.0-8. 0 high Thera peuti c targe t for gout patie nts: <6.0 mg/dL Not Available [employer] [address], [address], 10/18/2024 06:00:19 10/18/19 25 10/18/2024 C-VERONICA CTIVE PROTE IN C-reactive protein 4.6 mg/L <8.0 normal Not Available [facility] [address] [place], [address], 10/18/2024 06:00:20 10/18/19 25 10/17/2024 ESR (eryt hrocy te sedim entat ion rate) , blood ESR 26 Not Available [facility] [address] [place], [address], 10/17/2024 09:07:54 12/21/19 25 12/20/2024 CBC WBC 5.6 x10 4.5-10 .5 Not Available [facility] 5 [facility] 1, [place], [address], 12/20/2024 09:48:11 12/21/19 25 12/20/2024 CBC RBC 3.04 x10 4.30-5 .90 low Not Available [facility] [address] [facility] 1, [place], [address], 12/20/2024 09:48:11 12/21/1912/20/2024 CBC HGB 9.7 g/dL 13.5-1 8.0 low Not Available [place] [facility] [address] [facility] [facility] [address] [facility] 1, [place], [address], 12/20/2024 09:48:11 12/21/1912/20/2024 CBC HCT 30.4 % 35.0-6 0.0 low Not Available Rodriguez [facility] [address] [facility] 1, [place], [address], 12/20/2024 09:48:11 12/21/1912/20/2024 CBC MCV 100.1 fL 80.0-9 9.9 high Not Available Rodriguez [facility] [address] [facility] 1, [place], [address], 12/20/2024 09:48:11 12/21/1912/20/2024 CBC MCH 32.0 pg 27.0-3 2.0 Not Available [place] [facility] [address] [facility] [address] [facility] 1, [place], [address], 12/20/2024 09:48:11 12/21/1912/20/2024 CBC MCHC 32.0 g/dL 32.0-3 6.0 Not Available Rodriguez [facility] [address] [facility] [address] [facility] 1, [place], [address], 12/20/2024 09:48:11 12/21/1912/20/2024 CBC RDW 15.0 % 11.5-1 4.5 high Not Available [place] [facility] [address] [facility] 1, [place], [address], 12/20/2024 09:48:11 12/21/1912/20/2024 CBC plt 112.0 x10 150.0- 451.0 low Not Available [place] [facility] [address] [facility] 1, [place], [address], 12/20/2024 09:48:11 12/21/1912/20/2024 CBC lymphocytes % 31.2 % 20.0-5 0.0 Not Available [place] [facility] [address] [facility], [place], [address], 12/20/2024 09:48:11 12/21/1912/20/2024 CBC granulcytes % 57.1 % 30.0-7 0.0 Not Available Rodriguez [facility] [address] [facility] 1, [place], [address], 12/20/2024 09:48:11 12/21/1912/20/2024 CBC monocytes % 8.1 % 2.0-16 .0 Not Available [place] [facility] [address] [facility], [place], [address], 12/20/2024 09:48:11 12/21/1912/20/2024 CBC granulcytes# 3.2 x10 Not Halle ilable Rodriguez [facility] [address] [facility], [place], [address], 12/20/2024 09:48:11 12/21/1912/20/2024 CBC lymphocytes # 1.8 x10 Not Available [place] [facility] [address] [facility], [place], [address], 12/20/2024 09:48:11 12/21/1912/20/2024 CBC monocytes # 0.5 x10 Not Avai lable Rodriguez [facility] [address] [facility] 1, [place], [address], 12/20/2024 09:48:11 12/21/1912/20/2024 URINA LYSIS WITH MICRO color RED abnormal Not Available [facility] [address] [facility] 1, [place], [address], 12/20/2024 10:33:05 12/21/19 25 12/20/2024 URINA LYSIS WITH MICRO clarity CLOUDY abnormal Not Available [facility] [address] [facility] [address], [place], [address], 12/20/2024 10:33:05 12/21/19 25 12/20/2024 URINA LYSIS WITH MICRO glu TRACE abnormal Not Available [facility] [address] [facility] [address], [place], [address], 12/20/2024 10:33:05 12/21/19 25 12/20/2024 URINA LYSIS WITH MICRO bili 3+ abnormal Not Available [facility] [address] [facility] [address], [place], [address], 12/20/2024 10:33:05 12/21/19 25 12/20/2024 URINA LYSIS WITH MICRO ket 1+ abnormal Not Available [facility] [address] [facility] [address], [place], [address], 12/20/2024 10:33:05 12/21/19 25 12/20/2024 URINA LYSIS WITH MICRO S.g 1.015 Not Available [facility] [address] [facility] [address], [place], [address], 12/20/2024 10:33:05 12/21/19 25 12/20/2024 URINA LYSIS WITH MICRO pH 6.0 Not Available [facility] [address] [facility] [address], [place], [address], 12/20/2024 10:33:05 12/21/19 25 12/20/2024 URINA LYSIS WITH MICRO pro 3+ abnormal Not Available [facility] [address] [facility] [address], [place], [address], 12/20/2024 10:33:05 12/21/19 25 12/20/2024 URINA LYSIS WITH MICRO uro 2.0 E.U./D L Not Available [facility] [address] [facility] [address], [place], [address], 12/20/2024 10:33:05 12/21/19 25 12/20/2024 URINA LYSIS WITH MICRO nit POSITI VE abnormal Not Available [facility] [address] [facility], [place], [address], 12/20/2024 10:33:05 12/21/19 25 12/20/2024 URINA LYSIS WITH MICRO blo 3+ abnormal Not Available [facility] [address] [facility], [place], [address], 12/20/2024 10:33:05 12/21/19 25 12/20/2024 URINA LYSIS WITH MICRO sonido 3+ abnormal Not Available [facility] [address] [facility] [address], [place], [address], 12/20/2024 10:33:05 12/21/19 25 12/20/2024 URINA LYSIS WITH MICRO WBC NEGATI VE Not Available [facility] [address] [facility], [place], [address], 12/20/2024 10:33:05 12/21/19 25 12/20/2024 URINA LYSIS WITH MICRO RBC GROSS BLOOD abnormal Not Available [facility] [address] [facility], [place], [address], 12/20/2024 10:33:05 12/21/19 25 12/20/2024 URINA LYSIS WITH MICRO epi cells NEGATI VE Not Available [facility] [address] [facility] [address], [place], [address], 12/20/2024 10:33:05 12/21/19 25 12/20/2024 URINA LYSIS WITH MICRO bacteria NEGATI VE Not Available [facility] [address] [facility] [address], [place], [address], 12/20/2024 10:33:05 12/21/19 25 12/20/2024 URINA LYSIS WITH MICRO other NG Not Available [facility] [address] [facility] [address], [place], [address], 12/20/2024 10:33:05 12/21/19 25 12/20/2024 CMP (MALE ) glucose 111.0 mg/dL 60.0-9 9.0 high Not Available [facility] [address] [address], [place], [address], 12/20/2024 10:34:44 12/21/19 25 12/20/2024 CMP (MALE ) BUN (blood urea nitrogen) 32.0 mg/dL 10.0-2 6.0 high Not Available [facility] [address] [address], [place], [address], 12/20/2024 10:34:44 12/21/19 25 12/20/2024 CMP (MALE ) creatinine (serum) 2.9 mg/dL 0.4-1. 5 high Not Available [facility] [address] [address], [place], [address], 12/20/2024 10:34:44 12/21/19 25 12/20/2024 CMP (MALE ) BUN/creatini ne ratio 11.03 ratio Not Available [facility] [place] [facility] [address] [facility], [place], [address], 12/20/2024 10:34:44 07/01/12/20/2024 CMP (MALE ) eGFR calculated 22.1 Not Available [facility] [address] [facility], [place], [address], 12/20/2024 10:34:44 12/21/19 25 12/20/2024 CMP (MALE ) total protein 6.1 g/dL 6.0-8. 5 Not Available [facility] [address] [facility], [place], [address], 12/20/2024 10:34:44 12/21/1912/20/2024 CMP (MALE ) total bilirubin 0.5 mg/dL 0.2-1. 3 Not Available [facility] [address] [facility], [place], [address], 12/20/2024 10:34:44 12/21/1912/20/2024 CMP (MALE ) albumin 3.7 g/dL 3.5-5. 5 Not Available [facility] [address] [facility], [place], [address], 12/20/2024 10:34:44 12/21/1912/20/2024 CMP (MALE ) globulin 2.4 calc Not Available [facility] [address] [facility] [address], [place], [address], 12/20/2024 10:34:44 12/21/1912/20/2024 CMP (MALE ) AST (SGOT) 35.0 U/L 0.0-46 .0 Not Available [facility] [address] [facility], [place], [address], 12/20/2024 10:34:44 12/21/1912/20/2024 CMP (MALE ) altv (SGPT) 26.0 U/L 13.0-6 9.0 normal Not Available [facility] [address] [facility], [place], [address], 12/20/2024 10:34:44 12/21/19 25 12/20/2024 CMP (MALE ) A/G ratio 1.5 ratio Not Available [facility] [address] [facility], [place], [address], 12/20/2024 10:34:44 12/21/19 25 12/20/2024 CMP (MALE ) ALP phos 188.0 U/L 30.0-1 40.0 abnormal Not Available [facility] [address] [facility] [address], [place], [address], 12/20/2024 10:34:44 12/21/19 25 12/20/2024 CMP (MALE ) calcium 9.7 mg/dL 8.4-10 .5 Not Available [facility] [address] [facility] [address], [place], [address], 12/20/2024 10:34:44 12/21/19 25 12/20/2024 CMP (MALE ) sodium 139.0 mmol/ L 136.0- 145.0 Not Available [facility] [address] [facility] [address], [place], [address], 12/20/2024 10:34:44 12/21/19 25 12/20/2024 CMP (MALE ) potassium 4.4 mmol/ L 3.5-5. 1 Not Available [facility] [address] [facility] [address], [place], [address], 12/20/2024 10:34:44 12/21/19 25 12/20/2024 CMP (MALE ) chloride 104.0 mmol/ L 98.0-1 10.0 normal Not Available [facility] [address] [facility], [place], [address], 12/20/2024 10:34:44 12/21/19 25 12/20/2024 CMP (MALE ) C02 31.0 mmol/ L 22.0-3 1.0 Not Available [facility] [address] [facility] [address], [place], [address], 12/20/2024 10:34:44 12/21/19 25 12/20/2024 CMP (MALE ) anion gap 4.0 calc Not Available [facility] [address] [facility] [address], [place], [address], 12/20/2024 10:34:44 12/21/19 25 12/20/2024 CMP (MALE ) osmolality 294.2 calc Not Available [facility] [address] [facility] [address], [place], [address], 12/20/2024 10:34:44 12/21/19 25 12/22/2024 CULTU RE, URINE , ROUTI NE culture, urine, routine SEE NOTE CULTU RE, URINE , ROUTI NE Micro Numbe r: [id number] Test Statu s: Final Speci men [...] Tube, is recom barb d. Not Available [facility] [address], [place], [address], 12/22/2024 02:58:40 04/26/20 25 04/26/2025 URINA LYSIS WITH MICRO color RED abnormal Not Available [facility] [address] [facility] [address], [place], [address], 04/26/2025 10:11:30 04/26/20 25 04/26/2025 URINA LYSIS WITH MICRO clarity CLOUDY abnormal Not Available [facility] [address], [place], [address], 04/26/2025 10:11:30 04/26/20 25 04/26/2025 URINA LYSIS WITH MICRO glu NEGATI VE Not Available [facility] [address], [place], [address], 04/26/2025 10:11:30 04/26/20 25 04/26/2025 URINA LYSIS WITH MICRO bili 1+ abnormal Not Available [facility] [address], [place], [address], 04/26/2025 10:11:30 04/26/20 25 04/26/2025 URINA LYSIS WITH MICRO ket TRACE abnormal Not Available [facility] [address] [facility], [place], [address], 04/26/2025 10:11:30 04/26/20 25 04/26/2025 URINA LYSIS WITH MICRO S.g 1.020 Not Available [facility] [address] [facility], [place], [address], 04/26/2025 10:11:30 04/26/20 25 04/26/2025 URINA LYSIS WITH MICRO pH 5.5 Not Available [facility] [address] [facility], [place], [address], 04/26/2025 10:11:30 04/26/20 25 04/26/2025 URINA LYSIS WITH MICRO pro 3+ abnormal Not Available [facility] [address], [place], [address], 04/26/2025 10:11:30 04/26/20 25 04/26/2025 URINA LYSIS WITH MICRO uro 1.0 E.U./D L Not Available [facility] [address], [place], [address], 04/26/2025 10:11:30 04/26/2004/26/2025 URINA LYSIS WITH MICRO nit POSITI VE abnormal Not Available [facility] [address] [facility] [address], [place], [address], 04/26/2025 10:11:30 04/26/2004/26/2025 URINA LYSIS WITH MICRO blo 3+ abnormal Not Available [facility] [address], [place], [address], 04/26/2025 10:11:30 04/26/2004/26/2025 URINA LYSIS WITH MICRO sonido TRACE abnormal Not Available [facility] [address] [facility] [address], [place], [address], 04/26/2025 10:11:30 04/26/20 25 04/26/2025 URINA LYSIS WITH MICRO WBC NEGATI VE Not Available [facility] [address] [facility] [address], [place], [address], 04/26/2025 10:11:30 04/26/20 25 04/26/2025 URINA LYSIS WITH MICRO RBC GROSS BLOOD abnormal Not Available [facility] [address] [facility] [address], [place], [address], 04/26/2025 10:11:30 04/26/2004/26/2025 URINA LYSIS WITH MICRO epi cells NEGATI VE Not Available [facility] [address] [facility] [address], [place], [address], 04/26/2025 10:11:30 04/26/20 25 04/26/2025 URINA LYSIS WITH MICRO bacteria NEGATI VE Not Available [facility] [address] [facility] [address], [place], [address], 04/26/2025 10:11:30 04/26/20 25 04/26/2025 URINA LYSIS WITH MICRO other NG Not Available [facility] [address] [facility] [address], [place], [address], 04/26/2025 10:11:30 04/26/20 25 04/27/2025 CULTU RE, URINE , ROUTI NE culture, urine, routine SEE NOTE CULTU RE, URINE , ROUTI NE Micro Numbe r: [id number] Test Statu s: Final Speci men Sourc e: Urine , clean catch Speci men Quali ty: Adequ ate Resul t: No Growt h Not Available [facility] [address] [place], [address], 04/27/2025 22:19:31 09/27/19 25 09/26/2024 XR, foot, 3 or more view No observ ation record ed. [email or web address] [facility] [address] [place], [address], 09/26/2024 16:04:13 10/11/19 25 10/06/2024 imagi ng/di agnos tic resul t No observ ation record ed. [email or web address] [facility] [address] [facility] [address], [place], [address], 10/11/2024 10:42:56 10/18/19 25 10/17/2024 XR, foot, 3 or more view No observ ation record ed. [email or web address] [facility] [address] [place], [address], 10/19/2024 13:50:45 10/18/19 25 10/17/2024 XR, foot, 3 or more view No observ ation record ed. [email or web address] [facility] [address] [place], [address], 10/19/2024 13:50:26 Result Notes None recorded. Problems Name Problem SNOMED Code Status Onset Date Resolution Date Notes Provider Name and Address Organization Details Recorded Time Chronic kidney disease stage 3 565732884 Completed 202007/25/2020 CHRONIC KIDNEY DISEASE, STAGE 3 - Status is Inactive ; Story: Darlin byrd Neurolog [facility]; Recorded 07/25/19 4:02PM by Concha Pimentel LPN, Annotati on/Adden dum; Promoted ; acuity set as *; CHRONIC KIDNEY DISEASE (CKD), STAGE III (MODERAT E) - Status is Inactive ; Recorded 07/25/19 4:02PM by Concha Pimentel LPN, Annotati on/Adden dum; Promoted ; acuity set as *; Not Available [facility] 3 03:16:48 Cutaneou s lupus erythema tosus 6313688 Completed 202009/19/2024 cutaneou s lupus erythema tosus; verified by bx Dinah mendez [facility] 5 23:42:49 Benign hyperten altagracia 96766299 Active 2022 CONCHA mendez [facility] 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 3 09:38:06 Gastroes ophageal reflux disease 199850240 Active 2022 CONCHA mendez [facility] 5 08:30:03 Hyperlip idemia 51358294 Active 2022 CONCHA mendez [facility] 3 09:37:43 Chronic kidney disease stage 4 772298675 Active 2022 CONCHA mendez [facility] 5 08:30:03 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 66425795455 9104 Active 2022 CONCHA mendez, [facility] 3 09:36:39 Iron deficien cy anemia 28927596 Active 2022 [facility] 08:30:33 History of malignan t neoplasm of prostate 750106641 Completed 202209/19/2024 Dinah Mckeonobloch [facility] 5 23:42:49 History of primary malignan t neoplasm of urinary bladder 473747980 Completed 202209/19/2024 [facility] 5 23:42:49 Chronic radiatio n cystitis 936894885 Active 2022 CONCHA PIMENTEL [facility] 5 08:30:03 Acute non-ST segment elevatio n myocardi al infarcti on 487162996 Completed 202210/17/2024 hx of Dinah Mckeonobloch [facility] 5 10:34:13 Severe aortic valve stenosis 872301100 Active 2023 echocard iogram 04/24/24: EF 61%, moderate to severe aortic valve stensosi s. CONCHA PIMENTEL [facility] 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 5 10:44:43 Coronary atherosc lerosis 054051748 Active 2023 CONCHA PIMENTEL [facility] 5 08:30:02 Anemia due to chronic blood loss 945904468 Active 2024 [facility] Sue 5 23:42:27 Problem Notes None recorded. 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 Procedure Notes None recorded. Medical Equipment None Reported. Allergies Allergen ID Allergen Name Allergen Category Reaction Reaction Severity Criticality Documentation Date Start Date Code Code System Note Provider Name and Address Organization Details Recorded Time 365 Lipitor medicatio n Not available Not available Not available 11/18/2022 50724 5 RxNorm Dinah Armidajosh mendez [facility], CydneyLTenzinCTenzin 3 10:33:51 3652 Zocor medicatio n Not available Not available Not available 11/18/2022 68690 3 RxNorm Dinah Armidagarcia mendez [facility], CydneyLTenzinCTenzin 3 10:34:02 3653 Pravachol medicatio n Not available Not available Not available 11/18/202250234 3 RxNorm [facility] 3 10:34:08 08088 rosuvasta tin calcium medicatio n myalgias (muscle pain) Not available Not available 01/17/2023 20552 8 RxNorm React ion: myalg ias; Comme nt: Recor ded 07/02 11:27 AM by Dinah Guzman RN, Offic e Visit ; Lilian porras; Amirah mills ce: *; Reaso n: Drug aller gy; ; LAURA LOPEZ [facility] 3 14:13:26 55636 Iodinated contrast media (substanc e) medicatio n Not available Not available Not available 03/05/2023 08386 2004 SNOMED kidne y probl ems Dinah Huffman [facility] 3 10:40:25 69401 atorvasta tin calcium medicatio n other Not available Not available 05/19/20252013 42623 RxNorm Not Available [facility] - [employer] - prod 5 10:19:03 93050 pitavasta tin calcium medicatio n rash Not available low 05/19/20252021 79891 0 RxNorm Not Available [facility] [employer] - prod 5 10:19:03 00513 tamsulosi n medicatio n Not available Not available Not available 05/19/20252021 68050 RxNorm Other react ion(s ): ALGY- Rash Not Available [employer] - External Data [employer] - prod 5 10:19:03 69633 pravastat in medicatio n Not available Not available high 05/19/20252024 68476 RxNorm Not Available [employer] [employer] - prod 5 10:19:49 34113 simvastat in medicatio n Not available Not available Not available 05/19/20252024 04454 RxNorm Not Available [facility] [employer] - prod 5 10:19:49 964 Product containin g 3-hydroxy -3-methyl glutaryl- coenzyme A reductase inhibitor (product) medicatio n myalgias (muscle pain) Not available Not available 09/23/2022 92986 009 SNOMED CONCHA PIMENTEL [facility] 3 12:40:46 Medications Name Sig Start Date Stop Date Status Note LastModified by Organization Details LastModified Time amoxicill in 500 mg capsule TAKE 1 CAPSULE BY MOUTH 3 TIMES A DAY UNTIL FINISHED 09/06 completed Not Available Not Available Not Available furosemid e 40 mg tablet Take 1 tablet by mouth once daily 2024 active Not Available Not Available Not Avai lable prednison e 10 mg tablet TAKE 4 [...] pantopraz ole 40 mg tablet,de layed release Take 1 tablet by mouth once daily 2024 active Not Available Not Available Not Avai lable prednison e 50 mg tablet TAKE 1 [...] Visit; Not Available Not Available Not Available [place]-3 two times daily active 0; Recorded 07/02/19 11:28AM by Dinah Guzman RN, Office Visit; Not Available Not Available Not Available Centrum Silver 1 daily active Not Available Not Available Not Available Vitamin D3 1 daily active Not Available Not Available Not Available [place] 3 2 twice daily 01/22 completed Not [...] weight Body temperature Heart rate Oxygen saturation Systolic And Diastolic Provider Name and Address Organization Details Last Updated DateTime 5 166.37 cm 26.4 kg/m2 37722.3 7 g 97.5 [degF] 82 /min 98 % 104/62 mm[Hg] CONCHA PIMENTEL [facility] 5 09:59:31 Date Recorded Body height Body mass index (BMI) Body weight Body temperature Heart rate Oxygen saturation Systolic And Diastolic Provider Name and Address Organization Details Last Updated DateTime 5 166.37 cm 26.2 kg/m2 32668.7 8 g 97.3 [degF] 74 /min 96 % 118/64 mm[Hg] [facility] 5 08:31:47 Date Recorded Body height Body mass index (BMI) Body weight Body temperature Heart rate Oxygen saturation Systolic And Diastolic Provider Name and Address Organization Details Last Updated DateTime 5 166.37 cm 26.1 kg/m2 30014.1 9 g 97.6 [degF] 76 /min 96 % 116/70 mm[Hg] [facility] 5 09:07:14 Date Recorded Body height Body mass index (BMI) Body weight Body temperature Respiratory rate Oxygen saturation Heart rate Systolic And Diastolic Provider Name and Address Organization Details Last Updated DateTime 5 166.37 cm 25.2 kg/m2 66892.2 2 g 96.9 [degF] 18 /min 96 % 76 /min 118/74 mm[Hg] CHIDI HART [facility] 5 08:50:19 Date Recorded Body height Body mass index (BMI) Body weight Body temperature Heart rate Oxygen saturation Systolic And Diastolic Provider Name and Address Organization Details Last Updated DateTime 5 166.37 cm 26.7 kg/m2 35086.5 6 g 97.3 [degF] 87 /min 99 % 122/66 mm[Hg] CONCHA PIMENTEL [facility] 5 09:12:57 Social History Question Answer Notes LastModified by Organizat ion Details LastModified Time Tobacco Smoking Status Former Smoker CHIDI mendez [facility] 12/20/2024 08:51:16 When Did You Quit Smoking? 16+yearssinc elastcigaret te [email or web address] Information not available 12/20/2024 What Was The Date Of Your Most Recent Tobacco Screening? 12/20/2024 Information not available 12/20/2024 What Is Your Relationship Status? Information not available 09/23/2022 Sex: Unknown Functional Status Question Answer Note LastModified by Organizat ion Details LastModified Time Do you use any illicit or recreational drugs? No [email or web address] Information not available 09/23/2022 Do you or have you ever used any other forms of tobacco or nicotine? No Information not available 02/19/2023 What is your level of alcohol consumption? None [email or web address] Information not available 09/23/2022 Do you or have you ever used any nicotine-free cigarettes, vape, or chewing tobacco? No [email or web address] Information not available 07/12/2024 Mental Status None recorded. Family History Relationship Description Onset Age of this Age Resolved Age Notes LastModified by Organization Details LastModified Time Brother Diabetes mellitus [email or web address] Not available 02/19 09:13:20 Brother Coronary atherosclero sis [email or web address] Not available 02/19 09:13:29 Medical History No medical history recorded. Immunizations Vaccine Type Date Status Note Provider Nam e and Address Organization Details Recorded Time Tdap 4 completed Not Available [facility] 06/09/2023 09:09:05 Influenza, split virus, trivalent, preservative 1 completed Not Available [facility] 06/09/2023 09:09:05 Influenza, split virus, trivalent, preservative 1 completed Not Available [facility] 06/09/2023 09:09:05 Influenza, split virus, trivalent, preservative 6 completed Not Available [facility] 06/09/2023 09:09:05 Pneumococcal conjugate PCV 13 6 completed Not Available [facility] 06/09/2023 09:09:05 pneumococcal polysaccharide PPV23 0 completed Not Available [facility] 06/09/2023 09:09:05 Influenza, adjuvanted, quadrivalent, PF 3 completed CONCHA mendez, [facility] 03/26/2023 10:15:49 COVID-19, mRNA, LNP-S, PF, 50 mcg/0.5 mL 3 completed CONCHA mendez, [facility] 03/26/2023 10:15:49 COVID-19, mRNA, LNP-S, PF, 50 mcg/0.5 mL 4 completed CONCHA mendez, [facility] 07/12/2024 12:49:37 Influenza, high-dose, trivalent, PF 4 completed CONCHA mendez, [facility] 07/12/2024 12:49:37 Influenza, high-dose, trivalent, PF 5 completed Not Available [facility] 04/26/2025 09:05:56 COVID-19, mRNA, LNP-S, PF, 50 mcg/0.5 mL 5 completed Not Available [facility] 04/26/2025 09:05:56 Influenza, high-dose, quadrivalent, PF 2 completed Dinah mendez, [facility] 11/18/2022 10:19:27 COVID-19, mRNA, LNP-S, PF, 100 mcg/0.5mL dose or 50 mcg/0.25mL dose 1 completed [facility] 11/18/2022 10:19:27 COVID-19, mRNA, LNP-S, PF, 100 mcg/0.5mL dose or 50 mcg/0.25mL dose 1 completed [facility] 11/18/2022 10:19:27 COVID-19, mRNA, LNP-S, PF, 100 mcg/0.5mL dose or 50 mcg/0.25mL dose 2 completed [facility] 11/18/2022 10:19:27 COVID-19, mRNA, LNP-S, PF, 100 mcg/0.5mL dose or 50 mcg/0.25mL dose 1 completed [facility] 11/18/2022 10:19:27 COVID-19, mRNA, LNP-S, bivalent, PF, 50 mcg/0.5 mL or 25mcg/0.25 mL dose 2 completed Dinahneida Huffman [facility] 11/18/2022 10:19:27 Past Encounters Encounter ID Performer Location Encounter Start Date Encounter Closed Date Diagnosis/Indication Diagnosis SNOMED-CT Code Diagnosis ICD10 Code Diagnosis IMO Codes Diagnosis Note [id number] Luis Alberto Laurent MD [facility] ([facility]) [address] [place] [phone] 09/23/2022 12:24:41 10/01/2022 21:32:07 Hussein hematuria [id number] R31.0 he will see urology in 30 minsor so. his bleeding has stopped. he will go to ER if fever unable to void, pelvic pain or significan t bleeding was due for surveillan ce in December will need to establish with a new urologist for future care after November. [id number] Luis Alberto Laurent MD [facility] ([facility]) [address] [place] [phone] 11/18/2022 10:02:12 11/18/2022 19:23:40 Chronic kidney disease stage 4 518441799 N18.4 Anemia due to blood loss 173304435 D50.0 Moderate a ortic valve stenosis 270467186 I35.0 Luis Alberto Laurent MD [facility] ([facility]) [address] [place] [address] [phone] 5 12/04/2022 13:11:03 12/04/2022 15:58:49 Blood in urine 97993747 R31.9 normal penis on exam skin intact urethra normal [id number] Luis Alberto Laurent MD [facility] ([facility]) [address] [place] [address] [phone] 5 12/10/2022 09:03:30 12/10/2022 17:19:40 Blood in urine 33521316 R31.9 normal penis on exam skin intact urethra normalwill call urology once again. [id number] DHRUV JOSEPH [facility] ([facility]) [address] [place] [address] [phone] 5 01/16/2023 15:52:37 01/16/2023 18:11:22 Acute gout 463906700 M10.[address] Easley due to [...] CMP. Patient agrees to plan of care. [id number] Lavinia Camarena MD [facility] ([facility]) [address] [place] [address] [phone] 5 01/22/2023 14:04:01 01/22/2023 14:36:56 Hyperuricemia 31856168 E79.0 >6.8 but less than cutoff of 8. First episode was last week. Pt is now asymptomat ic without treatment. Monitor. [id number] Luis Alberto Laurent MD [facility] ([facility]) [address] [place] [address] [phone] 5 02/12/2023 13:46:23 02/12/2023 14:53:02 Iron deficiency anemia 24426913 D50.9 he will see nephrology in march. will fax his bloodwork to nephrology and to urology. [id number] Luis Alberto Laurent MD [facility] ([facility]) [address] [place] [address] [phone] 5 02/19/2023 08:43:53 02/19/2023 12:39:18 Occult blood detected in feces 96435664 R19.5 Iron defic iency anemia 47974071 D50.9 he will see nephrology in march. will fax his bloodwork to nephrology and to urology. 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 [id number] 86224 N18.4 [id number] Luis Alberto Laurent MD [facility] ([facility]) [address] [place] [address] [phone] 5 03/05/2023 09:40:04 03/05/2023 11:23:56 Anemia due to blood loss 735477254 D50.0 appears improved no gi sx. he will go to er if sx develop as discussed [id number] Luis Alberto Laurent MD [facility] ([facility]) [address] [place] [address] [phone] 5 03/26/2023 10:09:56 03/26/2023 12:29:41 [id number] Luis Alberto Laurent MD [facility] ([facility]) [address] [place] [address] [phone] 5 04/28/2023 09:37:54 04/28/2023 18:16:03 Anemia due to blood loss 982890187 D50.0 appears improved no gi sx. 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 7507396119 34758 N18.4 Thrombocyt openic disorder 079549118 D69.6 [id number] Luis Alberto Laurent MD [facility] ([facility]) [address] [place] [address] [phone] 5 05/19/2023 08:46:16 05/19/2023 09:43:33 Blood in urine 91076722 R31.9 Gastroesop hageal reflux disease 113400141 K21.01 Lower urin donald tract symptoms 540110010 R39.9 History of malignant neoplasm of prostate 376280178 Z85.46 History of primary malignant neoplasm of urinary bladder 299297862 Z85.51 Chronic ra diation cystitis 822071039 N30.40 completed hyperbaric therapy with pretty good success [id number] Luis Alberto Laurent MD [facility] ([facility]) [address] [place], [place] [phone] 5 05/25/2023 14:24:38 05/25/2023 15:59:02 [id number] Luis Alberto Laurent MD [facility] ([facility]) [address] [place], [place] [phone] 5 06/09/2023 09:08:50 06/09/2023 11:14:35 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 6623035844 49061 N18.4 Benign hypertension 1072 5009 I10 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 85242319 N25.81 Moderate a ortic valve stenosis 529266559 I35.0 History of malignant neoplasm of prostate 176675562 Z85.46 History of primary malignant neoplasm of urinary bladder 876383625 Z85.51 Chronic ra diation cystitis 324351395 N30.40 completed hyperbaric therapy with pretty good success [id number] Luis Alberto Laurent MD [facility] ([facility]) [address] [place], [place] [phone] 5 08/24/2023 08:39:06 08/24/2023 09:15:50 Severe aortic valve stenosis 144376222 I35.0 Acute on c hronic diastolic heart failure 258401754 I50.33 [id number] Luis Alberto Laurent MD [facility] ([facility]) [address] [place], [place] [phone] 5 08/27/2023 08:12:26 08/28/2023 09:39:22 Benign hypertension 13158939 I10 [id number] Luis Alberto Laurent MD [facility] ([facility]) [address] [place], [place] [phone] 5 08/28/2023 08:48:27 08/28/2023 09:35:18 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 5908446491 60088 N18.4 Benign hypertension 1072 5009 I10 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 27427242 N25.81 Moderate a ortic valve stenosis 113409312 I35.0 Chronic ra diation cystitis 442487683 N30.40 completed hyperbaric therapy with pretty good success Hyperlipidemia 45947105 E78.5 Malignant neoplasm of prostate 595870704 C61 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 805540171 C67.9 Acquired thrombocytopenia 44131055 D69.6 [id number] Luis Alberto Laurent MD [facility] ([facility]) [address] [place] [address] [phone] 5 09/03/2023 08:03:19 09/04/2023 12:22:26 Anemia 131181297 D64.9 Benign hypertension 1072 5009 I10 [id number] Luis Alberto Laurent MD [facility] ([facility]) [address] [place] [address] [phone] 5 09/10/2023 09:58:42 09/10/2023 13:51:04 Severe aortic valve stenosis 508168213 I35.0 Hussein hematuria 82173783 5 R31.0 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 7264101840 81354 N18.4 Benign hypertension 1072 5009 I10 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 21971254 N25.81 Chronic ra diation cystitis 445199843 N30.40 Malignant neoplasm of prostate 458695360 C61 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 088700811 C67.9 sees urology in [facility] current hussein hematuria and hgb is stable Acquired thrombocytopenia 07816422 D69.6 stable Acute on c hronic diastolic heart failure 326803263 I50.33 [id number] Luis Alberto Laurent MD [facility] ([facility]) [address] [place] [address] [phone] 5 10/14/2023 08:04:44 10/15/2023 10:55:15 Benign hypertension 53692724 I10 Anemia 712383235 D64.9 [id number] Luis Alberto Laurent MD [facility] ([facility]) [address] [place] [address] [phone] 5 10/21/2023 09:44:52 10/21/2023 12:21:43 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 9714884747 21360 N18.4 Benign hypertension 1072 5009 I10 Hyperlipidemia 94511415 E78.5 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 41070487 N25.81 [id number] Luis Alberto Laurent MD [facility] ([facility]) [address] [place] [address] [phone] 5 12/15/2023 09:57:11 12/15/2023 10:57:46 Blood in urine 75303438 R31.9 [id number] Luis Alberto Laurent MD [facility] ([facility]) [address] [place], [place] [phone] 5 01/12/2024 08:06:14 01/12/2024 09:44:38 Benign hypertension 96351997 I10 Hyperlipidemia 72939803 E78.5 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 9485564935 46714 N18.4 [id number] Luis Alberto Laurent MD [facility] ([facility]) [address] [place] [address] [phone] 5 01/22/2024 13:49:02 01/22/2024 14:54:12 Hussein hematuria 298189044 R31.0 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 2384006543 33630 N18.4 Iron defic iency anemia 03968380 D50.9 he will see nephrology in march. will fax his bloodwork to nephrology and to urology. [id number] Luis Alberto Laurent MD [facility] ([facility]) [address] [place] [address] [phone] 5 02/09/2024 13:00:44 02/09/2024 14:35:10 Blood in urine 55043667 R31.9 if light headed weak short of breath chest pain unable to void go to ER [id number] Luis Alberto Laurent MD [facility] ([facility]) [address] [place] [address] [phone] 5 02/19/2024 13:31:18 02/19/2024 14:57:37 [id number] Luis Alberto Laurent MD [facility] ([facility]) [address] [place] [address] [phone] 5 02/23/2024 11:52:47 02/24/2024 12:10:12 Anemia due to blood loss 406389029 D50.0 appears improved no gi sx. he will go to er if sx develop as discussedh e is tolerating his iron [id number] Luis Alberto Laurent MD [facility] ([facility]) [address] [place], [place] [phone] 5 03/24/2024 08:19:49 03/24/2024 08:59:27 Anemia due to blood loss 361316633 D50.0 he is still actively bleeding. will plan on recheck in a few weeks as scheduled. likely will need an iron infusions. Chronic ki dney disease stage 4 070628958 N18.4 they are going to discuss dialysis what it is like. Severe aor tic valve stenosis 971351571 I35.0 [id number] Luis Alberto Laurent MD [facility] ([facility]) [address] [place] [address] [phone] 5 04/05/2024 08:03:51 04/05/2024 08:18:26 Anemia 249801914 D64.9 [id number] Luis Alberto Laurent MD [facility] ([facility]) [address] [place] [address] [phone] 5 04/27/2024 14:34:44 04/28/2024 10:30:55 Hussein hematuria 068513386 R31.0 [id number] Luis Alberto Laurent MD [facility] ([facility]) [address] [place] [address] [phone] 5 06/01/2024 08:06:30 06/02/2024 13:24:43 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 1077669610 12136 N18.4 [id number] Luis Alberto Laurent MD [facility] ([facility]) [address] [place] [address] [phone] 5 06/08/2024 13:49:41 06/08/2024 17:42:43 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 0358031187 07337 N18.4 Blood in urine 69795985 R31.9 if light headed weak short of breath chest pain unable to void go to ER [id number] Luis Alberto Laurent MD [facility] ([facility]) [address] [place] [address] [phone] 5 07/05/2024 08:11:20 07/06/2024 13:08:33 Anemia 276453915 D64.9 [id number] Luis Alberto Laurent MD [facility] ([facility]) [address] [place] [address] [phone] 5 07/12/2024 12:47:15 07/13/2024 11:41:26 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 has been told it is inoperable and given no surgical interventi on options to stop the bleeding. he would like to be evaluated in [facility] to see if there are any other ameliorati ve treatment options that would be acceptable to him. he has had full hyperbaric therapy regimen twice. 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 5171838199 25353 N18.4 [id number] Luis Alberto Laurent MD [facility] ([facility]) [address] [place] [address] [phone] 5 07/28/2024 12:31:37 08/05/2024 23:10:04 Ear pressure sensation 140464991 H93.8X9 [id number] Luis Alberto Laurent MD [facility] ([facility]) [address] [place] [address] [phone] 5 08/08/2024 08:09:51 08/08/2024 08:22:02 Anemia 409675680 D64.9 hgb is stable [id number] Luis Alberto Laurent MD [facility] ([facility]) [address] [place] [address] [phone] 5 08/23/2024 08:26:29 08/24/2024 12:38:48 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 no orthostasi s, palpitatio ns, dyspnea, or chest discomfort by hx Pain of to e of left foot 7072495374 10210 M79.675 Hussein hematuria 51098781 5 R31.0 has failed quite a few therapies. has been told it is inoperable and given no surgical interventi on options to stop the bleeding. he would like to be evaluated in [facility] to see if there are any other ameliorati ve treatment options that would be acceptable to him. he has had full hyperbaric therapy regimen twice. 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 Anemia due to chronic blood loss 100095070 D50.0 [id number] Luis Alberto Laurent MD [facility] ([facility]) [address] [place] [address] [phone] 5 09/16/2024 08:04:05 09/17/2024 07:01:28 Anemia due to blood loss 692672582 D50.0 he is still actively bleeding. will plan on recheck in a few weeks as scheduled. likely will need an iron infusions. [id number] Luis Alberto Laurent MD [facility] ([facility]) [address] [place] [address] [phone] 5 09/19/2024 08:37:30 09/19/2024 09:26:54 Gout 80192365 M10.9 we discussed causes of gout including renal Pain of to e of left foot 2283436972 57754 M79.962 [id number] Luis Alberto Laurent MD [facility] ([facility]) [address] [place] [address] [phone] 5 09/26/2024 09:03:44 09/26/2024 13:05:35 Pain in right foot 7200807024 90377 M79.671 declines additional pain med above tylenol. appears typical of gout and uric acid is incresED. GFR 17 SO NSAIDS AND COLCHICHIN E ARE CONTRAINDI CATED. WILL CYAHGE TO A MEDROL DOSE PACK. I will refer to podiatry to consider further evaluation apnd possible injection if not improving. No obvious sign of infection. radiology report pending. Anemia due to blood loss 836077251 D50.0 stable no active bleeding. hgb improving. [id number] Luis Alberto Laurent MD [facility] ([facility]) [address] [place] [address] [phone] 5 10/07/2024 09:58:15 10/07/2024 11:16:31 Hussein hematuria 418101602 R31.0 099557 he has some bleeding again now.he was told to continue his finasterid e [id number] Luis Alberto Laurent MD [facility] ([facility]) [address] [place] [address] [phone] 5 10/11/2024 09:36:57 10/11/2024 14:02:41 Gouty arthritis 12382332 M10.9 68185 Pain in right foot 59789 62681 53512 M79.671 declines additional pain med above tylenol. appears typical of gout and uric acid is incresED. GFR 17 SO NSAIDS AND COLCHICHIN E ARE CONTRAINDI CATED. WILL CYAHGE TO A MEDROL DOSE PACK. I will refer to podiatry to consider further evaluation apnd possible injection if not improving. No obvious sign of infection. radiology report pending. Chronic ki dney disease stage 4 935816191 N18.4 381790 [id number] Luis Alberto Laurent MD [facility] ([facility]) [address] [place] [address] [phone] 5 10/17/2024 08:16:56 10/17/2024 13:00:48 Pain in right foot 6175132233 97451 M79.671 968002 declines additional pain med above tylenol. appears typical of gout and uric acid is increased. GFR 17 SO NSAIDS AND COLCHICHIN E ARE CONTRAINDI CATED. I will refer to podiatry to consider further evaluation and possible injection if not improving. No obvious sign of infection. radiology report pending. i will repeat xrays today [id number] Luis Alberto Laurent MD [facility] ([facility]) [address] [place] [address] [phone] 5 11/22/2024 08:29:45 11/22/2024 10:13:12 Closed fracture of hip 762105481 S72.001D 91972058 [id number] Luis Alberto Laurent MD [facility] ([facility]) [address] [place] [address] [phone] 5 12/20/2024 08:42:31 12/20/2024 13:01:56 Hussein hematuria 581808887 R31.0 [id number] he has some bleeding again now.he was told to continue his finasterid e [id number] Luis Alberto Laurent MD [facility] ([facility]) [address] [place] [address] [phone] 5 04/26/2025 09:05:25 05/01/2025 10:27:09 Hussein hematuria 894142860 R31.0 [id number] he has some bleeding again now.he was told to continue his finasterid e he is voiding well. no sign of obstructio n. if unable to void or fever significia nt bleeding or any other worrisome concerns go to ER. he will see nephrology and urology in the next few weeks, respective ly. Chronic ki dney disease stage 4 330515595 N18.4 he will f/u with nephrology next week. Health Concerns Section Related Observation LastModified by Organization Detai ls LastModified Time None Recorded Concern Status LastModified by Organization Details LastModified Time None Recorded Advance Directives Directive None Recorded Payers Insurance Date Sequence Insurance Name Policy Number Policy Calloway Covered Member ID Calloway Member ID Guarantor Name 04/26/2025 [facility] - [place] A - [id number] (MEDICARE) Augusto Quispe [id number] Augusto Quispe 04/26/2025 1 MEDICARE [place]: WPS Augusto Quispe [id number] Augusto Quispe 05/02/2025 2 [employer] (MEDICARE SUPPLEMENT) Augusto Quispe [id number] Augusto Quispe Notes Date Note Type Note Provider Name and Address Organization Details Recorded Time 10/11/2024 text/html Musculoskeletal PainReported by PatientHPIFor severity, [...] at all. ROS as noted in the HPI Luis Alberto Laurent MD [address] [place] [address], [phone], [facility] 10/11/2024 10:26:49 10/17/2024 text/html Musculoskeletal PainReported by PatientHPIFor location, patient reportsright great toe. For duration, patient reportspresent for 1-6 months (started in august). For timing, patient reportsconstant. For adls affected, patient reportswalking. For associated symptoms, (pt reports that the toe is mildly swollen, but not red).hx of gouthis sx's are recurrent after finishing steriod courseROS as noted in the HPI Luis Alberto Laurent MD [address] [place] [address], [phone], [facility] 10/17/2024 09:01:14 11/22/2024 text/html Pt went to [...] pain with tylenol. Luis Alberto Laurent MD [address] [place] [address], [phone], [facility] 11/22/2024 09:41:57 12/20/2024 text/html HematuriaReporte d by [...] baseline. no dysuria. Luis Alberto Laurent MD [address] [place] [address], [phone], [facility] 12/20/2024 09:16:06 04/26/2025 text/html ROS as noted in the [facility] hospital f/u: Pt was admitted to the hospital for a TURBT. No medications were changed upon discharge. He was there for 2 days and then went home. No catheter is in place. He is no longer having any bleeding or hematuria. He denies any pain. Pt reports that he was told that he should be checked by urinalysis for infection by his surgeon upon discharge. reports that they did not find anything that would be causing his bleeding with the procedure. They feel that the bleeding is coming from his kidneys. He has an appt with nephrology on the 05/09. Luis Alberto Laurent MD [address] [place] [address], [phone], [facility] 04/26/2025 09:49:53
--- OUTSIDE RECORDS SUMMARY | 2025-06-17 10:33 | XMS_ITS | Clinical Summary ---
Author Organization [facility] Facility Address [address] [address] Care Team Providers Care Lumber Cutter Name Role Phone Andry Laurent MD Primary Care Provider [phone] Allergies Active Allergy Reactions Criticality Noted Date [...] Encounters Date Type Department Care Team Description 06/06/[address] [facility], [facility] [address] [address] Pete, Edith 05/16/[address] [facility], [facility] [address] [address] Pete, Edith 05/09/2025 9:30 AM AREA MECHANIC Office Visit [facility], [address] [address] Elsy Carpenter, MARY JO Chronic kidney disease, Stage IV (severe) ([facility]) (Primary Dx); Proteinuria, not otherwise specified; Vitamin D deficiency, not otherwise specified 05/09/[address] [facility], [facility] [address] [address] Pete, Edith 05/05/2025 [facility] Outreach [facility], [facility] [address] [address] Pete, Edith 05/05/2025 Results Follow-Up [facility], [facility] [address] [address] Emeli Luna MA 05/04/[address] [facility], [address] [address] Elsy Carpenter NP Chronic kidney disease, Stage IV (severe) (HCC); Proteinuria, not otherwise specified; Vitamin D deficiency, not otherwise specified 05/03/2025 Telephone [facility], [facility] [address] [place] [address] Hermelinda Luong MD 03/31/2025 Documentation Only [facility], [facility] [address] [place] [address] Edith Freeman 03/21/2025 Patient Outreach [facility], [facility] [address] [place] [address] PeteEdith from Last 3 Months Immunizations Immunization Administration [...] Sign Reading Time Taken Comments Blood Pressure 104/66 05/09/2025 9:21 AM AREA MECHANIC Pulse 68 05/09/2025 9:21 AM AREA MECHANIC Temperature 35.9 C (96.7 F) 11/21/2020 9:22 AM CDT Respiratory Rate - - Oxygen Saturation 99% 11/01/2024 9:23 AM CDT Inhaled Oxygen Concentration - - Weight 74.4 kg (164 lb) 05/09/2025 9:21 AM AREA MECHANIC Height 167.6 cm (5' 6 ) 05/09/2025 9:21 AM AREA MECHANIC Body Mass Index 26.47 05/09/2025 9:21 AM AREA MECHANIC Plan of Treatment Upcoming Encounters Date Type Department Care Team (Late st Contact Info) Description 07/09/2025 Orders Only [facility], [facility] [address] [place] [address] Elsy Carpenter NP [address] [place] [address] Chronic kidney disease, Stage IV (severe) (HCC); Vitamin D deficiency, not otherwise specified 07/17/2025 10:00 AM AREA MECHANIC Office Visit [facility], [facility] [address] [place] [address] Milena Ospina NP [address] [place] [address] Health Maintenance Due Date Last Done Comments Pneumococcal Vaccine: 50+ Years Completed 09/21/2015, 11/20/2009 Pneumococcal Vaccine: Peds (0 to 5 Years) and At-Risk Patients (6 to 49 Years) Discontinued 09/21/2015, 11/20/2009 Influenza Vaccine Completed 03/13/2025, , 03/12/2023, Additional history exists Hepatitis B Vaccine Aged Out No longe r eligible based on patient's age to complete this topic Procedures Procedure Name Priority Date/Time Associated Diagnosis Comments VITAMIN D 25 HYDROXY Routine 05/04/2025 6:07 AM AREA MECHANIC Vitamin D deficiency, not otherwise specified Chronic kidney disease, Stage IV (severe) (HCC) PTH, INTACT Routine 05/04/2025 6:07 AM AREA MECHANIC Chronic kidney disease, Stage IV (severe) (HCC) URINE ALBUMIN / CREATININE RATIO Routine 05/04/2025 6:07 AM AREA MECHANIC Proteinuria, not otherwise specified Chronic kidney disease, Stage IV (severe) (HCC) CBC Routine 05/04/2025 6:07 AM AREA MECHANIC Chronic kidney disease, Stage IV (severe) (HCC) RENAL FUNCTION PANEL Routine 05/04/2025 6:07 AM AREA MECHANIC Chronic kidney disease, Stage IV (severe) (HCC) from Last 3 Months Results * (ABNORMAL) Urine albumin / creatinine ratio (05/04/2025 6:07 AM AREA MECHANIC) Creatinine, Ur 159 20 - 320 mg/dL [facility] Urine Microalbumin 163.8 See Note: mg/dL [facility] Comment: Reference Range: Reference Range Not established Results verified by repeat analysis on dilution. Microalb/Creat Ratio 1,030(H) <30 mg/g creat [facility] Comment: The ADA defines abnormalities in [...] obtained by clean catch procedure / Unknown 05/04/2025 6:07 AM AREA MECHANIC 05/04/2025 6:07 AM AREA MECHANIC Narrative Resulting Agency Comment Performing Organization Information: Site ID: [id number] Name: [facility] Address: [address] [place] [address] Director: Claude Pearson MD Elsy Carpenter SENIOR PHP SOFTWARE DEVELOPER LAB URINE ORDERABLES Final Resu [facility] [address] [place] [address] * Vit D 25 hydroxy (05/04/2025 6:07 AM AREA MECHANIC) Vitamin D, 25-OH, Total, IA 64 30 - 100 ng/mL [facility] Comment: Vitamin D Status 25-OH Vitamin D: Deficiency: <20 ng/mL Insufficiency: 20 - 29 ng/mL Optimal: > or = 30 ng/mL For 25-OH Vitamin D testing on patients on D2-supplementation and patients for whom quantitation of D2 and D3 fractions is required, the [facility] 25-OH VIT D, (D2,D3), LC/MS/MS is recommended: order code [id number] (patients >2yrs). See Note 1 Your request to have a duplicate copy faxed has been acknowledged. Queued to: [phone] Note 1 For additional information, please refer to http://education.Toxic Attire/faq/CRP149 (This link is being provided for informational/ educational purposes only.) Blood specimen (specimen) Venous blood / Unknown 05/04/2025 6:07 AM AREA MECHANIC 05/04/2025 6:07 AM AREA MECHANIC Narrative Resulting Agency Comment Performing Organization Information: Site ID: [place] Name: [facility] Address: [address] [place] [address] Director: Claude Pearson MD Elsy Carpenter SENIOR PHP SOFTWARE DEVELOPER LAB BLOOD ORDERABLES Final Resu lt [facility] [employer] [address] [place] [address] * (ABNORMAL) CBC (05/04/2025 6:07 AM AREA MECHANIC) WBC 5.5 3.8 - 10.8 Thousand/u L [facility] RBC 2.52(L) 4.20 - 5.80 Million/uL [facility] Hemoglobin 7.8(L) 13.2 - 17.1 g/dL [facility] Hematocrit 25.4(L) 38.5 - 50.0 % [facility] MCV 100.8(H) 80.0 - 100.0 fL [facility] MCH 31.0 27.0 - 33.0 pg [facility] MCHC 30.7(L) 32.0 - 36.0 g/dL [facility] Comment: For adults, a slight decrease in the calculated MCHC value (in the range of 30 to 32 g/dL) is most likely not clinically significant; however, it should be interpreted with caution in correlation with other red cell parameters and the patient's clinical condition. RDW 12.9 11.0 - 15.0 % [facility] Platelets 164 140 - 400 Thousand/u L [facility] MPV 10.3 7.5 - 12.5 fL [facility] Blood specimen (specimen) Venous blood / Unknown 05/04/2025 6:07 AM AREA MECHANIC 05/04/2025 6:07 AM AREA MECHANIC Narrative Resulting Agency Comment Performing Organization Information: Site ID: [id number] Name: [facility] Address: [address] [place] [address] Director: Claude Pearson MD Elsy Carpenter NP LAB BLOOD ORDERABLES Final Resu lt Performing Organization Address City/[facility] Co de Phone Number MARISELA GARCIA [facility] [address] [place] [phone] * (ABNORMAL) PTH, intact (05/04/2025 6:07 AM AREA MECHANIC) Parathyroid Hormone, Intact 177(H) 16 - 77 pg/mL [facility] Comment: Interpretive Guide Intact PTH Calcium ------- Normal Parathyroid Normal Normal Hypoparathyroidism Low or Low Normal Low Hyperparathyroidism Primary Normal or High High Secondary High Normal or Low Tertiary High High Non-Parathyroid Hypercalcemia Low or Low Normal High Blood specimen (specimen) Venous blood / Unknown 05/04/2025 6:07 AM AREA MECHANIC 05/04/2025 6:07 AM AREA MECHANIC Narrative Resulting Agency Comment Performing Organization Information: Site ID: [id number] Name: [facility] Address: [address] [place] [phone] Director: Claude Pearson MD Elsy Carpenter NP LAB BLOOD ORDERABLES Final Resu lt Performing Organization Address City/[facility] Co de Phone Number MARISELA GARCIA [facility] [address] [place] [phone] * (ABNORMAL) Renal function panel (05/04/2025 6:07 AM AREA MECHANIC) Glucose 121(H) 65 - 99 mg/dL [facility] Comment: Fasting reference interval For someone without known diabetes, a glucose value between 100 and 125 mg/dL is consistent with prediabetes and should be confirmed with a follow-up test. BUN 44(H) 7 - 25 mg/dL [facility] Creatinine 3.98(H) 0.70 - 1.22 mg/dL [facility] eGFR CKD-EPI CR 2020 14(L) > OR = 60 mL/min/1.7 3m2 [facility] BUN/Creatinine Ratio 11 6 - 22 (calc) [facility] Sodium 140 135 - 146 mmol/L [facility] Potassium 4.3 3.5 - 5.3 mmol/L [facility] Chloride 103 98 - 110 mmol/L [facility] Bicarbonate (CO2) 28 20 - 32 mmol/L [facility] Calcium 9.4 8.6 - 10.3 mg/dL [facility] Phosphorus 3.7 2.1 - 4.3 mg/dL [facility] Albumin 3.9 3.6 - 5.1 g/dL [facility] Blood specimen (specimen) Venous blood / Unknown 05/04/2025 6:07 AM AREA MECHANIC 05/04/2025 6:07 AM AREA MECHANIC Narrative Resulting Agency Comment Performing Organization Information: Site ID: [id number] Name: Marisela Calzada Address: [address] [address] Director: Claude Pearson MD Elsy Carpenter NP LAB BLOOD ORDERABLES Final Resu lt [facility] [address] [phone] from Last 3 Months Insurance Medicare [employer] [place] [place] [id number] Care Teams Lumber Cutter Relationship Specialty Start Date End Date Andry Laurent MD [address] [place] [address] PCP - General Family Medicine 08/04/23
--- OUTSIDE RECORDS SUMMARY | 2025-06-17 10:33 | XMS_ITS | Patient Health Record ---
Author Organization [facility] Address [address] [facility] [place] [address] Care Team Providers Care Porcelain Enamel Installer Name Role Phone Andry Laurent MD Primary Care Provider Bacilio womack VEE ALEXEY Unavailable [phone] Allergies Allergen (clinical drug ingredient) Drug/Non Drug Allergy documented on EMR Reaction Allergy Type Onset Date Status Substance with 1-ltkybsa-6-methylgluta ryl-coenzyme A reductase inhibitor mechanism of action (substance) Statins Unknown Drug Allergy Active Reason For Referral No Information Medications Medication SIG (Take, Route, Frequency, Duration) Notes Start Date End Date Status Multivitamin Active Furosemide 40 MG Tablet 1 tablet Orally Once a day Active Pantoprazole Sodium 40 MG Tablet Delayed Release 1 tablet Orally Once a day Active Aspirin Adult Low Dose 81 MG Tablet Delayed Release 1 tablet Orally Once a day Not-Taking Magnesium Active Nitrofurantoin Macrocrystal 100 MG Capsule 1 capsule at bedtime with food or milk Orally Once a day Not-Taking Carvedilol 3.125 MG Tablet 1 tablet with food Orally Twice a day Active Famotidine 20 MG Tablet 1 tablet at bedtime as needed Orally Once a day Not-Taking Alfuzosin HCl ER 10 MG Tablet Extended Release 24 Hour 1 tablet immediately after the same meal Orally Once a day Active Grand Saline 3 Active Repatha *Pick strength-form from [employer] for eRX* Active Potassium Active Vitamin D Active Social History Tobacco Use: Social History Observation Description Date Details (start date - stop date) Former Smoker NA - NA Social History Tobacco Use: Social Info Question Answer Notes Tobacco Control (Standard) Tobacco use: Former smoker How long has it been since you last smoked? Greater than 10 years Additional Details Category Social Info Options Details Migrated Social History Tobacco Use: (Tob acco Use/Smoking): Are you a: former smoker , Additional Findings: Tobacco User: Moderate cigarette smoker (10-19 cigs/day) Problems Problem Type SNOMED Code ICD Code Onset Dates Problem Status W/U Status Risk Notes Problem Nephrotic syndrome (66359900) Recurrent gross hematuria (N02.9) Active confirmed Problem Chronic kidney disease (386206642) Chronic kidney disease (N18.9) Active confirmed Problem History of malignant neoplasm of prostate (047913269) History of prostate cancer (Z85.46) Active confirmed Problem Personal history of primary malignant neoplasm of urinary bladder (654511024) History of bladder carcinoma (Z85.51) Active confirmed Problem 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, 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 Problem History of radiation therapy (419765551) History of radiation therapy (Z92.3) Active confirmed Problem Hematuria (15220479) Hematuria (R31.9) Active confirmed Problem 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 [address] [place] [address] 09/27/2024 ALEXEY VEE History of prostate cancer Z85.46 Assessments Encounter Date Diagnosis (ICD Code) Assessment Notes Treatment Notes Treatment Clinical Notes Section Notes 09/27/2024 History of prostate cancer (ICD-10 - Z85.46) Plan Of Treatment Pending Test Test Name Order Date PSA, total (cpt 24401) 09/27/2024 UA Without Micro-Auto 54780 12/11/2022 PSA Diagnostic--16499 12/11/2022 Bladder Scan 12/15/2023 Bladder Scan 03/03/2024 Bladder Scan 11/18/2023 Insurance Providers Payer Name Payer Address Payer Phone Subscriber Number Group Number Insured Name Patient Relationship to Insured Coverage Start Date Coverage End Date [place] [address] VADIM COLON [id number] Augusto Quispe Self - patient is the insured [employer] [address] [address] [place] [id number] Augusto Quispe Self - patient is the insured Medical (General) History Medical History History ICD Code Measles Mumps Chicken Pox Heart Disease Bladder Infections Bladder Cancer Hemorrhoids Prostate Cancer Surgical History Surgery Date(Month/Year) Heart Bypass Hospitalization History Reason Date(Month/Year) surgery
--- OUTSIDE RECORDS SUMMARY | 2025-06-17 10:33 | XMS_ITS | Encounter Summary ---
Author Organization [facility] Address [address] [place] [address] Care Team Providers Care Window Repairer Name Role Phone Unavailable Primary Care Provider Unavailabl e Encounter Details Date Type Department Care Team (Late st Contact Info) Description 12/10/2007 Emergency [facility] Emergency Department [address] 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 Gender Identity Not on file Sexual Orientation [...] CDT) CHLORIDE 107 95 - 110 mEq/L [facility] ANION GAP 12 9 - 20 mEq/L [facility] SODIUM 138 136 - 145 mEq/L [facility] BUN 27(H) 9 - 20 mg/dL [facility] CO2 23 22 - 32 mmol/l [facility] POTASSIUM 4.3 3.5 - 5.0 mEq/L [facility] OSMOLALITY, CALCULATED 291 275 - 295 mOsm/Kg [facility] CREATININE 2.0(H) 0.7 - 1.5 mg/dL [facility] CALCIUM 10.2 8.4 - 10.5 mg/dL [facility] GLUCOSE 121(H) 70 - 110 mg/dL [facility] Blood specimen (specimen) 12/10/2007 11:45 AM CDT 12/10/2007 11:45 AM CDT us Alvaro Mendez MD CHEMISTRY ORDERABLES Final R esult [facility] CLIA# [id number] [address] [place] [address] * (ABNORMAL) CBC WITH DIFFERENTIAL (12/10/2007 11:45 AM CDT) [facility] LYMPHOCYTE ABSOLUTE 4.7(H) 1.2 - 4.0 K/ul [facility] HEMATOCRIT 37.5(L) 41.0 - 53.0 % [facility] EOSINOPHILS 0.5 0.0 - 7.0 % [facility] PLATELETS 147 140 - 440 K/ul [facility] MONOCYTE ABSOLUTE 0.4 0.1 - 0.6 K/ul [facility] BASOPHILS 0.1 0.0 - 1.0 % [facility] RBC 4.03(L) 4.60 - 6.20 Mil/ul [facility] PERIPHERAL BLOOD SMEAR REVIEW Automated Diff [facility] LYMPHOCYTES 53.2(H) 24.0 - 44.0 % [facility] MCHC 34.1 30.0 - 35.0 g/dL [facility] MCV 93.1 84.0 - 103.0 Fl [facility] MPV 9.9 8.9 - 12.8 Fl [facility] EOSINOPHIL ABSOLUTE 0.0 0.0 - 0.7 K/ul [facility] NEUTROPHIL ABSOLUTE 3.6 2.0 - 8.0 K/ul [facility] HEMOGLOBIN 12.8(L) 14.0 - 18.0 g/dL [facility] RDW 14.0 11.0 - 14.5 % [facility] MONOCYTES 4.8 2.0 - 10.0 % [facility] WBC 8.7 4.8 - 10.8 K/ul [facility] MCH 31.8 27.0 - 34.0 pg [facility] NEUTROPHILS 41.4(L) 42.2 - 75.2 % [facility] BASOPHILS ABSOLUTE 0.0 0.0 - 0.2 K/ul [facility] Blood specimen (specimen) 12/10/2007 11:45 AM CDT 12/10/2007 11:45 AM CDT Alvaro Mendez MD HEMATOLOGY ORDERABLES Final Result Performing Organization Address City/State/[facility] Co de Phone Number [facility] CLIA# [id number] [address] [place] [address] * PTT (12/10/2007 11:45 AM CDT) PTT 27.4 22.5 - 36.5 Secs [facility] Comment: Therapeutic Range: Hi-level PE/DVT [...] HEMATOLOGY ORDERABLES Final Result Performing Organization Address [facility] Co de Phone Number [facility] CLIA# [id number] [address] [place] [address] * PROTIME-INR (12/10/2007 11:45 AM CDT) PROTIME 13.9 12.8 - 15.8 Secs [facility] Comment:As of 2007 not e change in normal range. INR 1.0 [facility] Comment: Expected Values for INR: DVT/PE Goal INR 2.5; range 2.0 - 3.0 Valve Replacement Tissue Goal INR 2.5; range 2.0 - 3.0 Mechanical Goal INR 3.0; range 2.5 - 3.5 POST-NC Goal INR 2.5; range 2.0 - 3.0 or Goal 3.0; range 2.5 - 3.5 Atrial Fibrillation Goal INR 2.5; range 2.0 - 3.0 Ischemic Stroke Goal INR 2.5; range 2.0 - 3.0 For additional information see Guidelines for Anticoagulation available from the pharmacy [facility] Pharm D. [phone] Blood specimen (specimen) 12/10/2007 11:45 AM CDT 12/10/2007 11:45 AM CDT us Alvaro Mendez MD HEMATOLOGY ORDERABLES Final Result Performing Organization Address [facility] Co de Phone Number [facility] CLIA# [id number] [address] [place] [address] * CARDIAC ENZYMES (12/10/2007 11:45 AM CDT) CKMB 1.8 0.0 - 5.0 ng/mL [facility] TROPONIN I <0.1 0.0 - 1.3 ng/mL [facility] Blood specimen (specimen) 12/10/2007 11:45 AM CDT 12/10/2007 11:45 AM CDT us Alvaro Mendez MD CHEMISTRY ORDERABLES Final R esult [facility] CLIA# [id number] [address] [place] [address] * XR CHEST PA OR AP (12/10/2007 [...] Impression: No active disease. - Dictated By: gK Duncan M.D. Electronically Signed By: Kg Duncan M.D. Date Signed: 12/10/07 us Alvaro Mendez MD DIAGNOSTIC IMAGING ORDERABLE S Final Result documented in this encounter Visit Diagnoses Not on filedocumented in this encounter
--- OUTSIDE RECORDS SUMMARY | 2025-06-17 10:33 | XMS_ITS | Encounter Summary ---
Author Organization [facility], [facility] Address [address] [place] [address] Phone Care Team Providers Care Tester Wafer Substrate Name Role Phone Andry Laurent MD Primary Care Provider [phone] Encounter Details Date Type Department Care Team (Late st Contact Info) Description 05/05/2025 Results Follow-Up [facility], [facility] [address] [place] [address] Emeli Luna MA [address] [place] [address] Social History Tobacco Use Types [...] as of this encounter Progress Notes * Emeli Luna MA - 05/05/2025 7:17 AM CST Creatinine increased 30% GFR 14 Hemoglobin is 7.8 documented in this encounter Miscellaneous Notes * Telephone Encounter - Emeli Luna MA - 05/05/2025 11:42 AM CST Spoke to pt and he has not had any sickness, medication changes, and is asymptomatic. Pt confirms he has not had any infusions in over a year and last one was at [facility]. I called [facility] med records Neris and she saw something in there from a year ago but the chart is incomplete like it was ordered but not done. Can not confirm if his last infusion was a year ago or longer. I let pt know that if he does become symptomatic to go to the ER. * Telephone Encounter - Emeli Luna MA - 05/05/2025 11:42 AM CST ----- Message from Milena Ospina sent at 05/05/2025 9:29 AM BOTTLE HOP ----- I called patient, left VM. Unclear on overall management of anemia: there has been pcp involvement, but I cannot locate any iron infusions, etc in over a year. Assess for uremic symptoms: fatigue, n/v. Assess for symptomatic anemia: feeling dizzy, confused, SOB or CP, fatigue, weakness. Symptomatic, advise he go to ER for assessment for transfusion, fluid needs, interventions as identified by ER. Asymptomatic, has he had any iron infusions or other interventions for anemia recently? Thank you Milena Ospina NP ----- Message ----- From: Emeli Luna MA Sent: 05/05/2025 7:17 AM BOTTLE HOP To: Milena Ospina NP Creatinine increased 30% GFR 14 Hemoglobin is 7.8 ----- Message ----- From: Anthony Peters-Incoming Lab Results From [facility] Unk_Prov_Id Sent: 05/05/2025 5:05 AM BOTTLE HOP To: [facility] Clinical Support Pool * Telephone Encounter - Emeli Luna MA - 05/05/2025 10:29 AM CST Tried to contact pt as well had to LVM * Telephone Encounter - Emeli Luna MA - 05/05/2025 10:28 AM CST ----- Message from Milena Ospina sent at 05/05/2025 9:32 AM BOTTLE HOP ----- FYI: Elsy Am attempting to communicate with patient regarding declines Hgb and renal function. You see him next week. Milena Ospina NP ----- Message ----- From: Emeli Luna MA Sent: 05/05/2025 7:17 AM BOTTLE HOP To: Milena Ospina NP Creatinine increased 30% GFR 14 Hemoglobin is 7.8 ----- Message ----- From: Anthony Peters-Incoming Lab Results From [facility] Unk_Prov_Id Sent: 05/05/2025 5:05 AM BOTTLE HOP To: [facility] Clinical Support Pool documented in this encounter Plan of Treatment Upcoming Encounters Date Type Department Care Team (Late st Contact Info) Description 07/09/2025 Orders Only [facility] [employer], [address] [address] Elsy Carpenter NP [address] [address] Chronic kidney disease, Stage IV (severe) (HCC); Vitamin D deficiency, not otherwise specified 07/17/2025 10:00 AM BOTTLE HOP Office Visit [facility] [employer], [address] [address] Milena Ospina NP [address] [address] documented as of this encounter Visit Diagnoses Not on filedocumented in this encounter Care Teams Tester Wafer Substrate Relationship Specialty Start Date End Date Andry Laurent MD [address] [place] [phone] PCP - General Family Medicine 08/04/23 documented as of this encounter
--- OUTSIDE RECORDS SUMMARY | 2025-06-17 10:33 | XMS_ITS | Continuity of Care Document ---
Author Organization LUCAS Sims [facility] Sue Keith, [facility] ([facility]) Address [address] [place] [address] Care Team Providers Care Quartz Orientator Name Role Phone LUIS ALBERTO LAURENT Primary Care Provider [phone] ROXIE SWARTZ Referring Provider [phone] [facility] Refe rring Provider Assessment No assessment recorded. Plan of Treatment Reminders Order Date Submit Date Provider Last Modified By Organization Details Last Modified Time Details Appointments OFFICE VISIT LAURENT 2025 09:00A Chas Laurent MD Not available Not available Not available Lab urinalysi s, complete 2024 025 [facility], [address] [facility], [facility] [address], [place], [address], 04/26/2025 10:11:30 culture, urine 2024 025 [employer] [facility], [address] [facility] [address] [place], [address], 04/27/2025 22:19:31 Referral None recorded. Procedures None recorded. Surgeries None recorded. Imaging None recorded. Medication Orders None recorded. Patient TargetsNo targets recorded. Patient InstructionsNo instructions recorded. 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 None Reported. Results Created Date Observation Date Name Description Value Unit Range Abnormal Flag Note LastModifiedBy Organization Detail LastModifiedTime 04/26/20 25 04/26/2025 URINA LYSIS WITH MICRO color RED abnormal Not Available [facility] [address] [facility] [address], [place], [address], 04/26/2025 10:11:30 04/26/2004/26/2025 URINA LYSIS WITH MICRO clarity CLOUDY abnormal Not Available [facility] [address] [facility] [address], [place], [address], 04/26/2025 10:11:30 04/26/2004/26/2025 URINA LYSIS WITH MICRO glu NEGATI VE Not Available [facility] [address], [place], [address], 04/26/2025 10:11:30 04/26/2004/26/2025 URINA LYSIS WITH MICRO bili 1+ abnormal Not Available [facility] [address], [place], [address], 04/26/2025 10:11:30 04/26/2004/26/2025 URINA LYSIS WITH MICRO ket TRACE abnormal Not Available [facility] [address], [place], [address], 04/26/2025 10:11:30 04/26/2004/26/2025 URINA LYSIS WITH MICRO S.g 1.020 Not Available [facility] [address], [place], [address], 04/26/2025 10:11:30 04/26/2004/26/2025 URINA LYSIS WITH MICRO pH 5.5 Not Available [facility] [address], [place], [address], 04/26/2025 10:11:30 04/26/2004/26/2025 URINA LYSIS WITH MICRO pro 3+ abnormal Not Available [facility] [address], [place], [address], 04/26/2025 10:11:30 04/26/20 25 04/26/2025 URINA LYSIS WITH MICRO uro 1.0 E.U./D L Not Available [facility] [address], [place], [address], 04/26/2025 10:11:30 04/26/20 25 04/26/2025 URINA LYSIS WITH MICRO nit POSITI VE abnormal Not Available [facility] [address] [facility] [address], [place], [address], 04/26/2025 10:11:30 04/26/2004/26/2025 URINA LYSIS WITH MICRO blo 3+ abnormal Not Available [facility] [address] [facility] [address], [place], [address], 04/26/2025 10:11:30 04/26/2004/26/2025 URINA LYSIS WITH MICRO sonido TRACE abnormal Not Available [facility] [address] [facility] [address], [place], [address], 04/26/2025 10:11:30 04/26/20 25 04/26/2025 URINA LYSIS WITH MICRO WBC NEGATI VE Not Available [facility] [address] [facility] [address], [place], [address], 04/26/2025 10:11:30 04/26/20 25 04/26/2025 URINA LYSIS WITH MICRO RBC GROSS BLOOD abnormal Not Available [facility] [address] [facility] [address], [place], [address], 04/26/2025 10:11:30 04/26/20 25 04/26/2025 URINA LYSIS WITH MICRO epi cells NEGATI VE Not Available [facility] [address] [facility] [address], [place], [address], 04/26/2025 10:11:30 04/26/20 25 04/26/2025 URINA LYSIS WITH MICRO bacteria NEGATI VE Not Available [facility] [address] [facility] [address], [place], [address], 04/26/2025 10:11:30 04/26/20 25 04/26/2025 URINA LYSIS WITH MICRO other NG Not Available [facility] [address] [facility] [address], [place], [address], 04/26/2025 10:11:30 04/26/20 25 04/27/2025 CULTU RE, URINE , ROUTI NE culture, urine, routine SEE NOTE CULTU RE, URINE , ROUTI NE Micro Numbe r: [id number] Test Statu s: Final Speci men Sourc e: Urine , clean catch Speci men Quali ty: Adequ ate Resul t: No Growt h Not Available [address], [address], 04/27/2025 22:19:31 Result Notes None recorded. Problems Name Problem SNOMED Code Status Onset Date Resolution Date Notes Provider Name and Address Organization Details Recorded Time Chronic kidney disease stage 3 519627062 Completed 202007/25/2020 CHRONIC KIDNEY DISEASE, STAGE 3 - Status is Inactive ; Story: Kaitlynn eld Neurolog y; Recorded 07/25/19 4:02PM by Concha Pimentel LPN, Rachelleati on/Adden dum; Promoted ; acuity set as *; CHRONIC KIDNEY DISEASE (CKD), STAGE III (MODERAT E) - Status is Inactive ; Recorded 07/25/19 4:02PM by Concha Pimentel LPN, Annotati on/Adden dum; Promoted ; acuity set as *; Not Available [employer] 3 03:16:48 Cutaneou s lupus erythema tosus 9679169 Completed 202009/19/2024 cutaneou s lupus erythema tosus; verified by LUCAS Archer - [facility] 5 23:42:49 Benign hyperten altagracia 15156016 Active 2022 CONCHA mendez, [facility] 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 3 09:38:06 Gastroes ophageal reflux disease 335248259 Active 2022 CONCHA PIMENTEL null, [facility] 5 08:30:03 Hyperlip idemia 73974511 Active 2022 CONCHA mendez, [facility] 3 09:37:43 Chronic kidney disease stage 4 501783427 Active 2022 CONCHA mendez, [facility] 5 08:30:03 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 10758179942 9104 Active 2022 CONCHA mendez, [facility] 3 09:36:39 Iron deficien cy anemia 67477542 Active 2022 CONCHA mendez, [facility] 5 08:30:33 History of malignan t neoplasm of prostate 624474644 Completed 202209/19/2024 Dinah mendez, [facility] 5 23:42:49 History of primary malignan t neoplasm of urinary bladder 914536387 Completed 202209/19/2024 Dinah Huffman null, [facility] 5 23:42:49 Chronic radiatio n cystitis 027010291 Active 2022 CONCHA mendez, [facility]CT[facility]in 5 08:30:03 Acute non-ST segment elevatio n myocardi al infarcti on 236183707 Completed 202210/17/2024 h[facility] 5 10:34:13 Severe aortic valve stenosis 546186896 Active 2023 echocard iogram 04/24/24: EF 61%, moderate to severe aortic valve stensosi s. 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 5 10:44:43 Coronary atherosc lerosis 065081929 Active 2023 CONCHA PIMENTEL [facility] 5 08:30:02 Anemia due to chronic blood loss 073937074 Active 2024 Dinah Armida [facility], LTenzinLTenzinCTenzin 5 23:42:27 Problem Notes None recorded. 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 02/19/2023 09:41:55 04/30/20 18 Cabg vein four completed CONCHA PIMENTEL [facility] 02/19/2023 09:42:10 Imaging Results None recorded. Procedure Notes None recorded. Medical Equipment None Reported. Allergies Allergen ID Allergen Name Allergen Category Reaction Reaction Severity Criticality Documentation Date Start Date Code Code System Note Provider Name and Address Organization Details Recorded Time 3651 Lipitor medicatio n Not available Not available Not available 11/18/2022 76177 5 RxNorm [facility] 3 10:33:51 365 Zocor medicatio n Not available Not available Not available 11/18/2022 87040 3 RxNorm Dinah Huffman [facility] 3 10:34:02 3653 Pravachol medicatio n Not available Not available Not available 11/18/202246928 3 RxNorm Dinah Huffman [facility] 3 10:34:08 69832 rosuvasta tin calcium medicatio n myalgias (muscle pain) Not available Not available 01/17/2023 31667 8 RxNorm React ion: myalg ias; Comme nt: Recor ded 07/02 11:27 AM by Dinah Guzman RN, Offic e Visit ; Lilian porras; Amirah mills ce: *; Reaso n: Drug aller gy; ; [facility] 3 14:13:26 09552 Iodinated contrast media (substanc e) medicatio n Not available Not available Not available 03/05/2023 13369 2003 SNOMED kidne y probl ems [facility] 3 10:40:25 49727 atorvasta tin calcium medicatio n other Not available Not available 05/19/20252013 72200 RxNorm Not Available [employer] - prod 5 10:19:03 09776 pitavasta tin calcium medicatio n rash Not available low 05/19/20252021 26373 0 RxNorm Not Available [employer] - [employer] - prod 5 10:19:03 23284 tamsulosi n medicatio n Not available Not available Not available 05/19/20252021 88442 RxNorm Other react ion(s ): ALGY- Rash Not Available [employer] - [employer] - prod 5 10:19:03 54739 pravastat in medicatio n Not available Not available [facility] 05/19/20252024 08137 RxNorm Not Available markus [employer] - prod 5 10:19:49 47597 simvastat in medicatio n Not available Not available Not available 05/19/20252024 82343 RxNorm Not Available [facility] [employer] - prod 5 10:19:49 964 Product containin g 3-hydroxy -3-methyl glutaryl- coenzyme A reductase inhibitor (product) medicatio n myalgias (muscle pain) Not available Not available 09/23/2022 16851 009 SNOMED CONCHA PIMENTEL [facility] 3 12:40:46 Medications Name Sig Start Date [...] magnesium daily 01/22 completed 0; Recorded 07/02/19 11:28AM [...] Visit; Not Available Not Available Not Available [place]-3 two times daily active 0; Recorded 07/02/19 11:28AM by Dinah Guzman RN, Office Visit; Not Available Not Available Not Available Centrum Silver 1 daily active Not Available Not Available Not Available Vitamin D3 1 daily active Not Available Not Available Not Available [place] 3 2 twice daily 01/22 completed Not Available Not Available Not Available alfuzosin at bedtime 01/22 completed d/c silodosi n. dorisc e prefers alfuzosi n AM/evelina; 436; Recorded 08/27/19 8:13AM by Concha Pimentel LPN (Authori zed through Luis Alberto Laurent MD), Refill Request; [...] 22 8:22AM by Concha Pimentel LPN (Authori zed through Luis Alberto Laurent MD), Annotati on/Adden [...] Updated DateTime 5 166.37 cm 26.7 kg/m2 45120.5 6 g 97.3 [degF] 87 /min 99 % 122/66 mm[Hg] CONCHA PIMENTEL [facility] 09:12:57 Social History Question Answer Notes LastModified by Organizat ion Details LastModified Time Tobacco Smoking Status Former Smoker CHIDI mendez [facility] 12/20/2024 08:51:16 When Did You Quit Smoking? 16+yearssinc elastcigaret te [email or web address] Information not available 12/20/2024 What Was The Date Of Your Most Recent Tobacco Screening? 12/20/2024 [email or web address] Information not available 12/20/2024 What Is Your Relationship Status? [email or web address] Information not available 09/23/2022 Sex: Unknown Functional Status Question Answer Note LastModified by Organizat ion Details LastModified Time Do you use any illicit or recreational drugs? No [email or web address] Information not available 09/23/2022 Do you or have you ever used any other forms of tobacco or nicotine? No Information not available 02/19/2023 What is your level of alcohol consumption? None [email or web address] Information not available 09/23/2022 Do you or have you ever used any nicotine-free cigarettes, vape, or chewing tobacco? No [email or web address] Information not available 07/12/2024 Mental Status None recorded. Family History Relationship Description Onset Age of this Age Resolved Age Notes LastModified by Organization Details LastModified Time Brother Diabetes mellitus [email or web address] Not available 02/19 09:13:20 Brother Coronary atherosclero sis [email or web address] Not available 02/19 09:13:29 Medical History No medical history recorded. Immunizations Vaccine Type Date Status Note Provider Nam e and Address Organization Details Recorded Time Tdap 4 completed Not Available [facility] 06/09/2023 09:09:05 Influenza, split virus, trivalent, preservative 1 completed Not Available [facility] 06/09/2023 09:09:05 Influenza, split virus, trivalent, preservative 1 completed Not Available [facility] 06/09/2023 09:09:05 Influenza, split virus, trivalent, preservative 6 completed Not Available [facility] 06/09/2023 09:09:05 Pneumococcal conjugate PCV 13 6 completed Not Available [facility] 06/09/2023 09:09:05 pneumococcal polysaccharide PPV23 0 completed Not Available [facility] 06/09/2023 09:09:05 Influenza, adjuvanted, quadrivalent, PF 3 completed CONCHA mendez [facility] 03/26/2023 10:15:49 COVID-19, mRNA, LNP-S, PF, 50 mcg/0.5 mL 3 completed CONCHA mendez [facility] 03/26/2023 10:15:49 COVID-19, mRNA, LNP-S, PF, 50 mcg/0.5 mL 4 completed CONCHA mendez, [facility] 07/12/2024 12:49:37 Influenza, high-dose, trivalent, PF 4 completed [facility] 07/12/2024 12:49:37 Influenza, high-dose, trivalent, PF 5 completed Not Available [facility] 04/26/2025 09:05:56 COVID-19, mRNA, LNP-S, PF, 50 mcg/0.5 mL 5 completed Not Available [facility] 04/26/2025 09:05:56 Influenza, high-dose, quadrivalent, PF 2 completed [facility] 11/18/2022 10:19:27 COVID-19, mRNA, LNP-S, PF, 100 mcg/0.5mL dose or 50 mcg/0.25mL dose 1 completed Dinah Huffman [facility] 11/18/2022 10:19:27 COVID-19, mRNA, LNP-S, PF, 100 mcg/0.5mL dose or 50 mcg/0.25mL dose 1 completed Dinah Huffman [facility] 11/18/2022 10:19:27 COVID-19, mRNA, LNP-S, PF, 100 mcg/0.5mL dose or 50 mcg/0.25mL dose 2 completed [facility] 11/18/2022 10:19:27 COVID-19, mRNA, LNP-S, PF, 100 mcg/0.5mL dose or 50 mcg/0.25mL dose 1 completed Dinah Mckeongarcia mendez, [facility] 11/18/2022 10:19:27 COVID-19, mRNA, LNP-S, bivalent, PF, 50 mcg/0.5 mL or 25mcg/0.25 mL dose 2 completed Dinah Armidagarcia mendez, [facility] 11/18/2022 10:19:27 Past Encounters Encounter ID Performer Location Encounter Start Date Encounter Closed Date Diagnosis/Indication Diagnosis SNOMED-CT Code Diagnosis ICD10 Code Diagnosis IMO Codes Diagnosis Note [id number] Luis Alberto Laurent MD [facility] ([facility]) [address] [place] [address] 04/26/2025 09:05:25 05/01/2025 10:27:09 Hussein hematuria 933276696 R31.0 [id number] he has some bleeding again now.he was told to continue his finasterid e he is voiding well. no sign of obstructio n. if unable to void or fever significia nt bleeding or any other worrisome concerns go to ER. he will see nephrology and urology in the next few weeks, respective ly. Chronic ki dney disease stage 4 848065085 N18.4 he will f/u with nephrology next week. Health Concerns Section Related Observation LastModified by Organization Detai ls LastModified Time None Recorded Concern Status LastModified by Organization Details LastModified Time None Recorded Payers Encounter Date Sequence Insurance Name Policy Number Policy Calloway Covered Member ID Calloway Member ID Guarantor Name 04/26/2025 1 [place]ICARE [place]: [place] Augusto Quispe [id number] Augusto Quispe 04/26/2025 2 [employer] (MEDICARE SUPPLEMENT) Augusto Quispe [id number] Augusto Quispe Notes Date Note Type Note Provider Name and Address Organization Details Recorded Time 04/26/2025 text/html ROS as noted in the [facility] hospital f/u: Pt was admitted to [...] on the 05/09. Luis Alberto Laurent MD [address] [place] [address], [phone], [facility] 04/26/2025 09:49:53
--- NOTE | 2025-06-17 10:40 | ECG_ITS ---
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
--- NOTE | 2025-06-17 10:45 | W.ED.WEAKNES ---
HPI - Weakness General: Chief complaint: Weakness Stated complaint: weakness Time Seen by Provider: 06/17/25 10:31 Source: patient and EMS Mode of arrival: EMS Limitations: no limitations History of Present Illness: 85-year-old male has had a history of bladder cancer states that his bladder cancer has returned states he has had hematuria has been going on for years he states this morning it felt very weak and was having a hard time getting out of his chair. He denies any increase of the hematuria he denies any fevers denies any pain. Related Data Home Medications ?Medication ?Instructions ?Recorded ?Confirmed magnesium oxide 400 mg PO DAILY 10/28/19 06/17/25 kqzrngzf-yg-prclg 300 mcg-K 60 1 tab PO DAILY 10/28/19 06/17/25 mcg-lycop 600 mcg-lutein 300 mcg tablet (Centrum Silver Men) alfuzosin 10 mg tablet,extended 10 mg PO BEDTIME 11/07/20 06/17/25 release 24 hr cholecalciferol (vitamin D3) 25 25 mcg PO DAILY 11/12/20 06/17/25 mcg (1,000 unit) capsule furosemide 40 mg tablet 40 mg PO DAILY 08/26/23 06/17/25 potassium chloride 10 mEq 10 meq PO DAILY 08/26/23 06/17/25 capsule,extended release pantoprazole 40 mg tablet,delayed 40 mg PO DAILY 11/23/23 06/17/25 release acetaminophen 325 mg tablet 650 mg PO QID PRN Fever Or Pain 11/11/24 06/17/25 (Tylenol) evolocumab 140 mg/mL subcutaneous 140 mg SUBCUT Q14D 11/11/24 06/17/25 pen injector (Marcellus Vincent) finasteride 5 mg tablet 5 mg PO DAILY 06/17/25 06/17/25 hydrocodone 5 mg-acetaminophen 325 1 tab PO Q6H PRN Pain 06/17/25 06/17/25 mg tablet Previous Rx's ?Medication ?Instructions ?Recorded aspirin 81 mg tablet 81 mg PO DAILY #30 tabs 11/15/24 carvedilol 3.125 mg tablet 3.125 mg PO BID #90 tabs 05/22/25 Allergies Allergy/AdvReac Type Severity Reaction Status Date / Time Iodinated Contrast Media Allergy Intermediate messes Verified 03/27/25 10:56 with kidney's tamsulosin Allergy ALGY-Rash Verified 03/27/25 10:56 pravastatin (From Pravachol) AdvReac Intermediate Unknown Verified 03/27/25 10:56 simvastatin (From Zocor) AdvReac Unknown Unknown Verified 03/27/25 10:56 [facility] PFSH: Medical History (Updated 06/17/25 @ 12:48 by Sebastian Mckee MD) Bladder cancer BPH loc w urin obs/LUTS Bladder tumor Prostate CA Abdominal aortic aneurysm (AAA) Hyperlipidemia HTN (hypertension) Renal insufficiency Aortic stenosis Carotid stenosis, bilateral ASHD (arteriosclerotic heart disease) Surgical History Status post nasal surgery H/O hernia repair ABDOMINAL H/O transurethral resection of bladder tumor (TURBT) S/P CABG (coronary artery bypass graft) Family History Brother CAD (coronary artery disease) Mother , at age 61 Alzheimer disease Father , at age 81 No problems noted. Other Hypertension Social History Smoking and tobacco/nicotine status: never used tobacco/nicotine Alcohol intake: never Substance/Drug Use: never Marital status: Current occupational status: retired Course Vital Signs: Vital signs: Vital Signs Temperature 98.1 F 06/17/25 12:15 Pulse Rate 70 06/17/25 12:30 Respiratory Rate 17 06/17/25 12:15 Blood Pressure 112/64 06/17/25 12:30 Pulse Oximetry 99 06/17/25 12:30 Oxygen Delivery Me thod Room Air 06/17/25 10:45 MDM - Weakness Medical Decision Making 85-year-old male presents for generalized weakness has had chronic hematuria history of bladder cancer. Patient was found to be anemic here at 4.6 likely causing his weakness. Vitals here been stable is likely became chronically anemic from his hematuria. I did place a Vogt here does show blood but is pink-tinged no large amount of bleeding or clots at this time. Did speak to patient's urologist at [facility] who stated she is getting him set up at [facility] and stated she had nothing else to add and did not except transfer. I did speak to [facility] and they had no beds available. I have spoke to patient and his they were very reluctant to go to [facility] due to the distance I did then recommend possible transfer to [facility] they again stated that was too far to go and they would rather just stay here. I did have a long discussion with patient and informing them that we do not have urology here but we can transfuse blood but if they had worsening bleeding from the bladder that we would not be able to treat that they understand the risks with that and states that they would much rather stay close to home and do not want to be transferred at this time I did speak to the hospitalist Dr. Wilson and will admit EKG interpreted by me at 1037 normal sinus rhythm heart rate [address] elevation QRS 80 QTc 417 Medical Records I reviewed the patient's medical records. Lab Data I reviewed the patient's lab results. 06/17/25 10:14 06/17/25 10:14 Laboratory Results WBC 3.92 10^3/uL (3.29-11.43) 06/17/25 10:14 RBC 1.63 10^6/uL (3.85-5.65) L 06/17/25 10:14 Hgb 4.60 g/dL (11.27-16.99) L* 06/17/25 10:14 Hct 14.9 % (37-53) L* 06/17/25 10:14 MCV 91.4 fl (82-101) 06/17/25 10:14 MCH 28.2 pg (27-33) 06/17/25 10:14 MCHC 30.9 g/dL (30-55) 06/17/25 10:14 RDW 14.4 % (12.1-15.1) 06/17/25 10:14 Plt Count 126 10^3/cmm (157-399) L 06/17/25 10:14 MPV 10.8 fL (7.4-10.4) H 06/17/25 10:14 Neut % (Auto) 58.6 % 06/17/25 10:14 Lymph % (Auto) 28.8 % 06/17/25 10:14 [place] % (Auto) 10.5 % 06/17/25 10:14 Eos % (Auto) 1.3 % 06/17/25 10:14 Baso % (Auto) 0.3 % 06/17/25 10:14 Neut # (Auto) 2.30 10^3/uL (1.8-7.7) 06/17/25 10:14 Lymph # (Auto) 1.1 10^3/uL (0.8-4.8) 06/17/25 10:14 [place] # (Auto) 0.4 10^3/uL (0.2-0.9) 06/17/25 10:14 Eos # (Auto) 0.1 10^3/uL (0.0-0.8) 06/17/25 10:14 Baso # (Auto) 0.0 10^3/uL (0.0-0.1) 06/17/25 10:14 Nucleated RBC % (auto) 0 % 06/17/25 10:14 Nucleated RBCs # 0.0 /100WBC 06/17/25 10:14 Sodium 137 mmol/L (136-145) 06/17/25 10:14 Potassium 4.4 mmol/L (3.5-5.1) 06/17/25 10:14 Chloride 101 mmol/L (98-107) 06/17/25 10:14 Carbon Dioxide 25 mmol/L (22-29) 06/17/25 10:14 Anion Gap 15.4 (5-19) 06/17/25 10:14 BUN 44 mg/dL (8-23) H 06/17/25 10:14 Creatinine 4.2 mg/dL (0.7-1.2) H 06/17/25 10:14 GFR Calculation Not Reportable 06/17/25 10:14 Glucose 148 mg/dL (65-115) H 06/17/25 10:14 Calculated Osmolality 298 mOsm/kg (285-295) H 06/17/25 10:14 Calcium 8.9 mg/dL (8.5-10.5) 06/17/25 10:14 Total Bilirubin 0.3 mg/dL (0.15-1.2) 06/17/25 10:14 AST 54 U/L (0-40) H 06/17/25 10:14 ALT 60 U/L (0-41) H 06/17/25 10:14 Alkaline Phosphatase 127 U/L (40-130) 06/17/25 10:14 Total Protein 5.7 g/dL (6.6-8.7) L 06/17/25 10:14 Albumin 3.6 g/dL (3.5-5.2) 06/17/25 10:14 Globulin 2.1 g/dL (1.3-4.6) 06/17/25 10:14 Urine Color Red (Yellow) A 06/17/25 11:08 Urine Appearance Turbid (CLEAR) A 06/17/25 11:08 Urine pH 7.5 (5-7) 06/17/25 11:08 Ur Specific [place] 1.009 (1.005-1.030) 06/17/25 11:08 Urine Protein 3+ (Negative) A 06/17/25 11:08 Urine Glucose (UA) Negative (Normal) 06/17/25 11:08 Urine Ketones Negative (Negative) 06/17/25 11:08 Urine Blood 3+ (Negative) A 06/17/25 11:08 Urine Nitrate Negative (Negative) 06/17/25 11:08 Urine Bilirubin 1+ (Negative) H 06/17/25 11:08 Urine Urobilinogen 0.2 mg/dL (Negative) 06/17/25 11:08 Ur Leukocyte Esterase 1+ (Negative) A 06/17/25 11:08 Urine RBC >100 /hpf (0-2) H 06/17/25 11:08 Urine WBC 11-20 /hpf (0-5) H 06/17/25 11:08 Ur Squamous Epith Cells 0-5 /hpf (0-5) 06/17/25 11:08 Amorphous Sediment Not Reportable 06/17/25 11:08 Urine Bacteria Trace /hpf (NONE) 06/17/25 11:08 Hyaline Casts 0-4 /lpf H 06/17/25 11:08 Blood Type A Positive 06/17/25 10:35 Rho(D) Type Rh positive 06/17/25 10:35 Antibody Screen Negative 06/17/25 10:35 Crossmatch See Detail 06/17/25 10:35 No radiology studies performed this visit Discharge Plan Discharge Patient Disposition: Admitted As Inpatient Clinical Impression: Bladder tumor, Gross hematuria, Anemia Condition: Stable Coding Level of Care Code ED Warehouse Specialist for Martha Enamorado
[2025-06-17 10:47] LABS: Mean Corpuscular HGB Conc 30.9 g/dL (30-55); Mean Corpuscular Hemoglobin 28.2 pg (27-33); Mean Corpuscular Volume 91.4 fl (82-101); Nucleated Red Blood Cells % 0 %; Platelet Count 126 10^3/cmm (157-399); Red Blood Count 1.63 10^6/uL (3.85-5.65); White Blood Count 3.92 10^3/uL (3.29-11.43)
[2025-06-17 10:58] LABS: Hemoglobin 4.60 g/dL (11.27-16.99)
[2025-06-17 10:59] LABS: Hematocrit 14.9 % (37-53)
[2025-06-17 11:05] LABS: Alanine Aminotransferase 60 U/L (0-41); Albumin Level 3.6 g/dL (3.5-5.2); Alkaline Phosphatase 127 U/L (40-130); Anion Gap 15.4 (5-19); Aspartate Amino Transferase 54 U/L (0-40); Blood Urea Nitrogen 44 mg/dL (8-23); Calcium 8.9 mg/dL (8.5-10.5); Carbon Dioxide 25 mmol/L (22-29); Chloride 101 mmol/L (98-107); Globulin 2.1 g/dL (1.3-4.6); Glucose 148 mg/dL (65-115); Osmolality Calculated 298 mOsm/kg (285-295); Potassium 4.4 mmol/L (3.5-5.1); Sodium 137 mmol/L (136-145); Total Protein 5.7 g/dL (6.6-8.7)
[2025-06-17 11:38] LABS: Glucose Urine UA Negative (Normal); Nitrate Urine Negative (Negative); Specific Gravity, Urine 1.009 (1.005-1.030)
[2025-06-17 11:43] LABS: Add Urine Microscopic? YES
--- NOTE | 2025-06-17 15:22 | PM.HP ---
Providers/Chief Complaint Admitting Physician: Teo Sommer MD Primary Care Provider: Andry Laurent MD Chief Complaint: Generalized weakness. History of Present Illness Augusto Quispe is a 85 year old male with PMH of HTN, CAD (s/p 3v-CABG), valvular heart disease, HLD (statin intolerant), AAA, CKD 4, BPH w/ LUTS (s/p TURBT), prior prostate cancer (s/p radiation), bladder cancer, Patient presented to [facility] ED on 06/17/2025, accompanied by his spouse and niece, out of concern for progressive generalized weakness. Reports progressive weakness over the past month, however has been severe over the past 3 days and was limiting to the patient in regard to his mobility mobility and ability to partake in ADLs. Denies fever, and chills. Denies chest pain, shortness of breath (at rest and with exertion), palpitations, dizziness, syncope and abdominal pain. Denies hemoptysis, hematemesis and melena. Patient known to have ongoing intermittent episodes of hematuria, however hematuria has been more persistent and become notably worse over the past 3 days. Patient recently had a follow-up for routine bladder cancer surveillance and was found to have a noninvasive bladder lesion. Patient's urologist Dr. Anguiano (in [place]) recommending a procedure to have lesion removed. At present time patient denies use of antithrombotic/anticoagulation agents and NSAIDs. He was previously on ASA 81 mg daily, however medication was discontinued due to recurrent episodes of bleeding. ED course & work-up reviewed Presenting VS, 06/17/25 1030 T 97.6?F BP 110/68 HR 83 RR 18 SpO2 98% on room air Labs 06/17/2025 1014 Hemogram WBC 3.92 RBC 1.63 PLT 126 HGB 4.60 HCT 14.9 Chemistry Na 137 K 4.4 Cl 101 Ca 8.9 CO2 25 AG 15.4 BUN 44 Cr 4.2 AST 54 ALT 60 ALP 127 T.Bili 0.3 Urinalysis SG 1.009, protein 3+, blood 3+, RBC > 100 LE (1+), wbc (11-20), bacteria (trace) Patient was started on pRBC transfusion in ED. Review of Systems General: Reports: 10 or more systems reviewed and unremarkable except in HPI and below Medications/Allergies Home Medications ?Medication ?Instructions ?Recorded ?Confirmed ?Last Taken ?Type magnesium oxide 400 mg PO DAILY 10/28/19 06/17/25 06/17/25 History inolavby-ek-ktfqg 300 mcg-K 60 1 tab PO DAILY 10/28/19 06/17/25 06/17/25 History mcg-lycop 600 mcg-lutein 300 mcg tablet (Centrum Silver Men) alfuzosin 10 mg tablet,extended 10 mg PO BEDTIME 11/07/20 06/17/25 06/16/25 History release 24 hr cholecalciferol (vitamin D3) 25 25 mcg PO DAILY 11/12/20 06/17/25 06/17/25 History mcg (1,000 unit) capsule furosemide 40 mg tablet 40 mg PO DAILY 08/26/23 06/17/25 06/17/25 History potassium chloride 10 mEq 10 meq PO DAILY 08/26/23 06/17/25 06/17/25 History capsule,extended release pantoprazole 40 mg tablet,delayed 40 mg PO DAILY 11/23/23 06/17/25 06/17/25 History release acetaminophen 325 mg tablet 650 mg PO QID PRN Fever Or Pain 11/11/24 06/17/25 Unknown History (Tylenol) evolocumab 140 mg/mL subcutaneous 140 mg SUBCUT Q14D 11/11/24 06/17/25 06/10/25 History pen injector (Marcellus Vincent) aspirin 81 mg tablet 81 mg PO DAILY #30 tabs 11/15/24 06/17/25 06/17/25 Rx carvedilol 3.125 mg tablet 3.125 mg PO BID #90 tabs 05/22/25 06/17/25 06/17/25 Rx finasteride 5 mg tablet 5 mg PO DAILY 06/17/25 06/17/25 06/16/25 History hydrocodone 5 mg-acetaminophen 325 1 tab PO Q6H PRN Pain 06/17/25 06/17/25 Unknown History mg tablet Allergies Allergy/AdvReac Type Severity Reaction Status Date / Time Iodinated Contrast Media Allergy Intermediate messes Verified 03/27/25 10:56 with kidney's tamsulosin Allergy ALGY-Rash Verified 03/27/25 10:56 pravastatin (From Pravachol) AdvReac Intermediate Unknown Verified 03/27/25 10:56 simvastatin (From Zocor) AdvReac Unknown Unknown Verified 03/27/25 10:56 PFSH Acute PFSH: Medical History (Updated 06/17/25 @ 20:35 by Ruddy Olmos NP) 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 Other Hypertension Social History Smoking and tobacco/nicotine status: never used tobacco/nicotine Alcohol intake: never Substance/Drug Use: never Marital status: Current occupational status: retired Vitals/I&O/Wt Last Vital Signs Temp 98.2 F 06/17/25 14:19 Pulse 72 06/17/25 14:30 Resp 15 06/17/25 14:19 BP 124/71 06/17/25 14:30 Pulse Ox 96 06/17/25 14:30 O2 Del Method Room Air 06/17/25 14:36 06/17/25 06/17/25 06/17/25 06:59 14:59 22:59 Intake Total 350 / 350 Balance 350 / 350 Weight last 48 hrs Weight 73.028 kg Weight 73.028 kg Physical Exam Narrative: Constitutional NAD Frail and weak appearing Neurologic Awake and alert. Oriented x3. No facial asymmetry, unilateral weakness or speech deficits. Head Normocephalic. Atraumatic. Eyes PERRLA. EOMI. Sclera anicteric. Ears, Nose, Throat Normal external ears. RUBY. Normal external nose. No epistaxis. MMM Respiratory Diminished. No dyspnea at rest or with conversation. No accessory muscle use. On room air. Heart / Cardiovascular Regular Murmur present Extremities BLE edema 2+ pitting Abdomen / Gastrointestinal Soft. Non-tender. Non-distended. + BS. Genitourinary No suprapubic or CVA tenderness Vogt catheter present, placed in ED Musculoskeletal No gross deformities, asymmetry, swelling or muscle atrophy on observation No focal TTP over major joint or long bones Skin / Integumentary Very pale appearing No rashes, lesioins, ulcerations or open wounds. Data 06/17/25 19:07 06/17/25 10:14 A&P Assessment and plan 1. Gross hematuria: 2. 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 Nonrheumatic aortic valve stenosis: 4. Acute blood loss anemia: Plan: # Gross Hematuria - start CBI # Acute blood loss anemia Variable, ranged 6-11 g/dL in 2024. Presenting HGB 4.6 g/dL. In the setting of hematuria Hx of CAD (s/p CABG) Not on ASA or any other anticoagulation Hemodynamically stable - Trend Hgb Q6H x3 (1800, 0000, 0600) - Transfuse to keep HGB >/ 8 - Currently receiving his second unit, will give him 40 mg IV furosemide between units - HOLD cardiac meds at this time (carvedilol, furosemide), re-evaluate in am # Thrombocytopenia Underlying malignancy - Plt 126, trend # Recurrent bladder cancer Follows with outpatient urology and oncology in [place] # SESAR superimposed on CKD 4 Baseline Cr 2.1-3.5. Presenting Cr In the setting of hypovolemia and acute blood loss. - Trend renal function, BMP in AM - Strict I&O's - Optimize volume - Renal precautions Avoid nephrotoxic agents Avoid hypotension Renally dose meds # Transaminitis In the setting of hypovolemia - Trend - Optimize volume with blood transfusion # CAD s/p 3v-CABG Denies active chest pain, shortness of breath and other cardiac symptoms. 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 Does receive Repatha. On beta-magi. - Hold BB for now due to risk of hypotension # Aortic stenosis Echo 10/2024: LVEF 55 to 60%. Xjyzjfoc-jv-hmszfr with aortic valve area of 0.95 cm2 and mean gradient 27 mmHg. Vmax of 3.74m/s - Follows with outpatient cardiology VTE PPx w/ SCDs. Pharmacological PPx contraindicated due to active bleeding. PDMP PDMP Reviewed: Not Reviewed Attestations Medical Necessity Statement*: Admitted under inpatient status. Given complexity of patient's presentation, co-morbid conditions, and required intensity of treatment, a hospitalization exceeding two midnights is anticipated. 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
[2025-06-17] MEDS: FUROsemide 10 mg/mL SDV 4mL 40 MG IVP (16:16)
[2025-06-17 19:18] LABS: Hematocrit 23.6 % (37-53); Hemoglobin 7.70 g/dL (11.27-16.99)
--- NOTE | 2025-06-17 20:43 | PC.NURSE ---
Nurse hung one new bag at 1949 then one new bag at 2004, the dayshift nurse had already documented on the bags that were currently hanging at the beginning of shift so i did not include these two into the infused amount for shift as they had already been documented.
[2025-06-18] VITALS: BP 109/66; PULSE 72; RESP 16; TEMP 36.6; O2SAT 94
[2025-06-18 01:21] LABS: Hematocrit 23.0 % (37-53); Hemoglobin 7.60 g/dL (11.27-16.99)
[2025-06-18 04:00] VITALS: BP 98/63; PULSE 70; RESP 16; TEMP 36.4; O2SAT 94
[2025-06-18 04:51] LABS: Hematocrit 23.3 % (37-53); Hemoglobin 7.60 g/dL (11.27-16.99); Mean Corpuscular HGB Conc 32.6 g/dL (30-55); Mean Corpuscular Hemoglobin 28.5 pg (27-33); Mean Corpuscular Volume 87.3 fl (82-101); Nucleated Red Blood Cells % 0 %; Platelet Count 124 10^3/cmm (157-399); Red Blood Count 2.67 10^6/uL (3.85-5.65); White Blood Count 6.94 10^3/uL (3.29-11.43)
[2025-06-18 05:13] LABS: Alanine Aminotransferase 62 U/L (0-41); Albumin Level 3.6 g/dL (3.5-5.2); Alkaline Phosphatase 134 U/L (40-130); Anion Gap 17.5 (5-19); Aspartate Amino Transferase 46 U/L (0-40); Blood Urea Nitrogen 43 mg/dL (8-23); Calcium 8.7 mg/dL (8.5-10.5); Carbon Dioxide 24 mmol/L (22-29); Chloride 101 mmol/L (98-107); Globulin 1.9 g/dL (1.3-4.6); Glucose 105 mg/dL (65-115); Osmolality Calculated 299 mOsm/kg (285-295); Potassium 3.5 mmol/L (3.5-5.1); Sodium 139 mmol/L (136-145); Total Protein 5.5 g/dL (6.6-8.7)
[2025-06-18 06:00] VITALS: PULSE 70
[2025-06-18 07:23] VITALS: BP 103/66; PULSE 73; RESP 18; TEMP 36.6; O2SAT 93
--- NOTE | 2025-06-18 08:23 | P.PN_ITS ---
Subjective 2 Subjective: Hospital Day 1 Patient seen at bedside with family present (spouse, niece). Uneventful overnight course. Afebrile. VSS. Overall, hemodynamically stable. Since admission had total of 2 units pRBC transfused. Hgb with stable trend... Hgb 4.60 (admission) -> 7.70 (06/17, post 2 units of pRBC) -> 7.6 -> 7.6. CBI was initiated yesterday, currently maintained at full flow with light pink return. Patient tolerating well without suprapubic pain or bladder spams. Vitals/I&O/Wt Last Vital Signs Temp 97.9 F 06/18/25 07:23 Pulse 73 06/18/25 07:23 Resp 18 06/18/25 07:23 BP 103/66 06/18/25 07:23 Pulse Ox 93 06/18/25 07:23 O2 Del Method Room Air 06/18/25 07:23 06/17/25 06/18/25 06/18/25 22:59 06:59 14:59 Intake Total 3400 / 3750 440 / 4190 Output Total 3050 / 3050 800 / 3850 Balance 350 / 700 -360 / 340 Weight last 48 hrs Weight 73.028 kg Weight 73.028 kg Weight 73.028 kg Physical Exam 2 Narrative: Constitutional * NAD * Frail appearing Neurologic * Awake and alert. Oriented x3. * No facial asymmetry, unilateral weakness or speech deficits. Head * Normocephalic. Atraumatic. Eyes * PERRLA. EOMI. Ears, Nose, Throat * Normal external ears. KOI. * Normal external nose. No epistaxis. * MMM Respiratory * Diminished. * No dyspnea at rest or with conversation. No accessory muscle use. * On room air. Heart / Cardiovascular * Regular * Murmur present Extremities * BLE edema 1+ pitting (improved from yesterday) Abdomen / Gastrointestinal * Soft. Non-tender. Non-distended. + BS. Genitourinary * No suprapubic distention or tenderness * Vogt catheter present, placed in ED (this was discontinued from day prior) * New 3 way catheter compatible with CBI was placed 06/17 * CBI currently infusing with light pink return Musculoskeletal * No gross deformities, asymmetry, swelling or muscle atrophy on observation * No focal TTP over major joint or long bones Skin / Integumentary * Appears less pale today * No rashes, lesioins, ulcerations or open wounds. Urinary Catheter Management: 3-way Urethral CBI: Cath Placed During This Visit: yes Urinary Catheter Date of Insertion: 06/17/25 Urinary Catheter Time of Insertion: 16:14 Data 06/18/25 03:42 06/18/25 03:42 Micro: 06/17/2025 urine culture pending A&P Assessment and plan 1. Gross hematuria: 2. 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 Nonrheumatic aortic valve stenosis: 4. Acute blood loss anemia: Plan: # Gross Hematuria 06/17 CBI started - CBI continued overnight with light pink return Patient tolerating CBI. Hgb has been stable. Will taper down / decrease flow rate of irrigation by half to assess clarity / bleeding * 0819 placed a call to patient's urologist Cat Corea in [place] for further guidance, as no urology available at this facility. He may need to be transferred. Family wishes to go to [facility] only. * 0853 no return call back, placed another page * 0855 spoke with patient's urologist, Cat Corea, who communicated that patient needs to go to an academic center for a urological procedure, as the one he needs is not able to be done at [facility]. 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 * 0900 discussion with calixto, they agreed to go to [facility] * 0910 spoke to transfer team at [facility] and provided detailed information. They provided fax # for face sheet and records, then will update on bed availability. * Patient accepted at , transfer pending # Acute blood loss anemia Variable, ranged 6-11 g/dL in 2024. Presenting HGB 4.6 g/dL. In the setting of hematuria Hx of CAD (s/p CABG) Not on ASA or any other anticoagulation Hemodynamically stable Received a total of 2u RBC transfusion since admission. - Trend Hgb. Currently staying table in 7 gm/dL range after 2u pRBC tranfusion. - Next Hgb at ~1130 - Will plan to transfuse if Hgb comes back < 8 - HOLD cardiac meds at this time (carvedilol, furosemide) # Thrombocytopenia Underlying malignancy - Stable, contnue trending Plt 126 (06/17) -> 124 (06/18) # Recurrent bladder cancer Follows with outpatient urology and oncology in [place] Follows with Nabeel Jo (urology). Discussed patient with her, states [facility]. 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 Treatment has not been initiated at this time. Chela reports pending follow-up with oncology next week. 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 Presenting Cr 4.2 In the setting of hypovolemia / acute blood loss. - Trend renal function, BMP in AM 06/18 slightly improved Cr 4.2 -> 3.8 - Strict I&O's - Optimize volume - Renal precautions Avoid nephrotoxic agents Avoid hypotension Renally dose meds # Abnormal liver enzymes # Shock liver In the setting of hypovolemia and severe anemia 06/18/25 AST 46 ALT 62 ALP 134 T.Bili 2.8 - Worsening in LFTs, suspect shock liver, trend - Optimize volume with blood transfusion # CAD s/p 3v-CABG Denies active chest pain, shortness of breath and other cardiac symptoms. 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 On beta-magi. - Hold BB for now due to risk of hypotension # Aortic stenosis Echo 10/2024: LVEF 55 to 60%. Zcszneag-ld-vobcih with aortic valve area of 0.95 cm2 and mean gradient 27 mmHg. Vmax of 3.74m/s - Stable - Follows with outpatient cardiology VTE PPx w/ SCDs. Pharmacological PPx contraindicated due to active bleeding. PDMP PDMP Reviewed: Not Reviewed Attestations 2 Medical Necessity Statement*: Admitted under inpatient status. Given complexity of patient's presentation, co-morbid conditions, and required intensity of treatment, a hospitalization exceeding two midnights is anticipated. 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
[2025-06-18 11:27] VITALS: BP 94/60; PULSE 73; RESP 18; TEMP 36.7; O2SAT 97
--- NOTE | 2025-06-18 15:57 | PC.NURSE ---
Called report to JUDITH Rosario at [facility]
--- NOTE | 2025-06-18 16:15 | P.DS_ITS ---
Discharge Providers Date of Admission: 06/17/25 12:36 Date of Discharge: June 18, 2025 Attending Provider at Admission: Teo Sommer MD Attending Provider at Discharge: Ruddy Olmos NP Consults: N/A Primary Care Provider: Andry Laurent MD Diagnoses at Discharge Discharge Diagnosis 1. Gross hematuria: 2. 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 Nonrheumatic aortic valve stenosis: 4. Acute blood loss anemia: Other Information Additional DC diagnoses/information: # Gross Hematuria 06/17 CBI started - CBI continued overnight with light pink return Patient tolerating CBI. Hgb has been stable. - Transferred to for urology evaluation # Acute blood loss anemia Baselin variable, ranged 6-11 g/dL in 2024. Presenting HGB 4.6 g/dL. In the setting of hematuria and bladder malignancy Hx of CAD (s/p CABG) Not on ASA or any other anticoagulation prior to admission Hemodynamically stable Received a total of 2u RBC transfusion since admission. Receive 40 mg IV furosemide between transfusions # Recurrent bladder cancer Follows with outpatient urology and oncology in [place] Follows with Nabeel Jo (urology). Discussed patient with her, states he need to go to [facility] for a urological procedure. 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 Treatment has not been initiated at this time. 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 Presenting Cr 4.2 In the setting of hypovolemia / acute blood loss. - Trend renal function, requires close monitoring 06/18 slightly improved Cr 4.2 -> 3.8 - Renal precautions # Abnormal liver enzymes # Shock liver In the setting of hypovolemia and severe anemia 06/18/25 AST 46 ALT 62 ALP 134 T.Bili 2.8 - Worsening in LFTs, suspect shock liver - Optimize volume with blood transfusion # CAD s/p 3v-CABG Denies active chest pain, shortness of breath and other cardiac symptoms. [employer] not on ASA or statin. Does receive Repatha. On beta-magi. - Hold BB for now due to risk of hypotension # Aortic stenosis Echo 10/2024: LVEF 55 to 60%. [id number]-tf-[id number] with aortic valve area of 0.95 cm2 and mean gradient 27 mmHg. Vmax of 3.74m/s - Stable - Follows with outpatient cardiology Reason for Visit Reason for Visit: Generalized weakness. Brief History: Patient presented out of concern for progressive generalized weakness, which acutely worsened the 3 days prior to admission. This is associated with a history of persistent hematuria, which also became notably worse over the preceding 3 days. Hospital Course Hospital Course Upon admission, the patient was found to be severely anemic with an initial hemoglobin of 4.6 g/dl. He was stabilized and received a total of 2 units of pRBCs. Following transfusion hemoglobin improved to 7.7 g/dL, where it remained stable over subsequent to lab draws. In regard to hematuria, continuous bladder irrigation was initiated. The CBI was maintained with light pink return. Patient tolerated CBI without complications of bladder spasms, suprapubic pain, clots or obstruction. Patient remained hemodynamically stable. His home BP meds were held during this hospitalization. Given absence of urology in the facility and further need to investigate hematuria in the setting of recurrent bladder cancer, and with input from patient's urologist in [place], decision was made to transfer patient to an academic center / higher level of care with multi-specialty support. Physical Exam Narrative: Constitutional * NAD * Frail appearing Neurologic * Awake and alert. Oriented x3. * No facial asymmetry, unilateral weakness or speech deficits. Head * Normocephalic. Atraumatic. Eyes * PERRLA. EOMI. Ears, Nose, Throat * Normal external ears. [place]. * Normal external nose. No epistaxis. * MMM Respiratory * Diminished. * No dyspnea at rest or with conversation. No accessory muscle use. * On room air. Heart / Cardiovascular * Regular * Murmur present Extremities * BLE edema 1+ pitting (improved from yesterday) Abdomen / Gastrointestinal * Soft. Non-tender. Non-distended. + BS. Genitourinary * No suprapubic distention or tenderness * Vogt catheter present, placed in ED (this was discontinued from day prior) * New 3 way catheter compatible with CBI was placed 06/17 * CBI currently infusing with light pink return Musculoskeletal * No gross deformities, asymmetry, swelling or muscle atrophy on observation * No focal TTP over major joint or long bones Skin / Integumentary * Appears less pale today * No rashes, lesioins, ulcerations or open wounds. Urinary Catheter Management: 3-way Urethral CBI: Cath Placed During This Visit: yes Urinary Catheter Date of Insertion: 06/17/25 Urinary Catheter Time of Insertion: 16:14 Discharge Data Studies Completed and Pending Pending at discharge Category Date Time Status Urine Culture Stat Lab 06/17/25 11:08 Results Laboratory Results WBC 6.94 10^3/uL (3.29-11.43) 06/18/25 03:42 RBC 2.67 10^6/uL (3.85-5.65) L 06/18/25 03:42 Hgb 7.60 g/dL (11.27-16.99) L 06/18/25 03:42 Hct 23.3 % (37-53) L 06/18/25 03:42 MCV 87.3 fl (82-101) 06/18/25 03:42 MCH 28.5 pg (27-33) 06/18/25 03:42 MCHC 32.6 g/dL (30-55) D 06/18/25 03:42 RDW 15.9 % (12.1-15.1) H 06/18/25 03:42 Plt Count 124 10^3/cmm (157-399) L 06/18/25 03:42 MPV 10.8 fL (7.4-10.4) H 06/18/25 03:42 Neut % (Auto) 64.3 % 06/18/25 03:42 Lymph % (Auto) 23.9 % 06/18/25 03:42 [place] % (Auto) 9.5 % 06/18/25 03:42 Eos % (Auto) 1.4 % 06/18/25 03:42 Baso % (Auto) 0.3 % 06/18/25 03:42 Neut # (Auto) 4.46 10^3/uL (1.8-7.7) 06/18/25 03:42 Lymph # (Auto) 1.7 10^3/uL (0.8-4.8) 06/18/25 03:42 [place] # (Auto) 0.7 10^3/uL (0.2-0.9) 06/18/25 03:42 Eos # (Auto) 0.1 10^3/uL (0.0-0.8) 06/18/25 03:42 Baso # (Auto) 0.0 10^3/uL (0.0-0.1) 06/18/25 03:42 Nucleated RBC % (auto) 0 % 06/18/25 03:42 Nucleated RBCs # 0.0 /100WBC 06/18/25 03:42 Sodium 139 mmol/L (136-145) 06/18/25 03:42 Potassium 3.5 mmol/L (3.5-5.1) 06/18/25 03:42 Chloride 101 mmol/L (98-107) 06/18/25 03:42 Carbon Dioxide 24 mmol/L (22-29) 06/18/25 03:42 Anion Gap 17.5 (5-19) 06/18/25 03:42 BUN 43 mg/dL (8-23) H 06/18/25 03:42 Creatinine 3.8 mg/dL (0.7-1.2) H 06/18/25 03:42 GFR Calculation Not Reportable 06/18/25 03:42 Glucose 105 mg/dL (65-115) 06/18/25 03:42 Calculated Osmolality 299 mOsm/kg (285-295) H 06/18/25 03:42 Calcium 8.7 mg/dL (8.5-10.5) 06/18/25 03:42 Total Bilirubin 2.8 mg/dL (0.15-1.2) H 06/18/25 03:42 AST 46 U/L (0-40) H 06/18/25 03:42 ALT 62 U/L (0-41) H 06/18/25 03:42 Alkaline Phosphatase 134 U/L (40-130) H 06/18/25 03:42 Total Protein 5.5 g/dL (6.6-8.7) L 06/18/25 03:42 Albumin 3.6 g/dL (3.5-5.2) 06/18/25 03:42 Globulin 1.9 g/dL (1.3-4.6) 06/18/25 03:42 Urine Color Red (Yellow) A 06/17/25 11:08 Urine Appearance Turbid (CLEAR) A 06/17/25 11:08 Urine pH 7.5 (5-7) 06/17/25 11:08 Ur Specific [place] 1.009 (1.005-1.030) 06/17/25 11:08 Urine Protein 3+ (Negative) A 06/17/25 11:08 Urine Glucose (UA) Negative (Normal) 06/17/25 11:08 Urine Ketones Negative (Negative) 06/17/25 11:08 Urine Blood 3+ (Negative) A 06/17/25 11:08 Urine Nitrate Negative (Negative) 06/17/25 11:08 Urine Bilirubin 1+ (Negative) H 06/17/25 11:08 Urine Urobilinogen 0.2 mg/dL (Negative) 06/17/25 11:08 Ur Leukocyte Esterase 1+ (Negative) A 06/17/25 11:08 Urine RBC >100 /hpf (0-2) H 06/17/25 11:08 Urine WBC 11-20 /hpf (0-5) H 06/17/25 11:08 Ur Squamous Epith Cells 0-5 /hpf (0-5) 06/17/25 11:08 Amorphous Sediment Not Reportable 06/17/25 11:08 Urine Bacteria Trace /hpf (NONE) 06/17/25 11:08 Hyaline Casts 0-4 /lpf H 06/17/25 11:08 Blood Type A Positive 06/17/25 10:35 Rho(D) Type Rh positive 06/17/25 10:35 Antibody Screen Negative 06/17/25 10:35 Crossmatch See Detail 06/17/25 10:35 Vitals Last Vital Signs Temp 98.0 F 06/18/25 11:27 Pulse 73 06/18/25 11:27 Resp 18 06/18/25 11:27 BP 94/60 06/18/25 11:27 Pulse Ox 97 06/18/25 11:27 O2 Del Method Room Air 06/18/25 11:27 Discharge Plan Discharge Patient Disposition: Xfer Short-Term Hosp Condition: Stable Prescriptions: No Action magnesium oxide 400 mg magnesium capsule 400 mg PO DAILY Centrum Silver Men 300-600-300 mcg tablet 1 tab PO DAILY cholecalciferol (vitamin D3) 25 mcg (1,000 unit) capsule 25 mcg PO DAILY pantoprazole 40 mg tablet,delayed release (DR/EC) 40 mg PO DAILY furosemide 40 mg tablet 40 mg PO DAILY potassium chloride 10 mEq capsule, extended release 10 meq PO DAILY carvedilol 3.125 mg tablet 3.125 mg PO BID Qty: 90 3RF alfuzosin 10 mg tablet extended release 24 hr 10 mg PO BEDTIME Repatha SureClick 140 mg/mL pen injector 140 mg SUBCUT Q14D acetaminophen [Tylenol] 325 mg Tablet 650 mg PO QID PRN (Reason: Fever Or Pain) aspirin 81 mg tablet 81 mg PO DAILY Qty: 30 0RF hydrocodone-acetaminophen 5-325 mg tablet 1 tab PO Q6H PRN (Reason: Pain) finasteride 5 mg tablet 5 mg PO DAILY Discharge Order = DC NOW: Discharge Order (Routine); Ordered 06/18/25 Ordered By: Ruddy lOmos Referrals: Andry Laurent MD [Primary Care Provider, [facility]] Patient Instructions: Opioid Safety, Patient Portal & [place] Instructions Discharge Attestations Time Spent in Discharge Care*: greater than 30 min Quality Metrics Clinical Quality Measures [ No reported AMI, CVA or VTE this stay] Coding Level of Care Code 57866 Diagnoses Gross hematuria R31.0 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
== END 2025-06-18 15:30 | disposition short-term general hospital (02) | DRG 686 ==
LOC: ER 12:48 → MEDSURG 14:12
PROVIDERS: Admitting Provider Internal Medicine; Emergency Provider Emergency Medicine; PCP Family Medicine; Visit Provider Nurse Practitioner Gerontology
DX: C67.9 Malignant neoplasm of bladder, unspecified (principal); K72.00 Acute and subacute hepatic failure without coma; D62 Acute posthemorrhagic anemia; N17.9 Acute kidney failure, unspecified; N18.4 Chronic kidney disease, stage 4 (severe); R31.0 Gross hematuria; I35.0 Nonrheumatic aortic (valve) stenosis; I12.9 Hypertensive chronic kidney disease with stage 1 through stage 4 chronic kidney disease, or unspecified chronic kidney disease; E86.1 Hypovolemia; I25.10 Atherosclerotic heart disease of native coronary artery without angina pectoris; N40.1 Benign prostatic hyperplasia with lower urinary tract symptoms; I71.40 Abdominal aortic aneurysm, without rupture, unspecified; E78.5 Hyperlipidemia, unspecified; D69.6 Thrombocytopenia, unspecified; I65.23 Occlusion and stenosis of bilateral carotid arteries; Z79.82 Long term (current) use of aspirin; Z95.1 Presence of aortocoronary bypass graft; Z85.46 Personal history of malignant neoplasm of prostate; Z92.3 Personal history of irradiation; Z82.49 Family history of ischemic heart disease and other diseases of the circulatory system
CPT/HCPCS: 36415; 36430; 80053; 81001; 85014; 85018; 85025; 86850; 86900; 86920; 87086; 93005; 96360; 99285; J1938; J9999; P9016